=== PATIENT | female | born 1965 ===

== ENCOUNTER 2020-01-25 10:38 | Outpatient (REF) | payer OTHER, SELFPAY ==
--- NOTE | 2020-01-25 10:44 | XR_ITS ---
EXAMINATION: BILATERAL KNEE X-RAY CLINICAL INFORMATION: Arthritis COMPARISON: Previous x-ray June 2017 TECHNIQUE: 3 views of each knee FINDINGS: Right: Bone alignment is normal. No fracture or dislocation is seen. There are small osteophytes at the patellofemoral joint. Joint spaces are otherwise normal. There is no joint effusion. Left: Bone alignment is normal. No fracture or dislocation is seen. There are small osteophytes at the patellofemoral joint. Joint spaces are otherwise normal. There is no joint effusion. XR/XR knee standing BI IMPRESSION: Small osteophytes at the patellofemoral joint otherwise unremarkable exam.
--- NOTE | 2020-01-25 10:44 | XR_ITS ---
EXAMINATION: BILATERAL KNEE X-RAY CLINICAL INFORMATION: Arthritis COMPARISON: Previous x-ray June 2017 TECHNIQUE: 3 views of each knee FINDINGS: Right: Bone alignment is normal. No fracture or dislocation is seen. There are small osteophytes at the patellofemoral joint. Joint spaces are otherwise normal. There is no joint effusion. Left: Bone alignment is normal. No fracture or dislocation is seen. There are small osteophytes at the patellofemoral joint. Joint spaces are otherwise normal. There is no joint effusion. XR/XR knee LT 2V IMPRESSION: Small osteophytes at the patellofemoral joint otherwise unremarkable exam.
--- NOTE | 2020-01-25 10:44 | XR_ITS ---
EXAMINATION: BILATERAL KNEE X-RAY CLINICAL INFORMATION: Arthritis COMPARISON: Previous x-ray June 2017 TECHNIQUE: 3 views of each knee FINDINGS: Right: Bone alignment is normal. No fracture or dislocation is seen. There are small osteophytes at the patellofemoral joint. Joint spaces are otherwise normal. There is no joint effusion. Left: Bone alignment is normal. No fracture or dislocation is seen. There are small osteophytes at the patellofemoral joint. Joint spaces are otherwise normal. There is no joint effusion. XR/XR knee RT 2V IMPRESSION: Small osteophytes at the patellofemoral joint otherwise unremarkable exam.
== END 2020-01-25 10:39 | disposition home or self-care (01) ==
LOC: HO.HOSX 10:38
PROVIDERS: PCP Internal Medicine; Referring Provider Internal Medicine; Visit Provider Orthopaedic Surgery
DX: M17.0 Bilateral primary osteoarthritis of knee (principal); Z79.899 Other long term (current) drug therapy
CPT/HCPCS: 20610; 73560; 73565; 99212; J1100

== ENCOUNTER 2020-02-10 07:58 | Outpatient (RCR) | payer OTHER, SELFPAY ==
--- NOTE | 2020-02-10 09:20 | MHC.PT.EP ---
[facility] [place] Office [place] Office [place] Office [address] Ivelisse Armijo [address] [phone] F: [phone] F: [phone] F: [phone] F: [phone] Physical Therapy Plan of Care Date of Evaluation: 02/10/20 Date of Surgery: NA Diagnosis: Unilateral primary OA, unspecified knee unilateral primary OA, unspecified knee Assessment: 54 year old female referred for Unilateral primary OA, unspecified knee unilateral primary OA, unspecified knee . Pt reports of having h/o chronic knee pain which has gotten worse recently. She has had PT in the past but had no relief in pain. Examination reveals 0/10 pain at rest and 5/10 pain with prolonged sitting, standing, walking more than 25 minutes, and stair negotiation, decreased muscle strength, and altered posture. She is independent with all ADLS but has pain with them and modifies them as needed. 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 She is a good candidate for PT based on age, goals, physical impairments and functional limitations. She would benefit from PT to decrease pain, improve ROM, increase muscle strength, postural correction and functional training. Frequency and Duration: The patient will be seen 2/week for 5 weeks. Short Term Goals: 1. Pt will have 50% decrease in pain in 2 weeks. 2. Pt will be able to walk for 30 minutes and negotiate stairs with a pain no more than 2/10 in 3 weeks. Clinical Education Consultant Goals: 1. Pt will be able to perform all ADLS without pain in 4 weeks. 2. Pt will be able to perform work activities- driving without pain in 5 weeks. Treatment Plan: Modalities to reduce pain, spasms and effusion. Manual therapy to restore motion and function. Therapeutic exercise to improve strength and flexibility. Neuromuscular re-education for posture and balance. Therapeutic activities to return to functional activities of daily living. Please sign and return to therapist. Thank you for your referral.
--- NOTE | 2020-03-07 08:53 | MHC.PT.DC ---
[facility] [place] Office [place] Office [place] Office [address] [phone] F: [phone] F: [phone] F: [phone] F: [phone] Physical Therapy Discharge Report Diagnosis: Unilateral primary OA, unspecified knee unilateral primary OA, unspecified knee Date of Surgery: NA Date of Evaluation: 02/10/20 Date of Discharge: 03/07/20 Treatments to Date: 1 Cancellations to Date: 0 No Shows to Date: 0 Discharge Status: Patient Elected to Stop Discharge Summary: Pt did not come to therapy since her evaluation due to co-pay. Pt was called and recommended coming in for one more visit for HEPs however pt no showed for that appointment. Pt therefore d/c from therapy. Electronically signed by: Jovana Ayala DPT Please sign and return to therapist. Thank you for your referral.
== END 2020-03-07 08:53 | disposition other institution (70) ==
LOC: HO.PT 07:58
PROVIDERS: PCP Internal Medicine; Visit Provider Orthopaedic Surgery
DX: M17.10 Unilateral primary osteoarthritis, unspecified knee (principal)
CPT/HCPCS: 97110; 97161

== ENCOUNTER 2020-08-22 07:44 | Outpatient (REF) | payer OTHER, SELFPAY ==
[2020-08-22 08:43] LABS: MANUAL DIFF FLAG NO
[2020-08-22 08:49] LABS: Basophils Percent Auto 0.4 % (0-2); Eosinophils Absolute Auto 0.2 X10*3/uL (0.0-0.4); Eosinophils Percent Auto 2.3 % (0-4); Hematocrit 43.1 % (37-47); Hemoglobin 13.7 g/dl (12.0-16.0); Imm Gran Abs Auto 0.02 X10*3/uL (0.00-0.03); Imm Gran Pct Auto 0.3 % (0.0-0.4); Lymphocytes Absolute Auto 2.6 X10*3/uL (1.2-4.9); Lymphocytes Percent Auto 36.5 % (20-40); Mean Corpuscular HGB Conc 31.8 g/dl (31.0-35.0); Mean Corpuscular Hemoglobin 28.3 pg (27.0-33.0); Mean Platelet Volume 11.8 fL (9.4-12.3); Monocytes Absolute Auto 0.4 X10*3/uL (0.1-1.2); Neutrophils Absolute Auto 3.9 X10*3/uL (2.0-8.3); Neutrophils Percent Auto 54.5 % (45-73); Platelet Count 324 X10*3/uL (160-400); Red Blood Count 4.84 X10*6/uL (4.20-5.50); Red Cell Distribution Width 14.7 % (11.0-16.0); White Blood Count 7.1 X10*3/uL (4.8-10.8)
[2020-08-22 09:23] LABS: Alanine Aminotransferase 30 U/L (0-31); Albumin Level 4.1 g/dL (3.5-5.0); Alkaline Phosphatase 121 U/L (39-117); Anion Gap 15 (12-20); Aspartate Amino Transferase 20 U/L (5-31); Bilirubin Total 0.6 mg/dL (0.0-1.0); Blood Urea Nitrogen 10 mg/dL (9-16); Calcium 9.5 mg/dL (8.4-10.2); Carbon Dioxide 25 mmol/L (22-29); Chloride 107 mmol/L (96-108); Cholesterol 197 mg/dL; Estimated Glomerular Filt Rate > 60; Glucose Random 127 mg/dL (60-115); HDL Cholesterol 35 mg/dL; LDL Cholesterol Calculated 112 mg/dl; Potassium 4.7 mmol/L (3.3-5.1); Sodium 142 mmol/L (135-145); Total Protein 7.1 g/dL (6.5-8.0); Triglycerides 250 mg/dL
== END 2020-08-22 07:45 | disposition home or self-care (01) ==
LOC: HO.LAB 07:44
PROVIDERS: PCP Internal Medicine; Visit Provider Internal Medicine
DX: Z00.00 Encounter for general adult medical examination without abnormal findings (principal); R21 Rash and other nonspecific skin eruption; E78.2 Mixed hyperlipidemia; M79.672 Pain in left foot
CPT/HCPCS: 36415; 80053; 80061; 85025

== ENCOUNTER 2020-09-06 12:32 | Outpatient (REF) | payer OTHER, SELFPAY | END 2020-09-06 12:33 | disposition home or self-care (01) | LOC: HO.LAB 12:32 | PROVIDERS: PCP Internal Medicine; Visit Provider Internal Medicine | DX: Z20.822 Contact with and (suspected) exposure to COVID-19 (principal) | CPT/HCPCS: C9803; U0003; U0005 ==

== ENCOUNTER 2020-10-17 10:35 | Emergency (ER) | payer OTHER, SELFPAY ==
--- NOTE | ~2020-10-17 | CT_ITS ---
EXAMINATION: CT ABDOMEN AND PELVIS WITH CONTRAST CLINICAL INFORMATION: Left lower quadrant pain. Rule out diverticulitis. COMPARISON: 06/05/2018 TECHNIQUE: Multidetector volumetric images were obtained from the superior aspect of the liver through the pubic symphysis following administration 85 mL of Omnipaque 350 intravenous contrast. Sagittal and coronal reformatted images were obtained on the technologist's workstation. Oral contrast: No This CT examination was performed using dose optimization techniques as appropriate, variously including the following: *Automated exposure control *Adjustment of mA and/or kV according to patient size (this includes techniques or standardized protocols for targeted exams where dose is matched to indication/reason for exam; i.e. extremities or head) *Use of iterative reconstruction technique DLP: 600 mGy-cm FINDINGS: LUNG BASES: Mild dependent atelectasis. LIVER, GALLBLADDER, AND BILIARY TREE: Relative hypoattenuation of the hepatic parenchyma is consistent with steatosis. There is focal fatty sparing around the gallbladder fossa. Liver is borderline enlarged. Contour is normal. No biliary ductal dilatation or suspicious hepatic lesions. The gallbladder is unremarkable with no evidence of radiopaque gallstones, gallbladder wall thickening, or obvious pericholecystic inflammatory changes. PANCREAS: Unremarkable. SPLEEN: Unremarkable. ADRENAL GLANDS: Unremarkable. KIDNEYS AND URETERS: The kidneys are normal in size, shape, and attenuation. No hydronephrosis, hydroureter, or calculi seen. No perinephric stranding. BLADDER: Unremarkable. GASTROINTESTINAL TRACT: There is moderate diverticulosis in the descending colon with focal peridiverticular fat stranding at the posterior aspect of the distal descending colon. No surrounding fluid collections. No intraperitoneal free air. Chain camelia are present at the region of the rectosigmoid junction, demonstrated free fluid. Numerous surgical clips are present in the anterior aspect of the abdomen. ABDOMINAL WALL: Postsurgical changes are present of the lateral abdominal wall in the lower abdomen. No hernias. LYMPH NODES: Normal. VASCULAR: Atherosclerotic calcifications are present in the abdominal aorta and iliac arteries. No aneurysmal dilatation. PELVIC VISCERA: Uterus is normal in appearance. No adnexal lesions are identified. OSSEOUS STRUCTURES: No acute osseous findings. Mild osteoarthritis in the hips. CT/CT abdomen pelvis w con IMPRESSION: 1. Acute uncomplicated diverticulitis in the sigmoid colon without perforation or abscess. 2. Hepatic steatosis.
[2020-10-17 11:12] VITALS: BP 133/80; PULSE 94; RESP 18; TEMP 36.8; O2SAT 96; BMI 34.0
--- NOTE | 2020-10-17 16:26 | ED_ITS ---
HPI - Abdominal Pain General Chief Complaint: Abdominal Pain Stated Complaint: diverticulites Time Seen by Provider: 10/17/20 16:17 Source: patient Mode of arrival: ambulatory Limitations: no limitations History of Present Illness HPI narrative: 55-year-old female with a past medical history of high cholesterol, diverticulitis status post partial colon resection by Dr. Hunt here with complaints of left-sided abdominal pain for 3-4 days with associated diarrhea and nausea on Saturday had an isolated temp of 101 degrees. No vomiting. No urinary symptoms. History of diverticulitis and feels similar Related Data Home Medications Medication Instructions Recorded Confirmed rosuvastatin 10 mg tablet (Crestor) 10 mg PO DAILY 01/25/20 01/25/20 Previous Rx's Medication Instructions Recorded levofloxacin 750 mg tablet 750 mg PO DAILY 7 Days #7 tab 10/17/20 metronidazole 500 mg tablet 500 mg PO TID #21 tab 10/17/20 (Flagyl) ondansetron 4 mg disintegrating 4 mg PO Q6H PRN #10 tab 10/17/20 tablet tramadol 50 mg tablet 50 mg PO Q6H PRN #12 tab 10/17/20 Allergies Allergy/AdvReac Type Severity Reaction Status Date / Time morphine [Morphine] Allergy Severe ANAPHYLAXIS Verified 10/17/20 11:11 oxycodone [Percocet] Allergy Severe Anaphylaxis Verified 10/17/20 11:11 hydrocodone [From Vicodin] Allergy Intermediate ANAPHYLAXIS Verified 10/17/20 11:11 shrimp [SHRIMP] Allergy Intermediate Swelling Verified 10/17/20 11:11 Review of Systems Review of Systems Yes all other systems are reviewed and are negative Constitutional: Reports no additional constitutional complaints, Denies body ache(s), Denies chills, Reports fever(s), Denies headache(s) and Denies weakness Eyes: Reports no additional eye complaints and Denies change in vision Reports system reviewed and no additional complaints, except as documented, Denies dizziness, Denies headache(s), Denies nasal congestion, Denies nasal discharge and Denies neck pain Cardiovascular: Reports no additional cardiovascular complaints, Denies chest pain, Denies leg edema and Denies dyspnea Respiratory: Reports no additional respiratory complaints, Denies cough and Denies dyspnea Gastrointestinal: Reports no additional gastrointestinal complaints, Reports abdominal pain, Reports diarrhea, Reports nausea and Denies vomiting Genitourinary: Reports no additional female genitourinary complaints and Denies urinary incontinence Musculoskeletal: Reports no additional musculoskeletal complaints, Denies back pain, Denies arthralgias, Denies joint swelling, Denies neck pain, Denies n umbness and Denies tingling Skin/Breast: Reports system reviewed and no additional complaints, except as docu and Denies rash Reports system reviewed and no additional complaints, except as documented, Denies Abnormal speech present, Denies dizziness, Denies headache(s), Denies numbness, Denies tingling and Denies weakness Physical Exam Vital Signs: Vital Signs: Last Vital Signs Temp 97.6 F 10/17/20 17:07 Pulse 80 10/17/20 18:28 Resp 16 10/17/20 18:28 BP 113/71 10/17/20 18:28 Pulse Ox 98 10/17/20 18:28 Body Mass Index 34.0 Const: General: cooperative, healthy appearing, comfortable and no acute distress Orientation/consciousness: patient oriented x3 Limitations: no limitations HENMT: Head: Yes normal to inspection Ears: hearing grossly normal bilaterally General nose exam: Normal external nose present Face and sinus: Yes normal facial exam Mouth: Normal oral and palatal mucosa present Throat: Yes posterior oropharynx normal Eyes: General: appearance normal, both eyes and all related structures Pupils: Equal, round and reactive pupils present Neck: Neck: Yes normal visual inspection Chest: Chest palpation & inspection: normal inspection of the chest Resp: Effort & Inspection: normal respiratory effort Auscultation: clear to auscultation bilaterally Cardio: Rate: regular rate Rhythm: regular rhythm Peripheral pulses: Peripheral pulses 2+ throughout GI: Inspection: Yes normal to inspection Palpation (GI): Soft to palpation and Tenderness to palpation present (GI) (Moderately tender left lower quadrant with guarding) Auscultation: normal bowel sounds : General: Yes no CVA tenderness Back/Spine/Pelvis: Back: no CVA tenderness Thoracic/Lumbar Spine: thoracic and lumbar spine normal to inspection Skin: General skin exam: no rashes or lesions noted Neuro: General: patient oriented x3, no focal motor deficits and normal sensation to monofilament Cranial nerves: Yes Equal, round and reactive pupils present Cognition (Neuro): normal cognition Speech: No Abnormal speech present Gait exam (Neuro): Normal gait present Motor exam (neuro): 5/5 motor strength present throughout Extrem: General: Yes normal to inspection Course Course Course Narrative: 55-year-old female here with complaints of several days of left lower quadrant abdominal pain with associated nausea and diarrhea with an isolated fever of 101. History of diverticulitis and feels similar. On exam a moderate tenderness over the left lower quadrant with some guarding. Hemodynamically stable. Will check labs, UA, CT. Will provide analgesia and antiemetic and reassess. 1940-CT consistent with uncomplicated diverticulitis. No fever or leukocytosis. Patient tolerating p.o.. She does still have some mild discomfort but feels like she can go home and manages at home with pain medicine. Reviewed worrisome signs and symptoms of when to return to the emergency department. Comfortable discharge home. MDM - Abdominal Pain Differential Diagnosis Differential diagnosis: Likely abdominal pain, bowel perforation, diverticulitis and pancreatitis Medical Records Attestation: I reviewed the patient's medical records. Lab Data Attestation: I reviewed the patient's lab results. Result diagrams: 10/17/20 16:50 10/17/20 16:50 Labs: Lab Results 10/17/20 10/17/20 10/17/20 Range/Units 16:50 16:50 16:50 WBC 9.2 (4.8-10.8) X10*3/uL RBC 4.51 (4.20-5.50) X10*6/uL Hgb 12.9 (12.0-16.0) g/dl Hct 39.6 (37-47) % MCV 87.8 (80-98) fL MCH 28.6 (27.0-33.0) pg MCHC 32.6 (31.0-35.0) g/dl RDW 14.6 (11.0-16.0) % Plt Count 326 (160-400) X10*3/uL MPV 11.2 (9.4-12.3) fL Immature Gran % (Auto) 0.4 (0.0-0.4) % Neut % (Auto) 54.8 (45-73) % Lymph % (Auto) 35.8 (20-40) % [place] % (Auto) 6.3 (2-11) % Eos % (Auto) 2.3 (0-4) % Baso % (Auto) 0.4 (0-2) % Lymph # (Auto) 3.3 (1.2-4.9) X10*3/uL [place] # (Auto) 0.6 (0.1-1.2) X10*3/uL Eos # (Auto) 0.2 (0.0-0.4) X10*3/uL Baso # (Auto) 0.0 (0.0-0.2) X10*3/uL Abs Immat Gran (auto) 0.04 H (0.00-0.03) X10*3/uL Absolute Neuts (auto) 5.0 (2.0-8.3) X10*3/uL Absolute Nucleated RBC 0.000 (0.0-0.012) X10*3/uL Nucleated RBC % (auto) 0.0 (0.0-0.2) /100WBC Sodium 139 (135-145) mmol/L Potassium 4.3 (3.3-5.1) mmol/L Chloride 103 (96-108) mmol/L Carbon Dioxide 22 (22-29) mmol/L Anion Gap 18 (12-20) BUN 9 (9-16) mg/dL Creatinine 0.70 (0.5-1.4) mg/dL Estim Creat Clear Calc 87.9 Estimated GFR > 60 Random Glucose 105 (60-115) mg/dL Lactic Acid (0.5-2.0) mmol/L Calcium 9.8 (8.4-10.2) mg/dL Magnesium 2.1 (1.6-2.6) mg/dL Total Bilirubin 0.4 (0.0-1.0) mg/dL Direct Bilirubin 0.2 (0.0-0.5) mg/dL AST 25 (5-31) U/L ALT 38 H (0-31) U/L Alkaline Phosphatase 113 (39-117) U/L Total Protein 7.5 (6.5-8.0) g/dL Albumin 4.2 (3.5-5.0) g/dL Lipase (8-78) U/L Urine Color Urine Appearance Urine pH (5.0-8.0) Ur Specific [place] (1.005-1.025) Urine Protein (NEG-TRACE) MG/DL Urine Glucose (UA) (NEG) MG/DL Urine Ketones (NEG) MG/DL Urine Blood (NEG) Urine Nitrite (NEG) Ur Leukocyte Esterase (NEG) Urine Test (NEGATIVE) Coronavirus (PCR) (Negative) Influenza Type A (PCR) (Negative) Influenza Type B (PCR) (Negative) RSV RNA Qual (PCR) (Negative) 10/17/20 10/17/20 10/17/20 Range/Units 16:50 16:50 16:50 WBC (4.8-10.8) X10*3/uL RBC (4.20-5.50) X10*6/uL Hgb (12.0-16.0) g/dl Hct (37-47) % MCV (80-98) fL MCH (27.0-33.0) pg MCHC (31.0-35.0) g/dl RDW (11.0-16.0) % Plt Count (160-400) X10*3/uL MPV (9.4-12.3) fL Immature Gran % (Auto) (0.0-0.4) % Neut % (Auto) (45-73) % Lymph % (Auto) (20-40) % [place] % (Auto) (2-11) % Eos % (Auto) (0-4) % Baso % (Auto) (0-2) % Lymph # (Auto) (1.2-4.9) X10*3/uL [place] # (Auto) (0.1-1.2) X10*3/uL Eos # (Auto) (0.0-0.4) X10*3/uL Baso # (Auto) (0.0-0.2) X10*3/uL Abs Immat Gran (auto) (0.00-0.03) X10*3/uL Absolute Neuts (auto) (2.0-8.3) X10*3/uL Absolute Nucleated RBC (0.0-0.012) X10*3/uL Nucleated RBC % (auto) (0.0-0.2) /100WBC Sodium (135-145) mmol/L Potassium (3.3-5.1) mmol/L Chloride (96-108) mmol/L Carbon Dioxide (22-29) mmol/L Anion Gap (12-20) BUN (9-16) mg/dL Creatinine (0.5-1.4) mg/dL Estim Creat Clear Calc Estimated GFR Random Glucose (60-115) mg/dL Lactic Acid 1.5 (0.5-2.0) mmol/L Calcium (8.4-10.2) mg/dL Magnesium (1.6-2.6) mg/dL Total Bilirubin (0.0-1.0) mg/dL Direct Bilirubin (0.0-0.5) mg/dL AST (5-31) U/L ALT (0-31) U/L Alkaline Phosphatase (39-117) U/L Total Protein (6.5-8.0) g/dL Albumin (3.5-5.0) g/dL Lipase 13 (8-78) U/L Urine Color Urine Appearance Urine pH (5.0-8.0) Ur Specific [place] (1.005-1.025) Urine Protein (NEG-TRACE) MG/DL Urine Glucose (UA) (NEG) MG/DL Urine Ketones (NEG) MG/DL Urine Blood (NEG) Urine Nitrite (NEG) Ur Leukocyte Esterase (NEG) Urine Test (NEGATIVE) Coronavirus (PCR) NEGATIVE (Negative) Influenza Type A (PCR) NEGATIVE (Negative) Influenza Type B (PCR) NEGATIVE (Negative) RSV RNA Qual (PCR) NEGATIVE (Negative) 10/17/20 10/17/20 Range/Units 18:29 18:29 WBC (4.8-10.8) X10*3/uL RBC (4.20-5.50) X10*6/uL Hgb (12.0-16.0) g/dl Hct (37-47) % MCV (80-98) fL MCH (27.0-33.0) pg MCHC (31.0-35.0) g/dl RDW (11.0-16.0) % Plt Count (160-400) X10*3/uL MPV (9.4-12.3) fL Immature Gran % (Auto) (0.0-0.4) % Neut % (Auto) (45-73) % Lymph % (Auto) (20-40) % [place] % (Auto) (2-11) % Eos % (Auto) (0-4) % Baso % (Auto) (0-2) % Lymph # (Auto) (1.2-4.9) X10*3/uL [place] # (Auto) (0.1-1.2) X10*3/uL Eos # (Auto) (0.0-0.4) X10*3/uL Baso # (Auto) (0.0-0.2) X10*3/uL Abs Immat Gran (auto) (0.00-0.03) X10*3/uL Absolute Neuts (auto) (2.0-8.3) X10*3/uL Absolute Nucleated RBC (0.0-0.012) X10*3/uL Nucleated RBC % (auto) (0.0-0.2) /100WBC Sodium (135-145) mmol/L Potassium (3.3-5.1) mmol/L Chloride (96-108) mmol/L Carbon Dioxide (22-29) mmol/L Anion Gap (12-20) BUN (9-16) mg/dL Creatinine (0.5-1.4) mg/dL Estim Creat Clear Calc Estimated GFR Random Glucose (60-115) mg/dL Lactic Acid (0.5-2.0) mmol/L Calcium (8.4-10.2) mg/dL Magnesium (1.6-2.6) mg/dL Total Bilirubin (0.0-1.0) mg/dL Direct Bilirubin (0.0-0.5) mg/dL AST (5-31) U/L ALT (0-31) U/L Alkaline Phosphatase (39-117) U/L Total Protein (6.5-8.0) g/dL Albumin (3.5-5.0) g/dL Lipase (8-78) U/L Urine Color YELLOW Urine Appearance CLEAR Urine pH 5.5 (5.0-8.0) Ur Specific [place] 1.010 (1.005-1.025) Urine Protein NEG (NEG-TRACE) MG/DL Urine Glucose (UA) NEG (NEG) MG/DL Urine Ketones NEG (NEG) MG/DL Urine Blood NEG (NEG) Urine Nitrite NEG (NEG) Ur Leukocyte Esterase NEG (NEG) Urine Test NEGATIVE (NEGATIVE) Coronavirus (PCR) (Negative) Influenza Type A (PCR) (Negative) Influenza Type B (PCR) (Negative) RSV RNA Qual (PCR) (Negative) Imaging Data CT scan - abdomen: Attestation: I personally reviewed and interpreted this imaging study as follows: Radiologist's impression: FINDINGS: LUNG BASES: Mild dependent atelectasis.? LIVER, GALLBLADDER, AND BILIARY TREE: Relative hypoattenuation of the hepatic parenchyma is consistent with steatosis. There is focal fatty sparing around the gallbladder fossa. Liver is borderline enlarged. Contour is normal. No biliary ductal dilatation or suspicious hepatic lesions. The gallbladder is unremarkable with no evidence of radiopaque gallstones, gallbladder wall thickening, or obvious pericholecystic inflammatory changes.? PANCREAS: Unremarkable.? SPLEEN: Unremarkable.? ADRENAL GLANDS: Unremarkable.? KIDNEYS AND URETERS: The kidneys are normal in size, shape, and attenuation. No hydronephrosis, hydroureter, or calculi seen. No perinephric stranding. ? BLADDER: Unremarkable.? GASTROINTESTINAL TRACT: There is moderate diverticulosis in the descending colon with focal peridiverticular fat stranding at the posterior aspect of the distal descending colon. No surrounding fluid collections. No intraperitoneal free air. Chain camelia are present at the region of the rectosigmoid junction, demonstrated free fluid. Numerous surgical clips are present in the anterior aspect of the abdomen. ABDOMINAL WALL: Postsurgical changes are present of the lateral abdominal wall in the lower abdomen. No hernias.? LYMPH NODES: Normal. VASCULAR: Atherosclerotic calcifications are present in the abdominal aorta and iliac arteries. No aneurysmal dilatation. PELVIC VISCERA: Uterus is normal in appearance. No adnexal lesions are identified.? OSSEOUS STRUCTURES: No acute osseous findings. Mild osteoarthritis in the hips.? CT/CT abdomen pelvis w con IMPRESSION: 1. Acute uncomplicated diverticulitis in the sigmoid colon without perforation or abscess. ? 2. Hepatic steatosis. Discharge Plan Discharge Clinical Impression: Diverticulitis Patient Disposition: Home, Self-Care Instructions: Diverticulitis (ED) Additional Instructions: Increase fluids, rest Follow-up with surgery as needed Return for persistent or worsening pain, fever, inability to tolerate p.o. Prescriptions: New tramadol 50 mg tablet 50 mg PO Q6H PRN (Reason: pain) Qty: 12 RF: 0 ondansetron 4 mg tablet,disintegrating 4 mg PO Q6H PRN (Reason: nausea and vomiting) Qty: 10 RF: 0 metronidazole [Flagyl] 500 mg tablet 500 mg PO TID Qty: 21 RF: 0 levofloxacin 750 mg tablet 750 mg PO DAILY 7 Days Qty: 7 RF: 0 No Action rosuvastatin [Crestor] 10 mg tablet 10 mg PO DAILY RF: 0 Referrals: Teri Hernández MD [Physician] - 2 days Interventions: ED Discharge Assessment Last Done: 10/17/20 20:14 Discharge Date/Time: 10/17/20 20:14 [facility] Past Medical History Attestation statement: The following information was validated with the patient. 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
[2020-10-17] MEDS: 0.9 % Sodium Chloride 1,000 ML 999 ML IV (16:56)
[2020-10-17] MEDS: ondansetron HCL 4 MG/2 ML VIAL IVPUSH ×2 (16:56→19:55)
[2020-10-17] MEDS: HYDROmorphone HCl 0.5 MG/0.5 ML SYRINGE IVPUSH (16:57)
[2020-10-17 17:04] LABS: MANUAL DIFF FLAG NO
[2020-10-17 17:07] VITALS: BP 124/76; PULSE 80; RESP 18; TEMP 36.4; O2SAT 97
[2020-10-17 17:07] LABS: Basophils Percent Auto 0.4 % (0-2); Eosinophils Absolute Auto 0.2 X10*3/uL (0.0-0.4); Eosinophils Percent Auto 2.3 % (0-4); Hematocrit 39.6 % (37-47); Hemoglobin 12.9 g/dl (12.0-16.0); Imm Gran Abs Auto 0.04 X10*3/uL (0.00-0.03); Imm Gran Pct Auto 0.4 % (0.0-0.4); Lymphocytes Absolute Auto 3.3 X10*3/uL (1.2-4.9); Lymphocytes Percent Auto 35.8 % (20-40); Mean Corpuscular HGB Conc 32.6 g/dl (31.0-35.0); Mean Corpuscular Hemoglobin 28.6 pg (27.0-33.0); Mean Corpuscular Volume 87.8 fL (80-98); Mean Platelet Volume 11.2 fL (9.4-12.3); Monocytes Absolute Auto 0.6 X10*3/uL (0.1-1.2); Monocytes Percent Auto 6.3 % (2-11); Neutrophils Percent Auto 54.8 % (45-73); Platelet Count 326 X10*3/uL (160-400); Red Blood Count 4.51 X10*6/uL (4.20-5.50); Red Cell Distribution Width 14.6 % (11.0-16.0); White Blood Count 9.2 X10*3/uL (4.8-10.8)
[2020-10-17 17:41] LABS: Lactic Acid 1.5 mmol/L (0.5-2.0)
[2020-10-17 17:45] LABS: Alanine Aminotransferase 38 U/L (0-31); Albumin Level 4.2 g/dL (3.5-5.0); Alkaline Phosphatase 113 U/L (39-117); Anion Gap 18 (12-20); Aspartate Amino Transferase 25 U/L (5-31); Bilirubin Direct 0.2 mg/dL (0.0-0.5); Bilirubin Total 0.4 mg/dL (0.0-1.0); Blood Urea Nitrogen 9 mg/dL (9-16); Calcium 9.8 mg/dL (8.4-10.2); Carbon Dioxide 22 mmol/L (22-29); Chloride 103 mmol/L (96-108); Creatinine Clr Calc Pharmacy 87.9; Estimated Glomerular Filt Rate > 60; Glucose Random 105 mg/dL (60-115); Magnesium 2.1 mg/dL (1.6-2.6); Potassium 4.3 mmol/L (3.3-5.1); Sodium 139 mmol/L (135-145); Total Protein 7.5 g/dL (6.5-8.0)
[2020-10-17 17:58] LABS: Influenza A PCR NEGATIVE (Negative); Influenza B PCR NEGATIVE (Negative); Resp Syncy Virus RNA Qual PCR NEGATIVE (Negative); SARS COV2 PCR INHOUSE NEGATIVE (Negative)
[2020-10-17] MEDS: iohexoL 350 MG/ML 100 ML INFUS..BTL IV (17:59)
[2020-10-17 18:28] VITALS: BP 113/71; PULSE 80; RESP 16; O2SAT 98
[2020-10-17 18:37] LABS: Glucose Urine UA NEG (NEG); Leukocyte Esterase Urine NEG (NEG); Nitrite Urine NEG (NEG); PH 5.5 (5.0-8.0); Urine Blood NEG (NEG); Urine Ketones NEG (NEG); Urine Protein NEG (NEG-TRACE)
[2020-10-17 18:40] LABS: Appearance Urine CLEAR; Color Urine YELLOW; UPreg QC Valid YES; Urine Pregnancy NEGATIVE (NEGATIVE)
[2020-10-17 18:54] LABS: Lipase 13 U/L (8-78)
== END 2020-10-17 20:14 | disposition home or self-care (01) ==
PROVIDERS: Nurse Practitioner Family; Emergency Provider Emergency Medicine Emergency Medical Services; PCP Internal Medicine
DX: K57.32 Diverticulitis of large intestine without perforation or abscess without bleeding (principal); R10.32 Left lower quadrant pain; Z20.822 Contact with and (suspected) exposure to COVID-19; Z79.899 Other long term (current) drug therapy
CPT/HCPCS: 0241U; 36415; 74177; 80048; 80076; 81003; 81025; 83605; 83690; 83735; 85025; 87040; 96361; 96374; 96375; 96376; 99283; 99284; J1170; J2405; Q9967

== ENCOUNTER 2020-11-25 13:16 | Outpatient (REF) | payer OTHER, SELFPAY ==
[2020-11-25 15:11] LABS: Erythrocyte Sedimentation Rate 19 MM/HR (0-20)
[2020-11-25 15:12] LABS: Vitamin B12 428 pg/mL (200-900)
[2020-11-25 15:28] LABS: Rheumatoid Factor < 15.0 IU/mL (<15.0)
[2020-11-26 08:27] LABS: Lyme Abs Screen <0.90 index
== END 2020-11-25 13:17 | disposition home or self-care (01) ==
LOC: HO.LAB 13:16
PROVIDERS: Physician Assistant Medical; PCP Internal Medicine; Visit Provider Physical Medicine & Rehabilitation
DX: M54.5 Low back pain (principal)
CPT/HCPCS: 36415; 82607; 85652; 86431; 86617; 86618

== ENCOUNTER 2020-11-28 13:32 | Outpatient (REF) | payer OTHER, SELFPAY ==
--- NOTE | ~2020-11-28 | XR_ITS ---
EXAMINATION: XR LUMBAR SPINE XR HIP WITH PELVIS, BILATERAL CLINICAL INFORMATION: Lower back pain. Bilateral leg pain. COMPARISON: Lumbar spine radiographs dated 12/19/2016 TECHNIQUE: AP, lateral, coned-down, and bilateral oblique views of the lumbar spine. AP view of the pelvis with AP and frog-leg lateral views of the right and left hip. FINDINGS: LUMBAR SPINE: Normal vertebral body alignment. The lumbar lordosis is maintained. No acute fracture or subluxation. No loss of vertebral body height. Mild multilevel loss of intervertebral disc height with anterior endplate osteophytes, unchanged. Bilateral facet arthropathy at L5-S1. No lytic or blastic osseous lesion. Surgical sutures and surgical clips within the pelvis. BILATERAL HIP AND PELVIS: No acute fracture or dislocation. Mild right hip joint space narrowing. Small right and left hip marginal osteophytes. No osseous erosion. Phleboliths within the pelvis. Surgical sutures and camelia within the pelvis. XR/XR lumbar spine 4V min IMPRESSION: LUMBAR SPINE: Mild multilevel degenerative disc disease. Bilateral facet arthropathy at L5-S1. BILATERAL HIP AND PELVIS: [id number] right and mild left hip osteoarthritis.
--- NOTE | ~2020-11-28 | XR_ITS ---
EXAMINATION: XR LUMBAR SPINE XR HIP WITH PELVIS, BILATERAL CLINICAL INFORMATION: Lower back pain. Bilateral leg pain. COMPARISON: Lumbar spine radiographs dated 12/19/2016 TECHNIQUE: AP, lateral, coned-down, and bilateral oblique views of the lumbar spine. AP view of the pelvis with AP and frog-leg lateral views of the right and left hip. FINDINGS: LUMBAR SPINE: Normal vertebral body alignment. The lumbar lordosis is maintained. No acute fracture or subluxation. No loss of vertebral body height. Mild multilevel loss of intervertebral disc height with anterior endplate osteophytes, unchanged. Bilateral facet arthropathy at L5-S1. No lytic or blastic osseous lesion. Surgical sutures and surgical clips within the pelvis. BILATERAL HIP AND PELVIS: No acute fracture or dislocation. Mild right hip joint space narrowing. Small right and left hip marginal osteophytes. No osseous erosion. Phleboliths within the pelvis. Surgical sutures and camelia within the pelvis. XR/XR hip BI w PEL1V IMPRESSION: LUMBAR SPINE: Mild multilevel degenerative disc disease. Bilateral facet arthropathy at L5-S1. BILATERAL HIP AND PELVIS: [id number] right and mild left hip osteoarthritis.
== END 2020-11-28 13:33 | disposition home or self-care (01) ==
LOC: HO.XRAY 13:32
PROVIDERS: PCP Internal Medicine; Visit Provider Physician Assistant Medical
DX: M54.5 Low back pain (principal)
CPT/HCPCS: 72110; 73521

== ENCOUNTER 2021-03-01 14:39 | Emergency (ER) | payer OTHER, SELFPAY ==
--- NOTE | ~2021-03-01 | XR_ITS ---
EXAMINATION: XR HAND, LEFT CLINICAL INFORMATION: Thumb laceration COMPARISON: None TECHNIQUE: PA, lateral, and oblique views of the left hand. FINDINGS: The bones and soft tissues are normal. No fracture. Alignment is anatomic. Joint spaces are maintained. No erosions or soft tissue calcifications. XR/XR hand LT 2V IMPRESSION: No fracture or radiopaque foreign body.
[2021-03-01 14:41] VITALS: PULSE 96; RESP 18; TEMP 36.7; O2SAT 96; BMI 32.0
[2021-03-01] MEDS: Acetaminophen 325 MG TABLET 650 MG PO (14:47)
--- NOTE | 2021-03-01 16:06 | ED_ITS ---
HPI - Wound/Laceration General Chief Complaint: Wound/Laceration Stated Complaint: L Thumb Lac Time Seen by Provider: 03/01/21 15:30 Source: patient Mode of arrival: ambulatory Limitations: no limitations History of Present Illness HPI narrative: 55-year-old female previously healthy here with reports of laceration to the left thumb. Patient tells me that she was putting trash in a dumpster when she was pushing down the back into the trash she noticed a cut from a piece of glass to her left thumb. She tells me she went to [facility] [employer] but was concerned because the wound was deep and so she came here instead. Patient tells me she is having difficulty bending the finger. Her last tetanus is greater than 15 years ago Related Data Home Medications Medication Instructions Recorded Confirmed rosuvastatin 10 mg tablet (Crestor) 10 mg PO DAILY 01/25/20 01/25/20 Previous Rx's Medication Instructions Recorded levofloxacin 750 mg tablet 750 mg PO DAILY 7 Days #7 tab 10/17/20 metronidazole 500 mg tablet 500 mg PO TID #21 tab 10/17/20 (Flagyl) ondansetron 4 mg disintegrating 4 mg PO Q6H PRN #10 tab 10/17/20 tablet tramadol 50 mg tablet 50 mg PO Q6H PRN #12 tab 10/17/20 Allergies Allergy/AdvReac Type Severity Reaction Status Date / Time morphine [Morphine] Allergy Severe ANAPHYLAXIS Verified 03/01/21 14:41 oxycodone [Percocet] Allergy Severe Anaphylaxis Verified 03/01/21 14:41 hydrocodone [From Vicodin] Allergy Intermediate ANAPHYLAXIS Verified 03/01/21 14:41 shrimp [SHRIMP] Allergy Intermediate Swelling Verified 03/01/21 14:41 Review of Systems Review of Systems: Yes all other systems are reviewed and are negative Constitutional: Constitutional: Reports no additional constitutional complaints, Denies body ache(s), Denies chills, Denies fever(s), Denies headache(s) and Denies weakness Eyes: Eyes: Reports no additional eye complaints and Denies change in vision ENT: Reports system reviewed and no additional complaints, except as documented, Denies dizziness, Denies headache(s), Denies nasal congestion, Denies nasal discharge and Denies neck pain Cardiovascular: Cardiovascular: Reports no additional cardiovascular complaints, Denies chest pain, Denies leg edema and Denies dyspnea Respiratory: Respiratory: Reports no additional respiratory complaints, Denies cough and Denies dyspnea Gastrointestinal: Gastrointestinal: Reports no additional gastrointestinal co mplaints, Denies abdominal pain, Denies diarrhea, Denies nausea and Denies vomiting Genitourinary: Genitourinary: Reports no additional female genitourinary complaints and Denies urinary incontinence Musculoskeletal: Musculoskeletal: Reports no additional musculoskeletal complaints, Denies back pain, Denies arthralgias, Denies joint swelling, Denies neck pain, Denies numbness and Denies tingling Integumentary/Breasts: Skin/Breast: Reports system reviewed and no additional complaints, except as docu and Denies rash Comments: +laceration Neurologic: Denies Abnormal speech present, Denies dizziness, Denies headache(s), Denies numbness, Denies tingling and Denies weakness PMFSH Past Medical History Attestation statement: The following information was validated with the patient. 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 Physical Exam Vital Signs: Vital Signs: Last Vital Signs Temp 97.8 F 03/01/21 16:28 Pulse 83 03/01/21 16:28 Resp 16 03/01/21 16:28 BP 106/66 03/01/21 16:28 Pulse Ox 99 03/01/21 16:28 BMI result Body Mass Index 32.0 Const: General: cooperative, healthy appearing, comfortable and no acute distress Orientation/consciousness: patient oriented x3 Limitations: no limitations HENMT: Head: Yes normal to inspection Ears: hearing grossly normal bilaterally General nose exam: Normal external nose present Face and sinus: Yes normal facial exam Mouth: Normal oral and palatal mucosa present Throat: Yes posterior oropharynx normal Eyes: General: appearance normal, both eyes and all related structures Pupils: Equal, round and reactive pupils present Neck: Neck: Yes normal visual inspection Chest: Chest palpation & inspection: normal inspection of the chest Resp: Effort & Inspection: normal respiratory effort Auscultation: clear to auscultation bilaterally Cardio: Rate: regular rate Rhythm: regular rhythm Peripheral pulses: Peripheral pulses 2+ throughout GI: Inspection: Yes normal to inspection Palpation (GI): Soft to palpation and nontender Auscultation: normal bowel sounds Back/Spine/Pelvis: Thoracic/Lumbar Spine: thoracic and lumbar spine normal to inspection Skin: General skin exam: no rashes or lesions noted Neuro: General: patient oriented x3, no focal motor deficits and normal sensation to monofilament Cranial nerves: Yes Equal, round and reactive pupils present Cognition (Neuro): normal cognition Speech: No Abnormal speech present Gait exam (Neuro): Normal gait present Motor exam (neuro): 5/5 motor strength present throughout Extrem: General: Yes normal to inspection Hand/finger images: 1. 2cm laceration noted left thumb along medial aspect. Edges are approximated. No active bleeding. Patient tells me she unable to flex the digit. Normal cap refill. Sensation is intact. Course Course Course Narrative: 55-year-old female here with laceration to the left thumb from a piece of glass. On arrival the patient has a laceration along the medial aspect of thumb. There is no active bleeding. The edges are approximated. Neurovascular intact distally so laceration. Patient is telling me she is unabl e to flex the thumb. Consider underlying flexor tendon injury. I spoke to orthopedics CHASE Ledbetter. Plan for thumb spica splint and follow-up in the office. The laceration edges were approximated. Unable to explore the tendon underneath. Irrigated with hydrogen peroxide/NS. Tetanus updated. Thin layer of glue used over laceration. Thumb spica splint placed. Reviewed worrisome signs and symptoms of when to return to the emergency department. Comfortable discharge home. MDM - Wound/Laceration Differential Diagnosis Differential diagnosis: Likely laceration Medical Records Attestation: I reviewed the patient's medical records. Lab Data Attestation: I reviewed the patient's lab results. Imaging Data hand x-ray: Attestation: I personally reviewed and interpreted this imaging study as follows: Radiologist's impression: EXAMINATION: XR HAND, LEFT CLINICAL INFORMATION: Thumb laceration? COMPARISON: None? TECHNIQUE: PA, lateral, and oblique views of the left hand. FINDINGS: The bones and soft tissues are normal. No fracture. Alignment is anatomic. Joint spaces are maintained. No erosions or soft tissue calcifications.? XR/XR hand LT 2V IMPRESSION: No fracture or radiopaque foreign body. Procedures Procedure Narrative Procedure Narrative: thumb spica splint Discharge Plan Discharge Clinical Impression: Laceration Patient Disposition: Home, Self-Care Instructions: Finger Laceration (ED), Tendon Laceration (ED) Additional Instructions: Due to your inability to bend the thumb we are concerned that you may have caused a laceration to the tendon of the thumb This is why your being referred to the hand surgeon Call them tomorrow to make an appointment The splint stays on all times. Do not get it wet Motrin or Tylenol for pain Prescriptions: No Action tramadol 50 mg tablet 50 mg PO Q6H PRN (Reason: pain) Qty: 12 RF: 0 ondansetron 4 mg tablet,disintegrating 4 mg PO Q6H PRN (Reason: nausea and vomiting) Qty: 10 RF: 0 metronidazole [Flagyl] 500 mg tablet 500 mg PO TID Qty: 21 RF: 0 levofloxacin 750 mg tablet 750 mg PO DAILY 7 Days Qty: 7 RF: 0 rosuvastatin [Crestor] 10 mg tablet 10 mg PO DAILY RF: 0 Referrals: John Sparrow MD [Physician] - 2 days Interventions: ED Discharge Assessment Last Done: 03/01/21 16:37 Discharge Date/Time: 03/01/21 16:38
[2021-03-01 16:28] VITALS: BP 106/66; PULSE 83; RESP 16; TEMP 36.6; O2SAT 99
[2021-03-01] MEDS: Diphth,Pertus(ACell),Tet Adult 0.5 ML SYRINGE IM (16:31)
== END 2021-03-01 16:38 | disposition home or self-care (01) ==
PROVIDERS: Emergency Provider Emergency Medicine Emergency Medical Services; PCP Internal Medicine
DX: S61.012A Laceration without foreign body of left thumb without damage to nail, initial encounter (principal); S60.512A Abrasion of left hand, initial encounter; W26.9XXA Contact with unspecified sharp object(s), initial encounter; Y93.9 Activity, unspecified; Y92.009 Unspecified place in unspecified non-institutional (private) residence as the place of occurrence of the external cause; Y99.9 Unspecified external cause status
CPT/HCPCS: 29130; 73120; 90471; 90715; 99284

== ENCOUNTER → 2021-03-02 10:02 | Outpatient (BNVA) | payer OTHER, SELFPAY | PROVIDERS: PCP Internal Medicine; Visit Provider Physician Assistant | DX: S61.012A Laceration without foreign body of left thumb without damage to nail, initial encounter (principal) | CPT/HCPCS: 99202 ==

== ENCOUNTER 2021-08-28 13:55 | Outpatient (REF) | payer OTHER, SELFPAY ==
--- NOTE | ~2021-08-28 | US_ITS ---
EXAMINATION: COLOR-FLOW DUPLEX IMAGING OF THE BILATERAL LOWER EXTREMITY ARTERIAL SYSTEM. VELOCITY MEASUREMENTS THROUGHOUT THE FEMORAL ARTERIES WITH ANKLE-BRACHIAL PERIPHERAL ARTERIAL TESTING. Interventional Radiologist: Jeremiah Pearson M.D., F.S.I.R., F.A.C.R. CLINICAL INFORMATION: This is a 56-year-old female with peripheral vascular disease. RIGHT FEMORAL RUNOFF VELOCITIES: The right common femoral artery measures 128 cm/s and triphasic. The right profunda femoral artery is 72 cm/s and is biphasic. Right proximal superficial femoral artery measures 96 cm/s and triphasic. Mid superficial femoral artery is 93 cm/s and triphasic. Distal right superficial femoral artery measures 86 cm/s and is triphasic. Right popliteal velocity measures 61 cm/s and is triphasic. The posterior tibial artery velocity measures 85 cm/s and was triphasic. The right ankle-brachial next is 1.22. The waveforms appear within normal limits. LEFT FEMORAL RUNOFF VELOCITIES: The left common femoral artery measures 103 cm/s and biphasic. The left profunda femoral artery is 71 cm/s and is biphasic. Left proximal superficial femoral artery measures 79 cm/s and biphasic. Mid superficial femoral artery is 76 cm/s and biphasic. Distal left superficial femoral artery measures 82 cm/s and is biphasic. Left popliteal velocity measures 62 cm/s and is biphasic. The posterior tibial artery velocity measures 29 cm/s and was monophasic. The left ankle-brachial index is 1.20. The waveforms appear within normal limits. US/US BELLA complete IMPRESSION: 1. Normal bilateral resting peripheral arterial testing without evidence of hemodynamically significant stenosis.
--- NOTE | ~2021-08-28 | US_ITS ---
EXAMINATION: COLOR-FLOW DUPLEX IMAGING OF THE BILATERAL LOWER EXTREMITY ARTERIAL SYSTEM. VELOCITY MEASUREMENTS THROUGHOUT THE FEMORAL ARTERIES WITH ANKLE-BRACHIAL PERIPHERAL ARTERIAL TESTING. Interventional Radiologist: Jeremiah Pearson M.D., F.S.I.R., F.A.C.R. CLINICAL INFORMATION: This is a 56-year-old female with peripheral vascular disease. RIGHT FEMORAL RUNOFF VELOCITIES: The right common femoral artery measures 128 cm/s and triphasic. The right profunda femoral artery is 72 cm/s and is biphasic. Right proximal superficial femoral artery measures 96 cm/s and triphasic. Mid superficial femoral artery is 93 cm/s and triphasic. Distal right superficial femoral artery measures 86 cm/s and is triphasic. Right popliteal velocity measures 61 cm/s and is triphasic. The posterior tibial artery velocity measures 85 cm/s and was triphasic. The right ankle-brachial next is 1.22. The waveforms appear within normal limits. LEFT FEMORAL RUNOFF VELOCITIES: The left common femoral artery measures 103 cm/s and biphasic. The left profunda femoral artery is 71 cm/s and is biphasic. Left proximal superficial femoral artery measures 79 cm/s and biphasic. Mid superficial femoral artery is 76 cm/s and biphasic. Distal left superficial femoral artery measures 82 cm/s and is biphasic. Left popliteal velocity measures 62 cm/s and is biphasic. The posterior tibial artery velocity measures 29 cm/s and was monophasic. The left ankle-brachial index is 1.20. The waveforms appear within normal limits. US/US arterial duplex LE BI IMPRESSION: 1. Normal bilateral resting peripheral arterial testing without evidence of hemodynamically significant stenosis.
== END 2021-08-28 13:56 | disposition home or self-care (01) ==
LOC: HO.US 13:55
PROVIDERS: Visit Provider Family Medicine
DX: I73.9 Peripheral vascular disease, unspecified (principal)
CPT/HCPCS: 93923; 93925

== ENCOUNTER 2021-10-29 16:20 | Emergency (ER) | payer OTHER, SELFPAY ==
--- NOTE | ~2021-10-29 | XR_ITS ---
EXAMINATION: XR LUMBOSACRAL SPINE. Left hand and wrist CLINICAL INFORMATION: Low back pain and left hand and wrist pain COMPARISON: None TECHNIQUE: Three views of the lumbosacral spine. FINDINGS: Lumbosacral spine. There is normal lumbar lordosis. The vertebral heights, alignment and disc heights are normal. There is no visible acute fracture, dislocation or subluxation seen. The SI joints are symmetrical. Left hand/wrist: There is no visible acute fracture, dislocation or subluxation seen. There is moderate mild loss of PIP and DIP joints without bony erosive changes. The soft tissues are normal. XR/XR lumbar spine 2-3V IMPRESSION: Unremarkable lumbar spine exam. No visible acute fracture or dislocation left wrist. Mild degenerative osteoarthritic changes PIP and DIP joints.
--- NOTE | ~2021-10-29 | XR_ITS ---
EXAMINATION: XR LUMBOSACRAL SPINE. Left hand and wrist CLINICAL INFORMATION: Low back pain and left hand and wrist pain COMPARISON: None TECHNIQUE: Three views of the lumbosacral spine. FINDINGS: Lumbosacral spine. There is normal lumbar lordosis. The vertebral heights, alignment and disc heights are normal. There is no visible acute fracture, dislocation or subluxation seen. The SI joints are symmetrical. Left hand/wrist: There is no visible acute fracture, dislocation or subluxation seen. There is moderate mild loss of PIP and DIP joints without bony erosive changes. The soft tissues are normal. XR/XR hand wrist LT IMPRESSION: Unremarkable lumbar spine exam. No visible acute fracture or dislocation left wrist. Mild degenerative osteoarthritic changes PIP and DIP joints.
[2021-10-29 18:34] VITALS: BP 128/74; PULSE 84; RESP 16; TEMP 36.5; O2SAT 98; BMI 28.7
--- NOTE | 2021-10-29 19:52 | ED_ITS ---
HPI - Fall General Chief Complaint: Fall Stated Complaint: fall down stairs Time Seen by Provider: 10/29/21 19:50 Source: patient Mode of arrival: ambulatory Limitations: no limitations History of Present Illness HPI Narrative: 56-year-old female came in for evaluation after sustained a fall. Patient had a mechanical fall after her right knee gave out and lost balance, patient fell about 5 steps of stairs landing on her back and left hand and wrist, patient declined any head injury no LOC no headache, no neck pain. Patient is complaining of left wrist pain, left elbow pain, left shoulder pain, lower back pain. Patient is able to ambulate with no obvious deformity. Patient declined chance of pain . Related Data Home Medications Medication Instructions Recorded Confirmed rosuvastatin 10 mg tablet (Crestor) 10 mg PO DAILY 01/25/20 01/25/20 Previous Rx's Medication Instructions Recorded levofloxacin 750 mg tablet 750 mg PO DAILY 7 days #7 tabs 10/17/20 metronidazole 500 mg tablet 500 mg PO TID #21 tabs 10/17/20 (Flagyl) ondansetron 4 mg disintegrating 4 mg PO Q6H PRN nausea and 10/17/20 tablet vomiting #10 tabs tramadol 50 mg tablet 50 mg PO Q6H PRN pain #12 tabs 10/17/20 cephalexin 500 mg capsule 500 mg PO TID 7 days #21 caps 03/02/21 Allergies Allergy/AdvReac Type Severity Reaction Status Date / Time morphine [Morphine] Allergy Severe ANAPHYLAXIS Verified 03/02/21 10:22 oxycodone [Percocet] Allergy Severe Anaphylaxis Verified 03/02/21 10:22 hydrocodone [From Vicodin] Allergy Intermediate ANAPHYLAXIS Verified 03/02/21 10:22 shrimp [SHRIMP] Allergy Intermediate Swelling Verified 03/02/21 10:22 Review of Systems Review of Systems: All other systems are reviewed and are negative Constitutional: Reports as per HPI and Reports no additional constitutional complaints Eyes: Reports as per HPI and Reports no additional eye complaints Reports system reviewed and no additional complaints, except as documented Cardiovascular: Reports as per HPI and Reports no additional cardiovascular complaints Respiratory: Reports as per HPI and Reports no additional respiratory complaints Gastrointestinal: Reports as per HPI and Reports no additional gastrointestinal complaints Genitourinary: Reports no additional female genitourinary complaints Musculoskeletal: Reports no additional musculoskeletal complaints Skin/Breast: Reports system reviewed and no additional complaints, except as docu Psychiatric: Reports no additional psychiatric complaints Endocrine: Reports no additional endocrine complaints Hematologic/Lymphatic: Reports no additional hematologic/lymphatic complaints Allergic/Immunologic: Reports no additional allergic/immunologic complaints Reports system reviewed and no additional complaints, except as documented and Reports Abnormal speech present REPLACED BY [facility] Past Medical History Medical History Diverticulitis High cholesterol Patellofemoral arthritis Surgical History History of 3 sections Hx of appendectomy Social History Social History Alcohol intake: never Advance Directives: No Advance Directives Information Provided: No Current occupational status: employed 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 Blood pressure normal. Heart rate normal. Respiration rate normal. Temperature normal. Oxygen saturation normal. Appearance: Alert. Oriented X3. No acute distress. Head: Normal external exam. Normocephalic. Atraumatic. No Guzman signs noted. No raccoon eyes noted Eyes: PERRLA. EOMI. Conjunctiva and sclera normal. Eyelids normal. ENT: TM's Normal. Pharynx normal. Uvula midline. Moist mucous membranes. No trismus noted. No drooling noted. No muffled voice noted. Neck: Normal inspection. Neck supple. FROM. No adenopathy. Thyroid Normal. No meningeal signs. No neck mass noted. CVS: Normal heart rate and rhythm. Heart sound normal. No murmurs noted. Pulses normal throughout. Respiratory: No respiratory distress. Painless inspiration. Breath sounds normal. No wheezes/rales/rhonchi noted. Chest nontender. No accessory muscle usage noted or decreased air movement noted. Abdomen: Soft and nontender. Bowel sounds normal in all 4 quadrants. No distention noted. No organomegaly noted. No visible injury noted. Back: No CVA tenderness. Full range of motion noted. Skin: Skin warm and dry. Normal skin color. Normal skin turgor. No rashes/lesions/lacerations noted. Extremities: Left wrist exam with tenderness, no deformity, no laceration, tender for range of motion. Neuro: Oriented X 3. Cranial nerve exam: II-XII are grossly intact No motor deficit. No sensory deficit. Reflexes normal. Course Course Course Narrative: 56-year-old female came in after sustained a mechanical fall complaining of whole left side body ache, lumbar spine x-ray is unremarkable, left hand and wrist x-rays unremarkable, patient feels slightly better after ibuprofen, will discharge the patient, instructed to use ibuprofen 200 mg every 6 hours p.r.n. pain. MDM - Fall Imaging Data Lumbar spine x-ray: Attestation: I personally reviewed and interpreted this imaging study as follows: Radiologist's impression: No acute fracture. Left hand/wrist x-ray: Attestation: I personally reviewed and interpreted this imaging study as follows: Radiologist's impression: Degenerative changes with no fracture. Discharge Plan Discharge Clinical Impression: Fall, Contusion of hand, left, Contusion of back Patient Disposition: Home, Self-Care Instructions: Contusion in Adults (ED) Additional Instructions: Take ibuprofen 200 mg pill every 6 hours if needed for pain. Use ice on areas of pain. Prescriptions: No Action tramadol 50 mg tablet 50 mg PO Q6H PRN (Reason: pain) Qty: 12 0RF ondansetron 4 mg tablet,disintegrating 4 mg PO Q6H PRN (Reason: nausea and vomiting) Qty: 10 0RF metronidazole [Flagyl] 500 mg tablet 500 mg PO TID Qty: 21 0RF levofloxacin 750 mg tablet 750 mg PO DAILY 7 Days Qty: 7 0RF rosuvastatin [Crestor] 10 mg tablet 10 mg PO DAILY cephalexin 500 mg capsule 500 mg PO TID 7 Days Qty: 21 0RF Referrals: Tami Márquez MD [Primary Care Provider] - Stand Alone Forms: Work/School Release
[2021-10-29] MEDS: Ibuprofen 600 MG TABLET PO (20:13)
== END 2021-10-29 21:42 | disposition home or self-care (01) ==
PROVIDERS: Emergency Provider Emergency Medicine; PCP Family Medicine
DX: S60.222A Contusion of left hand, initial encounter (principal); S30.0XXA Contusion of lower back and pelvis, initial encounter; M54.50 Low back pain, unspecified; M79.642 Pain in left hand; W01.0XXA Fall on same level from slipping, tripping and stumbling without subsequent striking against object, initial encounter; Y93.9 Activity, unspecified; Y92.9 Unspecified place or not applicable; Y99.9 Unspecified external cause status; Z79.899 Other long term (current) drug therapy
CPT/HCPCS: 72100; 73110; 73130; 99283

== ENCOUNTER 2021-11-07 12:05 | Emergency (ER) | payer OTHER, SELFPAY ==
--- NOTE | ~2021-11-07 | XR_ITS ---
EXAMINATION: XR CHEST CLINICAL INFORMATION: Shortness of breath COMPARISON: Previous chest x-ray most recent November 2019 TECHNIQUE: Frontal view of the chest was obtained. FINDINGS: The cardiac and mediastinal contours are stable. The lungs are clear. There is no pleural effusion or pneumothorax. Bony structures are unremarkable. XR/XR chest 1V IMPRESSION: Unremarkable examination.
[2021-11-07 12:15] VITALS: BP 104/74; PULSE 122; RESP 18; TEMP 37.5; O2SAT 94; BMI 27.8
[2021-11-07 12:30] LABS: MANUAL DIFF FLAG NO
[2021-11-07 12:32] LABS: Basophils Percent Auto 0.4 % (0-2); Eosinophils Absolute Auto 0.1 X10*3/uL (0.0-0.4); Eosinophils Percent Auto 0.8 % (0-4); Imm Gran Abs Auto 0.02 X10*3/uL (0.00-0.03); Imm Gran Pct Auto 0.3 % (0.0-0.4); Lymphocytes Absolute Auto 0.9 X10*3/uL (1.2-4.9); Lymphocytes Percent Auto 12.6 % (20-40); Mean Corpuscular HGB Conc 32.5 g/dl (31.0-35.0); Mean Corpuscular Hemoglobin 28.1 pg (27.0-33.0); Mean Corpuscular Volume 86.4 fL (80.0-98.0); Mean Platelet Volume 10.6 fL (9.4-12.3); Monocytes Absolute Auto 0.7 X10*3/uL (0.1-1.2); Monocytes Percent Auto 9.2 % (2-11); Neutrophils Absolute Auto 5.5 x10*3/uL (2.0-8.3); Neutrophils Percent Auto 76.7 % (45-73); Platelet Count 270 X10*3/uL (160-400); Red Blood Count 4.63 X10*6/uL (4.20-5.50); Red Cell Distribution Width 14.8 % (11.0-16.0); White Blood Count 7.2 X10*3/uL (4.8-10.8)
[2021-11-07 12:42] LABS: COVID-19 Test Positive (Negative)
[2021-11-07 12:45] LABS: Anion Gap 17 (12-20); Blood Urea Nitrogen 10 mg/dL (9-16); Calcium 8.8 mg/dL (8.4-10.2); Carbon Dioxide 21 mmol/L (22-29); Chloride 106 mmol/L (96-108); Creatinine Clr Calc Pharmacy 80.5; Estimated Glomerular Filt Rate > 60; Glucose Random 178 mg/dL (60-115); Potassium 3.8 mmol/L (3.3-5.1); Sodium 140 mmol/L (135-145)
--- NOTE | 2021-11-07 12:45 | ECG_ITS ---
Test Reason : DYSPNEA Blood Pressure : / mmHG Vent. Rate : 105 BPM Atrial Rate : 105 BPM P-R Int : 144 ms QRS Dur : 084 ms QT Int : 336 ms P-R-T Axes : 028 -12 001 degrees QTc Int : 444 ms Sinus tachycardia Minimal voltage criteria for LVH, may be normal variant ( R in aVL ) Borderline ECG When compared with ECG of 10-NOV-2019 20:06, Heart rate has increased Referred By: Madeline Vargas Electronically Signed By:INDIA LING
--- NOTE | 2021-11-07 12:59 | ED_ITS ---
HPI - SOB/Dyspnea General Chief Complaint: General Medical Stated Complaint: covid positive/diff. breathing/chest tightness Time Seen by Provider: 11/07/21 12:44 Source: patient Mode of arrival: ambulatory Limitations: no limitations History of Present Illness HPI Narrative: 56 yo female with hx of DM, HTN, asthma, HLD received 2 Pfizer shots here wtih c/o headaches, body aches, shortness of breath starting yesterday + COVID test at home. Came in for dyspnea. MD elicited complaint: shortness of breath and cough Pertinent past history: asthma Onset (ago): day(s) (1) Context: recent illness Timing: progressively worsening Severity: moderate Exacerbating factors: exertion and coughing Relieving factors: nothing Known history of: asthma Associated symptoms: fever, cough and other (headaches, nausea/vomitibg, body aches) Treatment prior to arrival: other (advil) Related Data Home Medications Medication Instructions Recorded Confirmed rosuvastatin 10 mg tablet (Crestor) 10 mg PO DAILY 01/25/20 01/25/20 Previous Rx's Medication Instructions Recorded levofloxacin 750 mg tablet 750 mg PO DAILY 7 days #7 tabs 10/17/20 metronidazole 500 mg tablet 500 mg PO TID #21 tabs 10/17/20 (Flagyl) ondansetron 4 mg disintegrating 4 mg PO Q6H PRN nausea and 10/17/20 tablet vomiting #10 tabs tramadol 50 mg tablet 50 mg PO Q6H PRN pain #12 tabs 10/17/20 cephalexin 500 mg capsule 500 mg PO TID 7 days #21 caps 03/02/21 benzonatate 100 mg capsule 100 mg PO TID PRN cough #14 caps 11/07/21 ondansetron 4 mg disintegrating 4 mg PO Q8H PRN nausea and 11/07/21 tablet vomiting #20 tabs prednisone 20 mg tablet 40 mg PO DAILY 4 days #8 tabs 11/07/21 Allergies Allergy/AdvReac Type Severity Reaction Status Date / Time morphine [Morphine] Allergy Severe ANAPHYLAXIS Verified 03/02/21 10:22 oxycodone [Percocet] Allergy Severe Anaphylaxis Verified 03/02/21 10:22 hydrocodone [From Vicodin] Allergy Intermediate ANAPHYLAXIS Verified 03/02/21 10:22 shrimp [SHRIMP] Allergy Intermediate Swelling Verified 03/02/21 10:22 Review of Systems Review of Systems: Constitutional : pos Fever, pos Chills, pos fatigue ENT/Mouth : pos sore throat, No Rhinorrhea, No Swallowing Difficulty Eyes: No Eye Pain, No Swelling, No Redness Cardiovascular : No Chest Pain, positive SOB, No Orthopnea, no edema Respiratory : No Cough, No Sputum, No Wheezing, positive dyspnea Gastrointestinal : pos Nausea, pos Vomiting, No Diarrhea, No abdominal Pain, No Hematochezia, No Melena Genitourinary : No Dysuria, No Urinary Frequency, No Hematuria Musculoskeletal : No joint pain, pos Myalgias Skin : No Skin Lesions, No rash Neuro : pos Weakness, No Numbness, No Dizziness, No Headache Psych : No Anxiety/Panic, No Depression Heme/Lymph: No Bruising, No Lymphadenopathy Endocrine : No Polyuria, No Polydipsia All other systems reviewed and are negative [facility] Past Medical History Attestation statement: The following information was validated with the patient. 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 Oriented X3. No acute distress. Eyes: Pupils equal, round and reactive to light. ENT: Pharynx normal. Neck: Normal inspection. Neck supple. CVS: tachycardic heart rate and rhythm. Pulses normal. Respiratory: No respiratory distress. Breath sounds very slightly diminished Abdomen: Soft and non-tender. Skin: Skin warm and dry. Normal skin color. Normal skin turgor. Extremities: No lower extremity edema. No calf ttp Neuro: Oriented X 3. No motor deficit. No sensory deficit. Course Course Course Narrative: CXR negative ddimer negative 95% on RA, had panic attack, lungs are CTAB - no covid pneumonia, neg CRP, neg ischemic EKG, trop flat, ddimer negative, LDH negative, procalcitonin negative at this time all prognostic tests look good reassured patient she is refusing anxiolytic. 95% on RA, HR down to 100 feels stable at this time refusing paxlovid MDM - SOB/Dyspnea MDM Narrative Medical decision making narrative: 56 yo female with hx of asthma, DM, vaccinated x 2 with Pfizer here with viral symptoms as well as dyspnea - at this time will obtain labs, cultures, EKG, CXR, troponin/ddimer - give neb treatment, treat pain and fevers. + for COVID - dispo per results and findings. She does not want paxlovid at this time after discussed needing to check medication interactions and possible n/v since she is already n/v Lab Data Result diagrams: 11/07/21 12:23 11/07/21 12:23 Labs: Lab Results 11/07/21 11/07/21 11/07/21 Range/Units 12:23 12:23 12:23 WBC 7.2 (4.8-10.8) X10*3/uL RBC 4.63 (4.20-5.50) X10*6/uL Hgb 13.0 (12.0-16.0) g/dl Hct 40.0 (37.0-47.0) % MCV 86.4 (80.0-98.0) fL MCH 28.1 (27.0-33.0) pg MCHC 32.5 (31.0-35.0) g/dl RDW 14.8 (11.0-16.0) % Plt Count 270 (160-400) X10*3/uL MPV 10.6 (9.4-12.3) fL Immature Gran % (Auto) 0.3 (0.0-0.4) % Neut % (Auto) 76.7 H (45-73) % Lymph % (Auto) 12.6 L (20-40) % [place] % (Auto) 9.2 (2-11) % Eos % (Auto) 0.8 (0-4) % Baso % (Auto) 0.4 (0-2) % Lymph # (Auto) 0.9 L (1.2-4.9) X10*3/uL [place] # (Auto) 0.7 (0.1-1.2) X10*3/uL Eos # (Auto) 0.1 (0.0-0.4) X10*3/uL Baso # (Auto) 0.0 (0.0-0.2) X10*3/uL Abs Immat Gran (auto) 0.02 (0.00-0.03) X10*3/uL Absolute Neuts (auto) 5.5 (2.0-8.3) x10*3/uL Absolute Nucleated RBC 0.000 (0.0-0.012) X10*3/uL Nucleated RBC % (auto) 0.0 (0.0-0.2) /100WBC D-Dimer High Sensitivty NG/ML Sodium 140 (135-145) mmol/L Potassium 3.8 (3.3-5.1) mmol/L Chloride 106 (96-108) mmol/L Carbon Dioxide 21 L (22-29) mmol/L Anion Gap 17 (12-20) BUN 10 (9-16) mg/dL Creatinine 0.71 (0.5-1.4) mg/dL Estim Creat Clear Calc 80.5 Estimated GFR > 60 Random Glucose 178 H (60-115) mg/dL Lactic Acid (0.5-2.0) mmol/L Calcium 8.8 D (8.4-10.2) mg/dL Magnesium (1.6-2.6) mg/dL Total Bilirubin (0.0-1.0) mg/dL Direct Bilirubin (0.0-0.5) mg/dL AST (5-31) U/L ALT (0-31) U/L Alkaline Phosphatase (39-117) U/L Lactate Dehydrogenase (122-220) U/L Troponin I High Sens (<3.5-17.0) ng/L C-Reactive Protein (< or = 0.50) mg/dL Total Protein (6.5-8.0) g/dL Albumin (3.5-5.0) g/dL Procalcitonin ng/mL COVID-19 (MARCELO) Positive A (Negative) COVID-19 Clin Com See Note 11/07/21 11/07/21 11/07/21 Range/Units 13:34 13:34 13:34 WBC (4.8-10.8) X10*3/uL RBC (4.20-5.50) X10*6/uL Hgb (12.0-16.0) g/dl Hct (37.0-47.0) % MCV (80.0-98.0) fL MCH (27.0-33.0) pg MCHC (31.0-35.0) g/dl RDW (11.0-16.0) % Plt Count (160-400) X10*3/uL MPV (9.4-12.3) fL Immature Gran % (Auto) (0.0-0.4) % Neut % (Auto) (45-73) % Lymph % (Auto) (20-40) % [place] % (Auto) (2-11) % Eos % (Auto) (0-4) % Baso % (Auto) (0-2) % Lymph # (Auto) (1.2-4.9) X10*3/uL [place] # (Auto) (0.1-1.2) X10*3/uL Eos # (Auto) (0.0-0.4) X10*3/uL Baso # (Auto) (0.0-0.2) X10*3/uL Abs Immat Gran (auto) (0.00-0.03) X10*3/uL Absolute Neuts (auto) (2.0-8.3) x10*3/uL Absolute Nucleated RBC (0.0-0.012) X10*3/uL Nucleated RBC % (auto) (0.0-0.2) /100WBC D-Dimer High Sensitivty 195 NG/ML Sodium (135-145) mmol/L Potassium (3.3-5.1) mmol/L Chloride (96-108) mmol/L Carbon Dioxide (22-29) mmol/L Anion Gap (12-20) BUN (9-16) mg/dL Creatinine (0.5-1.4) mg/dL Estim Creat Clear Calc Estimated GFR Random Glucose (60-115) mg/dL Lactic Acid 1.5 (0.5-2.0) mmol/L Calcium (8.4-10.2) mg/dL Magnesium 1.8 (1.6-2.6) mg/dL Total Bilirubin 0.5 (0.0-1.0) mg/dL Direct Bilirubin 0.2 (0.0-0.5) mg/dL AST 36 H D (5-31) U/L ALT 35 H (0-31) U/L Alkaline Phosphatase 118 H (39-117) U/L Lactate Dehydrogenase 206 (122-220) U/L Troponin I High Sens (<3.5-17.0) ng/L C-Reactive Protein 0.41 (< or = 0.50) mg/dL Total Protein 7.1 (6.5-8.0) g/dL Albumin 4.1 (3.5-5.0) g/dL Procalcitonin ng/mL COVID-19 (MARCELO) (Negative) COVID-19 Clin Com 11/07/21 11/07/21 Range/Units 13:34 13:34 WBC (4.8-10.8) X10*3/uL RBC (4.20-5.50) X10*6/uL Hgb (12.0-16.0) g/dl Hct (37.0-47.0) % MCV (80.0-98.0) fL MCH (27.0-33.0) pg MCHC (31.0-35.0) g/dl RDW (11.0-16.0) % Plt Count (160-400) X10*3/uL MPV (9.4-12.3) fL Immature Gran % (Auto) (0.0-0.4) % Neut % (Auto) (45-73) % Lymph % (Auto) (20-40) % [place] % (Auto) (2-11) % Eos % (Auto) (0-4) % Baso % (Auto) (0-2) % Lymph # (Auto) (1.2-4.9) X10*3/uL [place] # (Auto) (0.1-1.2) X10*3/uL Eos # (Auto) (0.0-0.4) X10*3/uL Baso # (Auto) (0.0-0.2) X10*3/uL Abs Immat Gran (auto) (0.00-0.03) X10*3/uL Absolute Neuts (auto) (2.0-8.3) x10*3/uL Absolute Nucleated RBC (0.0-0.012) X10*3/uL Nucleated RBC % (auto) (0.0-0.2) /100WBC D-Dimer High Sensitivty NG/ML Sodium (135-145) mmol/L Potassium (3.3-5.1) mmol/L Chloride (96-108) mmol/L Carbon Dioxide (22-29) mmol/L Anion Gap (12-20) BUN (9-16) mg/dL Creatinine (0.5-1.4) mg/dL Estim Creat Clear Calc Estimated GFR Random Glucose (60-115) mg/dL Lactic Acid (0.5-2.0) mmol/L Calcium (8.4-10.2) mg/dL Magnesium (1.6-2.6) mg/dL Total Bilirubin (0.0-1.0) mg/dL Direct Bilirubin (0.0-0.5) mg/dL AST (5-31) U/L ALT (0-31) U/L Alkaline Phosphatase (39-117) U/L Lactate Dehydrogenase (122-220) U/L Troponin I High Sens < 3.5 (<3.5-17.0) ng/L C-Reactive Protein (< or = 0.50) mg/dL Total Protein (6.5-8.0) g/dL Albumin (3.5-5.0) g/dL Procalcitonin 0.02 ng/mL COVID-19 (MARCELO) (Negative) COVID-19 Clin Com ECG Data Attestation: I personally reviewed and interpreted this ECG as follows: ECG interpretation date: 11/07/21 ECG interpretation time: 13:20 Interpretation: Rate: 105 Rhythm: sinus tach [place]: left, LVH Normal P waves. Normal DULCE. Normal QRS complex. ST T wave : no VIDA< nonspecific qTC: normal prior studies: no acute ischemia The study has been interpreted contemporaneously by me. . Discharge Plan Discharge Clinical Impression: COVID-19 Patient Disposition: Home, Self-Care Instructions: COVID-19 (Coronavirus Disease 2019) (ED) Additional Instructions: return to ED for any worsening symptoms or concerns use your inhalers at home you did not have COVID pneumonia on CXR, your blood clot test was negative if you become so short of breath you cannot walk to your own bathroom please seek immediate care Prescriptions: New prednisone 20 mg tablet 40 mg PO DAILY 4 Days Qty: 8 0RF benzonatate 100 mg capsule 100 mg PO TID PRN (Reason: cough) Qty: 14 0RF ondansetron 4 mg tablet,disintegrating 4 mg PO Q8H PRN (Reason: nausea and vomiting) Qty: 20 0RF No Action tramadol 50 mg tablet 50 mg PO Q6H PRN (Reason: pain) Qty: 12 0RF ondansetron 4 mg tablet,disintegrating 4 mg PO Q6H PRN (Reason: nausea and vomiting) Qty: 10 0RF metronidazole [Flagyl] 500 mg tablet 500 mg PO TID Qty: 21 0RF levofloxacin 750 mg tablet 750 mg PO DAILY 7 Days Qty: 7 0RF rosuvastatin [Crestor] 10 mg tablet 10 mg PO DAILY cephalexin 500 mg capsule 500 mg PO TID 7 Days Qty: 21 0RF Stand Alone Forms: Work/School Release
[2021-11-07] MEDS: Acetaminophen 325 MG TABLET 975 MG PO (13:39)
[2021-11-07] MEDS: ondansetron HCL 4 MG/2 ML VIAL IVPUSH (13:40)
[2021-11-07] MEDS: Benzonatate 100 MG CAPSULE PO (13:40)
[2021-11-07 13:51] LABS: D Dimer High Sensitivity 195 NG/ML
[2021-11-07 13:54] LABS: Lactic Acid 1.5 mmol/L (0.5-2.0)
[2021-11-07 13:57] LABS: Alanine Aminotransferase 35 U/L (0-31); Albumin Level 4.1 g/dL (3.5-5.0); Alkaline Phosphatase 118 U/L (39-117); Aspartate Amino Transferase 36 U/L (5-31); Bilirubin Direct 0.2 mg/dL (0.0-0.5); Bilirubin Total 0.5 mg/dL (0.0-1.0); C Reactive Protein 0.41 mg/dL (< or = 0.50); Lactate Dehydrogenase 206 U/L (122-220); Magnesium 1.8 mg/dL (1.6-2.6); Total Protein 7.1 g/dL (6.5-8.0)
[2021-11-07 14:01] LABS: Troponin-I High Sensitivity < 3.5 ng/L (<3.5-17.0)
--- NOTE | 2021-11-07 14:09 | PC.NURSE ---
pt a/o9 x 3 no sob/casandra noted skin pink warm dry. pt resp rate 50 and appears very anxious with increase work of breathing. With coaching and hand-holding rr is now 16. md at bedside lungs - cta in all berry. pt is now resting.
[2021-11-07 14:16] LABS: Procalcitonin 0.02 ng/mL
[2021-11-07 14:27] VITALS: BP 94/58; PULSE 112; RESP 19; TEMP 36.9; O2SAT 95
[2021-11-07] MEDS: 0.9 % Sodium Chloride 500 ML IV (15:53)
[2021-11-07] MEDS: Ibuprofen 200 MG TABLET PO (15:53)
[2021-11-07] MEDS: predniSONE 20 MG TABLET 60 MG PO (15:53)
[2021-11-07 16:08] VITALS: BP 100/67; PULSE 92; RESP 18; O2SAT 97
== END 2021-11-07 17:43 | disposition home or self-care (01) ==
PROVIDERS: Emergency Provider Emergency Medicine; PCP Family Medicine
DX: U07.1 COVID-19 (principal); E11.9 Type 2 diabetes mellitus without complications; I10 Essential (primary) hypertension; E78.5 Hyperlipidemia, unspecified; Z79.02 Long term (current) use of antithrombotics/antiplatelets
CPT/HCPCS: 36415; 71045; 80048; 80076; 83605; 83615; 83735; 84145; 84484; 85025; 85379; 86140; 87040; 87077; 87205; 87635; 93005; 96360; 99284; 99285; J2405

== ENCOUNTER 2021-11-15 09:32 | Emergency (ER) | payer OTHER, SELFPAY ==
--- NOTE | ~2021-11-15 | XR_ITS ---
EXAMINATION: XR CHEST CLINICAL INFORMATION: Covid positive. Positive cultures. Rule out pneumonia. COMPARISON: Chest x-ray 11/07/2021 TECHNIQUE: Frontal view of the chest was obtained. FINDINGS: Cardiac silhouette is stable. The lungs are mildly hypoinflated. There is no lobar consolidation. No pleural effusion or pneumothorax. XR/XR chest 1V IMPRESSION: Stable examination demonstrating no acute pulmonary pathology.
[2021-11-15 10:03] VITALS: BP 107/68; PULSE 80; RESP 16; TEMP 37.3; O2SAT 97; BMI 28.1
--- NOTE | 2021-11-15 17:41 | ED_ITS ---
HPI - Recheck/Abnormal Lab/Rx General Chief Complaint: Recheck/Abnormal Lab/Rx Stated Complaint: Abnormal labs Time Seen by Provider: 11/15/21 16:24 Source: patient Mode of arrival: ambulatory Limitations: no limitations History of Present Illness HPI narrative: 56-year-old female past medical history significant for patellofemoral arthritis, COVID infection about a week ago presenting to the emergency department after receiving a phone call for positive blood cultures. Patient tells me she has been feeling lousy since she tested positive for COVID about a week ago, she reports a diffuse headache without vision changes or dizziness, malaise, fatigue, intermittent fevers and dry cough. She tells me she has been having all these symptoms for about a week. Denies chest pain, shortness of breath, nausea, vomiting, abdominal pain, urinar symptoms, vision changes, dizziness. Denies any recent sick contacts. Related Data Home Medications Medication Instructions Recorded Confirmed rosuvastatin 10 mg tablet (Crestor) 10 mg PO DAILY 01/25/20 01/25/20 Previous Rx's Medication Instructions Recorded levofloxacin 750 mg tablet 750 mg PO DAILY 7 days #7 tabs 10/17/20 metronidazole 500 mg tablet 500 mg PO TID #21 tabs 10/17/20 (Flagyl) ondansetron 4 mg disintegrating 4 mg PO Q6H PRN nausea and 10/17/20 tablet vomiting #10 tabs tramadol 50 mg tablet 50 mg PO Q6H PRN pain #12 tabs 10/17/20 cephalexin 500 mg capsule 500 mg PO TID 7 days #21 caps 03/02/21 benzonatate 100 mg capsule 100 mg PO TID PRN cough #14 caps 11/07/21 ondansetron 4 mg disintegrating 4 mg PO Q8H PRN nausea and 11/07/21 tablet vomiting #20 tabs prednisone 20 mg tablet 40 mg PO DAILY 4 days #8 tabs 11/07/21 Allergies Allergy/AdvReac Type Severity Reaction Status Date / Time morphine [Morphine] Allergy Severe ANAPHYLAXIS Verified 03/02/21 10:22 oxycodone [Percocet] Allergy Severe Anaphylaxis Verified 03/02/21 10:22 hydrocodone [From Vicodin] Allergy Intermediate ANAPHYLAXIS Verified 03/02/21 10:22 shrimp [SHRIMP] Allergy Intermediate Swelling Verified 03/02/21 10:22 Review of Systems Review of Systems: Constitutional : No Weight loss, + Fever, + Chills, + Fatigue, + Malaise ENT/Mouth : No sore throat, No Rhinorrhea Eyes: No Eye Pain, No Swelling, No Redness Cardiovascular : No Chest Pain, No SOB, No Dyspnea on Exertion, No Orthopnea, No Edema, No Palpitations Respiratory : + Cough, No Sputum, No Wheezing Gastrointestinal : No Nausea, No Vomiting, No Diarrhea, No Constipation, No abdominal Pain, No Hematochezia, No Melena Genitourinary : No Dysuria, No Urinary Frequency, No Hematuria, Musculoskeletal : No joint pain, No Myalgias, No Joint Swelling Skin : No Skin Lesions, No rash Neuro : No Weakness, No Numbness, No Dizziness, No Headache Psych : No Anxiety/Panic, No Depression All other systems reviewed and are negative Yes all other systems are reviewed and are negative [facility] Past Medical History Attestation statement: The following information was validated with the patient. 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 Oriented X3.? No acute distress.? Patient appears well. Head: Normocephalic, atraumatic, no step-offs or deformities Eyes: Pupils equal, round and reactive to light.? ENT: Pharynx normal.? Neck: Normal inspection.? Neck supple.? CVS: Normal heart rate and rhythm.? Pulses normal.? Respiratory: No respiratory distress.? Breath sounds normal.? Abdomen: Soft and nontender.? Skin: Skin warm and dry.? Normal skin color.? Normal skin turgor.? Extremities: No lower extremity edema.? No calf ttp. 5/5 strength to bilateral upper and lower extremities Back: No midline tenderness, no C-spine tenderness, full range of motion, no CVA tenderness bilaterally Neuro: Oriented X 3.? No motor deficit.? No sensory deficit. CN 2-12 intact Course Reevaluation(s) Reevaluation #1: CBC within normal limits. Chemistry with no acute electrolyte abnormalities requiring intervention. Lactic negative Chest x-ray with no acute findings. COVID still positive, patient is still symptomatic will advise her to follow CDC guidelines out of window for starting Paxlovid. Discussed with Dr. Vásquez who tells me likely Spingomonas Paucimobilis likely contaminated and commonly found on culture tops, as this is only on 1/2 cultures also. Patient sx likley secondary to covid unlikely bacteremia/sepsis. Per ID patient good to be dc home if labs are normal and w/o leukocytosis. Pending urine to rule out UTI and CXR to rule out pna although both unlikley. Time: 20:57 Reevaluation #2: Urine clean. Chest x-ray with no acute findings this is will be discharged home with CDC COVID precautions. Advised return with new or worsening symptoms. Comfortable discharge home Time: 21:50 MDM - Recheck/Abnormal Lab/Rx MDM Narrative Medical decision making narrative: [id number] 56-year-old female presents after receiving a phone call for positive blood cultures, patient was recently COVID-19 positive about a week ago and is still experiencing remnant symptoms. Physical examination benign. Patient hemodynamically stable. Appears well. Will obtain basic labs, blood culture, lactic acid. Upon chart review it is noted the patient grew Gram-negative rods in 1/2 bottles. I do not suspect infection at this time, bacteremia or sepsis. I suspect likely contaminant however will reach out to ID Medical Records Attestation: I reviewed the patient's medical records. Lab Data Attestation: I reviewed the patient's lab results. Result diagrams: 11/15/21 18:37 11/15/21 18:37 Labs: Lab Results 11/15/21 11/15/21 11/15/21 Range/Units 18:37 18:37 18:37 WBC 8.3 (4.8-10.8) X10*3/uL RBC 5.01 (4.20-5.50) X10*6/uL Hgb 14.1 (12.0-16.0) g/dl Hct 43.6 (37.0-47.0) % MCV 87.0 (80.0-98.0) fL MCH 28.1 (27.0-33.0) pg MCHC 32.3 (31.0-35.0) g/dl RDW 14.6 (11.0-16.0) % Plt Count 298 (160-400) X10*3/uL MPV 11.1 (9.4-12.3) fL Immature Gran % (Auto) 0.2 (0.0-0.4) % Neut % (Auto) 65.5 (45-73) % Lymph % (Auto) 29.0 (20-40) % [place] % (Auto) 4.6 (2-11) % Eos % (Auto) 0.5 (0-4) % Baso % (Auto) 0.2 (0-2) % Lymph # (Auto) 2.4 (1.2-4.9) X10*3/uL [place] # (Auto) 0.4 (0.1-1.2) X10*3/uL Eos # (Auto) 0.0 (0.0-0.4) X10*3/uL Baso # (Auto) 0.0 (0.0-0.2) X10*3/uL Abs Immat Gran (auto) 0.02 (0.00-0.03) X10*3/uL Absolute Neuts (auto) 5.4 (2.0-8.3) x10*3/uL Absolute Nucleated RBC 0.000 (0.0-0.012) X10*3/uL Nucleated RBC % (auto) 0.0 (0.0-0.2) /100WBC Sodium 143 (135-145) mmol/L Potassium 3.9 (3.3-5.1) mmol/L Chloride 103 (96-108) mmol/L Carbon Dioxide 29 (22-29) mmol/L Anion Gap 15 (12-20) BUN 12 (9-16) mg/dL Creatinine 0.69 (0.5-1.4) mg/dL Estim Creat Clear Calc 83.3 Estimated GFR > 60 Random Glucose 157 H (60-115) mg/dL Lactic Acid (0.5-2.0) mmol/L Calcium 9.4 D (8.4-10.2) mg/dL Total Bilirubin 0.8 (0.0-1.0) mg/dL AST 19 D (5-31) U/L ALT 28 (0-31) U/L Alkaline Phosphatase 96 (39-117) U/L Total Protein 7.7 (6.5-8.0) g/dL Albumin 4.4 (3.5-5.0) g/dL Urine Color Urine Appearance Urine pH (5.0-9.0) Ur Specific [place] (1.005-1.025) Urine Protein (Neg-Trace) mg/dL Urine Glucose (UA) (Negative) mg/dL Urine Ketones (Negative) mg/dL Urine Blood (Negative) Urine Nitrite (Negative) Ur Leukocyte Esterase (Negative) COVID-19 (MARCELO) Positive A (Negative) COVID-19 Clin Com See Note 11/15/21 11/15/21 Range/Units 18:37 21:19 WBC (4.8-10.8) X10*3/uL RBC (4.20-5.50) X10*6/uL Hgb (12.0-16.0) g/dl Hct (37.0-47.0) % MCV (80.0-98.0) fL MCH (27.0-33.0) pg MCHC (31.0-35.0) g/dl RDW (11.0-16.0) % Plt Count (160-400) X10*3/uL MPV (9.4-12.3) fL Immature Gran % (Auto) (0.0-0.4) % Neut % (Auto) (45-73) % Lymph % (Auto) (20-40) % [place] % (Auto) (2-11) % Eos % (Auto) (0-4) % Baso % (Auto) (0-2) % Lymph # (Auto) (1.2-4.9) X10*3/uL [place] # (Auto) (0.1-1.2) X10*3/uL Eos # (Auto) (0.0-0.4) X10*3/uL Baso # (Auto) (0.0-0.2) X10*3/uL Abs Immat Gran (auto) (0.00-0.03) X10*3/uL Absolute Neuts (auto) (2.0-8.3) x10*3/uL Absolute Nucleated RBC (0.0-0.012) X10*3/uL Nucleated RBC % (auto) (0.0-0.2) /100WBC Sodium (135-145) mmol/L Potassium (3.3-5.1) mmol/L Chloride (96-108) mmol/L Carbon Dioxide (22-29) mmol/L Anion Gap (12-20) BUN (9-16) mg/dL Creatinine (0.5-1.4) mg/dL Estim Creat Clear Calc Estimated GFR Random Glucose (60-115) mg/dL Lactic Acid 1.0 (0.5-2.0) mmol/L Calcium (8.4-10.2) mg/dL Total Bilirubin (0.0-1.0) mg/dL AST (5-31) U/L ALT (0-31) U/L Alkaline Phosphatase (39-117) U/L Total Protein (6.5-8.0) g/dL Albumin (3.5-5.0) g/dL Urine Color Yellow Urine Appearance Turbid Urine pH 7.5 (5.0-9.0) Ur Specific [place] 1.020 (1.005-1.025) Urine Protein Trace (Neg-Trace) mg/dL Urine Glucose (UA) Negative (Negative) mg/dL Urine Ketones Negative (Negative) mg/dL Urine Blood Negative (Negative) Urine Nitrite Negative (Negative) Ur Leukocyte Esterase Negative (Negative) COVID-19 (MARCELO) (Negative) COVID-19 Clin Com Discharge Plan Discharge Clinical Impression: COVID-19, Cough, Malaise and fatigue Patient Disposition: Home, Self-Care Instructions: Fatigue (ED), Acute Cough (ED), COVID-19 (Coronavirus Disease 2019) (ED) Additional Instructions: Take your medications as prescribed. If you were prescribed antibiotics today, it is important that you take your medication to their entirety, do not skip any doses, do not finish them early. Today you tested positive for COVID-19. Take Ibuprofen or Tylenol as needed for fevers or body aches. Quarantine for 5 days and ensure you wear a mask. After 5 days you should wear a mask for 5 days after that. Practice social distancing and good hand hygiene. Drink plenty of fluids. Follow-up with your primary care provider this week. Return to the emergency department with new or worsening symptoms. In case of emergency call 911 You can purchase a pulse oximeter from your local pharmacy or grocery store, and monitor your oxygen saturation if it goes below 94% you should return to the emergency department for further evaluation. Your laboratory studies were reassuring, urine was clean, chest x-ray within normal limits. Please return if you are experiencing any new or worsening symptoms. Prescriptions: No Action tramadol 50 mg tablet 50 mg PO Q6H PRN (Reason: pain) Qty: 12 0RF ondansetron 4 mg tablet,disintegrating 4 mg PO Q6H PRN (Reason: nausea and vomiting) Qty: 10 0RF metronidazole [Flagyl] 500 mg tablet 500 mg PO TID Qty: 21 0RF levofloxacin 750 mg tablet 750 mg PO DAILY 7 Days Qty: 7 0RF prednisone 20 mg tablet 40 mg PO DAILY 4 Days Qty: 8 0RF benzonatate 100 mg capsule 100 mg PO TID PRN (Reason: cough) Qty: 14 0RF ondansetron 4 mg tablet,disintegrating 4 mg PO Q8H PRN (Reason: nausea and vomiting) Qty: 20 0RF rosuvastatin [Crestor] 10 mg tablet 10 mg PO DAILY cephalexin 500 mg capsule 500 mg PO TID 7 Days Qty: 21 0RF Referrals: Tami Márquez MD [Primary Care Provider] - 2 days Stand Alone Forms: Work/School Release
[2021-11-15 18:47] LABS: MANUAL DIFF FLAG NO
--- NOTE | 2021-11-15 18:47 | PC.NURSE ---
IV established and labs drawn and sent
[2021-11-15 18:52] LABS: Basophils Percent Auto 0.2 % (0-2); Eosinophils Percent Auto 0.5 % (0-4); Hematocrit 43.6 % (37.0-47.0); Hemoglobin 14.1 g/dl (12.0-16.0); Imm Gran Abs Auto 0.02 X10*3/uL (0.00-0.03); Imm Gran Pct Auto 0.2 % (0.0-0.4); Lymphocytes Absolute Auto 2.4 X10*3/uL (1.2-4.9); Mean Corpuscular HGB Conc 32.3 g/dl (31.0-35.0); Mean Corpuscular Hemoglobin 28.1 pg (27.0-33.0); Mean Platelet Volume 11.1 fL (9.4-12.3); Monocytes Absolute Auto 0.4 X10*3/uL (0.1-1.2); Monocytes Percent Auto 4.6 % (2-11); Neutrophils Absolute Auto 5.4 x10*3/uL (2.0-8.3); Neutrophils Percent Auto 65.5 % (45-73); Platelet Count 298 X10*3/uL (160-400); Red Blood Count 5.01 X10*6/uL (4.20-5.50); Red Cell Distribution Width 14.6 % (11.0-16.0); White Blood Count 8.3 X10*3/uL (4.8-10.8)
[2021-11-15 18:59] LABS: COVID-19 Test Positive (Negative)
[2021-11-15 19:01] VITALS: BP 96/58; PULSE 76; RESP 16; TEMP 36.6; O2SAT 96
[2021-11-15 19:05] LABS: Alanine Aminotransferase 28 U/L (0-31); Albumin Level 4.4 g/dL (3.5-5.0); Alkaline Phosphatase 96 U/L (39-117); Anion Gap 15 (12-20); Aspartate Amino Transferase 19 U/L (5-31); Bilirubin Total 0.8 mg/dL (0.0-1.0); Blood Urea Nitrogen 12 mg/dL (9-16); Calcium 9.4 mg/dL (8.4-10.2); Carbon Dioxide 29 mmol/L (22-29); Chloride 103 mmol/L (96-108); Creatinine Clr Calc Pharmacy 83.3; Estimated Glomerular Filt Rate > 60; Glucose Random 157 mg/dL (60-115); Potassium 3.9 mmol/L (3.3-5.1); Sodium 143 mmol/L (135-145); Total Protein 7.7 g/dL (6.5-8.0)
[2021-11-15 21:16] VITALS: BP 113/67; PULSE 85; RESP 16; TEMP 36.7; O2SAT 98
[2021-11-15] MEDS: 0.9 % Sodium Chloride 1,000 ML 999 ML IV (21:22)
[2021-11-15 21:34] LABS: Appearance Urine Turbid; Color Urine Yellow; Glucose Urine UA Negative (Negative); Leukocyte Esterase Urine Negative (Negative); Nitrite Urine Negative (Negative); PH 7.5 (5.0-9.0); Urine Blood Negative (Negative); Urine Ketones Negative (Negative); Urine Protein Trace mg/dL (Neg-Trace)
--- NOTE | 2021-11-15 21:37 | PC.NURSE ---
jean pierre kingston okayed pt to take her home medications rosuvastating calcium 40 mg, and metformin hcl 500mg. meds from home. pt soon to be discharged per provider waiting on urine.
== END 2021-11-15 22:18 | disposition home or self-care (01) ==
PROVIDERS: Physician Assistant; Emergency Provider Emergency Medicine; PCP Family Medicine
DX: U07.1 COVID-19 (principal); R51.9 Headache, unspecified; E78.5 Hyperlipidemia, unspecified; Z79.02 Long term (current) use of antithrombotics/antiplatelets
CPT/HCPCS: 71045; 80053; 81003; 83605; 85025; 87040; 87635; 99283; 99284

== ENCOUNTER 2021-11-29 10:16 | Outpatient (REF) | payer OTHER, SELFPAY ==
--- NOTE | ~2021-11-29 | US_ITS ---
EXAMINATION: US THYROID CLINICAL INFORMATION: Nontoxic multinodular goiter. COMPARISON: Ultrasound soft tissue head/neck thyroid dated 11/06/2016 and 12/15/2015. CT soft tissue neck 11/20/2015. TECHNIQUE: Linear transducer grayscale and color Doppler examination with attention to the region of the thyroid. FINDINGS: SIZE: Measurements of the thyroid lobes and nodules are given in sagittal, anteroposterior and transverse dimensions respectively. Right Thyroid Lobe: 4.8 x 1.1 x 2.1 cm, volume 5.8 mL. Previously 4.5 x 0.9 x 1.6 cm, volume 3.4 mL. Parenchyma: The gland echotexture is homogeneous. Thyroid vascularity is mildly increased. Left Thyroid Lobe: 4.1 x 0.9 x 1.5 cm, volume 2.9 mL. Previously 4.0 x 1.0 x 1.5 cm, volume 2.8 mL. Parenchyma: The gland echotexture is homogeneous. Thyroid vascularity is mildly increased. Isthmus: 0.2 cm in maximum AP dimension. Previously 0.2 cm. Estimated total number of nodules greater than or equal to 1 cm: 0. [employer] nodules are described as follows: 1. Location: Right superior. Size: 0.6 x 0.4 x 0.5 cm, volume 0.07 mL. Previously: 0.8 x 0.5 x 0.7 cm, volume 0.15 mL. Nodule characteristics: Composition: Solid (2). Echogenicity: Isoechoic (1). Shape: Not taller than wide (0). Margins: Ill-defined (0). Echogenic Foci: None (0). ACR TI-RADS total points: 3 ACR TI-RADS category: 3 2. Location: Left inferior. Size: 0.4 x 0.2 x 0.4 cm, volume 0.02 mL. Previously: 0.4 x 0.2 x 0.3 cm, volume 0.01 mL. Nodule characteristics: Composition: Spongiform (0). Echogenicity: Anechoic (0). Shape: Not taller than wide (0). Margins: Smooth (0). Echogenic Foci: None (0). ACR TI-RADS total points: 0 ACR TI-RADS category: 1 3. Location: Left mid. Size: 0.3 x 0.2 x 0.2 cm, volume 0.01 mL. Previously: 0.2 x 0.1 x 0.2 cm, volume 0.002 mL. Nodule characteristics: Composition: Cystic(0). ACR TI-RADS total points: 0 ACR TI-RADS category: 1 NODES: No lymphadenopathy is seen in the tissue surrounding the thyroid gland. US/US thyroid IMPRESSION: Slightly hypervascular thyroid gland. Stable small thyroid nodules. ACR TI-RADS RECOMMENDATION REFERENCE: Ultrasound-guided fine-needle aspiration, followup ultrasound, no further follow up. * TR1 (0 point) and TR 2 (2 points): No FNA or follow up * TR3 (3 points): FNA if more than or equal to 2.5 cm in maximum dimension, followup ultrasound in 1, 3 and 5 years if 1.5 to 2.4 cm in maximum dimension. * TR4 (4-6 points): FNA if more than or equal to 1.5 cm in maximum dimension, followup ultrasound in 1, 2, 3 and 5 years if 1 to 1.4 cm in maximum dimension. * TR5 (more than or equal to 7 points): FNA if more than or equal to 1 cm in maximum dimension, followup ultrasound every year for 5 years if 0.5 to 0.9 cm in maximum dimension. * TR3, TR4 or TR5 nodules that are below the size threshold for follow up receive no follow up.
== END 2021-11-29 10:17 | disposition home or self-care (01) ==
LOC: HO.HMGCX 10:16
PROVIDERS: Visit Provider Family Medicine
DX: E04.2 Nontoxic multinodular goiter (principal)
CPT/HCPCS: 76536

== ENCOUNTER 2022-06-07 15:08 | Outpatient (REF) | payer OTHER, SELFPAY ==
--- NOTE | ~2022-06-07 | CT_ITS ---
EXAMINATION: CT ABDOMEN WITH CONTRAST CLINICAL INFORMATION: Abdominal pain COMPARISON: CT abdomen 10/17/2020 TECHNIQUE: Contiguous axial thin section helical images of the abdomen were performed following the administration of oral contrast and 85 mL of Omnipaque 350 intravenous contrast. The data set was reformatted in the coronal and sagittal planes and reviewed on an independent workstation. This CT examination was performed using dose optimization techniques as appropriate, variously including the following: *Automated exposure control *Adjustment of mA and/or kV according to patient size (this includes techniques or standardized protocols for targeted exams where dose is matched to indication/reason for exam; i.e. extremities or head) *Use of iterative reconstruction technique DLP: 244 mGy-cm FINDINGS: LUNG BASES: Mild left greater than right bibasilar atelectasis. LIVER, GALLBLADDER, AND BILIARY TREE: Relative low attenuation of the liver as compared to the spleen, suggestive of hepatic steatosis. No focal lesions. No intrahepatic biliary duct dilatation. No evidence of gallstones. No obvious wall thickening or pericholecystic inflammatory changes. CBD is of normal caliber. PANCREAS: Unremarkable. No acute inflammatory changes seen. No ductal dilatation. SPLEEN: Unremarkable ADRENAL GLANDS AND KIDNEYS: Adrenal glands appear unremarkable. Normal enhancement bilateral kidneys. No suspicious lesions. No renal calculi. No ureteral calculi or hydronephrosis. BOWEL LOOPS: Visualized bowel loops are normal distended. Colonic diverticulosis. No findings to suggest diverticulitis. The cecum and appendix are not included in the field of view, and are not evaluated. No free fluid. No free air. LYMPH NODES: No adenopathy seen. VASCULAR: Normal caliber aorta. BONES: No acute or suspicious osseous abnormality.. CT/CT abdomen w IV con IMPRESSION: 1. No gallstones evident by CT. No obvious pericholecystic inflammatory changes. If there are symptoms attributable to the right upper quadrant, further evaluation with ultrasound can be considered. 2. Hepatic steatosis. 3. Colonic diverticulosis without diverticulitis. 4. No acute findings otherwise identified in the visualized structures of the abdomen. Of note, the pelvis is not imaged, and the cecum and appendix is not included in the [id number]. Fleischner guidelines were followed.
[2022-06-07] MEDS: Barium Sulfate Oral (Mocha) 450 ML ORAL.SUSP PO (17:09)
[2022-06-07] MEDS: iohexoL 350 MG/ML 100 ML INFUS..BTL 85 ML IV (17:16)
== END 2022-06-07 15:09 | disposition home or self-care (01) ==
LOC: HO.CT 15:08
PROVIDERS: Visit Provider Registered Nurse
DX: R10.13 Epigastric pain (principal)
CPT/HCPCS: 74160; Q9967

== ENCOUNTER 2023-01-30 00:23 | Emergency (ER) | payer OTHER, SELFPAY ==
--- NOTE | ~2023-01-30 | CT_ITS ---
EXAMINATION: CT HEAD WITHOUT CONTRAST CLINICAL INFORMATION: Right-sided headache COMPARISON: 03/10/2012 TECHNIQUE: Contiguous axial imaging was performed from the skull base to vertex without intravenous administration of contrast. This CT examination was performed using dose optimization techniques as appropriate, variously including the following: *Automated exposure control *Adjustment of mA and/or kV according to patient size (this includes techniques or standardized protocols for targeted exams where dose is matched to indication/reason for exam; i.e. extremities or head) *Use of iterative reconstruction technique DLP: 705 mGy-cm FINDINGS: There is no evidence of acute intracranial hemorrhage or territorial infarction. No abnormal mass-effect or midline shift is seen. Saez to white matter differentiation is well preserved. No extra-axial fluid collections are identified. The ventricles are normal in size. There is no abnormal attenuation within the brain parenchyma. The osseous structures and soft tissues are normal. The mastoid air cells are well-aerated. Partially visualized right maxillary sinus appears mostly opacified, with suspected mucous retention cyst. CT/CT head/brain wo IV con IMPRESSION: No acute intracranial pathology.
--- NOTE | 2023-01-30 00:29 | ECG_ITS ---
Test Reason : CHEST PAIN Blood Pressure : / mmHG Vent. Rate : 087 BPM Atrial Rate : 087 BPM P-R Int : 146 ms QRS Dur : 086 ms QT Int : 376 ms P-R-T Axes : 027 000 006 degrees QTc Int : 452 ms Normal sinus rhythm Minimal voltage criteria for LVH, may be normal variant ( R in aVL ) Borderline ECG When compared with ECG of 07-NOV-2021 13:05, No significant change was found Referred By: Generic ED Physician Electronically Signed By:IVETH OH MD
--- NOTE | 2023-01-30 00:37 | ED.CHESTPAIN ---
HPI - Chest Pain General Chief Complaint: Chest Pain Stated Complaint: Chest pain Time Seen by Provider: 01/30/23 00:37 Source: patient Mode of arrival: ambulatory Limitations: no limitations History of Present Illness HPI narrative: Patient history of migraine headache complaining of headache on the right side with nausea also has diffuse upper chest pain had some tingling sensation of the right side of the face pain is slightly different than before feel like poking to the right head of the head no fever no chills no upper respiratory symptoms no focal deficit Related Data Home Medications Medication Instructions Recorded Confirmed rosuvastatin 10 mg tablet (Crestor) 10 mg PO DAILY 01/25/20 01/25/20 Previous Rx's Medication Instructions Recorded levofloxacin 750 mg tablet 750 mg PO DAILY 7 days #7 tabs 10/17/20 metronidazole 500 mg tablet 500 mg PO TID #21 tabs 10/17/20 (Flagyl) ondansetron 4 mg disintegrating 4 mg PO Q6H PRN nausea and 10/17/20 tablet vomiting #10 tabs tramadol 50 mg tablet 50 mg PO Q6H PRN pain #12 tabs 10/17/20 cephalexin 500 mg capsule 500 mg PO TID 7 days #21 caps 03/02/21 benzonatate 100 mg capsule 100 mg PO TID PRN cough #14 caps 11/07/21 ondansetron 4 mg disintegrating 4 mg PO Q8H PRN nausea and 11/07/21 tablet vomiting #20 tabs prednisone 20 mg tablet 40 mg (2 x 20 mg) PO DAILY 4 days 11/07/21 #8 tabs qgarswmwzb-bijjspfterysy-sdbmyqyg 1 tab PO Q6H PRN haeadace #20 tabs 01/30/23 50 mg-325 mg-40 mg tablet sumatriptan succinate 50 mg tablet 50 mg PO Q2H PRN migraine headache 01/30/23 (Imitrex) #10 tabs Allergies Allergy/AdvReac Type Severity Reaction Status Date / Time morphine [Morphine] Allergy Severe ANAPHYLAXIS Verified 03/02/21 10:22 oxycodone [Percocet] Allergy Severe Anaphylaxis Verified 03/02/21 10:22 hydrocodone [From Vicodin] Allergy Intermediate ANAPHYLAXIS Verified 03/02/21 10:22 shrimp [SHRIMP] Allergy Intermediate Swelling Verified 03/02/21 10:22 Review of Systems Review of Systems: Yes all other systems are reviewed and are negative [facility] Past Medical History Medical History Diverticulitis High cholesterol Patellofemoral arthritis Surgical History Hx of appendectomy History of 3 sections Social History Alcohol intake: never Patient Tobacco Use Status: Never used Tobacco Advance Directives: No Advance Directives Information Provided: No Current occupational status: employed 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 Oriented X3. No acute distress. Light sensitive Eyes: PERRLA, No Nystagmus ENT: Pharynx normal. Oral Mucosa moist no temporal artery tenderness Neck: Normal inspection. Neck supple. CVS: Normal heart rate and rhythm. Pulses normal. Respiratory: No respiratory distress. Equal air entry bilateral, no wheezing/rales/rhonchi Abdomen: Soft and nontender. Bowel sounds are present, no mass palpable, no CVA tenderness Skin: Skin warm and dry. Normal skin color. Normal skin turgor. Extremities: No lower extremity edema. No calf tenderness Neuro: Oriented X 3. No motor deficit. No sensory deficit.No cerebellar signs , cranial nerves II-XII intact Medications Administered Discontinued Medications Generic Name Dose Route Start Last Admin Trade Name Freq PRN Reason Stop Dose Admin Sodium Chloride 1,000 mls @ 999 mls/hr 01/30/23 00:50 01/30/23 01:00 Ns IV 01/30/23 01:50 999 mls/hr .Q1H1M ONE Administration Ondansetron HCl 4 mg 01/30/23 00:51 01/30/23 01:45 Ondansetron Hcl 4 Mg/2 Ml Vial IVPUSH 01/30/23 00:52 4 mg ONCE ONE Administration Sumatriptan Succinate 6 mg 01/30/23 00:50 01/30/23 01:45 Sumatriptan Succinate 6 Mg/0.5 Ml Vial SUBCUT 01/30/23 00:51 6 mg ONCE ONE Administration Medical Decision Making Medical Decision Making [facility] Narrative: Patient's complex migraine headache improved after Imitrex CT scan head is negative discharge patient home on Imitrex and Fioricet Differential Diagnosis Differential Diagnoses: The differential diagnosis associated with the presentation includes Complex migraine headache/SAH/tension headache Admission/Observation Consideration of admission/observation: Escalation of care including admission/observation considered Lab Data [facility] Lab Attestation statement: I reviewed the patient's lab results. 01/30/23 00:58 01/30/23 00:58 Labs: Lab Results 01/30/23 Range/Units 00:58 WBC 8.6 (4.8-10.8) X10*3/uL RBC 4.57 (4.20-5.50) X10*6/uL Hgb 13.2 (12.0-16.0) g/dl Hct 39.3 (37.0-47.0) % MCV 86.0 (80.0-98.0) fL MCH 28.9 (27.0-33.0) pg MCHC 33.6 (31.0-35.0) g/dl RDW 15.1 (11.0-16.0) % Plt Count 287 (160-400) X10*3/uL MPV 10.8 (9.4-12.3) fL Immature Gran % (Auto) 0.3 (0.0-0.4) % Neut % (Auto) 61.2 (45-73) % Lymph % (Auto) 30.4 (20-40) % [place] % (Auto) 5.6 (2-11) % Eos % (Auto) 2.2 (0-4) % Baso % (Auto) 0.3 (0-2) % Lymph # (Auto) 2.6 (1.2-4.9) X10*3/uL [place] # (Auto) 0.5 (0.1-1.2) X10*3/uL Eos # (Auto) 0.2 (0.0-0.4) X10*3/uL Baso # (Auto) 0.0 (0.0-0.2) X10*3/uL Abs Immat Gran (auto) 0.03 (0.00-0.03) X10*3/uL Absolute Neuts (auto) 5.3 (2.0-8.3) x10*3/uL Absolute Nucleated RBC 0.000 (0.0-0.012) X10*3/uL Nucleated RBC % (auto) 0.0 (0.0-0.2) /100WBC ESR 18 (0-20) MM/HR Sodium 142 (135-145) mmol/L Potassium 3.7 (3.3-5.1) mmol/L Chloride 107 (96-108) mmol/L Carbon Dioxide 27 (22-29) mmol/L Anion Gap 12 (12-20) BUN 14 (9-16) mg/dL Creatinine 0.70 (0.5-1.4) mg/dL Estim Creat Clear Calc 83.3 Estimated GFR > 60 Random Glucose 159 H (60-115) mg/dL Calcium 9.3 (8.4-10.2) mg/dL Troponin I High Sens < 2.7 (<3.5-17.0) ng/L Independent Interpretation I performed an independent interpretation of an: CT Scan Radiology Impression Discussion of test interpretation with radiology: I have reviewed the radiologist's reading. Discharge Plan Discharge Clinical Impression: Headache, migraine Patient Disposition: Home, Self-Care Instructions: Migraine Headache (ED) Additional Instructions: Rest at home Take medication as prescribed Imitrex 1 tablet at onset of headache may repeat in 2 hours maximum 2 tablets in 24 hours If headache persist take Fioricet 1 tablet every 6 hours as needed Follow with PCP Prescriptions: New sumatriptan succinate [Imitrex] 50 mg tablet 50 mg PO Q2H PRN (Reason: migraine headache) Qty: 10 0RF Rx Instructions: do not exceed 2 doses per 24 hrs aoickcffbr-hmbhlohztmqjw-pyod 50-325-40 mg tablet 1 tab PO Q6H PRN (Reason: haeadace) Qty: 20 0RF No Action tramadol 50 mg tablet 50 mg PO Q6H PRN (Reason: pain) Qty: 12 0RF ondansetron 4 mg tablet,disintegrating 4 mg PO Q6H PRN (Reason: nausea and vomiting) Qty: 10 0RF metronidazole [Flagyl] 500 mg tablet 500 mg PO TID Qty: 21 0RF levofloxacin 750 mg tablet 750 mg PO DAILY 7 Days Qty: 7 0RF prednisone 20 mg tablet 40 mg PO DAILY 4 Days Qty: 8 0RF benzonatate 100 mg capsule 100 mg PO TID PRN (Reason: cough) Qty: 14 0RF ondansetron 4 mg tablet,disintegrating 4 mg PO Q8H PRN (Reason: nausea and vomiting) Qty: 20 0RF rosuvastatin [Crestor] 10 mg tablet 10 mg PO DAILY cephalexin 500 mg capsule 500 mg PO TID 7 Days Qty: 21 0RF
[2023-01-30 00:38] VITALS: BP 114/76; BP 127/80; PULSE 78; PULSE 85; RESP 18; TEMP 36.5; O2SAT 92; O2SAT 97; BMI 32.2
--- NOTE | 2023-01-30 00:48 | PC.NURSE ---
pt appeared to be able to fully open R. eye; felt heaviness. slight droop of R. side. Dr. Wilson made aware at bedside at this time.
[2023-01-30] MEDS: 0.9 % Sodium Chloride 1,000 ML 999 ML IV (01:00)
[2023-01-30 01:04] LABS: Basophils Percent Auto 0.3 % (0-2); Eosinophils Absolute Auto 0.2 X10*3/uL (0.0-0.4); Eosinophils Percent Auto 2.2 % (0-4); Hematocrit 39.3 % (37.0-47.0); Hemoglobin 13.2 g/dl (12.0-16.0); Imm Gran Abs Auto 0.03 X10*3/uL (0.00-0.03); Imm Gran Pct Auto 0.3 % (0.0-0.4); Lymphocytes Absolute Auto 2.6 X10*3/uL (1.2-4.9); Lymphocytes Percent Auto 30.4 % (20-40); MANUAL DIFF FLAG NO; Mean Corpuscular HGB Conc 33.6 g/dl (31.0-35.0); Mean Corpuscular Hemoglobin 28.9 pg (27.0-33.0); Mean Platelet Volume 10.8 fL (9.4-12.3); Monocytes Absolute Auto 0.5 X10*3/uL (0.1-1.2); Monocytes Percent Auto 5.6 % (2-11); Neutrophils Absolute Auto 5.3 x10*3/uL (2.0-8.3); Neutrophils Percent Auto 61.2 % (45-73); Platelet Count 287 X10*3/uL (160-400); Red Blood Count 4.57 X10*6/uL (4.20-5.50); Red Cell Distribution Width 15.1 % (11.0-16.0); White Blood Count 8.6 X10*3/uL (4.8-10.8)
[2023-01-30 01:08] VITALS: BP 112/69; PULSE 85; RESP 16; TEMP 36.6; O2SAT 92
[2023-01-30 01:16] LABS: Anion Gap 12 (12-20); Blood Urea Nitrogen 14 mg/dL (9-16); Calcium 9.3 mg/dL (8.4-10.2); Carbon Dioxide 27 mmol/L (22-29); Chloride 107 mmol/L (96-108); Creatinine Clr Calc Pharmacy 83.3; Estimated Glomerular Filt Rate > 60; Glucose Random 159 mg/dL (60-115); Potassium 3.7 mmol/L (3.3-5.1); Sodium 142 mmol/L (135-145)
[2023-01-30 01:29] LABS: Troponin-I High Sensitivity < 2.7 ng/L (<3.5-17.0)
[2023-01-30 01:37] LABS: Erythrocyte Sedimentation Rate 18 MM/HR (0-20)
[2023-01-30] MEDS: ondansetron HCL 4 MG/2 ML VIAL IVPUSH (01:45)
[2023-01-30] MEDS: SUMAtriptan succinate 6 MG/0.5 ML VIAL SUBCUT (01:45)
--- OUTSIDE RECORDS SUMMARY | 2023-01-30 01:45 | XMS_ITS | Continuity of Care Document ---
Author Name Unknown Organization [facility] ter Address [address] [place] [id number] Care Team Providers Care Epic Application Coordinator Name Role Phone Sangeetha Horner MD Primary Care Physician Encounter [facility] [place] Date(s): 10/19/20 - 10/19/[address] [id number]- Discharge Disposition: A-D/C Walkout Attending Physician: Not on Staff, Attending MD Admitting Physician: Not on Staff, Admitting MD Referring Physician: Not on Staff, Referring MD Allergies, Adverse Reactions, Alerts Substance Reaction Severity Status morphine Active Vicodin Active Shrimp Persistent Moderate Active Immunizations Given and Recorded Vaccine Date Status Refusal Reason SARS-CoV-2 (COVID-19) mRNA BNT-162b2 vac 06/23/20 Given SARS-CoV-2 (COVID-19) mRNA BNT-162b2 vac 06/02/20 Given Medications ProAir HFA 90 mcg/inh inhalation aerosol with adapter 1, puffs, Inhalation, Every 4 hours, PRN, # 8.5 Gm, Refills 0, Maintenance, 07/12/15 16:48:14, Aerosol Start Date: 07/12/15 Status: Ordered Qvar 80 mcg/inh inhalation aerosol 1 puffs, Inhalation, 2 times a day, 0 Refills, Maintenance, 07/12/15 16:48:01 Start Date: 07/12/15 Status: Ordered Problem List Condition Effective Dates Status Health Status Inform ant Mammographic Microcalcification(Confirmed) 08/21/12 Active Varicose vein(Confirmed) Active Vital Signs Most recent to oldest [Reference Range]: 1 Oxygen Saturation [94-100 %] 98 % (10/19/20 1:41 AM) Pulse Rate [55-90 bpm] 85 bpm (10/19/20 1:41 AM) Blood Pressure [90-138/55-84 mm Hg] 124/ 91mm Hg (8/11/21 1:41 AM) Respiratory Rate [16-30 br/min] 16 br/mi n (10/19/20 1:41 AM) Temperature [96.8-100.4 DegF] 97.7 DegF (10/19/20 1:41 AM) Mode of Delivery (Oxygen) Room air (10/19/20 1:41 AM) Blood pressure sites Arm, right (10/19/20 1:41 AM) Temperature Route Oral (10/19/20 1:41 AM) Social History Social History Type Response Smoking Status Former smoker; Type: Cigarettes entered on: 07/12/15 Sex
--- NOTE | 2023-01-30 01:48 | PC.NURSE ---
pt medicated per mar
[2023-01-30] MEDS: Butalb/Acetamin/Caff 50/325/40 TABLET 1 TAB PO (02:23)
[2023-01-30 03:53] VITALS: BP 112/69; PULSE 103; RESP 16; O2SAT 98
--- NOTE | 2023-01-30 03:53 | PC.NURSE ---
pt reports sx have resolved FLOYD remains 05/18 upon d/c. pt able to tolerate po intake. axox4 neuros intact. ambulatory with steady gait. vss. Dr. Harris in agreement with d/c as well. d/c education to pt and daughter in law.
== END 2023-01-30 03:55 | disposition home or self-care (01) ==
PROVIDERS: Emergency Provider Internal Medicine; PCP Family Medicine
DX: G43.909 Migraine, unspecified, not intractable, without status migrainosus (principal); R07.9 Chest pain, unspecified; R11.0 Nausea; Z79.899 Other long term (current) drug therapy
CPT/HCPCS: 36415; 70450; 80048; 84484; 85025; 85652; 93005; 96361; 96372; 96374; 99284; J2405; J3030

== ENCOUNTER 2023-02-23 07:41 | Outpatient (REF) | payer OTHER, SELFPAY ==
--- NOTE | ~2023-02-23 | XR_ITS ---
EXAMINATION: XR LUMBOSACRAL SPINE CLINICAL INFORMATION: Back pain, lumbosacral COMPARISON: Lumbar spine 10/29/2021 TECHNIQUE: Three views of the lumbosacral spine. FINDINGS: There are 5 nonrib-bearing lumbar-type vertebral bodies. The height of vertebral bodies is well-maintained. There is no disc space narrowing. There is no spondylolisthesis. There is preservation of the normal lumbar lordosis. There is mild degenerative facet joint disease at L5-S1. Anastomotic sutures and multiple surgical clips are seen in the pelvis. XR/XR lumbar spine 2-3V IMPRESSION: 1. No acute bony abnormality. 2. Mild degenerative facet joint disease at L5-S1.
--- NOTE | ~2023-02-23 | XR_ITS ---
EXAMINATION: XR CERVICAL SPINE CLINICAL INFORMATION: Chronic upper back pain COMPARISON: Cervical spine 02/05/2018 TECHNIQUE: 3 views of the cervical spine were obtained. FINDINGS: The prevertebral soft tissues are well maintained. No fracture.. Alignment is maintained at the atlanto-axial articulation. The vertebral bodies maintain normal height and alignment. There is mild reversal of the usual cervical lordosis. There is disc space narrowing at C5-C6. Anterior marginal osteophytes are seen from C2 through C6. The upper lungs are clear. XR/XR cervical spine 4V IMPRESSION: No cervical spine fracture or malalignment. Degenerative disc disease at C5-C6. Slight reversal of the usual cervical lordosis.
[2023-02-23 08:31] LABS: MANUAL DIFF FLAG NO
[2023-02-23 08:55] LABS: Basophils Absolute Auto 0.1 X10*3/uL (0.0-0.2); Basophils Percent Auto 0.7 % (0-2); Eosinophils Absolute Auto 0.1 X10*3/uL (0.0-0.4); Eosinophils Percent Auto 1.9 % (0-4); Hematocrit 42.3 % (37.0-47.0); Hemoglobin 13.8 g/dl (12.0-16.0); Imm Gran Abs Auto 0.02 X10*3/uL (0.00-0.03); Imm Gran Pct Auto 0.3 % (0.0-0.4); Lymphocytes Absolute Auto 2.5 X10*3/uL (1.2-4.9); Lymphocytes Percent Auto 37.1 % (20-40); Mean Corpuscular HGB Conc 32.6 g/dl (31.0-35.0); Mean Corpuscular Hemoglobin 29.2 pg (27.0-33.0); Mean Corpuscular Volume 89.6 fL (80.0-98.0); Mean Platelet Volume 11.8 fL (9.4-12.3); Monocytes Absolute Auto 0.4 X10*3/uL (0.1-1.2); Monocytes Percent Auto 5.8 % (2-11); Neutrophils Absolute Auto 3.7 x10*3/uL (2.0-8.3); Neutrophils Percent Auto 54.2 % (45-73); Platelet Count 312 X10*3/uL (160-400); Red Blood Count 4.72 X10*6/uL (4.20-5.50); Red Cell Distribution Width 15.2 % (11.0-16.0); White Blood Count 6.8 X10*3/uL (4.8-10.8)
[2023-02-23 09:20] LABS: Creatinine Urine 215.68 mg/dL; Microalbum/Creatinine Ratio Ur 6.4 ug/mg cr (<30)
[2023-02-23 09:31] LABS: Alanine Aminotransferase 22 U/L (0-31); Albumin Level 4.2 g/dL (3.5-5.0); Alkaline Phosphatase 107 U/L (39-117); Anion Gap 14 (12-20); Aspartate Amino Transferase 19 U/L (5-31); Bilirubin Total 0.5 mg/dL (0.0-1.0); Blood Urea Nitrogen 12 mg/dL (9-16); Calcium 9.8 mg/dL (8.4-10.2); Carbon Dioxide 27 mmol/L (22-29); Chloride 108 mmol/L (96-108); Cholesterol 226 mg/dL (<200); Estimated Glomerular Filt Rate > 60; Glucose Random 122 mg/dL (60-115); HDL Cholesterol 36 mg/dL (>40); LDL Cholesterol Calculated 137 mg/dL (<100); Potassium 4.4 mmol/L (3.3-5.1); Sodium 145 mmol/L (135-145); Total Protein 7.8 g/dL (6.5-8.0); Triglycerides 265 mg/dL (<150)
[2023-02-23 09:48] LABS: TSH reflex Free T4 1.57 uIU/mL (0.32-4.0)
== END 2023-02-23 07:42 | disposition home or self-care (01) ==
LOC: HO.XRAY 07:41
PROVIDERS: PCP Family Medicine; Visit Provider Family Medicine
DX: M54.2 Cervicalgia (principal); M54.50 Low back pain, unspecified; E11.65 Type 2 diabetes mellitus with hyperglycemia
CPT/HCPCS: 36415; 72050; 72100; 80053; 80061; 82043; 82570; 84443; 85025

== ENCOUNTER 2023-04-03 10:24 | Outpatient (REF) | payer OTHER, SELFPAY ==
[2023-04-05 22:53] LABS: TS Negative Control Passed; TS Panel A 0; TS Panel B 0; TS Positive Control Passed; TSpotTB Negative (Negative)
== END 2023-04-03 10:25 | disposition home or self-care (01) ==
LOC: HO.CHCLDS 10:24
PROVIDERS: Visit Provider Family Medicine
DX: Z11.1 Encounter for screening for respiratory tuberculosis (principal)
CPT/HCPCS: 36415; 86481

== ENCOUNTER 2023-04-09 10:54 | Outpatient (REF) | payer OTHER, SELFPAY ==
--- NOTE | ~2023-04-09 | MM_ITS ---
EXAMINATION: MM SCREENING DIGITAL BREAST TOMOSYNTHESIS, BILATERAL CLINICAL INFORMATION: Screening. Asymptomatic. The patient is status post breast reduction. COMPARISON: Mammography: This study is compared with prior exams dating back to 2018. TECHNIQUE: Digital breast tomosynthesis is performed in both the craniocaudal and mediolateral oblique views along with computer-aided detection (CAD). Synthesized 2D images are generated from the tomosynthesis. FINDINGS: The breasts are almost entirely fatty (ACR BI-RADS breast composition Category a). There are no significant masses, abnormal calcifications, or other abnormalities. MM/MM tomosynthesis screening BI IMPRESSION: No mammographic evidence of malignancy. ASSESSMENT: BI-RADS BI-RADS 1 - Negative RECOMMENDATION: Routine annual mammography screening. 1 year F/U This examination should not preclude the clinical evaluation of a suspicious palpable abnormality. This patient's information was entered into a reminder system with a target due date for their next mammogram.
== END 2023-04-09 10:55 | disposition home or self-care (01) ==
LOC: HO.MAMMO 10:54
PROVIDERS: PCP Family Medicine; Visit Provider Family Medicine
DX: Z12.31 Encounter for screening mammogram for malignant neoplasm of breast (principal)
CPT/HCPCS: 77063; 77067

== ENCOUNTER → 2023-04-09 11:15 | Outpatient (BNV) | payer OTHER, SELFPAY | PROVIDERS: PCP Family Medicine; Visit Provider Radiology Diagnostic Radiology | DX: Z12.31 Encounter for screening mammogram for malignant neoplasm of breast (principal) | CPT/HCPCS: 77063; 77067 ==

== ENCOUNTER 2023-04-19 20:06 | Outpatient (REF) | payer OTHER, SELFPAY ==
--- NOTE | ~2023-04-19 | MR_ITS ---
MR CERVICAL SPINE WITHOUT CONTRAST CLINICAL INFORMATION: Myelopathy COMPARISON: Cervical spine radiographs 02/23/2023. TECHNIQUE: MRI of the cervical spine was obtained using routine sequences without contrast. FINDINGS: Straightening of the cervical lordosis. Vertebral body heights are maintained. Mild disc volume loss at C5-C6. There is no bone marrow edema. There are no acute fractures. The craniocervical junction is unremarkable. The partially imaged intracranial compartment is unremarkable. Cervical arterial flow voids are preserved. There are no significant extraspinal soft tissue findings. 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 There are no cord signal changes. C2-C3: Disc contour is normal. No central canal stenosis and no foraminal stenosis. C3-C4: Slight annular disc bulge. No central canal stenosis and no foraminal stenosis. C4-C5: Slight annular disc bulge mildly narrows the central canal. No foraminal stenosis. C5-C6: A shallow disc protrusion flattens the ventral cord and along with ligamentum flavum thickening results in moderate to severe central canal stenosis. Uncovertebral joint spurring and facet arthropathy result in moderate to severe bilateral foraminal stenosis. C6-C7: Shallow disc protrusion mildly narrows the central canal and uncovertebral joint spurring and facet arthropathy result in mild to moderate right-sided foraminal stenosis. C7-T1: Disc contour is normal. No central canal stenosis and no foraminal stenosis. MR/MR cervical spine wo con IMPRESSION: - Multilevel cervical spondylosis, greatest at C5-C6 where multifactorial degenerative changes result in moderate to severe central canal stenosis, flattening of the cervical cord, and moderate to severe bilateral foraminal stenosis. Additional spondylitic changes as discussed above. 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
== END 2023-04-19 20:07 | disposition home or self-care (01) ==
LOC: HO.MRI 20:06
PROVIDERS: PCP Family Medicine; Visit Provider Psychiatry & Neurology Neurology
DX: G96.9 Disorder of central nervous system, unspecified (principal)
CPT/HCPCS: 72141

== ENCOUNTER 2023-05-03 13:30 | Outpatient (AMB) | payer OTHER, SELFPAY ==
--- NOTE | 2023-05-03 14:18 | A.SPINEOV_ITS ---
Intake Intake Visit Reasons: neck pain Intake Note: Ms. Mays is here today c/o Neck pain. Contact Lens Molder Required: No Allergies morphine [Morphine] Allergy (Severe, Verified 03/02/21 10:22) ANAPHYLAXIS oxycodone [Percocet] Allergy (Severe, Verified 03/02/21 10:22) Anaphylaxis hydrocodone [From Vicodin] Allergy (Intermediate, Verified 03/02/21 10:22) ANAPHYLAXIS shrimp [SHRIMP] Allergy (Intermediate, Verified 03/02/21 10:22) Swelling Assessment & Plan Assessment & Plan (1) Cervical disc disorder: Code(s): M50.90 - Cervical disc disorder, unspecified, unspecified cervical region (2) Carpal tunnel syndrome: Code(s): G56.00 - Carpal tunnel syndrome, unspecified upper limb Plan Dear Dr Márquez Thank you for referring Mrs Zachary Mays to our office today. 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 She also reports numbness of her hands as well with feelings of weakness at times. She has generally been just trying to deal with the symptoms. She takes ibuprofen and naproxen on an alternating schedule. To this point she has not done any dedicated conservative treatment in form of physical therapy or cortisone injections. More than anything out she is just tried to wait it out. She comes to us today with an MRI showing moderate to severe stenosis at C5-6 with foraminal narrowing amongst other degenerative changes. She does have some slight gait imbalance. Also reports headaches and dizziness at times. PMH: She is a diabetic but her A1c is generally well controlled in the 6 range, history of high cholesterol, asthma, , ovarian cyst laparoscopy, appendectomy, breast reduction, tummy tuck, carpal tunnel of the right hand, partial colectomy for diverticulitis, cataract surgery Social hx: She does not smoke, she does not drink or use any recreational drugs Medications: Metformin, rosuvastatin, vitamin-D, ibuprofen and Naprosyn Allergies: Morphine, Percocet Vicodin all give her feelings of anxiety, shortness of breath as well as feelings of dizziness Physical exam: She is awake alert oriented no acute distress, she has mild hand weakness, positive Tinel sign in the right hand with a scar from previous carpal tunnel syndrome. Rest of the strength in her upper and lower extremities is normal, no hyperreflexia to report, if anything absent reflexes. Gait is slightly unsteady. Imaging review: Cervical MRI done at [facility] shows multilevel degenerative disc disease. There is a small central protrusion at C4-5 causing mild to moderate central stenosis, at C5-6 however there is a large central disc bulge/herniation causing moderate to severe central canal stenosis and bilateral neural foraminal stenosis. Impression: 50-year-old female presents with neck pain and bilateral arm pain left greater than right going down into her hands, getting worse over the last 2 years. She is treated this with tincture of time and medication trials. She h as having a lot of difficulty moving her head and getting comfortable just doing daily activities. Sleeping at night can be horrible unless she puts a pillow behind her head and rolls up a towel and hyperextends her neck slightly. She has been doing Motrin and Tylenol and Aleve without much effect. She does have moderate to severe central canal stenosis and bilateral neuroforaminal stenosis. Typically this is something Dr. Murillo would treat with an anterior cervical diskectomy and fusion at C5-6. I do not think there is much of a role for physical therapy. Often times insurance companies will require this before surgery so we can coordinate this if needed but I do not think it will be of any benefit at all. If anything I think it will just make her situation worse. I will speak with Dr. Murillo and review the imaging and get back the patient with a final plan. She may have an overlapping diagnosis of carpal tunnel as well given her hand numbness in positive Tinel sign but we can deal with this at a later date as it has not that big of an issue currently. We did review the risks benefits etc. of anterior cervical diskectomy and fusion during our office visit. Thank you for allowing us to care for your patient. The total time spent with this visit with this patient was 45 minutes reviewing history, physical exam, cervical spine imaging review, and implementation of treatment plan or further diagnostic testing Jeremiah Mruillo MD,PhD [facility] Coding Level of Care Code New Pt Level 4 (51413) Diagnoses Cervical disc disorder M50.90 Carpal tunnel syndrome G56.00
== END 2023-05-03 14:44 | disposition home or self-care (01) ==
PROVIDERS: PCP Family Medicine; Referring Provider Family Medicine; Visit Provider Physician Assistant
DX: M50.90 Cervical disc disorder, unspecified, unspecified cervical region (principal); G56.00 Carpal tunnel syndrome, unspecified upper limb
CPT/HCPCS: 99204

== ENCOUNTER → 2023-05-03 13:30 | Outpatient (BNVA) | payer OTHER, SELFPAY | PROVIDERS: PCP Family Medicine; Visit Provider Physician Assistant ==

== ENCOUNTER 2023-06-25 10:23 | Outpatient (AMB) | payer OTHER, SELFPAY ==
[2023-06-25 10:33] VITALS: BMI 32.1
--- NOTE | 2023-06-25 10:33 | MHC.OFFVIS ---
Intake Vital Signs 06/25/23 10:33 Height 5 ft 1 in Weight 170 lb BMI 32.1 Intake Visit Reasons: GRADUATE ADVISOR/[facility]HC faxed referral for VV w/ Pain Intake Note: GRADUATE ADVISOR/ PCP referral for bilateral LE VV for as long as she can remember. Pt states she has Hx of bilateral LE ablations and sclero injections and possibly other procedures by Dr. Mejia over 5 years ago. Pt states she still has large VV, Left LE is worse than the Right LE. Pt states that she still has itching, burning, swelling. Pt states she has tried compression stockings, but they are very old. Pt states any tight pants, pantyhose, leggings are very bothersome. Swelling is worse by the end of the day. [employer] Agent Required: No Accompanied by: Self / Same As Patient Allergies morphine [Morphine] Allergy (Severe, Verified 06/25/23 10:41) ANAPHYLAXIS oxycodone [Percocet] Allergy (Severe, Verified 06/25/23 10:41) Anaphylaxis hydrocodone [From Vicodin] Allergy (Intermediate, Verified 06/25/23 10:41) ANAPHYLAXIS shrimp [SHRIMP] Allergy (Intermediate, Verified 06/25/23 10:41) Swelling HPI GRADUATE ADVISOR/[facility]HC faxed referral for VV w/ Pain HPI Details Very pleasant 58-year-old female patient presents for painful varicose veins. Complaints include pain over varicosities, swelling of lower extremities, cramping, fatigue, and heaviness of the lower extremities. 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 It is noted more so in left leg. Patient she reports nearly 6 venous interventions in the past by Dr. Mejia Patient denies any history of DVT/ PE. Patient denies any history of phlebitis. Trial of compression includes - [id number] They now present for vascular evaluation regarding their varicose veins. 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 Review of Systems Const Reports as per HPI ENT Reports no additional complaints Card Denies chest pain, Denies chest pain at rest and Denies chest pain with activity Resp Denies chest congestion and Denies cough GI Reports no additional complaints Musc Details: pain over varicosities, aching of lower extremities, swelling, cramping, heaviness and tiredness, itching Denies abnormal gait Skin/Breast Reports pruritus and Denies wounds Neuro Reports no additional complaints and Denies abnormal gait Psych Denies no additional complaints Physical Exam Vital Signs: BMI result Body Mass Index 32.1 Const General: cooperative, healthy appearing and comfortable Orientation/consciousness: oriented to person, oriented to place and oriented to time Neck Carotids: no bruits Chest Chest palpation & inspection: normal inspection of the chest and normal palpation of entire chest wall Resp Effort & Inspection: normal respiratory effort and able to speak in complete sentences Cardio Rate: regular rate Heart sounds: S1 normal heart sound present and S2 normal heart sound present Peripheral pulses: Peripheral pulses 2+ throughout GI Inspection: Yes normal to inspection Skin Other: +2 edema, large rope-like varicosities greater than 4 mm CEAP Classification C4 - skin color changes Ep - Etiology Primary As - superficial veins P - reflux General skin exam: dry skin Neuro General: oriented to person, oriented to place and oriented to time Extrem Right lower extremity: full ROM, normal capillary refill and edema Left lower extremity: full ROM, normal capillary refill and edema Psych Mental Status: mental status grossly normal Assessment & Plan Assessment & Plan (1) Varicose veins of left lower extremity with inflammation: Code(s): I83.12 - Varicose veins of left lower extremity with inflammation Plan: In short, the patient has evidence of venous insufficiency. I have discussed the pathophysiology with the patient. In addition I have provided informational material regarding venous disease to the patient. We have discussed conservative measures including compression, elevation, and exercise. I have also provided a handout regarding appropriate use of compression stockings and where to purchase good compression stockings as well. I have taken the liberty of ordering venous insufficiency testing with the patient. This will also provide information regarding prior to us procedure They will follow up with me after testing. The patient had an opportunity to ask questions regarding the treatment plan. All questions were answered. Imaging studies, laboratory studies and physical exam results were discussed and reviewed in detail. No major barriers to understanding were identified. The patient expressed understanding and agreement with the above treatment plan. The patient is aware they should contact our office by phone for worsening of the current condition or the appearance of new symptoms. Thank you for allowing me to participate in the vascular care of this patient. If you have any questions or concerns regarding the treatment for the above condition please do not hesitate to contact me. The office telephone contact is [phone]. This note is constructed using voice recognition software. While every effort has been made to ensure accuracy, accounts payable accountant errors may have been included. Thank you for allowing me to participate in the care of your patient. Yours sincerely, Jason Turner MD, FACS, R.P.V.I. Orders: Orders US venous duplex LE BI 1 Week I83.12 - Varicose veins of left lower extremity with inflammation Coding Level of Care Code New Pt Level 4 (17040) Diagnoses Varicose veins of left lower extremity with inflammation I83.12
== END 2023-06-25 10:59 | disposition home or self-care (01) ==
PROVIDERS: PCP Family Medicine; Visit Provider Surgery Vascular Surgery
DX: I83.12 Varicose veins of left lower extremity with inflammation (principal)
CPT/HCPCS: 99203

== ENCOUNTER → 2023-06-25 10:23 | Outpatient (BNVA) | payer OTHER, SELFPAY | PROVIDERS: PCP Family Medicine; Visit Provider Surgery Vascular Surgery ==

== ENCOUNTER 2023-07-04 08:19 | Outpatient (REF) | payer OTHER, SELFPAY ==
--- NOTE | ~2023-07-04 | US_ITS ---
EXAMINATION: US LOWER EXTREMITY VENOUS (REFLUX EXAM), BILATERAL CLINICAL INDICATION: Chronic venous insufficiency with lower extremity varicose veins with pain and inflammation. History of prior bilateral great saphenous vein ablations COMPARISON: None. TECHNIQUE: Color flow triplex imaging and compression Doppler was performed to evaluate both the deep and the superficial systems bilaterally. To evaluate the superficial system, the examination was performed in the upright position. Color-flow Doppler ultrasound and compression ultrasound were utilized. In addition, maneuvers were utilized to demonstrate reflux. FINDINGS: 1. DEEP VENOUS ULTRASOUND OF THE RIGHT LOWER EXTREMITY: Common Femoral Vein: Compressible, normal respiratory variation and augmented flow. Femoral Vein: Compressible, normal color flow and augmentation. Popliteal Vein: Compressible, normal augmentation. Deep Reflux: There is no evidence of reflux in the deep system in either the common femoral vein, superficial femoral or the popliteal vein. There is no evidence of a Vazquez's cyst. 2. SUPERFICIAL ULTRASOUND WITH DOPPLER OF RIGHT LOWER EXTREMITY: GREAT SAPHENOUS VEIN: Saphenofemoral Junction: 0.8 cm; Reflux: 0 ms Proximal Thigh: Occluded Mid Thigh: Occluded Above Knee: Occluded At Knee: 0.2 cm; Reflux: 2812 ms Below Knee: 0.2 cm; Reflux: 2986 ms Mid Calf: 0.2 cm; Reflux: 2780 ms Ankle: 0.1 cm; Reflux: 972 ms DUPLICATED MEDIAL GREAT SAPHENOUS VEIN: Diameter: None imaged Reflux: NA DUPLICATED LATERAL GREAT SAPHENOUS VEIN: Diameter: 0.4 cm Reflux: None SMALL SAPHENOUS VEIN: Saphenopopliteal Junction: 0.5 cm; Reflux: 0 ms Proximal: 0.3 cm; Reflux: 0 ms Distal: 0.2 cm; Reflux: 1740 ms VEIN OF GIACOMINI: Size: NA Reflux: NA PERFORATORS: Location: None imaged Size: NA Reflux: NA VARICOSITIES: Location: Medial knee off the great saphenous vein, mid thigh off the lateral duplicated great saphenous Size: 0.3 cm Reflux: None 3. DEEP VENOUS ULTRASOUND OF THE LEFT LOWER EXTREMITY: Common Femoral Vein: Compressible, normal respiratory variation and augmented flow. Femoral Vein: Compressible, normal color flow and augmentation. Popliteal Vein: Compressible, normal augmentation. Deep Reflux: There is no evidence of reflux in the deep system in either the common femoral vein, superficial femoral or the popliteal vein. There is no evidence of a Vazquez's cyst. 4. SUPERFICIAL ULTRASOUND WITH DOPPLER OF LEFT LOWER EXTREMITY: GREAT SAPHENOUS VEIN: Saphenofemoral Junction: 0.8 cm; Reflux: 0 ms Proximal Thigh: 0.3 cm; Reflux: 0 ms Mid Thigh: Occluded Above Knee: Occluded At Knee: Occluded Below Knee: 0.1 cm; Reflux: 0 ms Mid Calf: 0.1 cm; Reflux: 0 ms Ankle: 0.3 cm; Reflux: 0 ms DUPLICATED MEDIAL GREAT SAPHENOUS VEIN: Diameter: 0.4 cm Reflux: None DUPLICATED LATERAL GREAT SAPHENOUS VEIN: Diameter: None imaged Reflux: NA SMALL SAPHENOUS VEIN: Saphenopopliteal Junction: 0.4 cm; Reflux: 0 ms Proximal: 0.2 cm; Reflux: 0 ms Distal: 0.2 cm; Reflux: 0 ms VEIN OF GIACOMINI: Size: NA Reflux: NA PERFORATORS: Location: None significant Size: NA Reflux: NA VARICOSITIES: Location: None significant Size: NA Reflux: NA US/US venous duplex LE BI IMPRESSION: Right: Closure of the great saphenous vein through the thigh consistent with prior ablation. Residual great saphenous vein in the calf demonstrates severe reflux. Varicose veins in the thigh and at the knee without significant reflux as described above Left: Closure of the great saphenous vein through the thigh consistent with prior ablation. No significant reflux or varicose veins as described above
== END 2023-07-04 08:20 | disposition home or self-care (01) ==
LOC: HO.US 08:19
PROVIDERS: PCP Family Medicine; Visit Provider Surgery Vascular Surgery
DX: I83.12 Varicose veins of left lower extremity with inflammation (principal)
CPT/HCPCS: 93970

== ENCOUNTER 2023-07-11 05:43 | Day surgery (SDC) | payer OTHER, SELFPAY ==
[2023-06-27 13:43] VITALS: BP 131/77; PULSE 76; RESP 16; O2SAT 96; BMI 32.0
--- NOTE | 2023-06-27 14:12 | P.CONAN_ITS ---
HPI - Anesthesia Eval Consult details Narrative: 58 yo female patient for ACDF C5-6 PMFSH Active Problems Active Problems: All Active Problems Varicose veins of left lower extremity with inflammation (Acute) Carpal tunnel syndrome (Acute) Cervical disc disorder (Acute) COVID-19 (Acute) Laceration of thumb (Acute) Patellofemoral arthritis (Acute) DM. Had been on trulicity but stopped months ago secondary to non-coverage by insurance as was also on metformin and could only be on 1 or the other. Now only on metformin. Has not seen PCP since trulicity was stopped Asthma Heart murmur Past Medical History Medical History GERD (gastroesophageal reflux disease) Hx of lipoma Varicose vein of leg Cervical spinal stenosis Difficulty swallowing Diabetes Murmur Bronchitis Hernia Asthma Diverticulitis High cholesterol Patellofemoral arthritis Family History Family history of problems with anesthesia: No Surgical History Surgical History Hx of cataract extraction Hx of bladder repair surgery History of tonsillectomy Hx of carpal tunnel repair History of removal of ovarian cyst Hx of breast reduction, elective Hx of tubal ligation History of colon resection H/O colonoscopy Hx of appendectomy History of 3 sections History of Problems with Anesthesia: Yes (Patient thinks there may have been a problem when she had lipoma excision. Unsure of problem. 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 Meds Allergies Allergy/AdvReac Type Severity Reaction Status Date / Time morphine [Morphine] Allergy Severe ANAPHYLAXIS Verified 06/25/23 10:41 oxycodone [Percocet] Allergy Severe Anaphylaxis Verified 06/25/23 10:41 hydrocodone [From Vicodin] Allergy Intermediate ANAPHYLAXIS Verified 06/25/23 10:41 shrimp [SHRIMP] Allergy Intermediate Swelling Verified 06/25/23 10:41 Home Medications ?Medication ?Instructions ?Recorded ?Confirmed ?Last Taken ?Type rosuvastatin 10 mg tablet (Crestor) 40 mg PO BEDTIME 01/25/20 06/27/23 Unknown History metformin 500 mg tablet 500 mg PO BID 06/25/23 06/27/23 Unknown History calcium carbonate 500 mg calcium 500 mg PO DAILY PRN Acid Reflux 06/27/23 06/27/23 Unknown History (1,250 mg) chewable tablet Exam Height,Weight and Vital Signs: Height 5 ft 1.5 in Weight 78.018 kg Last Vital Signs Pulse 76 06/27/23 13:43 Resp 16 06/27/23 13:43 BP 131/77 06/27/23 13:43 Pulse Ox 96 06/27/23 13:43 O2 Del Method Room Air 06/27/23 13:43 Airway Mallampati Class: II TM Dist: >3cm Neck ROM: Limited (Limited extension) Heart: RRR Lungs: CTAB Assessment and Plan Assessment Anesthesia Assessment: Anesthesia Plan Discussed and Chart Reviewed Final Anesthetic Review Family History of Problems with Anesthesia: No History of Problems with Anesthesia: Yes (Patient thinks there may have been a problem when she had lipoma excision. Unsure of problem. No records available to review.) NPO: Yes ASA Class: II Final Preanesthetic Review: No Changes in Pt Med Stat, Meds/Allgs Chart Reviewed, Consent Obtained/Reviewed and Anes Risks/Benef Reviewed Patient Risk: Intermediate Procedure Risk: Intermediate Assessment/Block/Sedation in SS: Assess/Block/Sedation-SS Anesthetic Plan Anesthetic Plan: GA Disposition: Standard PACU
[2023-07-11] VITALS (21 sets, daily range): BP systolic 104–131; BP diastolic 52–80; PULSE 67–87; RESP 12–16; TEMP 36.3–36.4; O2SAT 88–99; BMI 31.7
--- NOTE | ~2023-07-11 | FL_ITS ---
EXAMINATION: XR FLUOROSCOPY WITH IMAGES CLINICAL INFORMATION: Anterior cervical disc fusion right side approach, anterior cervical disc fusion at C5-C6 COMPARISON: None available. TECHNIQUE: Fluoroscopy Supervised By: Dr. Dio Murillo. Fluoroscopy Time: 6.7. Cumulative Dose: 1.7305 mGy. DAP: 0.3041 Gycm2. Images: 2. FINDINGS: Fluoroscopic guidance provided for procedure performed by Dr. Dio Murillo. 2 images demonstrate cervical disc fusion hardware likely at C5-C6 level. Please refer to operative report for more detailed evaluation. FL/FL guidance in OR IMPRESSION: Fluoroscopic guidance provided for procedure performed by Dr. Dio Murillo. Please refer to operative report for more detailed evaluation.
[2023-07-11] MEDS: methocarbamoL 750 MG TABLET PO (06:14)
[2023-07-11] MEDS: Gabapentin 300 MG CAPSULE PO (06:14)
[2023-07-11 06:22] LABS: Glucose, Whole Blood 152 mg/dL (60-115)
--- NOTE | 2023-07-11 06:56 | MHC.SHP ---
Pre-Procedural Eval Section A - 24 Hr Update-Section A only Date of Service: 07/11/23 The patient is an INPATIENT: No Changes since office visit: No Cold of Flu in the past 2 weeks, No New Medical Problems, No Changes in Medication and No Patient answered all questions The patient has been examined within 24 hours of the surgical procedure. The History & Physical has been completed within 30 days and I have reviewed it.: No Section B - Complete if H&P > 30 days Chief Complaint: Cervical disc disorder, unspecified, Allergies: Allergies Allergy/AdvReac Type Severity Reaction Status Date / Time morphine [Morphine] Allergy Severe ANAPHYLAXIS Verified 07/11/23 05:58 oxycodone [Percocet] Allergy Severe Anaphylaxis Verified 07/11/23 05:58 hydrocodone [From Vicodin] Allergy Intermediate ANAPHYLAXIS Verified 07/11/23 05:58 shrimp [SHRIMP] Allergy Intermediate Swelling Verified 07/11/23 05:58 Review of Systems Sugical H&P ROS: Negative: Constitution, Cardiovascular, Respiratory, Neurological, Psychiatric, Hem-Onc, Allergic/Immunologic, Gastrointestinal, Genitourinary, Musculoskeletal, Integumentary, Endocrine and Eyes/Ears/Nose/Throat Exam Surgical H&P Exam: Not Evaluated: HEENT, Not Evaluated: Heart, Not Evaluated: Lungs, Not Evaluated: Extremities, Not Evaluated: Abdomen, Not Evaluated: Skin and Not Evaluated: Neurological Plan Diagnosis/Plan: Unchanged C5-6 ACDF Time Spent With Patient Time: Total time managing care of this patient today _5___ minutes.
[2023-07-11] MEDS: Lactated Ringers 1,000 ML 50 ML IVCONT (07:08)
--- NOTE | 2023-07-11 07:19 | HO.ANESPROP2 ---
[facility] Active Problems Active Problems: All Active Problems Varicose veins of left lower extremity with inflammation (Acute) Carpal tunnel syndrome (Acute) Cervical disc disorder (Acute) COVID-19 (Acute) Laceration of thumb (Acute) Patellofemoral arthritis (Acute) Past Medical History Medical History GERD (gastroesophageal reflux disease) Hx of lipoma Varicose vein of leg Cervical spinal stenosis Difficulty swallowing Diabetes Murmur Bronchitis Hernia Asthma Diverticulitis High cholesterol Patellofemoral arthritis Family History Family history of problems with anesthesia: No Surgical History Surgical History Hx of cataract extraction Hx of bladder repair surgery History of tonsillectomy Hx of carpal tunnel repair History of removal of ovarian cyst Hx of breast reduction, elective Hx of tubal ligation History of colon resection H/O colonoscopy Hx of appendectomy History of 3 sections History of Problems with Anesthesia: No (Patient thinks there may have been a problem when she had lipoma excision. Unsure of problem. No records available to review.) Social History Social History Are you a primary director long term care to a significant other at home: No Do you presently have visiting nurse or other home services: No Alcohol intake: never Patient Tobacco Use Status: Never used Tobacco Use of substances other than those prescribed or required for medical reasons: No Have you been hit, kicked, punched, or otherwise hurt by someone within the past year? 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 Meds Allergies Allergy/AdvReac Type Severity Reaction Status Date / Time morphine [Morphine] Allergy Severe ANAPHYLAXIS Verified 07/11/23 05:58 oxycodone [Percocet] Allergy Severe Anaphylaxis Verified 07/11/23 05:58 hydrocodone [From Vicodin] Allergy Intermediate ANAPHYLAXIS Verified 07/11/23 05:58 shrimp [SHRIMP] Allergy Intermediate Swelling Verified 07/11/23 05:58 Active Medications: Current Medications Lactated Ringer's (Lr) 1,000 mls @ 50 mls/hr IVCONT .Q20H FRANSISCA Last Admin: 07/11/23 07:08 Dose: 50 mls/hr Home Medications ?Medication ?Instructions ?Recorded ?Confirmed ?Last Taken ?Type rosuvastatin 10 mg tablet (Crestor) 40 mg PO BEDTIME 01/25/20 06/27/23 Unknown History metformin 500 mg tablet 500 mg PO BID 06/25/23 06/27/23 Unknown History calcium carbonate 500 mg PO DAILY PRN Acid Reflux 06/27/23 06/27/23 Unknown History albuterol sulfate 90 mcg/actuation 2 puff inhalation Q4-6H PRN 07/11/23 07/11/23 Unknown History aerosol inhaler Shortness Of Breath Or Wheezing Exam Height,Weight and Vital Signs: Height 5 ft 1.5 in Weight 77.292 kg Last Vital Signs Temp 97.4 F 07/11/23 06:07 Pulse 73 07/11/23 06:07 Resp 15 07/11/23 06:07 BP 124/71 07/11/23 06:07 Pulse Ox 95 07/11/23 06:07 O2 Del Method Room Air 07/11/23 06:07 Pertinent Lab Results Pertinent Lab Results: Laboratory Tests 07/11/23 06:19 POC Glucose 152 H Airway Mallampati Class: II TM Dist: >3cm Neck ROM: Full Assessment and Plan Assessment Anesthesia Assessment: Anesthesia Plan Discussed and Chart Reviewed Final Anesthetic Review Family History of Problems with Anesthesia: No History of Problems with Anesthesia: No (Patient thinks there may have been a problem when she had lipoma excision. Unsure of problem. No records available to review.) NPO: Yes Final Preanesthetic Review: No Changes in Pt Med Stat, Meds/Allgs Chart Reviewed, Consent Obtained/Reviewed and Anes Risks/Benef Reviewed Patient Risk: Intermediate Procedure Risk: Intermediate Anesthetic Plan Anesthetic Plan: GA Disposition: Standard PACU
--- NOTE | 2023-07-11 08:47 | W.PM.OPN ---
Operative Note Operative Note Date of Service: 07/11/23 Narrative: Preoperative Diagnosis: Bilateral cervical radiculopathy due to C5-6 degenerative disc disease Procedure: C5-C6 Anterior discectomy, arthrodesis and implantation cage ; C5-C6 anterior instrumentation ; local autograft; microscope Informed Consent was obtained for this operation. I have explained the nature, purpose and benefits of the operation. I have discussed the risks and benefit of the operation including possible complications or adverse events with patient/family. Alternative(s) were discussed with the patient with their relative benefits and risks as well as the consequences of not accepting the operation were included in obtaining consent. Surgeon: ANASTASIA MO MD, PHD Procedure Assisted By: aster Cochran Description of Procedure: Patient is suffering from bilateral arm pain. MRI shows severe degenerative disc disease C5-6 with bilateral foraminal stenosis. She was offered a anterior diskectomy and fusion C5-C6. The procedure complications were explained. The patient was consented. The patient was brought to the operating room and endotracheally intubated. The patient was put in supine position with slight extension of the neck. Prep and drape was done followed by timeout. A mid cervical incision was made followed by opening of the platysma. The prevertebral fascia was reached following the natural planes while the physician clinical services assistant provided manual retraction. The prevertebral fascia was opened to expose the disc space. A spinal needle was placed in the disk space to confirm the correct level with xray. The longus colli muscles were released bilaterally and a self retaining retractor was inserted. Two [place] pins were placed in the C5 and C6 vertebral bodies and distraction was give over the interspace. The discectomy was completed toward the posterior annulus of the disc. The microscope was brought in. The remainder of the discectomy was completed. The posterior ligament was opened and resected to expose the underlying dura. Osteophytes were resected from the body of C5-C6 and saved for autograft. Bilateral foraminotomies were done. The endplates were prepared after which a 6 mm cage filled with autograft was inserted into the disc space. A separate attached plate was locked down with 2 x 14 mm screws as anterior instrumentation. Final x-rays in AP and lateral projection showed a satisfactory position of the implant. The physician clinical services assistant took over. The [place] pin was removed. Hemostasis was done. He closed the incision in 2 layers with a 3-0 Vicryl. Steri-Strips used to approximate incision. An OpSite with Tegaderm was used to cover the incision. All sponge and needle counts were correct. Patient was extubated and transported in stable is to recovery room. Anesthesia: General Estimated Blood Loss (ml): 25 Duration of Surgery: 45 minutes Postoperative Plan: Discharge home Complications: None
--- NOTE | 2023-07-11 08:53 | PM.DS ---
DS: Providers Provider Date of Service: 07/11/23 Date of discharge: 07/11/23 Primary care physician: Tami Márquez MD Admitting clinician: Bruce Murillo DS: Diagnosis Discharge Diagnosis (1) Cervical disc disorder: Status: Acute DS: Summary Time Attestation Discharge Coordination Time (in mins): 4 Quality: Safe Use of Opioids Does Pt have an Active Cancer Diagnosis on the Problem List?: No Quality: Stroke Does the patient have a stroke diagnosis?: No Physical Exam Vital Signs: Vital Signs: Last Vital Signs Temp 97.4 F 07/11/23 06:07 Pulse 73 07/11/23 06:07 Resp 15 07/11/23 06:07 BP 124/71 07/11/23 06:07 Pulse Ox 95 07/11/23 06:07 O2 Del Method Room Air 07/11/23 06:07 BMI result Body Mass Index 31.7 DS: Data Data Completed and Pending Labs on day of discharge: Laboratory Results - last 24 hr 07/11/23 06:19 POC Glucose 152 H Discharge Plan Discharge Patient Disposition: Home, Self-Care Referrals: Tami Márquez MD [Primary Care Provider] - 1 Week Discharge Medications: New tramadol 50 mg tablet 50 mg PO Q6H PRN (Reason: pain) Qty: 30 0RF Continued calcium carbonate 500 mg calcium (1,250 mg) Tablet,Chewable 500 mg PO DAILY PRN (Reason: Acid Reflux) albuterol sulfate 90 mcg/actuation Hfa Aerosol Inhaler 2 puff INHALATION Q4-6H PRN (Reason: Shortness Of Breath Or Wheezing) rosuvastatin [Crestor] 10 mg tablet 40 mg PO BEDTIME metformin 500 mg tablet 500 mg PO BID Discharge Orders: Discharge Order (Routine); Ordered 07/11/23 Ordered By: Jeremiah Plasencia Diet: Advance to usual diet Activity on Discharge: As tolerated Activity Restrictions/Additional Instructions: After your spinal surgery we ask you to observe the following restrictions/guidelines: Activity: It is normal to feel some discomfort as you increase your activity, but that will improve with time. We ask you avoid heavy lifting or acitivities that cause pain. As a general rule, 8lbs is a safe limit for lifting right after surgery. Walk as much as you feel comfortable but not to exhaustion. You will feel extra tired the first few days after surgery. Stay well hydrated. It is OK to walk up and down stairs You may return to driving when you are off narcotics (such as vicodin, oxycodone, dilaudid, etc), and you are back to normal functional capacity. If you have any concerns please check with office before driving. Return to work is specific to each patient and each surgery, so please speak with your doctor/PA at first follow up. Please bring paperwork such as FMLA at that time if you need it filled out. Medications: For optimum pain control, it is best to start with a combination of 500 mg of Tylenol every 4 hours with 600 mg of Motrin every 8 hours, and use narcotics as needed in between for breakthrough pain. We will give you a short supply of narcotics after surgery (usually one weeks worth). If you need more please call the office but do not use more than prescribed. You will need to give our office 48 hours notice if you need narcotics refilled and we do not fill narcotics on weekends or evenings. If you are on a narcotic, it is a good idea to take a stool softener such as colace or senna to avoid constipation If you take blood thinner such as aspirin, Plavix, Coumadin, Effient, Eliquis etc for conditions such as Afib, DVT, Pulmonary embolus, coronary disease, stents etc please speak with your surgeon about specific details as to when you can resume these medications. You can resume NSAIDs on post op day 1 (eg: Motrin, Naproxen, etc). Follow up: Please call the office, , after surgery to arrange a 3 week follow up for wound check. Wound Care: You may remove your dressing on the first day after surgery. ?You may ?leave open to air. Please do not remove the steri strips underneath. they will fall off on their own in one week. IT IS NORMAL FOR THE WOUND TO OOZE OR BE BLOODY FOR A FEW DAYS AFTER SURGERY. ?IF THIS HAPPENS JUST PLACE NEW DRESSING OVER IT TO AVOID STAINING CLOTHES. You may shower on post op day # 1 We ask that you do not let the water soak the wound. If it does get wet, just towel dry lightly. Please do not scrub your incision or place any type of chemical/ointment on the wound. No tub baths, pools or jacuzzis for one month. If you have any leaking or redness from your wound, or fevers, please call office Print Language: East Timorese
[2023-07-11] MEDS: traMADoL HCL 50 MG TABLET 100 MG PO (10:09)
[2023-07-11 14:06] LABS: Glucose, Whole Blood 260 mg/dL (60-115)
== END 2023-07-11 16:35 | disposition home or self-care (01) ==
PROVIDERS: PCP Family Medicine; Visit Provider Neurological Surgery
PROC: (CPT 22551; principal; 2023-07-11 07:30)
DX: M50.122 Cervical disc disorder at C5-C6 level with radiculopathy (principal); G56.00 Carpal tunnel syndrome, unspecified upper limb; E11.9 Type 2 diabetes mellitus without complications; J45.909 Unspecified asthma, uncomplicated; E78.00 Pure hypercholesterolemia, unspecified; Z79.84 Long term (current) use of oral hypoglycemic drugs; Z79.899 Other long term (current) drug therapy; Z79.1 Long term (current) use of non-steroidal anti-inflammatories (NSAID); Z88.2 Allergy status to sulfonamides
CPT/HCPCS: 22551; 22853; 20936; 22845; 82947; C1713; C1889; J0131; J0690; J1100; J1170; J1885; J2250; J2405; J2704; J3010

== ENCOUNTER → 2023-07-11 05:43 | Outpatient (BNV) | payer OTHER, SELFPAY | PROVIDERS: PCP Family Medicine; Visit Provider Neurological Surgery | DX: M50.90 Cervical disc disorder, unspecified, unspecified cervical region (principal) | CPT/HCPCS: 20930; 20936; 22551; 22845; 22853; 99499 ==

== ENCOUNTER 2023-07-30 14:00 | Outpatient (AMB) | payer OTHER, SELFPAY ==
--- NOTE | 2023-07-30 14:25 | HO.SPINEOV ---
Intake Visit Reasons: 1st post op Intake Note: Ms. Mays is here today for her 1st post-op appointment. 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 She reports that her right arm feels better than before surgery in her left arm feels worse. She states she still has shooting pains down her right arm, terminating near her pinky, and also still feels like she has weakness on the left. The patient reports she is up walking around and completing the majority of her ADLs. She reports that she no longer suffers from her left-sided shooting radiculopathy. We discussed what her possibilities for pain control could be, as she states she does not like utilizing narcotic medication. She is currently only taking ibuprofen. I recommended we trial nighttime dose of gabapentin, which she sounds agreeable to. No new neurological deficits. Patient is able to ambulate well, rises from a seated position without difficulty. Incision sites are closed, well healing, with no signs of drainage. I will send in a prescription for gabapentin 300 mg capsule q.h.s. for the patient. I also printed her out a letter for work to keep her out until we see her again. We will follow-up with the patient in 6 weeks for their 2nd postoperative visit. At that time we will get x-rays to review with the patient. Medications: New gabapentin 300 mg PO BEDTIME 20 caps 0RF Coding Level of Care Code Global (71237) Diagnoses S/P cervical spinal fusion Z98.1
== END 2023-07-30 14:52 | disposition home or self-care (01) ==
PROVIDERS: PCP Family Medicine; Visit Provider Physician Assistant
DX: Z98.1 Arthrodesis status (principal)
CPT/HCPCS: 99024

== ENCOUNTER → 2023-07-30 14:00 | Outpatient (BNVA) | payer OTHER, SELFPAY | PROVIDERS: PCP Family Medicine; Visit Provider Physician Assistant ==

== ENCOUNTER 2023-08-06 10:53 | Outpatient (AMB) | payer OTHER, SELFPAY ==
--- NOTE | 2023-08-06 10:54 | A.OFFVIS_ITS ---
Intake Visit Reasons: f/u s/p US 07/04/23 Intake Note: follow up 07/04/23, pt states Left LE worse than Right LE, has hx of bilateral venous procedures by over 5 years ago, still has large VV that burn, itch and cause swelling, states that any tight fitting pants/ nylons/socks, cause pain. Also states anything that touches or hits VV on legs cause pain. Accompanied by: Self / Same As Patient Allergies morphine [Morphine] Allergy (Severe, Verified 08/06/23 11:00) ANAPHYLAXIS oxycodone [Percocet] Allergy (Severe, Verified 08/06/23 11:00) Anaphylaxis hydrocodone [From Vicodin] Allergy (Intermediate, Verified 08/06/23 11:00) ANAPHYLAXIS shrimp [SHRIMP] Allergy (Intermediate, Verified 08/06/23 11:00) Swelling narcotics Allergy (Uncoded 08/06/23 11:00) Anaphylaxis HPI HPI f/u s/p 07/04/23: Details: Very pleasant 58-year-old female presents for follow-up regarding venous insufficiency testing. She had had prior lower extremity venous ablation is. This was at a outpatient venous center nearly 5 years ago. She does have some pain on the lateral aspects. She reports that they have been a source of irritation for her. She now presents for follow-up with venous insufficiency testing [facility] Medical History GERD (gastroesophageal reflux disease) Hx of lipoma Varicose vein of leg Cervical spinal stenosis Difficulty swallowing Diabetes Murmur Bronchitis Hernia Asthma Diverticulitis High cholesterol Patellofemoral arthritis Surgical History Hx of cataract extraction Hx of bladder repair surgery History of tonsillectomy Hx of carpal tunnel repair History of removal of ovarian cyst Hx of breast reduction, elective Hx of tubal ligation History of colon resection H/O colonoscopy Hx of appendectomy History of 3 sections Social History Are you a primary care management specialist to a significant other at home: No Do you presently have visiting nurse or other home services: No Alcohol intake: never Patient Tobacco Use Status: Never used Tobacco Current occupational status: employed 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 Review of Systems Const Reports as per HPI ENT Reports no additional complaints Card Denies chest pain, Denies chest pain at rest and Denies chest pain with activity Resp Denies chest congestion and Denies cough GI Reports no additional complaints Musc Details: pain over varicosities, aching of lower extremities, swelling, cramping, heaviness and tiredness, itching Denies abnormal gait Skin/Breast Reports pruritus and Denies wounds Neuro Reports no additional complaints and Denies abnormal gait Psych Denies no additional complaints Physical Exam Const General: cooperative, healthy appearing and comfortable Orientation/consciousness: oriented to person, oriented to place and oriented to time Neck Carotids: no bruits Chest Chest palpation & inspection: normal inspection of the chest and normal palpation of entire chest wall Resp Effort & Inspection: normal respiratory effort and able to speak in complete sentences Cardio Rate: regular rate Heart sounds: S1 normal heart sound present and S2 normal heart sound present Peripheral pulses: Peripheral pulses 2+ throughout GI Inspection: Yes normal to inspection Skin Other: +1 edema, multiple spider telangiectasias General skin exam: dry skin Neuro General: oriented to person, oriented to place and oriented to time Extrem Right lower extremity: full ROM, normal capillary refill and edema Left lower extremity: full ROM, normal capillary refill and edema Psych Mental Status: mental status grossly normal Results Reviewed Results Reviewed: Brief summary of venous insufficiency testing is as follows: right great saphenous vein: Only focally positive at right calf right small saphenous vein: negative right accessory vein: none present left great saphenous vein: negative left small saphenous vein: negative left accessory vein: none present Please note there is no evidence of any venous aneurysms or significant tortuosity Assessment & Plan Assessment & Plan (1) Varicose veins of left lower extremity with inflammation: Code(s): I83.12 - Varicose veins of left lower extremity with inflammation Category: Medical Plan: In short patient is essentially negative for any significant venous insufficiency. Her discomfort is left more so than right. The right side is only focally positive at the calf and would not intervene on that. She does have multiple spider telangiectasias which are more cosmetic in nature. At the current time no intervention is required. We did discuss routine conservative measures including compression, elevation, exercise. She will follow up with us on an as-needed basis. Thank you for allowing us to assist in her care. If there are any questions or concerns please do not hesitate to contact us. Coding Level of Care Code Est Pt Level 4 (14102) Diagnoses Varicose veins of left lower extremity with inflammation I83.12
== END 2023-08-06 11:24 | disposition home or self-care (01) ==
PROVIDERS: PCP Family Medicine; Visit Provider Surgery Vascular Surgery
DX: I83.12 Varicose veins of left lower extremity with inflammation (principal)
CPT/HCPCS: 99213

== ENCOUNTER → 2023-08-06 10:53 | Outpatient (BNVA) | payer OTHER, SELFPAY | PROVIDERS: PCP Family Medicine; Visit Provider Surgery Vascular Surgery ==

== ENCOUNTER 2023-09-10 14:15 | Outpatient (REF) | payer OTHER, SELFPAY ==
--- NOTE | ~2023-09-10 | XR_ITS ---
EXAMINATION: XR CERVICAL SPINE CLINICAL INFORMATION: Cervical disc disorder. COMPARISON: Fluoroscopy 07/11/2023, MR cervical spine of 04/19/2023, x-ray cervical spine of 02/23/2023. TECHNIQUE: 4 views of the cervical spine. FINDINGS: Interdisc hardware at C5-C6. Spondylosis in the remainder of the cervical spine. Remainder of cervical vertebral body heights are maintained. Alignment maintained on flexion and extension views. XR/XR cervical spine 4V IMPRESSION: Interdisc hardware at C5-C6.
== END 2023-09-10 14:16 | disposition home or self-care (01) ==
LOC: HO.HOSX 14:15
PROVIDERS: PCP Family Medicine; Visit Provider Physician Assistant
DX: M50.90 Cervical disc disorder, unspecified, unspecified cervical region (principal); Z98.1 Arthrodesis status
CPT/HCPCS: 72050

== ENCOUNTER 2023-09-10 14:15 | Outpatient (AMB) | payer OTHER, SELFPAY ==
--- NOTE | 2023-09-10 14:32 | HO.SPINEOV ---
Intake Visit Reasons: 2nd post op with xrays Intake Note: Ms. Davon Sharma is here for 2nd post op visit Compliance Administrator Required: No Allergies morphine [Morphine] Allergy (Severe, Verified 08/06/23 11:00) ANAPHYLAXIS oxycodone [Percocet] Allergy (Severe, Verified 08/06/23 11:00) Anaphylaxis hydrocodone [From Vicodin] Allergy (Intermediate, Verified 08/06/23 11:00) ANAPHYLAXIS shrimp [SHRIMP] Allergy (Intermediate, Verified 08/06/23 11:00) Swelling narcotics Allergy (Uncoded 08/06/23 11:00) Anaphylaxis Assessment & Plan Assessment & Plan (1) S/P cervical spinal fusion: Code(s): Z98.1 - Arthrodesis status Category: Medical Plan Erin comes in today for a subsequent follow-up visit after having a C5-6 ACDF completed on 07/11/2023. She reports her symptoms have largely resolved; she does get occasional twinges of pain but is able to complete full 90 degrees with cervical rotation to the right into the left without issue. She denies any concerns, complaints, or questions at this time. We did obtain a set of cervical spine x-rays and reviewed them in office together today. These x-rays show stable placement of surgical construct with no changes from fluoroscopy. The patient was encouraged to continue light stretching/exercise. 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 This was provided to her during this visit. Luis Daniel Murillo MD,PhD [facility] Orders: Orders XR cervical spine 4V Today M50.90 - Cervical disc disorder, unspecified, unspecified cervical region Coding Level of Care Code Global (05733) Diagnoses S/P cervical spinal fusion Z98.1
== END 2023-09-10 15:14 | disposition home or self-care (01) ==
PROVIDERS: PCP Family Medicine; Visit Provider Physician Assistant
DX: Z98.1 Arthrodesis status (principal)
CPT/HCPCS: 99024

== ENCOUNTER 2023-11-05 14:49 | Outpatient (REF) | payer OTHER, SELFPAY ==
[2023-11-07 12:58] LABS: HPV mRNA E6/E7 Not Detected (Not Detected)
== END 2023-11-05 14:50 | disposition home or self-care (01) ==
LOC: HO.CHCLNP 14:49
PROVIDERS: Visit Provider Family Medicine
DX: Z12.4 Encounter for screening for malignant neoplasm of cervix (principal)
CPT/HCPCS: 36415; 87624; 88175

== ENCOUNTER 2023-11-22 12:59 | Outpatient (REF) | payer OTHER, SELFPAY ==
--- NOTE | ~2023-11-22 | US_ITS ---
EXAMINATION: US PELVIS CLINICAL INFORMATION: Pelvic pain. COMPARISON: CT abdomen and pelvis 06/07/2022, pelvic ultrasound 05/21/2019. TECHNIQUE: Ultrasound of the pelvis is performed using both transabdominal and transvaginal transducers along with Doppler. Transvaginal imaging is performed due to inadequate visualization transabdominally. FINDINGS: UTERUS: The uterus is anteverted and retroflexed measuring 7.8 x 3.3 x 3.6 cm. The double wall endometrial thickness is 6 mm. The uterus is smooth in contour and has normal myometrial echogenicity. No visible fibroid. Trace fluid is seen in the endocervical canal. ADNEXA: Both ovaries are visualized. There is normal color flow to the adnexa. There is no ovarian torsion. There is no pelvic ascites or fluid collection. Right ovary measures 2.0 x 1.6 x 1.6 cm for a volume of 2.8 mL. Left ovary measures 1.1 x 1.0 x 1.0 cm for a volume of 0.6 mL. US/US pelvic and transvaginal IMPRESSION: No significant abnormality is seen. Electronically signed by: Guillermo Bassett MD 11/27/2023 03:50 PM EDT
== END 2023-11-22 13:00 | disposition home or self-care (01) ==
LOC: HO.US 12:59
PROVIDERS: PCP Family Medicine; Visit Provider Family Medicine
DX: R10.2 Pelvic and perineal pain (principal)
CPT/HCPCS: 76830; 76856

== ENCOUNTER 2024-02-22 08:16 | Outpatient (REF) | payer OTHER, SELFPAY ==
[2024-02-22 08:30] LABS: MANUAL DIFF FLAG NO
[2024-02-22 08:49] LABS: Basophils Percent Auto 0.5 % (0-2); Eosinophils Absolute Auto 0.1 X10*3/uL (0.0-0.4); Eosinophils Percent Auto 2.1 % (0-4); Hematocrit 42.6 % (37.0-47.0); Hemoglobin 13.8 g/dl (12.0-16.0); Imm Gran Abs Auto 0.02 X10*3/uL (0.00-0.03); Imm Gran Pct Auto 0.3 % (0.0-0.4); Lymphocytes Absolute Auto 2.1 X10*3/uL (1.2-4.9); Lymphocytes Percent Auto 33.5 % (20-40); Mean Corpuscular HGB Conc 32.4 g/dl (31.0-35.0); Mean Corpuscular Hemoglobin 28.6 pg (27.0-33.0); Mean Corpuscular Volume 88.2 fL (80.0-98.0); Monocytes Absolute Auto 0.4 X10*3/uL (0.1-1.2); Neutrophils Absolute Auto 3.7 x10*3/uL (2.0-8.3); Neutrophils Percent Auto 57.6 % (45-73); Platelet Count 315 X10*3/uL (160-400); Red Blood Count 4.83 X10*6/uL (4.20-5.50); Red Cell Distribution Width 15.8 % (11.0-16.0); White Blood Count 6.3 X10*3/uL (4.8-10.8)
[2024-02-22 09:00] LABS: Estimated Average Glucose 148 mg/dL; Hemoglobin A1C 180.9615 umol/L; Hemoglobin A1c % 6.8 % (<6.0); Total Hemoglobin (HGBA1C) 3528.4509 umol/L
[2024-02-22 09:17] LABS: Creatinine Urine 172.24 mg/dL; Microalbum/Creatinine Ratio Ur 8.7 ug/mg cr (<30)
[2024-02-22 09:28] LABS: Alanine Aminotransferase 41 U/L (0-31); Albumin Level 4.2 g/dL (3.5-5.0); Alkaline Phosphatase 120 U/L (39-117); Anion Gap 11 (12-20); Aspartate Amino Transferase 24 U/L (5-31); Bilirubin Total 0.6 mg/dL (0.0-1.0); Blood Urea Nitrogen 12 mg/dL (9-16); Calcium 9.4 mg/dL (8.4-10.2); Carbon Dioxide 28 mmol/L (22-29); Chloride 106 mmol/L (96-108); Cholesterol 246 mg/dL (<200); Estimated Glomerular Filt Rate > 60; Glucose Random 133 mg/dL (60-115); HDL Cholesterol 39 mg/dL (>40); LDL Cholesterol Calculated 155 mg/dL (<100); Potassium 4.4 mmol/L (3.3-5.1); Sodium 141 mmol/L (135-145); Total Protein 7.7 g/dL (6.5-8.0); Triglycerides 264 mg/dL (<150)
[2024-02-22 09:47] LABS: TSH reflex Free T4 1.54 uIU/mL (0.32-4.0)
[2024-02-22 09:55] LABS: Folate 10.5 ng/mL (> or = 4.0); Vitamin B12 399 pg/mL (200-900)
== END 2024-02-22 08:17 | disposition home or self-care (01) ==
LOC: HO.LAB 08:16
PROVIDERS: PCP Family Medicine; Referring Provider Internal Medicine; Visit Provider Family Medicine
DX: E11.65 Type 2 diabetes mellitus with hyperglycemia (principal)
CPT/HCPCS: 36415; 80053; 80061; 82043; 82570; 82607; 82746; 83036; 84443; 85025

== ENCOUNTER 2024-04-10 08:54 | Outpatient (AMB) | payer OTHER, SELFPAY ==
--- NOTE | 2024-04-10 09:01 | A.OFFVIS_ITS ---
Vital Signs 04/10/24 09:10 Height 5 ft 1.5 in Weight 173 lb 4.533 oz BMI 32.2 BP 102/70 Blood Pressure Location Rt brachial Position Sitting Pulse 77 Pulse Source Pulse Oximeter Intake Visit Reasons: Type 2 DM Intake Note: New patient present today for Diabetes Management. Patient states she stopped taking Metformin due to adverse reactions of diarrhea and hair loss. Patient also states she is not currently taking ezetimibe-rosuvastatin due to reading that it interferes with Glipizide, she states she would like confirmation if she is able to take both medications. Last Diabetic Eye exam: approx 2-3 months ago Last Podiatry Visit: Does not see a Learning And Development Consultant Random Glucose: 99 mg/dl HgA1C: 6.8% 02/22/2024 Wind Turbine Blade Repair Technician Required: No Accompanied by: Self / Same As Patient Allergies morphine [Morphine] Allergy (Severe, Verified 04/10/24 09:26) ANAPHYLAXIS oxycodone [Percocet] Allergy (Severe, Verified 04/10/24 09:26) Anaphylaxis hydrocodone [From Vicodin] Allergy (Intermediate, Verified 04/10/24 09:26) ANAPHYLAXIS shrimp [SHRIMP] Allergy (Intermediate, Verified 04/10/24 09:26) Swelling metformin Adverse Reaction (Unknown, Verified 04/10/24:26) diarrhea, hair loss narcotics Allergy (Uncoded 04/10/24:) Anaphylaxis HPI Comments Details: This is a 58-year-old female with a past medical history of type 2 diabetes, osteoarthritis and hepatic steatosis presenting for diabetic management. She was diagnosed with diabetes in 2021. She is frustrated by her weight gain. Recent TSH normal. Reviewed Suresh 2 download: She has postprandial hyperglycemia. Very high 1% High 16% Target range 83% 0% hypoglycemia Average glucose 146 GMI 6.8% Hemoglobin a1c 6.8% 02/22/2024. Current medication regimen: Glipizide 5 mg in the afternoon with lunch (does not take twice daily as prescribed) and Trulicity 0.75 mg weekly Metformin discontinued due to intolerable side effects. Hypoglycemia symptoms: Rarely Hyperglycemia symptoms: None She had a CT in 2022 which was consistent with hepatic steatosis, and her alkaline phosphatase and ALT were mildly elevated on her recent lab tests. She drinks alcohol rarely. She is very frustrated by her weight. Eye exam: Up-to-date Microvascular complications: None Macrovascular complications: None Hyperlipidemia is treated with fenofibrate and rosuvastatin ezetimibe. She had not been taking the fenofibrate because she read that could be a potential drug interaction with glipizide. We reviewed that fenofibrate can enhance the effects of glipizide so it is important to monitor for hypoglycemia with this combination, but it can be taken together. ROS: Constitutional: No unexplained weight loss, fever, chills, fatigue or night sweats. Eyes: No vision changes, blurry vision, double vision Respiratory: No shortness of breath Cardiovascular: No chest pain, chest pressure or chest discomfort. No palpitations or pedal edema. Gastrointestinal: No anorexia, nausea, vomiting or diarrhea. No abdominal pain Neurologic: No numbness or tingling in the extremities Skin: No rash or open wounds Endocrine: No cold or heat intolerance. No polyuria or polydipsia. Physical exam: Constitutional: Alert, in no distress. Eyes: Pupils are equal, round and reactive to light. Extraocular muscles intact. Neck: Supple, Full range of motion. No lymphadenopathy. No palpable thyroid masses. Respiratory: Clear to auscultation. Cardiovascular: S1 S2 regular. II/ systolic murmur (pt reports this is not new and was evaluated by pcp with echo) Right foot: Warm and well perfused. No clubbing, cyanosis or edema. DP pulse 3+. Decreased vibratory sensation. Intact sensation to monofilament. Left foot: Warm and well perfused. No clubbing, cyanosis or edema. DP pulse 3+. Decreased vibratory sensation. Intact sensation to monofilament. [facility] Medical History (Updated 04/10/24 @ 14:05 by CHASE Gabriel) Type II diabetes mellitus, well controlled Hepatic steatosis Elevated LFTs GERD (gastroesophageal reflux disease) Hx of lipoma Varicose vein of leg Cervical spinal stenosis Difficulty swallowing Diabetes Murmur Bronchitis Hernia Asthma Diverticulitis High cholesterol Patellofemoral arthritis Surgical History Hx of cataract extraction Hx of bladder repair surgery History of tonsillectomy Hx of carpal tunnel repair History of removal of ovarian cyst Hx of breast reduction, elective Hx of tubal ligation History of colon resection H/O colonoscopy Hx of appendectomy History of 3 sections Family History Mother High cholesterol Cardiac arrest Rheumatoid arthritis Alzheimer's dementia Father No known health problems Social History Are you a primary healthcare science specialist to a significant other at home: No Do you presently have visiting nurse or other home services: No Alcohol intake: never Patient Tobacco Use Status: Never used Tobacco Current occupational status: employed 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 Physical Exam Vital Signs: Last Vital Signs Pulse 77 04/10/24 09:10 BP 102/70 04/10/24 09:10 BMI result Body Mass Index 32.2 Results Reviewed Results Reviewed: Laboratory Last Values Glucose (Clinic) 99 mg/dL (60-115) 04/10/24 09:30 Laboratory Tests 02/22/24 02/22/24 08:25 08:29 Creatinine 0.66 Estimated GFR > 60 Hemoglobin A1c % 6.8 H AST 24 ALT 41 H Alkaline Phosphatase 120 H Triglycerides 264 H Cholesterol 246 H LDL Cholesterol, Calc 155 H HDL Cholesterol 39 L Vitamin B12 399 TSH 1.54 Urine Creatinine 172.24 Urine Microalbumin 15.0 Microalb/Creat Ratio 8.7 Assessment & Plan Assessment & Plan (1) Type II diabetes mellitus, well controlled: Code(s): E11.9 - Type 2 diabetes mellitus without complications Category: Medical (2) Hepatic steatosis: Code(s): K76.0 - Fatty (change of) liver, not elsewhere classified Category: Medical (3) Elevated LFTs: Code(s): R79.89 - Other specified abnormal findings of blood chemistry Category: Medical Plan In summary this is a 58-year-old female with controlled type 2 diabetes. Discussed pathophysiology of Type II Diabetes Mellitus with the patient in detail.? I explained the mcfp risks and complications associated with uncontrolled diabetes including nephropathy, neuropathy, peripheral vascular disease, retinopathy, increased risk of heart disease and stroke.? Discussed lifestyle modification with the patient. Recommended 30 minutes of moderately vigorous exercise 5 days per week to promote weight loss. Patient instructed to bring glucometer to all appointments. Refer to dietitian. Diabetes is well-controlled but she has not been able to lose weight on Trulicity so we will switch her to Mounjaro 2.5 mg weekly. She can start this 1 week after her last dose of Trulicity. Continue Glipizide 5 mg with meal for now, but if your fasting blood sugar is under 90 3 consecutive days after starting Mounjaro OR if you develop any low blood sugars after starting Mounjaro please stop Glipizide. If you experience low blood sugar, treat this by eating a chewable fruit candy like skittles or jelly beans (about 8 pieces), 4 ounces (1/2 cup) of fruit juice (not diet), 1 tablespoon of honey or 4 glucose tablets. If your blood sugar is under 55, take double the amount of one of the above. Recheck your blood sugar in 15 minutes. Repeat hepatic function tests and check hepatitis a, B and C profile. Ordered ultrasound of the abdomen with elastography. Follow up in 4 weeks for type 2 diabetes. Orders: Orders Hepatitis A,B,C Profile Today K76.0 - Fatty (change of) liver, not elsewhere classified, R79.89 - Other specified abnormal findings of blood chemistry Hepatitis A IgM Today K76.0 - Fatty (change of) liver, not elsewhere classified, R79.89 - Other specified abnormal findings of blood chemistry US abdomen lyn w elastography Today K76.0 - Fatty (change of) liver, not elsewhere classified, R79.89 - Other specified abnormal findings of blood chemistry B Type Natriuretic Peptide Today E11.9 - Type 2 diabetes mellitus without complications Liver Panel Today K76.0 - Fatty (change of) liver, not elsewhere classified, R79.89 - Other specified abnormal findings of blood chemistry Referrals Bus Analyst Nutrition Referral E11.65 - Type 2 diabetes mellitus with hyperglycemia Medications: New glucose (Dex4 Glucose Quick Dissolve) until symptoms of low blood sugar are controlled 16 grams (4 x 4 gram) PO Q15M PRN 10 tabs 3RF hypoglycemia tirzepatide (Mounjaro) for 4 weeks 2.5 mg (0.5 mL) subcut QWEEK 2 mL 1RF Patient Instructions: If you experience low blood sugar, treat this by eating a chewable fruit candy like skittles or jelly beans (about 8 pieces), 4 ounces (1/2 cup) of fruit juice (not diet), 1 tablespoon of honey or 4 glucose tablets. If your blood sugar is under 55, take double the amount of one of the above. Recheck your blood sugar in 15 minutes. Start Mounjaro 2.5 mg 1 week after your last dose Trulicity. Continue Glipizide 5 mg with meal for now, but if your fasting blood sugar is under 90 3 consecutive days after starting Mounjaro OR if you develop any low blood sugars after starting Mounjaro please stop Glipizide. Coding Level of Care Code New Pt Level 4 (23127) Complex EM visit Add On G2211 Diagnoses Type II diabetes mellitus, well controlled E11.9 Hepatic steatosis K76.0 Elevated LFTs R79.89
[2024-04-10 09:10] VITALS: BP 102/70; PULSE 77; BMI 32.2
--- OUTSIDE RECORDS SUMMARY | 2024-04-10 09:11 | XMS_ITS | Encounter Summary ---
Author Organization [employer] Address [address] [facility] [address] [place] [address] Care Team Providers Care Scrap Preparer Name Role Phone Tami Márquez MD Primary Care Provider [phone] Encounter Details Date Type Department Care Team (Latest Contact Info) Description 03/16/2024 Travel Social History Tobacco Use Types Packs/Day Years Used Date Smoking Tobacco: Never Passive Smoke Exposure: Never Smokeless Tobacco: Never Alcohol Use Standard Drinks/Week Comments Never 0 (1 standard drink = 0.6 oz pur e alcohol) Depression Answer Date Recorded Patient Health Questionnaire-9 Score 3 02/20/2024 Patient Health Questionnaire-9 Score 3 02/20/2024 Last PHQ-9: Questionnaire Data Not on file 1 04/22/2023 Housing Stability Answer Date Recorded What is your housing situation today? I have elyse patel 08/01/[address] you li ve. Do you have problems with any of the following? None of the above 08/01/2023 Food Insecurity Answer Date Recorded Within the past 12 months, y ou worried that your food would run out before you got money to buy more: Never True 08/01/2023 Within the past 12 months,th e food you bought just didn't last and you didn't have enough money to get more: Never True Transportation Answer Date Recorded In the past 12 months, has l ack of transportation kept you from medical appts, meetings, work or from getting things needed for daily living? No 08/01/2023 Utilities Answer Date Recorded In the past 12 months, has t he electric, gas, oil or water company threatened to shut off services in your home? No 08/01/2023 Depression Answer Date Recorded Patient Health Questionnaire-2 Score 2 02/20/2024 Comments Unknown Sex and Gender Information Value Date Recorded Sex Assigned at Female 01/08/2022 10:24 AM EDT Legal Sex Female 10:24 AM EDT Gender Identity Female 01/08/2022 10:24 AM EDT Sexual Orientation Straight 01/08/2022 10 :24 AM EDT documented as of this encounter Plan of Treatment Not on file documented as of this encounter Visit Diagnoses Not on filedocumented in this encounter Additional Health Concerns Assessment Noted Time PHQ-9 Depression Total Score: 3 02/20/20 24 10:21 AM EST documented as of this encounter Care Teams Scrap Preparer Relationship Specialty Start Date End Date Tami Márquez MD [address] [place] [id number] PCP - General Family Medicine 04/28/21 documented as of this encounter
--- OUTSIDE RECORDS SUMMARY | 2024-04-10 09:11 | XMS_ITS | Encounter Summary ---
Author Organization [employer] Address [address] [facility] [address] [place] [address] Care Team Providers Care Site Reliability Engineer Name Role Phone Tami Márquez MD Primary Care Provider [phone] Encounter Details Date Type Department Care Team ([facility] st Contact Info) Description 03/18/2024 Telephone [facility] [address] [place], [place] [phone] Tami Márquez MD [address] [place], [place] [phone] Social History Tobacco Use Types Packs/Day Years [...] AM EDT documented as of this encounter Miscellaneous Notes * Telephone Encounter - Jeancarlos Middleton RN - 03/18/2024 3:35 PM EST Pt requested tb lab test for work via [place]. Ordered placed and pt informed via [place]. documented in this encounter Plan of Treatment Not on file documented as of this encounter Procedures Procedure Name Priority Date/Time Associated Diagnosis Comments T-SPOT(R).TB Routine 03/27/2024 11:30 AM EST Encounter for screening for respiratory tuberculosis documented in this encounter Results * T-SPOT??.TB (03/27/2024 11:30 AM EST) [facility] T Spot TB Negative Negative [facility] Comment:A negative test resu lt does not exclude the possibilityof exposure to or infection with Mycobacteriumtuberculosis (M. tuberculosis). Patients with recentexposure to TB infected individuals exhibiting anegative T-SPOT.TB result should be considered forretesting within 6 weeks or if other relevant clinicalsymptoms indicate. Results from T-SPOT.TB testing mustbe used in conjunction with each individual'sepidemiological history, current medical status,and results of other diagnostic evaluations.The T-SPOT.TB test is qualitative and results arereported as positive, borderline, or negative, giventhat the test controls perform as expected. In linewith the Centers for Disease Control and Prevention's2010 recommendation to report quantitative measurementsalongside the qualitative result, the laboratoryprovides spot counts for informational purposes only.The T-SPOT.TB test should not be interpreted as aquantitative test. TS PANEL A 1 [facility] TS PANEL B 2 [facility] Negative Control Passed [facility] Positive Control Passed [facility] Comment:For additional infor myeshaleandro, please refer tohttp://education.[employer] Prive/faq/CEO010(This link is being provided for informational/educational purposes only.)THIS TEST WAS PERFORMED AT:[facility] [id number] [place] [address]NWMEGALLINDSAY VANESSA MD,PHD 03/27/2024 11:3 0 AM EST 03/27/2024 2:12 PM EST us Tami Márquez MD LAB BLOOD ORDERABLES Final Re sult [facility] [address] [place] [phone] documented in this encounter Visit Diagnoses Diagnosis Encounter for screening for respiratory tuberculosis documented in this encounter Additional Health Concerns Assessment Noted Time PHQ-9 Depression Total Score: 3 02/20/20 24 10:21 AM EST documented as of this encounter Care Teams Site Reliability Engineer Relationship Specialty Start Date End Date Tami Márquez MD [address] [place] [id number] PCP - General Family Medicine 04/28/21 documented as of this encounter
--- OUTSIDE RECORDS SUMMARY | 2024-04-10 09:12 | XMS_ITS | Encounter Summary ---
Author Organization [employer] Address [address] [facility] [address] [place] [address] Care Team Providers Care Mat Making Machine Tender Name Role Phone Tami Márquez MD Primary Care Provider [phone] Reason for Visit * Reason Onset Date Comments Nurse Triage 07/19/2023 Encounter Details Date Type Department Care Team ([facility] Contact Info) Description 07/19/2023 Telephone [facility] [address] [place] [address] Tami Márquez MD [address] [place], [place] [phone] Nurse Triage Social History Tobacco Use Types Packs/Day Years Used Date Smoking Tobacco: Never Passive Smoke Exposure: Never Smokeless Tobacco: Never Alcohol Use Standard Drinks/Week Comments Never 0 (1 standard drink = 0.6 oz pur e alcohol) Depression Answer Date Recorded Patient Health Questionnaire-9 Score 16 02/15/2023 Patient Health Questionnaire-9 Score 16 02/15/2023 Last PHQ-9: Questionnaire Data Not on file 1 04/18/2022 Housing Stability Answer Date Recorded What is your housing situation today? I have elyse patel 01/14/[address] you li ve. Do you have problems with any of the following? None of the above 01/14/2023 Food Insecurity Answer Date Recorded Within the past 12 months, y ou worried that your food would run out before you got money to buy more: Never True 01/14/2023 Within the past 12 months,th e food you bought just didn't last and you didn't have enough money to get more: Never True 08/2022 Transportation Answer Date Recorded In the past 12 months, has l ack of transportation kept you from medical appts, meetings, work or from getting things needed for daily living? No 01/14/2023 Utilities Answer Date Recorded In the past 12 months, has t he electric, gas, oil or water company threatened to shut off services in your home? No 01/14/2023 Depression Answer Date Recorded Patient Health Questionnaire-2 Score 6 02/15/2023 Comments Unknown Sex and Gender Information Value Date Recorded Sex Assigned at Female 01/08/2022 10:24 AM EDT Legal Sex Female 10:24 AM EDT Gender Identity Female 01/08/2022 10:24 AM EDT Sexual Orientation Straight 01/08/2022 10 :24 AM EDT documented as of this encounter Miscellaneous Notes * Telephone Encounter - Diana Bourne RN - 07/19/2023 9:29 AM EDT Called pt. She states that she has an appt. Scheduled for August but she wants sooner appt. Pt was denied Trulicity because there was no record in [place] that pt. Has been trying Metformin x 2 years. Pt Blood sugars have been high and she has not gotten the Trulicity approved from pharmacy. Pt. Had cervical surgery last week and her blood sugars were above 300. Pt is taking Metformin 500mg in am and 500mg in evening. Pt. Is not on insulin. Pt states that when she was on Trulicity before, her blood sugars were under control. Pt has been very vigilant this week with eating but blood sugars are high and pt. Has headache. Pt states I need the Trulicity as soon as possible because it worked great for me before. Pt. Does not understand why Pharmacy has not approved refill of Trulicity when she statesshe was taking Trulicity since 2021 and she has been without her Trulicity x 3-4 months. This am blood sugar is 230. Pt. Has appt. This am at 1120 due to blood sugar 230 and having a headache. Will send this note to PCP and also [place] Nurse as SHIRIN. Will also send this note to [facility] provider that is seeing pt. Today at 1120 due to blood sugar 230 this am and headache. Protocol Used: Diabetes - High Blood Sugar (Adult) Protocol-Based Disposition: Discuss with PCP and Callback by Nurse within 1 Hour Video visit offer not recorded Positive Triage Questions: * Blood glucose > 300 mg/dL (16.7 mmol/L) AND two or more times in a row * Patient wants to be seen * Blood glucose 240 - 300 mg/dL (13.3 - 16.7 mmol/L) * All higher-acuity triage questions were negative Care Advice Discussed: * High Blood Sugar (Hyperglycemia) * Treatment - Liquids * Diabetes Pills * Measure and Record Your Blood Glucose * Telephone Encounter - Aubrye Avalos - 07/19/2023 9:27 AM EDT Symptom: High Blood Sugar - Caller Reports Outcome: Talk to a nurse or provider within 15 minutes Reason: Known blood sugar above 300 The caller accepted this outcome documented in this encounter Plan of Treatment Not on file documented as of this encounter Visit Diagnoses Diagnosis Type 2 diabetes mellitus with hyperglycemia, without long-term current use of insulin ([facility]) documented in this encounter Additional Health Concerns Assessment Noted Time PHQ-9 Depression Total Score: 16 023 3:41 PM EST documented as of this encounter Care Teams Mat Making Machine Tender Relationship Specialty Start Date End Date Tami Márquez MD [address] [place] [address] PCP - General Family Medicine 04/28/21 documented as of this encounter
--- OUTSIDE RECORDS SUMMARY | 2024-04-10 09:12 | XMS_ITS | Clinical Summary ---
Author Organization [facility] Address [address] [place] [address] Care Team Providers Care Instructional Technology Facilitator Name Role Phone Sangeetha Horner MD Primary Care Provider [phone] Surgical History Surgery Date Site/Laterality Comments OVARIAN CYST REMOVAL 1982 N/A PROCEDURE: [place] OVARIAN CYSTECTOMY UNI/BI TUBAL LIGATION 1999 PROCEDURE: HISTORICAL TUBAL LIGATION APPENDECTOMY PROCEDURE: HISTORICAL APPENDECTOMY OTHER SURGICAL HISTORY PROCEDURE: PELVIC CONTROL PELVIC SLING OTHER SURGICAL HISTORY 2006 PROCEDURE: [place] COLECTOMY PARTIAL W/ANASTOMOSIS Medical History Medical History Date Comments Asthma DX:Asthma Sliding hiatal hernia DX:Sliding hiatal hernia Hyperlipidemia DX:Hyperlipidemi a History of PCOS DX:History of PC OS Diverticulitis 2006 DX:Diverticuliti s Social History Tobacco Use Types Packs/Day Years Used Date Smoking Tobacco: Former Smokeless Tobacco: Never Sex and Gender Information Value Date Recorded Sex Assigned at Not on file Gender Identity Not on file Sexual Orientation Not on file Obstetrics History Plan of Treatment Health Maintenance Due Date Last Done Comments Breast Cancer Screening 1965 Pneumococcal Vaccine: Pediat rics (0 to 5 Years) and At-Risk Patients (6 to 64 Years) (1 of 2 - PCV) 1971 DTaP,Tdap,and Td Vaccines (1 - Tdap) 1984 Hepatitis B Vaccines (1 of 3 - 19+ 3-dose series) 1984 Cervical Cancer Screening: P ap Smear 1986 Zoster Vaccines (1 of 2) 2015 Cholesterol Screening (Lipid Panel) 02/07/2022 Colorectal Cancer Screening: Colonoscopy 02/07/2022 Depression Screening 02/07/2022 HIV Screening 02/07/2022 Hepatitis C Screening 02/07/2022 Social Influencers of Health Screening 02/07/2022 COVID-19 Vaccine (1 - 2023-2 5 season) 2023 Influenza Vaccine (#1) 2023 HIB Vaccines Aged Out No longer eligi ble based on patient's age to complete this topic HPV Vaccines Aged Out No longer eligi ble based on patient's age to complete this topic Hepatitis A Vaccines Aged Out No long er eligible based on patient's age to complete this topic IPV Vaccines Aged Out No longer eligi ble based on patient's age to complete this topic MMR Vaccines Aged Out No longer eligi ble based on patient's age to complete this topic Meningococcal ACWY Vaccine Aged Out N o longer eligible based on patient's age to complete this topic RSV Immunization Patients Un maddi 20 months Aged Out No longer eligible b ased on patient's age to complete this topic Varicella Vaccines Aged Out No longer eligible based on patient's age to complete this topic Care Teams Instructional Technology Facilitator Relationship Specialty Start Date End Date Sangeetha Horner MD [address] [facility] [address] [place], [place] PCP - General Internal Medicine 05/30/18
--- OUTSIDE RECORDS SUMMARY | 2024-04-10 09:12 | XMS_ITS | Clinical Summary ---
Author Organization [facility] [employer] Address [address] [place] [address] [address] [place] [address] Care Team Providers Care Ref[employer] Name Role Phone Tami Márquez MD Primary Care Provider [phone] Allergies Active Allergy Reactions Criticality Noted Date Comments Glipizide 03/06/2024 Hypoglycemic episode Hydrocodone Anaphylaxis High 07/30/2023 Morphine 04/28/2021 Other reaction(s): Chest pain Other Anaphylaxis High 07/11/2023 chest pains, rash Oxycodone Anaphylaxis High 07/30/2023 Shrimp Extract Swelling High 07/30/2023 Medications * This document contains information received from the source organization and may not represent a complete record from that organization. fluticasone (Flovent HFA) 220 MCG/ACT inhaler Inhale 1 puff every 12 (twelve) hours. 2 Active Magnesium Citrate 100 MG tablet Take 1 tablet once a day PO 2 Active TRUEplus Lancets 33G misc 1 Units by Other route 2 times daily. 200 each 11 3 Active SUMAtriptan (Imitrex) 50 MG tablet TAKE 1 TAB BY MOUTH EVERY 2 HOURS NEEDED FOR MIGRAINE HEADACHE *MAX 2 DOSES PER 24 HRS 3 Active diclofenac (Cataflam) 50 MG tablet Take 1 tablet (50 mg) by mouth 3 times daily. 90 tablet 3 Active melatonin 5 MG tabletIndications: Primary insomnia TAKE ONE TABLET BY MOUTH BEDTIME 90 tablet 1 3 Active cholecalciferol (Vitamin D-3) 50 MCG (2000 UT) tablet TAKE ONE TABLET EVERY DAY 90 tablet 1 4 Active cyclobenzaprine (Flexeril) 5 MG tabletIndications: Neck pain, chronic Take 1 tablet (5 mg) by mouth 3 times daily. 90 tablet 4 Active triamcinolone (Kenalog) 0.5 % ointmentIndication s:Dermatitis Apply topically 2 times daily. 90 g 4 Active fluocinonide (Lidex) 0.05 % external solutionIndication s:Dermatitis Apply topically 2 times daily. 60 mL 1 4 11/01/19 25 Active albuterol (Proventil HFA) 108 (90 Base) MCG/ACT inhaler Inhale 2 puffs every 4 (four) hours if needed for wheezing. 18 g 2 4 Active EPINEPHrine (Epipen) 0.3 MG/0.3ML injection syringe Inject 0.3 mL (0.3 mg) as directed 1 (one) time for 1 dose. use as directed for allergic reaction and then call 911 1 each 4 Active metFORMIN (Glucophage) 500 MG tablet Take 1 tablet (500 mg) by mouth with breakfast and with evening meal. 180 tablet 1 4 Active FREESTYLE LITE test strip 1 each by Other route 2 times daily. 100 each 11 4 Active dulaglutide (Trulicity) 0.75 MG/0.5ML solution pen-injectorIndica tions:Type 2 diabetes mellitus with hyperglycemia, without long-term current use of insulin ([facility]) Inject 0.75 mg under the skin 1 (one) time per week. 2 mL 5 4 Active hydrOXYzine HCl (Atarax) 25 MG tablet Take 1 tablet (25 mg) by mouth if needed in the morning, at noon, and at bedtime for anxiety. 90 tablet 3 4 05/23/19 25 Active Ezetimibe-Rosuvast atin 10-40 MG tabletIndications: Hyperlipidemia, unspecified hyperlipidemia type Take 1 tablet by mouth Once per day. 90 tablet 1 4 Active Continuous Glucose Geospatial Applications Developer (FreeStyle Suresh 2 [place]) deviceIndications: Type 2 diabetes mellitus with hyperglycemia, without long-term current use of insulin ([facility]) Scan sensor every 8 hours. Patient aware insurance will not cover, will want to pay out of pocket. 1 each 4 Active Continuous Glucose Sensor (FreeStyle Suresh 2 Sensor) miscIndications:Ty pe 2 diabetes mellitus with hyperglycemia, without long-term current use of insulin ([facility]) Apply 1 sensor every 14 days. Patient aware insurance will not cover, will want to pay out of pocket. 2 each 11 4 Active fenofibrate micronized (Antara) 130 MG capsule Take 1 capsule (130 mg) by mouth with breakfast. 90 capsule 1 4 Active sertraline (Zoloft) 25 MG tablet Take 1 tablet (25 mg) by mouth Once per day. 90 tablet 4 Active Active Problems Problem Noted Date Diagnosed Date Type II diabetes mellitus 03/06/2024 Assessment & Plan (03/06/2024 10:14 AM EST): Discussed DC Glipizide and continue on Trulicity. Continue to monitor BS at home. Follow up in 4 months. Current moderate episode of major depressive disorder without prior episode 01/23/2024 Assessment & Plan (01/23/2024 1:04 PM EST): Phq 19 points, denied suicidal/homicidal ideas, will start on lexapro discussed side effects, will also provide hydroxyzine as needed, will refer to N, follow up in 1 month Pelvic pain 11/05/2023 Assessment & Plan (11/05/2023 9:43 AM EDT): LLQ pain, and hx of various pelvic surgeries with hx of adhesions, send for pelvic US and CT Cervical cancer screening 11/05/2023 Assessment & Plan (11/05/2023 10:25 AM EDT): 58 y.o. here for cervical cancer screening. Will continue monitoring following ASCCP guidelines. Advised to complete US of pelvic ordered on 11/01/2023. Anaphylactic reaction 11/01/2023 Assessment & Plan (11/01/2023 10:01 AM EDT): Relevant orders: -Epinephrine (Epipen) 0.3 MG/0.3ML injection syringe Varicose veins of both lower extremities with pa in 05/13/2023 Assessment & Plan (05/13/2023 10:51 PM EST): Referred to vascular surgery due to bilateral leg tenderness due to varicose veins. She has been using compression socks without relief. Neck pain, chronic 05/13/2023 Assessment & Plan (05/13/2023 10:56 PM EST): Patient given Tramadol but advised to stop if she feels chest tightness. She also was given Flexeril 5 mg for pain. Counseled patient on benefits but side effects of both these medications. Vasovagal episode 03/01/2023 Assessment & Plan (03/01/2023 2:19 PM EST): Patient had a vasovagal episode and went to ED, however, patient states doing better. Will not make any changes at this moment. Advised to notify office if symptoms reoccur. Stress at work 02/15/2023 Assessment & Plan (02/15/2023 4:53 PM EST): During IBH Consult Erin presenting with difficulty concentrating, fatigue, feelings of losing control, insomnia, irritable, palpitations, racing thoughts, shortness of breath; for a period of 0-6 mo, for all symptoms in the context of family issues employment concern stress. PLAN: (check all that apply) New/Additional Services needed On-site non-integrated services Off-site services for , Behavioral Health Integration Plan External OP therapy referral , Patient Self Plan Patient to utilize skills provided in intervention , Patient to reach out to [facility] team as needed, Patient to engage in OP therapy , and Patient to reach out to [facility] as needed Assessment & Plan (02/15/2023 9:59 AM EST): Patient that presented visit with concerns of stress due to work will benefit from talking with therapist. Therefore, patient will be redirected to behavioral health. (Patient left office visit before talking to therapist). Chronic upper back pain 02/15/2023 Assessment & Plan (02/15/2023 10:01 AM EST): Patient that presented visit with concerns of lumbar pain will be prescribed Diclofenac and Flexeril. In addition, patient will be sent for imaging for further evaluation: X-Rays. Intractable episodic headache 02/15/2023 Assessment & Plan (02/15/2023 9:59 AM EST): Patient that presented visit with concerns of episodic headache will be referred to Neurology. Anxiety 02/15/2023 Assessment & Plan (03/06/2024 10:16 AM EST): Advised to cut current dose of Sertraline in half to take only 25 mg. Follow up in 4 months. Relevant Medications Sertraline (Zoloft) 25 mg Tablet Assessment & Plan (02/15/2023 4:52 PM EST): During IBH Consult Erin presenting with difficulty concentrating, fatigue, feelings of losing control, insomnia, irritable, palpitations, racing thoughts, shortness of breath; for a period of 0-6 mo, for all symptoms in the context of family issues employment concern stress. PLAN: (check all that apply) New/Additional Services needed On-site non-integrated services Off-site services for , Behavioral Health Integration Plan External OP BH therapy referral , Patient Self Plan Patient to utilize skills provided in intervention , Patient to reach out to [facility] team as needed, Patient to engage in OP BH therapy , and Patient to reach out to [facility] as needed Family problems 02/15/2023 Assessment & Plan (02/15/2023 4:52 PM EST): During IBH Consult Erin presenting with difficulty concentrating, fatigue, feelings of losing control, insomnia, irritable, palpitations, racing thoughts, shortness of breath; for a period of 0-6 mo, for all symptoms in the context of family issues employment concern stress. PLAN: (check all that apply) New/Additional Services needed On-site non-integrated services Off-site services for , Behavioral Health Integration Plan External OP BH therapy referral , Patient Self Plan Patient to utilize skills provided in intervention , Patient to reach out to [facility] team as needed, Patient to engage in OP therapy , and Patient to reach out to [facility] as needed Class 1 obesity due to exces s calories without serious comorbidity with body mass index (BMI) of 30.0 to 30.9 in adult 05/17/2022 Resolved Problems Problem Noted Date Diagnosed Date Resolved Date Severe episode of recurrent major depressive disorder, without psychotic features 01/23/2024 Assessment & Plan (01/23/2024 12:43 PM EST): PROGRESS NOTE: ID: Erin is a 58 y.o. straight-identified cis-female with work who presents for Anxiety and Depression During IBH Consult Erin presenting with depressed mood, Tearful, hopelessness, irritable mood, loss of interests/pleasure , change in appetite or weight reduce appetite, changes in sleep difficulty falling asleep and difficulty staying asleep , psychomotor agitation, fatigue/loss of energy, worthlessness, difficulty concentrating, indecisiveness and excessive worry/anxiety, difficulty controlling worry, anxiety/worry associated to restlessness and/or feeling keyed-up/On edge , easily fatigued , difficulty concentrating and/or mind going blank , irritability, muscle tension , and sleep disturbance difficulty falling asleep and difficulty staying asleep , and sense of dread ; for a period of 18+ mo, for most or all symptoms in the context of stress relationship at work, lack of work support, illness comorbidity. PLAN: (check all that apply) New/Additional Services needed PCP management Off-site services for Behavioral Health Integration Plan Internal Follow up with [facility] External OP therapy referral Patient Self Plan Patient to utilize skills provided in intervention , Patient to reach out to [facility] team as needed, Comply with medication , and Patient to engage in OP therapy Acute conjunctivitis of left eye 05/17/2022 05/13/2023 Assessment & Plan (05/17/2022 9:44 AM EST): Infectious conjunctivitis, rx'ed ciprofloxacin and need letter to work, if no improvement RTC Upper respiratory tract infection 05/17/2022 05/13/2023 Type 2 diabetes mellitus wit h hyperglycemia, without long-term current use of insulin 05/17/2022 02/20/2024 Assessment & Plan (08/12/2023 12:04 PM EDT): DM is improved but still needs to be controlled. Called pharmacy to get PA for Trulicity. Discussed medications and refills as needed. Relevant Medications Glipizide (Glucotrol) 5 MG Tablet Assessment & Plan (05/13/2023 10:48 PM EST): Uncontrolled. A1C level is 7.2 and glucose was 239 mg/dL . Patient will continue with Trulicity to control exacerbations. Advised to keep monitoring glucose levels at home, and bring reading upon next office visit. Assessment & Plan (03/01/2023 2:14 PM EST): Controlled: A1C levels are within normal limits. However, patient will be provided with Trulicity to control exacerbations. Advised to keep monitoring glucose levels at home, and bring readings upon next office visit. Assessment & Plan (02/15/2023 10:04 AM EST): Uncontrolled: A1C levels are 6.3%. Will keep treating with medications. -Labs: CBC, Albumin, Comp. Met. Panel, Lipid Panel, TSH/FT4 Assessment & Plan (05/17/2022 9:47 AM EST): Controlled. Lab Results Component Value Date HGBA1C 6.7 (A) 05/17/2022 She has gained 11 lbs since October 2022 and actually had better control then she has now, she has been under a lot of stress and not following a healthy lifestyle. Poor diet, lack of exercise and poor sleep. Discussed sleep hygiene and will start melatonin. RTC in 3 months. Encounters * This document contains information received from the source organization and may not represent a complete record from that organization. 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 (CMS/HCC) 03/06/2024 Travel 02/28/2024 11:15 AM EST Clinical Support [facility] [address] [place] [address] Xiao Cortez RN Type 2 diabetes mellitus with hyperglycemia, without long-term current use of insulin ([facility]) 02/28/2024 Telephone [facility] [address] [place] [address] Tami Márquez MD Results 02/28/2024 Travel 02/22/2024 Orders Only [facility] [address] [place] [address] Tami Márquez MD 02/21/2024 Telephone [facility] [address] [place] [address] Tami Márquez MD telephone call 02/20/2024 10:30 AM EST Telemedicine [facility] [address] [place] [address] Tami Márquez MD Type 2 diabetes mellitus with hyperglycemia, without long-term current use of insulin ([facility]) (Primary Dx); Hyperlipidemia, unspecified hyperlipidemia type; Depression, unspecified depression type 02/20/2024 Telephone [facility] [address] [place] [address] Tami Márquez MD 02/20/2024 Travel 02/19/2024 Telephone [facility] [address] [place] [address] Tami Márquez MD CHART PREP 02/19/2024 Travel 02/10/2024 Refill [facility] [address] [place] [address] Tami Márquez MD 01/24/2024 Travel 01/23/2024 11:15 AM EST Office Visit [facility] [address] [place] [address] Montez Gill MD Current moderate episode of major depressive disorder without prior episode (CMS/HCC) (Primary Dx); Type 2 diabetes mellitus with hyperglycemia, without long-term current use of insulin (CMS/HCC); Dietary counseling; Exercise counseling 01/23/2024 Travel 01/21/2024 Telephone [facility] [address] [place] [address] Tami Márquez MD Nurse Triage 01/17/2024 Refill [facility] [address] [place] [address] Tami Márquez MD Mixed hyperlipidemia from Last 3 Months Immunizations Name Administration Dates Next Due Tdap 03/01/2021 Family History Medical History Relation Name Comments Stroke Father Rheum arthritis Mother Relation Name Status Comments Father Mother Social History Tobacco Use Types Packs/Day Years Used Date Smoking Tobacco: Never Passive Smoke Exposure: Never Smokeless Tobacco: Never Tobacco Cessation:Counseling Given: Not Answered Alcohol Use Standard Drinks/Week Comments Never 0 (1 standard drink = 0.6 oz pur e alcohol) Depression Answer Date Recorded Patient Health Questionnaire-9 Score 3 02/20/2024 Patient Health Questionnaire-9 Score 3 02/20/2024 Last PHQ-9: Questionnaire Data Not on file 1 04/22/2023 Housing Stability Answer Date Recorded What is your housing situation today? I have elysedago patel 08/01/[address] you [...] Orientation Straight 01/08/2022 10 :24 AM EDT Last Filed Vital Signs Vital Sign Reading Time Taken Comments Blood Pressure 102/86 03/06/2024 9:49 AM EST Pulse 81 01/23/2024 11:04 AM EST Temperature 36.2 ??C (97.2 ??F) 01/23/2024 11:[address] Respiratory Rate 12 01/23/2024 11:04 AM EST Oxygen Saturation 98% 01/23/2024 11:04 AM EST Inhaled Oxygen Concentration - - Weight 76.7 kg (169 lb) 01/23/2024 11:04 AM EST Height 155 cm (5' 1.02 ) 01/23/2024 11:04 AM EST Body Mass Index 31.91 01/23/2024 11:04 AM EST Plan of Treatment Health Maintenance Due Date Last Done Comments CT Colonography 1965 Colonoscopy 1965 Colorectal Cancer Screening 1965 FIT DNA/Cologuard 1965 FIT 1965 FOBT 1965 HIV Screening 1965 Sigmoidoscopy 1965 Pneumococcal Vaccine: Pediatrics (0 to 5 Years) and At-Risk Patients (6 to 49) Years) (1 of 2 - PCV) 1971 Eye Exam 1975 Hepatitis C Screening 1983 Hepatitis B Vaccines (1 of 3 - 19+ 3-dose series) 1984 Pneumococcal Vaccine: 50+ Years (1 of 2 - PCV) 1984 Zoster Vaccines (1 of 2) 2015 COVID-19 Vaccine (2 - 2023- season) 2023 06/02/2020 Influenza Vaccine (#1) 2023 Diabetes: Foot Exam 03/01/2024 03/01/2023, 03/01/2023, 03/01/2023, Additional history exists SDOH Screening 07/31/2024 08/01/2023 Diabetes: Hemoglobin A1C 08/22/2024 024, 01/23/2024, 08/12/2023, Additional history exists Alcohol/Substance Use Screening 02/19/2025 02/20/2024 Depression Screening 02/19/2025 02/20/2024, 02/20/20 24 Diabetes: Urine Protein Screening 02/21/2025 02/22/2024, 02/23/2023, 04/28/2021 Lipid Panel 02/21/2025 02/22/2024, 02/08, 06/06/2022, Additional history exists Tobacco Screening 03/06/2025 03/06/2024 Mammogram 04/09/2025 04/09/2023 Cervical Cancer Screening 11/04/2028 HPV/Cotest 11/04/2028 11/05/2023 Pap Smear 11/04/2028 11/05/2023 DTaP/Tdap/Td Vaccines (2 - Td or Tdap) 03/01/2031 03/01/2021 RSV Patients and Patients Aged 60 years or older (1 - 1-dose 75+ series) 2040 HIB Vaccines Aged Out No longer eligi [...] patient's age to complete this topic Meningococcal Vaccine Aged Out No simona roya eligible based on patient's age to complete this topic RSV under 20 months Aged Out No longe r eligible based on patient's age to complete this topic Rotavirus Vaccines Aged Out No longer eligible based on patient's age to complete this topic Procedures Procedure Name Priority Date/Time Associated Diagnosis Comments T-SPOT(R).TB Routine 03/27/2024 11:30 AM EST Encounter for screening for respiratory tuberculosis HEMOGLOBIN A1C Routine 02/22/2024 8:29 AM EST Type 2 diabetes mellitus with hyperglycemia, without long-term current use of insulin ([facility]) LIPID PANEL, STANDARD Routine 02/22/2024 8:29 AM EST Type 2 diabetes mellitus with hyperglycemia, without long-term current use of insulin (CMS/HCC) COMPREHENSIVE METABOLIC PANEL Routine 02/22/2024 8:29 AM EST Type 2 diabetes mellitus with hyperglycemia, without long-term current use of insulin (CMS/HCC) CBC WITH AUTO DIFFERENTIAL Routine 02/22/2024 8:29 AM EST Type 2 diabetes mellitus with hyperglycemia, without long-term current use of insulin (CMS/HCC) VITAMIN B12/FOLATE, SERUM PANEL Routine 02/22/2024 8:29 AM EST Type 2 diabetes mellitus with hyperglycemia, without long-term current use of insulin (CMS/HCC) TSH W/REFLEX TO FT4 Routine 02/22/2024 8 :29 AM EST Type 2 diabetes mellitus with hyperglycemia, without long-term current use of insulin (CMS/HCC) ALBUMIN, RANDOM URINE W/CREATININE Routine 02/22/2024 8:25 AM EST POCT GLYCATED HEMOGLOBIN, TOTAL Routine 01/23/2024 11:06 AM EST Type 2 diabetes mellitus with hyperglycemia, without long-term current use of insulin (CMS/HCC) POCT GLUCOSE Routine 01/23/2024 11:06 AM EST Type 2 diabetes mellitus with hyperglycemia, without long-term current use of insulin (CMS/HCC) THINPREP IMAGING PAP AND HPV MRNA E6/E7 Routine 11/05/2023 10:30 AM EDT BI MAMMOGRAM SCREENING TOMOSYNTHESIS BILATERAL Routine 04/09/2023 11:15 AM EST Breast cancer screening by mammogram from Last 3 Months or Most Recently Relevant to Health Maintenance Results * T-SPOT??.TB (03/27/2024 11:30 AM EST) [facility] T Spot TB Negative Negative [facility] Comment:A negative test resu lt does [...] as aquantitative test. TS PANEL A 1 [facility] TS PANEL B 2 [facility] Negative Control Passed [facility] Positive Control Passed [facility] Comment:For additional infor scotty, please refer [email or web address]/faq/GRI557(This link is being provided for informational/educational purposes only.)THIS TEST WAS PERFORMED AT:[id number] [place] [id number] VANESSA MD,PHD 03/27/2024 11:3 0 AM EST 03/27/2024 2:12 PM EST us Tami Márquez MD LAB BLOOD ORDERABLES Final Re sult [facility] [address] [place] [address] [phone] * Vitamin B12 (Cobalamin) and Folate Panel, Serum (02/22/2024 8:29 AM EST) Vitamin B12 399 200 - 900 pg/mL [facility] Comment:NORMAL 200-900 PG/ML INDETERMINATE 160-199 PG/ML DEFICIENT < 160 PG/ML Folate 10.5 > or = 4.0 ng/mL [facility] Comment:Reference Values:> o r = 4.0 ng/mL< 4.0 ng/mL suggests folate deficiency Methotrexate, aminopterin and folinic acid(leucovorin) are chemotherapeutic agents whose molecularstructures are similar to folate; therefore, the Architectfolate assay cannot be used for patients using these drugs. Blood Venous blood specimen / Unknown 02/22/2024 8:29 AM EST 02/22/2024 8:29 AM EST Montez Eckert MD LAB BLOOD ORDERABL ES Final Result Performing Organization Address [facility]/ZIP Co de Phone Number [facility] [address] [place] [phone] * TSH W/Reflex to FT4 (02/22/2024 8:29 AM EST) TSH reflex Free T4 1.54 0.32 - 4.0 uIU/mL [facility] Blood Venous blood specimen / Unknown 02/22/2024 8:29 AM EST 02/22/2024 8:29 AM EST Montez Eckert MD LAB BLOOD ORDERABL ES Final Result Performing Organization Address [facility] Co de Phone Number [facility] [address] [place] [phone] * CBC auto differential (02/22/2024 8:29 AM EST) White Blood Count 6.3 4.8 - 10.8 X10*3/uL [facility] Red Blood Count 4.83 4.20 - 5.50 X10*6/uL [facility] Hemoglobin 13.8 12.0 - 16.0 g/dl [facility] Hematocrit 42.6 37.0 - 47.0 % [facility] Mean Corpuscular Volume 88.2 80.0 - 98.0 fL [facility] Mean Corpuscular Hemoglobin 28.6 27.0 - 33.0 pg [facility] Mean Corpuscular HGB Conc 32.4 31.0 - 35.0 g/dl [facility] Red Cell Distribution Width 15.8 11.0 - 16.0 % [facility] Platelet Count 315 160 - 400 X10*3/uL [facility] Mean Platelet Volume 11.0 9.4 - 12.3 fL [facility] Neutrophils Percent Auto 57.6 45 - 73 % [facility] Imm Gran Pct Auto 0.3 0.0 - 0.4 % [facility] Lymphocytes Percent Auto 33.5 20 - 40 % [facility] Monocytes Percent Auto 6.0 2 - 11 % [facility] Eosinophils Percent Auto 2.1 0 - 4 % [facility] Basophils Percent Auto 0.5 0 - 2 % [facility] NRBC Pct Auto 0.0 0.0 - 0.2 /100WBC [facility] Neutrophils Absolute Auto 3.7 2.0 - 8.3 x10*3/uL [facility] Imm Gran Abs Auto 0.02 0.00 - 0.03 X10*3/uL [facility] Lymphocytes Absolute Auto 2.1 1.2 - 4.9 X10*3/uL [facility] Monocytes Absolute Auto 0.4 0.1 - 1.2 X10*3/uL [facility] Eosinophils Absolute Auto 0.1 0.0 - 0.4 X10*3/uL [facility] Basophils Absolute Auto 0.0 0.0 - 0.2 X10*3/uL [facility] NRBC Abs Auto 0.000 0.0 - 0.012 X10*3/uL [facility] Blood Venous blood specimen / Unknown 02/22/2024 8:29 AM EST 02/22/2024 8:29 AM EST us Tami Márquez MD LAB BLOOD ORDERABLES Final Re sult [facility] [address] [place] [address] [phone] * (ABNORMAL) Hemoglobin A1c (02/22/2024 8:29 AM EST) Hemoglobin A1c 6.8(H) <6.0 % [facility] Comment:Hemoglobin A1C Refer ence Range Adults: 4.8 - 6.0 % Non diabetic: < 6.0 % Goal: < 7.0 %Additional Action Suggested: > 8.0 %Note: Hemoglobin A1c results are invalid for patients with abnormal amounts of HbF. Blood transfusions may impact the HbA1c concentration in the patient sample. Estimated Average Glucose 148 mg/dL [facility] Comment:eAG = Estimated ave rage glucose which is %A1C expressed asaverage glucose, using the formula of the T7P-PbxfvsdNaxcexq Glucose study (ADAG), Diabetes Care, Vol.31,#8,Oct. 2007 Blood Venous blood specimen / Unknown 02/22/2024 8:29 AM EST 02/22/2024 8:29 AM EST us Tami Márquez MD LAB BLOOD ORDERABLES Final Re sult [facility] [address] [place] [phone] * (ABNORMAL) Lipid Panel, Standard (02/22/2024 8:29 AM EST) Triglycerides 264(H) <150 mg/dL [facility] Comment:Desirable Triglyceri de: less than 150 mg/dLBorderline High Triglyceride 150-199 mg/dLHigh Triglyceride: 200-499 mg/dLVery High Triglyceride: greater than or equal to 5OO mg/dL Cholesterol 246(H) <200 mg/dL [facility] Comment:Desirable Cholestero l: less than 200 mg/dLBorderline High Cholesterol: 200-239 mg/dLHigh Cholesterol: greater than 239 mg/dL LDL Cholesterol Calculated 155(H) <100 mg/dL [facility] Comment:Desirable LDL: less than 100 mg/dLNear Optimal/Above Optimal LDL: 110- 129 mg/dLBorderline High LDL: 130-159 mg/dLHigh LDL: 160-189 mg/dLVery High LDL: greater than or equal to 190 mg/dL HDL Cholesterol 39(L) >40 mg/dL [facility] Comment:Desirable HDL: great er than 40 mg/dL Note: This HDL assay may give artificially low results in patients with liver disease. Blood Venous blood specimen / Unknown 02/22/2024 8:29 AM EST 02/22/2024 8:29 AM EST us Tami Márquez MD LAB BLOOD ORDERABLES Final Re sult [facility] [address] [place] [address] [phone] * (ABNORMAL) Comprehensive Metabolic Panel (02/22/2024 8:29 AM EST) Sodium 141 135 - 145 mmol/L [facility] Potassium 4.4 3.3 - 5.1 mmol/L [facility] Chloride 106 96 - 108 mmol/L [facility] Carbon Dioxide 28 22 - 29 mmol/L [facility] Anion Gap 11(L) 12 - 20 [facility] Urea Nitrogen (BUN) 12 9 - 16 mg/dL [facility] Creatinine, Serum 0.66 0.5 - 1.4 mg/dL [facility] Estimated Glomerular Filt Rate >60 [facility] Comment:Chronic Kidney Disea se: Estimated GFR < 60 mL/min/1.05f3Zcmgar Kidney Disease: Estimated GFR < 15 mL/min/1.73m2 Glucose 133(H) 60 - 115 mg/dL [facility] Calcium 9.4 8.4 - 10.2 mg/dL [facility] Bilirubin, Total 0.6 0.0 - 1.0 mg/dL [facility] Aspartate Amino Transferase 24 5 - 31 U/L [facility] Alanine Aminotransferase 41(H) 0 - 31 U/L [facility] Total Protein 7.7 6.5 - 8.0 g/dL [facility] Albumin Level 4.2 3.5 - 5.0 g/dL [facility] Alkaline Phosphatase 120(H) 39 - 117 U/L [facility] Blood Venous blood specimen / Unknown 02/22/2024 8:29 AM EST 02/22/2024 8:29 AM EST us Tami Márquez MD LAB BLOOD ORDERABLES Final Re sult Performing Organization Address [facility]/ZIP Co de Phone Number [facility] [address] [place] [phone] * Albumin, Random Urine W/Creatinine (02/22/2024 8:25 AM EST) Creatinine, Urine 172.24 mg/dL [facility] Microalbumin Urine 15.0 mg/L [facility] Microalbum Creatinine Ratio Ur 8.7 <30 ug/mg cr [facility] Comment:Albumin/Creatinine R atio Reference Ranges: Normal: < 30 ug/mg creatinine Microalbuminuria: 30 - 300 ug/mg creatinineClinical Albuminuria: > 300 ug/mg creatinine 02/22/2024 8:25 AM EST 02/22/2024 8:46 AM EST Tami Márquez MD LAB URINE ORDERABLES Final Re sult Performing Organization Address City/[facility]/ZIP Co de Phone Number [facility] [address] [place] [phone] * (ABNORMAL) POCT A1C (01/23/2024 11:06 AM EST) Hemoglobin A1C 6.7(A) 4.0 - 6.0 % QC Media Lot # Comment:[id number] Lot# Expiration Date Comment:10/09/2025 Blood 01/23/2024 11:0 6 AM EST Montez Eckert MD POINT OF CARE TEST ENTER/EDIT ORDERABLES Final Result * POCT glucose manually resulted (01/23/2024 11:06 AM EST) Glucose Blood, POC 126 60 - 200 mg/dL QC Media Lot # Comment:[id number] Lot# Expiration Date Comment:06/16/2024 Blood Capillary blood specimen / Unknown 01/23/2024 11:06 AM EST Montez Eckert MD POINT OF CARE TEST ENTER/EDIT ORDERABLES Final Result * [facility] Pap and HPV mRNA E6/E7 (11/05/2023 10:30 AM EDT) Pathologist [facility] HPV nRNA E6/E7 Not Detected Not Detected [facility] Comment:Methodology: Transcr iption-Mediated AmplificationThis assay detects E6/E7 viral messenger RNA (mRNA) from 14high-risk HPV types (16,18,31,33,35,39,45,51,52,56,58,59,66,68).Cervical sources are required for HPV testing.If a vaginal source from a patient who has had atotal hysterectomy with removal of cervix wassubmitted, please contact the testing laboratoryfor alternative testing options.For additional information, please refer [email or web address]/QOI805a5(This link if provided for information/educational purposes only.)THIS TEST WAS PERFORMED AT:[employer] [place] [phone] CAVANAUGH MD SOURCE: SEE NOTE [facility] Comment:None given Report Status: [facility] Clinical Information: SEE NOTE [facility] Comment:None given LMP: SEE NOTE [facility] Comment:NONE GIVEN Prev. PAP: SEE NOTE [facility] Comment:NONE GIVEN Prev. BX: SEE NOTE [facility] Comment:NONE GIVEN Statement Of Adequacy: SEE NOTE [facility] Comment:Satisfactory for ting luation.Endocervical/transformation zone component absent. General Categorization: [facility] Interpretation/Result: SEE NOTE [facility] Comment:Cytology Results: Ne gative for intraepitheliallesion or malignancy. Cytology Comment SEE NOTE [facility] Comment:This Pap test has be en evaluated with computerassisted technology. Receiving Associate Store: SEE NOTE [facility] Comment:EXJ, CT(ASCP)CT Scre ening Location: [address] [address] Review Receiving Associate Store: TXP [facility] Pathologist [facility] PAP Infection [facility] See Note SEE NOTE [facility] Comment:EXPLANATORY NOTE:The Pap is a screening test for cervical cancer. It isnot a diagnostic test and is subject to false negativeand false positive results. It is most reliable when asatisfactory sample, regularly obtained, is submittedwith relevant clinical findings and history, and whenthe Pap result is evaluated along with historic andcurrent clinical information. 11/05/2023 10:3 0 AM EDT 11/05/2023 2:50 PM EDT Narrative [facility] - 11/08/2023 1:09 PM EDT SEE SCANNED RESULTS IN EMR us Tami Márquez MD LAB PATHOLOGY ORDERABLES Sushila bill Result [facility] [address] [place] [phone] [phone] * BI Mammogram Screening Tomosynthesis Bilateral (04/09/2023 11:15 AM EST) Anatomical Region Laterality Modality Breast Bilateral Mammography 04/09/2023 11:1 5 AM EST Narrative 05/02/2023 5:35 AM EST ? [facility] [place] ? [address] ?[place] [address] ? Mammography Report ? Signed ? Patient: Colon Sharma,Erin ?MR#: [id number] ?? [id number] ? : 1965 ?Acct:[id number] ? Age/Sex: 57 / F ?ADM Date: 01/30/24 ? Loc: HO.MAMMO ? Attending Dr: Tami Márquez MD ? Ordering Physician: Tami Márquez MD ?Results: 1Nega ?? tive ? Date of Service: 04/09/23 ?Follow Up: 1 Year From Orig ?? inal Mammogram ? Procedure(s): MM tomosynthesis screening BI ?? Accession Number(s): [id number] ? cc: Tami Márquez MD ? EXAMINATION: ?? MM SCREENING DIGITAL BREAST TOMOSYNTHESIS, BILATERAL ? CLINICAL INFORMATION: ? Screening. Asymptomatic. ? The patient is status post breast reduction. ? COMPARISON: ?? Mammography: This study is compared with prior exams dating back to ?? 2018. ? TECHNIQUE: ?? Digital breast tomosynthesis is performed in both the craniocaudal and ?? mediolateral oblique views along with computer-aided detection (CAD). ?? Synthesized 2D images are generated from the tomosynthesis. ? FINDINGS: ?? The breasts are almost entirely fatty (ACR BI-RADS breast composition ?? Category a). ? There are no significant masses, abnormal calcifications, or other ?? abnormalities. ? MM/MM tomosynthesis screening BI ?? IMPRESSION: ?? No mammographic evidence of malignancy. ? ASSESSMENT: ? BI-RADS BI-RADS 1 - Negative ? RECOMMENDATION: ?? Routine annual mammography screening. ? 1 year F/U ? This examination should not preclude the clinical evaluation of a ?? suspicious palpable abnormality. ? This patient's information was entered into a reminder system with a ?? target due date for their next mammogram. ? Dictated By: ?Candy Medley MD ? Signed By: ?<Electronically signed by Candy Medley MD in OV> ? 05/02/23 0531 ? DD/ 1115 ? TD/TT: ? Conservation Of Resources Commissioner: ? Procedure Note Donotuseinterpreter, Image - [facility] [address] [place] [address] [address] Mammography Report Signed Patient: Jeimy KrausenaMR#: [id number] : 1965Acct:[id number] Age/Sex: 57 / FADM Date: 04/09/23 Loc: HO.MAMMO Attending Dr: Tami Márquez MD Ordering Physician: Tami Márquezesults: 1Nega tive Date of Service: 04/09/23Follow Up: 1 Year From Orig inal Mammogram Procedure(s): MM tomosynthesis screening BI Accession Number(s): [id number] cc: Tami Márquez MD EXAMINATION: MM SCREENING DIGITAL BREAST TOMOSYNTHESIS, BILATERAL CLINICAL INFORMATION: Screening. Asymptomatic. The patient is status post breast reduction. COMPARISON: Mammography: This study is compared with prior exams dating back to 2018. TECHNIQUE: Digital breast tomosynthesis is performed in both the craniocaudal and mediolateral oblique views along with computer-aided detection (CAD). Synthesized 2D images are generated from the tomosynthesis. FINDINGS: The breasts are almost entirely fatty (ACR BI-RADS breast composition Category a). There are no significant masses, abnormal calcifications, or other abnormalities. MM/MM tomosynthesis screening BI IMPRESSION: No mammographic evidence of malignancy. ASSESSMENT: BI-RADS BI-RADS 1 - Negative RECOMMENDATION: Routine annual mammography screening. 1 year F/U This examination should not preclude the clinical evaluation of a suspicious palpable abnormality. This patient's information was entered into a reminder system with a target due date for their next mammogram. Dictated By: Candy Medley MD Signed By: <Electronically signed by Candy Medley MD in OV> 05/02/23 0531 DD/ 1115 TD/TT: Conservation Of Resources Commissioner: Tami Márquez MD IMG BI PROCEDURES Final Resul t from Last 3 Months or Most Recently Relevant to Health Maintenance Insurance , [address] [place] [address] * Guarantor: Erin Krause Account Type Relation to Patient Date of Phone Billing Address Personal/Family Self 40 [id number] Care Teams Refinery Operator [employer] Relationship Specialty Start Date End Date Tami Márquez MD [address] [place] [phone] PCP - General Family Medicine 04/28/21
--- OUTSIDE RECORDS SUMMARY | 2024-04-10 09:12 | XMS_ITS | Encounter Summary ---
Author Organization [employer] Address [address] [place] [address] 7 [place] [address] Care Team Providers Care Paper Cup Machine Operator Name Role Phone Tami Márquez MD Primary Care Provider [phone] Reason for Visit * Reason Onset Date Comments Med Refill 10/21/2023 Encounter Details Date Type Department Care Team ([facility] st Contact Info) Description 10/21/2023 Refill [facility] MED & PEDS [address] [place], [place] [phone] Tami Márquez MD [address] [place] [address] Neck pain, chronic Social History Tobacco Use Types Packs/Day Years [...] is your housing situation today? I have elysedgao patel 08/01/[address] you [...] as of this encounter Visit Diagnoses Diagnosis Neck pain, chronic documented in this encounter Additional Health Concerns Assessment Noted Time PHQ-9 Depression Total Score: 16 023 3:41 PM EST documented as of this encounter Care Teams Paper Cup Machine Operator Relationship Specialty Start Date End Date Tami Márquez MD [address] [place] [address] PCP - General Family Medicine 04/28/21 documented as of this encounter
--- OUTSIDE RECORDS SUMMARY | 2024-04-10 09:12 | XMS_ITS | Encounter Summary ---
Author Organization [employer] Address [address] [facility] 7t [place] [address] Care Team Providers Care Dental Professional Name Role Phone Tami Márquez MD Primary Care Provider Encounter Details Date Type Department Care Team (Late st Contact Info) Description 02/04/2023 Abstract [facility] MED[facility]INE [address] [place], [place] [phone] [place] Social History Tobacco Use Types Packs/Day Years Used Date Smoking Tobacco: Never Passive Smoke Exposure: Never Smokeless Tobacco: Never Alcohol Use Standard Drinks/Week Comments Never 0 (1 standard drink = 0.6 oz pur e alcohol) Depression Answer Date Recorded Patient Health Questionnaire-9 Score 6 05/17/2022 Housing Stability Answer Date Recorded What is [...] Answer Date Recorded Patient Health Questionnaire-2 Score 1 05/17/2022 Comments Unknown Sex and Gender Information Value [...] Assessment Noted Time PHQ-9 Depression Total Score: 6 05/18/19 23 9:22 AM EST documented as of this encounter Care Teams Dental Professional Relationship Specialty Start Date End Date Tami Márquez MD [address] [place] [phone] PCP - General Family Medicine 04/28/21 documented as of this encounter
--- OUTSIDE RECORDS SUMMARY | 2024-04-10 09:12 | XMS_ITS | Encounter Summary ---
Author Organization [employer] Address [address] [facility] 7t [place] [address] Care Team Providers Care Extrusion Press Adjuster Name Role Phone Tami Márquez MD Primary Care Provider Reason for Visit * Reason Comments Med Refill Encounter Details Date Type Department Care Team ([facility] Contact Info) Description 01/17/2024 Refill [facility] CHC MED & PEDS [address] [place] [address] Tami Márquez MD [address] [place] [address] Mixed hyperlipidemia Social History Tobacco Use Types Packs/Day Years [...] as of this encounter Visit Diagnoses Diagnosis Mixed hyperlipidemia documented in this encounter Additional Health Concerns Assessment Noted Time PHQ-9 Depression Total Score: 16 023 3:41 PM EST documented as of this encounter Care Teams Extrusion Press Adjuster Relationship Specialty Start Date End Date Tami Márquez MD [address] [place] [address] PCP - General Family Medicine 04/28/21 documented as of this encounter
--- OUTSIDE RECORDS SUMMARY | 2024-04-10 09:12 | XMS_ITS | Encounter Summary ---
Author Organization [employer] Address [address] [place] [address] 7 [place] [address] Care Team Providers Care Hoisting Engineer Name Role Phone Tami Márquez MD Primary Care Provider [phone] Reason for Visit * Reason Onset Date Comments Call Back Request 05/06/2023 Encounter Details Date Type Department Care Team ([facility] Contact Info) Description 05/06/2023 Telephone [facility] CHC MED & PEDS [address] [place] [address] Tami Márquez MD [address] [place] [address] Call Back Request Social History Tobacco Use Types Packs/Day Years [...] housing situation today? I have elysedago patel 01/14/[address] you [...] encounter Miscellaneous Notes * Telephone Encounter - Wing Nneka RN - 05/06/2023 2:10 PM EST Tc to pt regarding need to speak to provider regarding coding compliance specialist consult 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 Scheduled pt for 05/12 at 9:30 am with PCP. Pt verbalizes understanding and agreement of plan. * Telephone Encounter - Martha Hoang - 05/06/2023 10:09 AM EST Tc from pt requesting to speak with a nurse in regards to a possible surgery. Please contact pt at [phone] documented in this encounter Plan of Treatment Not on file documented as of this encounter Visit Diagnoses Not on filedocumented in this encounter Additional Health Concerns Assessment Noted Time PHQ-9 Depression Total Score: 16 023 3:41 PM EST documented as of this encounter Care Teams Hoisting Engineer Relationship Specialty Start Date End Date Tami Márquez MD [address] [place] [address] PCP - General Family Medicine 04/28/21 documented as of this encounter
--- OUTSIDE RECORDS SUMMARY | 2024-04-10 09:12 | XMS_ITS | Encounter Summary ---
Author Organization [employer] Address [address] [facility] 7t [place] [address] Care Team Providers Care Chair Car Driver Name Role Phone Tami Márquez MD Primary Care Provider [phone] Encounter Details Date Type Department Care Team ([facility] st Contact Info) Description 03/16/2024 Telephone [facility] CHC MED & PEDS [address] [place], [place] [phone] Tami Márquez MD [address] [place], [place] [phone] Social History Tobacco Use Types Packs/Day Years [...] Telephone Encounter - Jeancarlos Middleton RN - 03/16/2024 4:35 PM EST Patient was scheduled today for table cover folder management visit post CGM placement. Pt didn't bring her meter and was under the impression that the visit today was only to switch her sensor. RN removed old sensor and assisted in placing new sensor. Offered to schedule an RN visit for DM management. Ptdeclined and will just f/u with PCP. Nurse visit today was canceled. documented in this encounter Plan of Treatment Not on file documented as of this encounter Visit Diagnoses Not on filedocumented in this encounter Additional Health Concerns Assessment Noted Time PHQ-9 Depression Total Score: 3 02/20/20 24 10:21 AM EST documented as of this encounter Care Teams Chair Car Driver Relationship Specialty Start Date End Date Tami Márquez MD [address] [place] [address] PCP - General Family Medicine 04/28/21 documented as of this encounter
--- OUTSIDE RECORDS SUMMARY | 2024-04-10 09:12 | XMS_ITS | Encounter Summary ---
Author Organization [employer] Address [address] [place] [address] 7t [place] [address] Care Team Providers Care Breakfast Manager Name Role Phone Tami Márquez MD Primary Care Provider [phone] Encounter Details Date Type Department Care Team (Late st Contact Info) Description 03/29/2022 Orders Only [facility] MEDICINE [address] [place], [place] [phone] Mari Turner LPN Social History Tobacco Use Types Packs/Day Years Used Date Smoking Tobacco: Never Assessed Comments Unknown Sex and Gender Information Value Date Recorded Sex Assigned at Female 01/08/2022 10:24 AM EDT Legal Sex Female 10:24 AM EDT Gender Identity Female 01/08/2022 10:24 AM EDT Sexual Orientation Straight 01/08/2022 10 :24 AM EDT documented as of this encounter Plan of Treatment Not on file documented as of this encounter Visit Diagnoses Not on filedocumented in this encounter Care Teams Breakfast Manager Relationship Specialty Start Date End Date Tami Márquez MD [address] [place] [address] PCP - General Family Medicine 04/28/21 documented as of this encounter
[2024-04-10 09:34] LABS: Glucose, Whole Blood 99 mg/dL (60-115)
== END 2024-04-10 10:16 | disposition home or self-care (01) ==
PROVIDERS: PCP Family Medicine; Visit Provider Physician Assistant Medical
DX: E11.9 Type 2 diabetes mellitus without complications (principal); K76.0 Fatty (change of) liver, not elsewhere classified; R79.89 Other specified abnormal findings of blood chemistry

== ENCOUNTER → 2024-04-10 08:54 | Outpatient (BNVA) | payer OTHER, SELFPAY | PROVIDERS: PCP Family Medicine; Visit Provider Physician Assistant Medical | DX: E11.9 Type 2 diabetes mellitus without complications (principal); K76.0 Fatty (change of) liver, not elsewhere classified; R79.89 Other specified abnormal findings of blood chemistry | CPT/HCPCS: 82947 ==

== ENCOUNTER → 2024-04-23 15:36 | Outpatient (BNVA) | payer SELFPAY | PROVIDERS: PCP Family Medicine; Visit Provider Physician Assistant | DX: Z02.79 Encounter for issue of other medical certificate (principal) ==

== ENCOUNTER 2024-04-29 11:00 | Outpatient (AMB) | payer OTHER, SELFPAY ==
--- NOTE | 2024-04-29 11:15 | A.OFFVIS_ITS ---
VS Expanded 04/29/24 11:16 04/29/24 11:23 Height 5 ft 1.5 in 5 ft 1.5 in Weight 172 lb 2.896 oz 172 lb BMI 32.0 32.0 Intake Visit Reasons: Type 2 diabetes mellitus with hyperglycemia Allergies morphine [Morphine] Allergy (Severe, Verified 05/08/24 09:58) ANAPHYLAXIS oxycodone [Percocet] Allergy (Severe, Verified 05/08/24 09:58) Anaphylaxis hydrocodone [From Vicodin] Allergy (Intermediate, Verified 05/08/24 09:58) ANAPHYLAXIS shrimp [SHRIMP] Allergy (Intermediate, Verified 05/08/24 09:58) Swelling metformin Adverse Reaction (Unknown, Verified 05/08/24 09:58) diarrhea, hair loss narcotics Allergy (Uncoded 05/08/24 09:52) Anaphylaxis Nutrition Presentation Details: Pt presents for MNT for T2DM food frequency fish: 2-3 x/wk fruits: not including vegetables: 3 x/wk dairy: 2x/days starches> 20 + physical activity: sedentary etoh/smoking----: BS Monitoring Most Recent Diabetes Results: Microalb/Creat Ratio 8.7 ug/mg cr (<30) 02/22/24 Cholesterol 246 mg/dL (<200) H 02/22/24 HDL Cholesterol 39 mg/dL (>40) L 02/22/24 Triglycerides 264 mg/dL (<150) H 02/22/24 Creatinine 0.66 mg/dL (0.5-1.4) 02/22/24 Blood Urea Nitrogen 12 mg/dL (9-16) 02/22/24 Sodium 141 mmol/L (135-145) 02/22/24 Potassium 4.4 mmol/L (3.3-5.1) 02/22/24 Chloride 106 mmol/L (96-108) 02/22/24 Carbon Dioxide 28 mmol/L (22-29) 02/22/24 Calcium 9.4 mg/dL (8.4-10.2) 02/22/24 AST 24 U/L (5-31) 02/22/24 ALT 41 U/L (0-31) H 02/22/24 Total Protein 7.7 g/dL (6.5-8.0) 02/22/24 Albumin 4.2 g/dL (3.5-5.0) 02/22/24 FLC-Efyyjmf-Vd.Jeor Equation Height: 5 ft 1.5 in Weight: 172 lb Resting Metabolic Rate: 1304.43 Calculated Activity Level: Sedentary Calories Needed to Maintain Weight: 1565.32 Diagnosis Nutrition problem #1: food nutri know defi As related to (etiology) #1: diagnosis As evidenced by (sign/symptom) #1: knowledge deficit of diet PFSH Medical History Type II diabetes mellitus, well controlled Hepatic steatosis Elevated LFTs GERD (gastroesophageal reflux disease) Hx of lipoma Varicose vein of leg Cervical spinal stenosis Difficulty swallowing Diabetes Murmur Bronchitis Hernia Asthma Diverticulitis High cholesterol Patellofemoral arthritis Surgical History Hx of cataract extraction Hx of bladder repair surgery History of tonsillectomy Hx of carpal tunnel repair History of removal of ovarian cyst Hx of breast reduction, elective Hx of tubal ligation History of colon resection H/O colonoscopy Hx of appendectomy History of 3 sections Family History Mother High cholesterol Cardiac arrest Rheumatoid arthritis Alzheimer's dementia Father No known health problems Social History Are you a primary daycare assistant to a significant other at home: No Do you presently have visiting nurse or other home services: No Alcohol intake: never Patient Tobacco Use Status: Never used Tobacco Current occupational status: employed 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 Assessment & Plan Assessment & Plan (1) Type 2 diabetes mellitus with hyperglycemia: Code(s): E11.65 - Type 2 diabetes mellitus with hyperglycemia Category: Medical Plan: Wt: 78 Kg (05/05 ) Est kcal needs as per MSJ: 1600 (40% carb, 30% protein/fat) Est fluid needs as per 25-30 ml/d: 2300 Est prot per day as per 1 g/kg bw: 78 Recommend fiber intake : 8-10 g per day and gradually increase to 25-28 g per day for women and 35-38 g for men or as tolerated Recommend sodium intake per day : less than 1500 mg Educated patient on: ( R = reviewed V = verbalizes understanding N/R = needs review N/A = not applicable * Food sources of carbohydrate, adequate serving sizes and its role in various health conditions: R * Differences between complex carbohydrates a simple carbohydrates, role of fiber in diet: R * Lean protein sources of foods: R * Differences between types of fats and role in diet (mono on saturated fat fatty acids, saturated fatty acids, trans fats): R V N/R * Food sources of sodium in salt and healthy modifications for heart health in kidney health: R V R/V * Vitamins and minerals: R V N/R * Healthy plate method concept: R V N/R * Physical activity: Benefits a precaution: R V N/R * Hypoglycemia protocol (rule of 15): R V N/R * Dietary prevention of Hyperglycemia: R Patient Instructions: Work on balancing meals, 45 g carb per meal or less (3 meals/day following healthy plate method) , 0-20 g carb as a snack or less Coding Level of Care Code Nutr Indiv Intake (20422) Diagnoses Type 2 diabetes mellitus with hyperglycemia E11.65 Time Spent (min) 30
[2024-04-29 11:16] VITALS: BMI 32.0
--- OUTSIDE RECORDS SUMMARY | 2024-04-29 11:46 | XMS_ITS | Encounter Summary ---
Author Organization [employer] Address [address] [place] [address] 7 [place] [address] Care Team Providers Care Dock Attendant Name Role Phone Tami Márquez MD Primary Care Provider [phone] Reason for Visit * Reason Onset Date Comments Call Back Request 05/06/2023 Encounter Details Date Type Department Care Team ([facility] Contact Info) Description 05/06/2023 Telephone [facility] [address] [place], [place] [phone] Tami Márquez MD [address] [place] [address] Call Back Request Social History Tobacco Use [...] regarding need to speak to provider regarding energy conservation specialist consult 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 Scheduled pt for 05/12 at 9:30 am with PCP. Pt verbalizes understanding and agreement of plan. * Telephone Encounter - Martha Hoang - 05/06/2023 10:09 AM EST Tc from pt requesting to speak with a nurse in regards to a possible surgery. Please contact pt at [phone] documented in this encounter Plan of Treatment Not on file documented as of this encounter Visit Diagnoses Not on filedocumented in this encounter Additional Health Concerns Assessment Noted Time PHQ-9 Depression Total Score: 16 023 3:41 PM EST documented as of this encounter Care Teams Dock Attendant Relationship Specialty Start Date End Date Tami Márquez MD [address] [place] [address] PCP - General Family Medicine 04/28/21 documented as of this encounter
--- OUTSIDE RECORDS SUMMARY | 2024-04-29 11:46 | XMS_ITS | Encounter Summary ---
Author Organization [email or web address] Address [address] [facility] 7t [place] [address] Care Team Providers Care Diecast Machine Operator Name Role Phone Tami Márquez MD Primary Care Provider [phone] Encounter Details Date Type Department Care Team (Late st Contact Info) Description 02/04/2023 Abstract [facility] [address] [place], [place] [phone] [place] Social History Tobacco Use Types [...] documented as of this encounter Care Teams Diecast Machine Operator Relationship Specialty Start Date End Date Tami Márquez MD [address] [place] [address] PCP - General Family Medicine 04/28/21 documented as of this encounter
--- OUTSIDE RECORDS SUMMARY | 2024-04-29 11:46 | XMS_ITS | Encounter Summary ---
Author Organization [employer] Address [address] [facility] 7t [place] [address] Care Team Providers Care Quantitative Software Engineer Name Role Phone Tami Márquez MD Primary Care Provider [phone] Encounter Details Date Type Department Care Team (Late st Contact Info) Description 04/10/2024 Orders Only GENERIC EXTERNAL DATA DEPARTMENT Provider, Generic External Data Social History Tobacco Use Types Packs/Day Years [...] Procedure Name Priority Date/Time Associated Diagnosis Comments GLUCOSE, WHOLE BLOOD Routine 04/10/2024 9:30 AM EST documented in this encounter Results * Glucose, Whole Blood (04/10/2024 9:30 AM EST) Glucose, Whole Blood 99 60 - 115 mg/dL [facility] Comment:METER #: [id number] Testing performed in the Endocrinology Department [address] , [address], [facility]. 04/10/2024 9:30 AM EST 04/10/2024 9:34 AM EST us Generic External Data Provider LAB BLOOD ORDERAB LES Final Result Performing Organization Address City/State/[facility] Co de Phone Number [facility] [address] [place] [address] [phone] documented in this encounter Visit Diagnoses Not on filedocumented in this encounter Additional Health Concerns Assessment Noted Time PHQ-9 Depression Total Score: 3 02/20/20 24 10:21 AM EST documented as of this encounter Care Teams Quantitative Software Engineer Relationship Specialty Start Date End Date Tami Márquez MD [address] [place] [address] PCP - General Family Medicine 04/28/21 documented as of this encounter
--- OUTSIDE RECORDS SUMMARY | 2024-04-29 11:46 | XMS_ITS | Encounter Summary ---
Author Organization [employer] Address [address] [facility] 7 [place] [address] Care Team Providers Care Topstitcher Zigzag Name Role Phone Tami Márquez MD Primary Care Provider [phone] Reason for Visit * Reason Onset Date Comments Nurse Triage 07/19/2023 Encounter Details Date Type Department Care Team ([facility] Contact Info) Description 07/19/[address] [facility] MED[facility]INE [address] [place] [address] Tami Márquez MD [address] [place], [place] [phone] Nurse Triage Social History Tobacco Use Types [...] SHIRIN. Will also send this note to [facility] provider that is seeing pt. Today at [...] Your Blood Glucose * Telephone Encounter - Aubrey Avalos - 07/19/2023 9:27 AM EDT Symptom: [...] hyperglycemia, without long-term current use of insulin ([facility]) documented in this encounter Additional Health Concerns Assessment Noted Time PHQ-9 Depression Total Score: 16 023 3:41 PM EST documented as of this encounter Care Teams Topstitcher Zigzag Relationship Specialty Start Date End Date Tami Márquez MD [address] [place] [address] PCP - General Family Medicine 04/28/21 documented as of this encounter
--- OUTSIDE RECORDS SUMMARY | 2024-04-29 11:46 | XMS_ITS | Clinical Summary ---
Author Organization [facility] it Address [address] [place] [address] Care Team Providers Care Shadowgraph Operator Name Role Phone Sangeetha Horner MD Primary Care Provider [phone] Surgical History Surgery Date Site/Laterality Comments OVARIAN CYST REMOVAL 1982 N/A PROCEDURE: CA OVARIAN CYSTECTOMY UNI/BI TUBAL LIGATION 1999 PROCEDURE: HISTORICAL TUBAL LIGATION APPENDECTOMY PROCEDURE: HISTORICAL APPENDECTOMY OTHER SURGICAL HISTORY PROCEDURE: PELVIC CONTROL PELVIC SLING OTHER SURGICAL HISTORY 2006 PROCEDURE: CA COLECTOMY PARTIAL W/ANASTOMOSIS Medical History Medical History Date Comments Asthma DX:Asthma Sliding hiatal hernia DX:Sliding hiatal hernia Hyperlipidemia DX:Hyperlipidemi a History of PCOS DX:History of PC OS Diverticulitis 2006 DX:Diverticuliti s Social History Tobacco Use Types Packs/Day Years Used Date Smoking Tobacco: Former Smokeless Tobacco: Never Comments Unknown Sex and Gender Information Value Date Recorded Sex Assigned at Not on file Legal Sex Female 1:54 PM EST Gender Identity Not on file Sexual Orientation Not on file Obstetrics History Plan of Treatment Health Maintenance Due Date Last Done Comments Breast Cancer Screening 1965 DTaP,Tdap,and Td Vaccines (1 - Tdap) 1984 Hepatitis B Vaccines (1 of 3 - 19+ 3-dose series) 1984 Pneumococcal Vaccine: 50+ Ye ars (1 of 2 - PCV) 1984 Pneumococcal Vaccine: Pediat rics (0 to 5 Years) and At-Risk Patients (6 to 64 Years) (1 of 2 - PCV) 1984 Cervical Cancer Screening: P ap Smear 1986 Zoster Vaccines (1 of 2) 2015 Cholesterol Screening (Lipid Panel) 02/07/2022 Colorectal Cancer Screening: Colonoscopy 02/07/2022 Depression Screening 02/07/2022 HIV Screening 02/07/2022 Hepatitis C Screening 02/07/2022 Social Influencers of Health Screening 02/07/2022 COVID-19 Vaccine ( - 2023-2 5 season) 2023 Influenza Vaccine (#1) 2023 RSV Immunization Patients 60 + Years Old (1 - 1-dose 75+ series) 2040 HIB [...] patient's age to complete this topic Meningococcal B Vacine Aged Out No lo nger eligible based on patient's age to complete this topic RSV Immunization Patients Un maddi 20 months Aged Out No longer eligible b ased on patient's age to complete this topic Varicella Vaccines Aged Out No longer eligible based on patient's age to complete this topic Care Teams Shadowgraph Operator Relationship Specialty Start Date End Date Sangeetha Horner MD [address] PCP - General Internal Medicine 05/30/18
--- OUTSIDE RECORDS SUMMARY | 2024-04-29 11:46 | XMS_ITS | Encounter Summary ---
Author Organization [employer] Address [address] [place] [address] 7 [place] [address] Care Team Providers Care Financial Sales Professional Name Role Phone Tami Márquez MD Primary Care Provider [phone] Reason for Visit * Reason Onset Date Comments Med Refill 10/21/2023 Encounter Details Date Type Department Care Team ([facility] st Contact Info) Description 10/21/2023 Refill [facility] [address] [place], [place] [phone] Tami Márquez MD [address] [place] [address] Neck pain, chronic Social History Tobacco Use [...] documented as of this encounter Care Teams Financial Sales Professional Relationship Specialty Start Date End Date Tami Márquez MD [address] [place] [address] PCP - General Family Medicine 04/28/21 documented as of this encounter
--- OUTSIDE RECORDS SUMMARY | 2024-04-29 11:46 | XMS_ITS | Encounter Summary ---
Author Organization [employer] Address [address] [place] [address] [address] [place] [address] Care Team Providers Care Allergist/Immunologist Name Role Phone Tami Márquez MD Primary Care Provider [phone] Encounter Details Date Type Department Care Team (Late st Contact Info) Description 03/29/2022 Orders Only [facility] MEDICINE [address] [place], [place] [phone] Mari Turner LPN Social History Tobacco Use [...] on filedocumented in this encounter Care Teams Allergist/Immunologist Relationship Specialty Start Date End Date Tami Márquez MD [address] [place] [address] PCP - General Family Medicine 04/28/21 documented as of this encounter
--- OUTSIDE RECORDS SUMMARY | 2024-04-29 11:46 | XMS_ITS | Clinical Summary ---
Author Organization [employer] Address [address] [facility] [address] [place] [address] Care Team Providers Care Communications Agent Name Role Phone Tami Márquez MD Primary Care Provider [phone] Allergies Active Allergy Reactions Criticality Noted Date [...] hyperglycemia, without long-term current use of insulin ([facility]) Inject 0.75 mg under the skin 1 [...] 90 tablet 1 4 Active Continuous Glucose Chef Assistant (FreeStyle Suresh 2 [place]) deviceIndications: Type 2 diabetes mellitus with hyperglycemia, without long-term current use of insulin ([facility]) Scan sensor every 8 hours. Patient aware insurance will not cover, will want to pay out of pocket. 1 each 4 Active Continuous Glucose Sensor (FreeStyle Suresh 2 Sensor) miscIndications:Ty pe 2 diabetes mellitus with hyperglycemia, without long-term current use of insulin ([facility]) Apply 1 sensor every 14 days. Patient [...] intervention , Patient to reach out to [facility] team as needed, Patient to engage in OP therapy , and Patient to reach out to [facility] as needed Assessment & Plan (02/15/2023 [...] intervention , Patient to reach out to [facility] team as needed, Patient to engage in OP BH therapy , and Patient to reach out to [facility] as needed Family problems 02/15/2023 Assessment [...] , and Patient to reach out to [facility] as needed Class 1 obesity due [...] Health Integration Plan Internal Follow up with [facility] External OP therapy referral Patient Self Plan Patient to utilize skills provided in intervention , Patient to reach out to [facility] team as needed, Comply with medication , [...] organization. Date Type Department Care Team Description 04/10/2024 Orders Only GENERIC EXTERNAL DATA DEPARTMENT Provider, Generic External Data 03/18/2024 Telephone [facility] [address] [place] [address] Tami Márquez MD 03/16/2024 Telephone [facility] [address] [place] [address] Tami Márquez MD 03/16/2024 Travel 03/06/2024 10:30 AM EST Telemedicine [facility] [address] [place] [address] Tami Márquez MD Anxiety (Primary Dx); Type 2 diabetes mellitus with hyperglycemia, unspecified whether prison insulin use (CMS/HCC) 03/06/2024 Travel 02/28/2024 11:15 AM EST Clinical Support [facility] [address] [place] [address] Xiao Cortez, YOSEPH Type 2 diabetes mellitus with hyperglycemia, without long-term current use of insulin ([facility]) 02/28/2024 Telephone [facility] [address] [place] [address] Tami Márquez MD Results 02/28/2024 Travel 02/22/2024 Orders Only [facility] [address] [place] [address] Tami Márquez MD 02/21/2024 Telephone [facility] [address] [place] [address] Tami Márquez MD telephone call 02/20/2024 10:30 AM EST Telemedicine [facility] [address] [place] [address] Tami Márquez MD Type 2 diabetes mellitus with hyperglycemia, without long-term current use of insulin ([facility]) (Primary Dx); Hyperlipidemia, unspecified hyperlipidemia type; Depression, unspecified depression type 02/20/2024 Telephone [facility] [address] [place] [address] Tami Márquez MD 02/20/2024 Travel 02/19/2024 Telephone [facility] [address] [place] [address] Tami Márquez MD CHART PREP 02/19/2024 Travel 02/10/2024 Refill [facility] [address] [place] [address] Tami Márquez MD from Last 3 Months Immunizations Name Administration [...] FOBT 1965 HIV Screening 1965 Sigmoidoscopy 1965 Eye Exam 1975 Hepatitis C Screening 1983 Hepatitis B Vaccines (1 of 3 - 19+ 3-dose series) 1984 Pneumococcal Vaccine: 50+ Years (1 of 2 - PCV) 1984 Zoster Vaccines (1 of 2) 2015 COVID-19 Vaccine (2 - season) 2023 06/02/2020 Influenza Vaccine (#1) 2023 Diabetes: Foot Exam 03/01/2024 03/01/2023, 03/01/2023, 03/01/2023, Additional history exists SDOH Screening 07/31/2024 08/01/2023 Diabetes: Hemoglobin A1C 08/22/202402/21/ 024, 01/23/2024, 08/12/2023, Additional history exists Alcohol/Substance [...] WHOLE BLOOD Routine 04/10/2024 9:30 AM EST T-SPOT(R).TB Routine 03/27/2024 11:30 AM EST Encounter for screening for respiratory tuberculosis HEMOGLOBIN A1C Routine 02/22/2024 8:29 AM EST Type 2 diabetes mellitus with hyperglycemia, without long-term current use of insulin (CMS/HCC) LIPID PANEL, STANDARD Routine 02/22/2024 8:29 AM [...] hyperglycemia, without long-term current use of insulin ([facility]/HCC) ALBUMIN, RANDOM URINE W/CREATININE Routine 02/22/2024 8:25 AM EST THINPREP IMAGING PAP AND HPV MRNA E6/E7 Routine 11/05/2023 10:30 AM EDT BI MAMMOGRAM SCREENING TOMOSYNTHESIS BILATERAL Routine 04/09/2023 11:15 AM EST Breast cancer screening by mammogram from Last 3 Months or Most Recently Relevant to Health Maintenance Results * Glucose, Whole Blood (04/10/2024 9:30 AM EST) Glucose, Whole Blood 99 60 - 115 mg/dL [facility] Comment:METER #: [id number] Testing performed in the Endocrinology Department [address] , [address], [facility]. 04/10/2024 9:30 AM EST 04/10/2024 9:34 AM EST us Generic External Data Provider LAB BLOOD ORDERAB LES Final Result [facility] [address] [place] [address] [phone] * T-SPOT??.TB (03/27/2024 11:30 AM EST) T Spot TB Negative Negative [facility] Comment:A negative test resu lt [...] as aquantitative test. TS PANEL A 1 [facility] TS PANEL B 2 [facility] Negative Control Passed [facility] Positive Control Passed [facility] Comment:For additional infor matleandro, please refer tohttp://education.Lucky Ant/faq/MSU234(This link is being provided for informational/educational purposes only.)THIS TEST WAS PERFORMED AT:[employer] [id number] [place] [id number] VANESSA MD,PHD 03/27/2024 11:3 0 AM EST 03/27/2024 2:12 PM EST us Tami Márquez MD LAB BLOOD ORDERABLES Final Re sult [facility] [address] [place] [phone] * Vitamin B12 (Cobalamin) and Folate Panel, Serum (02/22/2024 8:29 AM EST) Vitamin B12 399 200 - 900 pg/mL [facility] Comment:NORMAL 200-900 PG/ML INDETERMINATE 160-199 PG/ML DEFICIENT < 160 PG/ML Folate 10.5 > or = 4.0 ng/mL [facility] Comment:Reference Values:> o r = 4.0 ng/mL< 4.0 ng/mL suggests folate deficiency Methotrexate, aminopterin and folinic acid(leucovorin) are chemotherapeutic agents whose molecularstructures are similar to folate; therefore, the Architectfolate assay cannot be used for patients using these drugs. Blood Venous blood specimen / Unknown 02/22/2024 8:29 AM EST 02/22/2024 8:29 AM EST us Montez Eckert MD LAB BLOOD ORDERABL ES Final Result Performing Organization Address [facility]/ZIP Co de Phone Number [facility] [address] [place] [phone] * TSH W/Reflex to FT4 (02/22/2024 8:29 AM EST) TSH reflex Free T4 1.54 0.32 - 4.0 uIU/mL [facility] Blood Venous blood specimen / Unknown 02/22/2024 8:29 AM EST 02/22/2024 8:29 AM EST us Montez Eckert MD LAB BLOOD ORDERABL ES Final Result Performing Organization Address [facility] Co de Phone Number [facility] [address] [place] [phone] * CBC auto differential (02/22/2024 8:29 AM EST) White Blood Count 6.3 4.8 - 10.8 X10*3/uL [facility] Red Blood Count 4.83 4.20 - 5.50 X10*6/uL [facility] Hemoglobin 13.8 12.0 - 16.0 g/dl [facility] Hematocrit 42.6 37.0 - 47.0 % [facility] Mean Corpuscular Volume 88.2 80.0 - 98.0 fL [facility] Mean Corpuscular Hemoglobin 28.6 27.0 - 33.0 pg [facility] Mean Corpuscular HGB Conc 32.4 31.0 - 35.0 g/dl [facility] Red Cell Distribution Width 15.8 11.0 - 16.0 % [facility] Platelet Count 315 160 - 400 X10*3/uL [facility] Mean Platelet Volume 11.0 9.4 - 12.3 fL [facility] Neutrophils Percent Auto 57.6 45 - 73 % [facility] Imm Gran Pct Auto 0.3 0.0 - 0.4 % [facility] Lymphocytes Percent Auto 33.5 20 - 40 % [facility] Monocytes Percent Auto 6.0 2 - 11 % [facility] Eosinophils Percent Auto 2.1 0 - 4 % [facility] Basophils Percent Auto 0.5 0 - 2 % [facility] NRBC Pct Auto 0.0 0.0 - 0.2 /100WBC [facility] Neutrophils Absolute Auto 3.7 2.0 - 8.3 x10*3/uL [facility] Imm Gran Abs Auto 0.02 0.00 - 0.03 X10*3/uL [facility] Lymphocytes Absolute Auto 2.1 1.2 - 4.9 X10*3/uL [facility] Monocytes Absolute Auto 0.4 0.1 - 1.2 X10*3/uL [facility] Eosinophils Absolute Auto 0.1 0.0 - 0.4 X10*3/uL [facility] Basophils Absolute Auto 0.0 0.0 - 0.2 X10*3/uL [facility] NRBC Abs Auto 0.000 0.0 - 0.012 X10*3/uL [facility] Blood Venous blood specimen / Unknown 02/22/2024 8:29 AM EST 02/22/2024 8:29 AM EST us Tami Márquez MD LAB BLOOD ORDERABLES Final Re sult [facility] [address] [place] [phone] [phone] * (ABNORMAL) Hemoglobin A1c (02/22/2024 8:29 AM EST) Hemoglobin A1c 6.8(H) <6.0 % [facility] Comment:Hemoglobin A1C Refer ence Range Adults: 4.8 - 6.0 % Non diabetic: < 6.0 % Goal: < 7.0 %Additional Action Suggested: > 8.0 %Note: Hemoglobin A1c results are invalid for patients with abnormal amounts of HbF. Blood transfusions may impact the HbA1c concentration in the patient sample. Estimated Average Glucose 148 mg/dL [facility] Comment:eAG = Estimated ave rage glucose which is %A1C expressed asaverage glucose, using the formula of the A6S-GvkayviRgaembi Glucose study (ADAG), Diabetes Care, Vol.31,#8,2007 Blood Venous blood specimen / Unknown 02/22/2024 8:29 AM EST 02/22/2024 8:29 AM EST us Tami Márquez MD LAB BLOOD ORDERABLES Final Re sult [facility] [address] [place] [phone] * (ABNORMAL) Lipid Panel, Standard (02/22/2024 8:29 AM EST) Triglycerides 264(H) <150 mg/dL [facility] Comment:Desirable Triglyceri de: less than 150 mg/dLBorderline High Triglyceride 150-199 mg/dLHigh Triglyceride: 200-499 mg/dLVery High Triglyceride: greater than or equal to 5OO mg/dL Cholesterol 246(H) <200 mg/dL [facility] Comment:Desirable Cholestero l: less than 200 mg/dLBorderline High Cholesterol: 200-239 mg/dLHigh Cholesterol: greater than 239 mg/dL LDL Cholesterol Calculated 155(H) <100 mg/dL [facility] Comment:Desirable LDL: less than 100 mg/dLNear Optimal/Above Optimal LDL: 110- 129 mg/dLBorderline High LDL: 130-159 mg/dLHigh LDL: 160-189 mg/dLVery High LDL: greater than or equal to 190 mg/dL HDL Cholesterol 39(L) >40 mg/dL [facility] Comment:Desirable HDL: great er than 40 mg/dL Note: This HDL assay may give artificially low results in patients with liver disease. Blood Venous blood specimen / Unknown 02/22/2024 8:29 AM EST 02/22/2024 8:29 AM EST us Tami Márquez MD LAB BLOOD ORDERABLES Final Re sult Performing Organization Address City/[facility]/ZIP Co de Phone Number [facility] [address] [place] [address] [phone] * (ABNORMAL) Comprehensive Metabolic Panel (02/22/2024 8:29 AM EST) Sodium 141 135 - 145 mmol/L [facility] Potassium 4.4 3.3 - 5.1 mmol/L [facility] Chloride 106 96 - 108 mmol/L [facility] Carbon Dioxide 28 22 - 29 mmol/L [facility] Anion Gap 11(L) 12 - 20 [facility] Urea Nitrogen (BUN) 12 9 - 16 mg/dL [facility] Creatinine, Serum 0.66 0.5 - 1.4 mg/dL [facility] Estimated Glomerular Filt Rate >60 [facility] Comment:Chronic Kidney Disea se: Estimated GFR < 60 mL/min/1.70n4Jwllpn Kidney Disease: Estimated GFR < 15 mL/min/1.73m2 Glucose 133(H) 60 - 115 mg/dL [facility] Calcium 9.4 8.4 - 10.2 mg/dL [facility] Bilirubin, Total 0.6 0.0 - 1.0 mg/dL [facility] Aspartate Amino Transferase 24 5 - 31 U/L [facility] Alanine Aminotransferase 41(H) 0 - 31 U/L [facility] Total Protein 7.7 6.5 - 8.0 g/dL [facility] Albumin Level 4.2 3.5 - 5.0 g/dL [facility] Alkaline Phosphatase 120(H) 39 - 117 U/L [facility] Blood Venous blood specimen / Unknown 02/22/2024 8:29 AM EST 02/22/2024 8:29 AM EST us Tami Márquez MD LAB BLOOD ORDERABLES Final Re sult Performing Organization Address City/[facility]/ZIP Co de Phone Number [facility] [address] [place] [address] [phone] * Albumin, Random Urine W/Creatinine (02/22/2024 8:25 AM EST) Creatinine, Urine 172.24 mg/dL [facility] Microalbumin Urine 15.0 mg/L [facility] Microalbum Creatinine Ratio Ur 8.7 <30 ug/mg cr [facility] Comment:Albumin/Creatinine R atio Reference Ranges: Normal: < 30 ug/mg creatinine Microalbuminuria: 30 - 300 ug/mg creatinineClinical Albuminuria: > 300 ug/mg creatinine 02/22/2024 8:25 AM EST 02/22/2024 8:46 AM EST us Tami Márquez MD LAB URINE ORDERABLES Final Re sult [facility] [address] [place] [phone] [phone] * [employer]in[employer] Imaging Pap and HPV mRNA E6/E7 (11/05/2023 10:30 AM EDT) HPV nRNA E6/E7 Not Detected Not Detected [facility] Comment:Methodology: Transcr iption-Mediated AmplificationThis assay detects E6/E7 viral messenger RNA (mRNA) from 14high-risk HPV types (16,18,31,33,35,39,45,51,52,56,58,59,66,68).Cervical sources are required for HPV testing.If a vaginal source from a patient who has had atotal hysterectomy with removal of cervix wassubmitted, please contact the testing laboratoryfor alternative testing options.For additional information, please refer tohttp://education.Lucky Ant/faq/AVC449h7(This link if provided for information/educational purposes only.)THIS TEST WAS PERFORMED AT:[facility] [place] [id number] CAVANAUGH MD SOURCE: SEE NOTE [facility] Comment:None given Report Status: TNP [facility] Clinical Information: SEE NOTE [facility] Comment:None given LMP: SEE NOTE [facility] Comment:NONE GIVEN Prev. PAP: SEE NOTE [facility] Comment:NONE GIVEN Prev. BX: SEE NOTE [facility] Comment:NONE GIVEN Statement Of Adequacy: SEE NOTE [facility] Comment:Satisfactory for ting luation.Endocervical/transformation zone component absent. General Categorization: [facility] Interpretation/Result: SEE NOTE [facility] Comment:Cytology Results: Ne gative for intraepitheliallesion or malignancy. Cytology Comment SEE NOTE [facility] Comment:This Pap test has be en evaluated with computerassisted technology. Mannequin Wig Maker: SEE NOTE [facility] Comment:EXJ, CT(ASCP)CT Scre ening Location: [place] [address] Review Mannequin Wig Maker: [facility] Pathologist [facility] PAP Infection [facility] See Note SEE NOTE [facility] Comment:EXPLANATORY NOTE:The Pap is a screening test for cervical cancer. It isnot a diagnostic test and is subject to false negativeand false positive results. It is most reliable when asatisfactory sample, regularly obtained, is submittedwith relevant clinical findings and history, and whenthe Pap result is evaluated along with historic andcurrent clinical information. 11/05/2023 10:3 0 AM EDT 11/05/2023 2:50 PM EDT Narrative [facility] - 11/08/2023 1:09 PM EDT SEE SCANNED RESULTS IN EMR us Tami Márquez MD LAB PATHOLOGY ORDERABLES Sushila bill Result [facility] [address] [place] [phone] * BI Mammogram Screening Tomosynthesis Bilateral (04/09/2023 11:15 AM EST) Anatomical Region Laterality Modality Breast Bilateral Mammography 04/09/2023 11:1 5 AM EST Narrative 05/02/2023 5:35 AM EST ? [facility] ? [address] ?[place] [address] ? Mammography Report ? Signed ? Patient: Colon Sharma,Erin ?MR#: [id number] ?? [id number] ? : 1965 ?Acct:[id number] ? Age/Sex: 57 / F ?ADM Date: 04/09/23 ? Loc: HO.MAMMO ? Attending Dr: Tami Márquez MD ? Ordering Physician: Tami Márquez MD ?Results: 1Nega ?? tive ? Date of Service: 04/09/23 ?Follow Up: 1 Year From Orig ?? inal Mammogram ? Procedure(s): MM tomosynthesis screening BI ?? Accession Number(s): [id number] ? cc: Tami Márquez MD ? EXAMINATION: [...] by Candy Medley MD in OV> ? 05/02/23530 ? DD/ 1115 ? TD/TT: ? Fresh Food Manager: ? Procedure Note Donluis mter, Image - 05/02/2023 [facility] [address] [place] [address] Mammography Report Signed Patient: Yamile KrauseR#: [id number] : 1965Acct:[id number] Age/Sex: 57 / FADM Date: 04/09/23 Loc: HO.MAMMO Attending Dr: Tami Márquez MD Ordering Physician: Tami Márquez MDResults: 1Nega tive Date of Service: 04/09/23Follow Up: 1 Year From Orig inal Mammogram Procedure(s): MM tomosynthesis screening BI Accession Number(s): [id number] cc: Tami Márquez MD EXAMINATION: MM SCREENING [...] in OV> 05/02/23 0531 DD/ 1115 TD/TT: Fresh Food Manager: Tami Márquez MD IMG BI PROCEDURES Final Resul t from Last 3 Months or Most Recently Relevant to Health Maintenance Insurance , [address] [place] [address] * Guarantor: Erin Krause Account Type Relation to Patient Date of Phone Billing Address Personal/Family Self [address] Care Teams Communications Agent Relationship Specialty Start Date End Date Tami Márquez MD [address] [place] [address] PCP - General Family Medicine 04/28/21
--- OUTSIDE RECORDS SUMMARY | 2024-04-29 11:46 | XMS_ITS | Encounter Summary ---
Author Organization [employer] Address [address] [facility] [address] [place] [address] Care Team Providers Care Solar Energy Engineer Name Role Phone Tami Márquez MD Primary Care Provider [phone] Reason for Visit * Reason Comments Med Refill Encounter Details Date Type Department Care Team ([facility] Contact Info) Description 01/17/2024 Refill [facility] [address] [place] [address] Tami Márquez MD [address] [place] [address] Mixed hyperlipidemia Social History Tobacco Use Types [...] documented as of this encounter Care Teams Solar Energy Engineer Relationship Specialty Start Date End Date Tami Márquez MD [address] [place] [address] PCP - General Family Medicine 04/28/21 documented as of this encounter
[2024-05-11 12:47] VITALS: BMI 32.0
== END 2024-04-29 11:53 | disposition home or self-care (01) ==
PROVIDERS: PCP Family Medicine; Visit Provider Dietitian, Registered
DX: E11.65 Type 2 diabetes mellitus with hyperglycemia (principal)

== ENCOUNTER → 2024-04-29 11:00 | Outpatient (BNVA) | payer OTHER, SELFPAY | PROVIDERS: PCP Family Medicine; Visit Provider Dietitian, Registered | DX: E11.65 Type 2 diabetes mellitus with hyperglycemia (principal); Z71.3 Dietary counseling and surveillance | CPT/HCPCS: 97802 ==

== ENCOUNTER 2024-05-08 09:37 | Outpatient (AMB) | payer OTHER, SELFPAY ==
--- NOTE | 2024-05-08 09:48 | A.OFFVIS_ITS ---
Vital Signs 05/08/24 09:53 Height 5 ft 1.5 in Weight 171 lb 15.369 oz BMI 32.0 BP 100/68 Blood Pressure Location Rt brachial Position Sitting Pulse 89 Pulse Source Pulse Oximeter Pulse Oximetry (%) 96 Oxygen Delivery Method Room Air Intake Visit Reasons: T2DM Intake Note: Patient presents today for a follow-up on Type 2 Diabetes Mellitus: Last Diabetic eye exam was on: Last 2023, patient stated having an appt on 05/08/2024 Last Podiatry exam was on: Patient does not see a Airport Representative Most recent HbA1c: 6.8%, 02/22/2024 Random Glucose- 155 mg/dL, Today Ink Printer Required: No Accompanied by: Self / Same As Patient Allergies morphine [Morphine] Allergy (Severe, Verified 05/08/24 09:58) ANAPHYLAXIS oxycodone [Percocet] Allergy (Severe, Verified 05/08/24 09:58) Anaphylaxis hydrocodone [From Vicodin] Allergy (Intermediate, Verified 05/08/24 09:58) ANAPHYLAXIS shrimp [SHRIMP] Allergy (Intermediate, Verified 05/08/24 09:58) Swelling metformin Adverse Reaction (Unknown, Verified 05/08/24 09:58) diarrhea, hair loss narcotics Allergy (Uncoded 05/08/24 09:52) Anaphylaxis HPI Comments Details: This is a 58-year-old female with a past medical history of type 2 diabetes, osteoarthritis and hepatic steatosis presenting for diabetic management. She is doing okay. She suffered a fall at work a couple of weeks ago, and she injured her right knee. She is seeing Orthopedics, and she has an MRI scheduled. She is using a knee brace. She was diagnosed with diabetes in 2021. She does not have her glucometer with her today. She reports her fasting blood sugars are in the 80s and 90s. Hemoglobin a1c 6.8% 02/22/2024. Current medication regimen: Glipizide 5 mg in the afternoon with lunch and Mounjaro 2.5 mg weekly. Past medication: We discontinue Trulicity to start Mounjaro because she was frustrated by her weight. Metformin discontinued due to intolerable side effects. Hypoglycemia symptoms: None Hyperglycemia symptoms: None She had a CT in 2022 which was consistent with hepatic steatosis, and her alkaline phosphatase and ALT were mildly elevated on her recent lab tests. She drinks alcohol rarely. Her liver ultrasound is scheduled. She is reminded to have lab work completed. Eye exam: Up-to-date Microvascular complications: None Macrovascular complications: None She wants a referral back to vascular surgery. She was seen in the past for varicose veins associated with swelling and inflammation. When she is seated for long periods of time she gets swelling in her feet and ankles which is uncomfortable. ROS: Constitutional: No unexplained weight loss, fever, chills, fatigue or night sweats. Eyes: No vision changes, blurry vision, double vision Respiratory: No shortness of breath Cardiovascular: No chest pain, chest pressure or chest discomfort. No palpitations. Gastrointestinal: No anorexia, nausea, vomiting or diarrhea. No abdominal pain Neurologic: No numbness or tingling in the extremities Skin: No rash or open wounds Endocrine: No cold or heat intolerance. No polyuria or polydipsia. Physical exam: Constitutional: Alert, in no distress. Eyes: Pupils are equal, round and reactive to light. Extraocular muscles intact. Neck: Supple, Full range of motion. No lymphadenopathy. No palpable thyroid masses. Respiratory: Clear to auscultation. Cardiovascular: S1 S2 regular. II/ systolic murmur (pt reports this is not new and was evaluated by pcp with echo) Extremities: Palpable DP pulses. Trace bilateral ankle and foot edema. No erythema, ecchymosis. Mild varicosities on the feet and lower legs. [facility] Medical History Type II diabetes mellitus, well controlled Hepatic steatosis Elevated LFTs GERD (gastroesophageal reflux disease) Hx of lipoma Varicose vein of leg Cervical spinal stenosis Difficulty swallowing Diabetes Murmur Bronchitis Hernia Asthma Diverticulitis High cholesterol Patellofemoral arthritis Surgical History Hx of cataract extraction Hx of bladder repair surgery History of tonsillectomy Hx of carpal tunnel repair History of removal of ovarian cyst Hx of breast reduction, elective Hx of tubal ligation History of colon resection H/O colonoscopy Hx of appendectomy History of 3 sections Family History Mother High cholesterol Cardiac arrest Rheumatoid arthritis Alzheimer's dementia Father No known health problems Social History Are you a primary home day care provider to a significant other at home: No Do you presently have visiting nurse or other home services: No Alcohol intake: never Patient Tobacco Use Status: Never used Tobacco Current occupational status: employed 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 Physical Exam Vital Signs: Last Vital Signs Pulse 89 05/08/24 09:53 BP 100/68 05/08/24 09:53 Pulse Ox 96 05/08/24 09:53 Oxygen Delivery Method Room Air 05/08/24 09:53 BMI result Body Mass Index 32.0 Results Reviewed Results Reviewed: Laboratory Tests 02/22/24 02/22/24 08:25 08:29 Creatinine 0.66 Estimated GFR > 60 Hemoglobin A1c % 6.8 H AST 24 ALT 41 H Alkaline Phosphatase 120 H Triglycerides 264 H Cholesterol 246 H LDL Cholesterol, Calc 155 H HDL Cholesterol 39 L Vitamin B12 399 TSH 1.54 Urine Creatinine 172.24 Urine Microalbumin 15.0 Microalb/Creat Ratio 8.7 Assessment & Plan Assessment & Plan (1) Type II diabetes mellitus, well controlled: Code(s): E11.9 - Type 2 diabetes mellitus without complications Category: Medical (2) Hepatic steatosis: Code(s): K76.0 - Fatty (change of) liver, not elsewhere classified Category: Medical (3) Elevated LFTs: Code(s): R79.89 - Other specified abnormal findings of blood chemistry Category: Medical (4) Varicose veins of left lower extremity with inflammation: Code(s): I83.12 - Varicose veins of left lower extremity with inflammation Category: Medical Plan In summary this is a 59-year-old female with controlled type 2 diabetes. Discussed pathophysiology of Type II Diabetes Mellitus with the patient in detail.? I explained the long-term risks and complications associated with uncontrolled diabetes including nephropathy, neuropathy, peripheral vascular disease, retinopathy, increased risk of heart disease and stroke.? Discussed lifestyle modification with the patient. Recommended 30 minutes of moderately vigorous exercise 5 days per week to promote weight loss. Patient instructed to bring glucometer to all appointments. She saw the dietitian. Increase Mounjaro to 5 mg weekly and stopped glipizide. If you experience low blood sugar, treat this by eating a chewable fruit candy like skittles or jelly beans (about 8 pieces), 4 ounces (1/2 cup) of fruit juice (not diet), 1 tablespoon of honey or 4 glucose tablets. If your blood sugar is under 50, take double the amount of one of the above. Recheck your blood sugar in 15 minutes. Repeat hepatic function tests and check hepatitis a, B and C profile. Ordered ultrasound of the abdomen with elastography. Ultrasound is scheduled. The patient is referred to vascular surgery. Recommended low-sodium diet, elevating her legs and using compression stockings. Follow up in 4 weeks for type 2 diabetes. Orders: Referrals Vascular Surgery Referral I83.12 - Varicose veins of left lower extremity with inflammation Medications: New tirzepatide (Mounjaro) 5 mg (0.5 mL) subcut QWEEK 2 mL 0RF Discontinued tirzepatide (Mounjaro) for 4 weeks Discontinued Reason: Doctor's Order 2.5 mg (0.5 mL) subcut QWEEK 2 mL 1RF Patient Instructions: Stop Glipizide and increase Mounjaro to 5 mg weekly. Coding Level of Care Code Est Pt Level 4 (56743) Complex EM visit Add On G2211 Diagnoses Type II diabetes mellitus, well controlled E11.9 Hepatic steatosis K76.0 Elevated LFTs R79.89 Varicose veins of left lower extremity with inflammation I83.12
[2024-05-08 09:53] VITALS: BP 100/68; PULSE 89; O2SAT 96; BMI 32.0
[2024-05-08 10:02] LABS: Glucose, Whole Blood 155 mg/dL (60-115)
--- OUTSIDE RECORDS SUMMARY | 2024-05-08 10:23 | XMS_ITS | Clinical Summary ---
Author Organization [facility] it Address [address] [place] [address] Care Team Providers Care Medical Research Tech Name Role Phone Sangeetha Horner MD Primary Care Provider [phone] Surgical History Surgery Date Site/Laterality Comments OVARIAN CYST REMOVAL 1982 N/A PROCEDURE: HI OVARIAN CYSTECTOMY UNI/BI TUBAL LIGATION 1999 PROCEDURE: HISTORICAL TUBAL LIGATION APPENDECTOMY PROCEDURE: HISTORICAL APPENDECTOMY OTHER SURGICAL HISTORY PROCEDURE: PELVIC CONTROL PELVIC SLING OTHER SURGICAL HISTORY 2006 PROCEDURE: HI COLECTOMY PARTIAL W/ANASTOMOSIS Medical History Medical History [...] age to complete this topic Care Teams Medical Research Tech Relationship Specialty Start Date End Date Sangeetha Horner MD [address] PCP - General Internal Medicine 05/30/18
--- OUTSIDE RECORDS SUMMARY | 2024-05-08 10:23 | XMS_ITS | Encounter Summary ---
Author Organization [employer] Address [address] [place] [address] [address] [place] [address] Care Team Providers Care Health Systems Analyst Name Role Phone Tami Márquez MD Primary Care Provider [phone] Reason for Visit * Reason Onset Date Comments Med Refill 10/21/2023 Encounter Details Date Type Department Care Team ([facility] st Contact Info) Description 10/21/2023 Refill [facility] [address] [place], [place] [phone] Tami Márquez MD [address] [place] [address] Neck pain, chronic Social History Tobacco Use [...] documented as of this encounter Care Teams Health Systems Analyst Relationship Specialty Start Date End Date Tami Márquez MD [address] [place] [address] PCP - General Family Medicine 04/28/21 documented as of this encounter
--- OUTSIDE RECORDS SUMMARY | 2024-05-08 10:23 | XMS_ITS | Encounter Summary ---
Author Organization [employer] Address [address] [facility] [address]t [place] [address] Care Team Providers Care Executive Team Leader Name Role Phone Tami Márquez MD Primary Care Provider [phone] Encounter Details Date Type Department Care Team (Late st Contact Info) Description 02/04/2023 Abstract [facility] MEDICINE [address] [place], [place] [phone] [place] Social History Tobacco Use Types [...] documented as of this encounter Care Teams Executive Team Leader Relationship Specialty Start Date End Date Tami Márquez MD [address] [place] [phone] PCP - General Family Medicine 04/28/21 documented as of this encounter
--- OUTSIDE RECORDS SUMMARY | 2024-05-08 10:23 | XMS_ITS | Encounter Summary ---
Author Organization [facility] Address [address] [facility] [address] [place] [address] Care Team Providers Care Poultry Scientist Name Role Phone Tami Márquez MD Primary Care Provider [phone] Encounter Details Date Type Department Care Team (Late st Contact Info) Description 05/08/2024 Orders Only GENERIC EXTERNAL DATA DEPARTMENT Provider, [...] Associated Diagnosis Comments GLUCOSE, WHOLE BLOOD Routine 05/08/2024 9:57 AM EST documented in this encounter Results * (ABNORMAL) Glucose, Whole Blood (05/08/2024 9:57 AM EST) Glucose, Whole Blood 155(H) 60 - 115 mg/dL [facility] Comment:METER #: [id number] Testing performed in the Endocrinology Department [address] , [address], [facility]. 05/08/2024 9:57 AM EST 05/08/2024 10:02 AM EST us Generic External Data Provider LAB BLOOD ORDERAB LES Final Result [facility] [address] [place] [phone] documented in this encounter Visit Diagnoses Not on filedocumented in this encounter Additional Health Concerns Assessment Noted Time PHQ-9 Depression Total Score: 3 02/20/20 24 10:21 AM EST documented as of this encounter Care Teams Poultry Scientist Relationship Specialty Start Date End Date Tami Márquez MD [address] [place] [address] PCP - General Family Medicine 04/28/21 documented as of this encounter
--- OUTSIDE RECORDS SUMMARY | 2024-05-08 10:23 | XMS_ITS | Encounter Summary ---
Author Organization [employer] Address [address] [facility] [address] [place] [address] Care Team Providers Care Rafter Cutting Machine Operator Name Role Phone Tami Márquez MD Primary Care Provider [phone] Encounter Details Date Type Department Care Team [...] Whole Blood 99 60 - 115 mg/dL [facility] Comment:METER #: [id number] Testing performed in the Endocrinology Department [address] , [address], [facility]. 04/10/2024 9:30 AM EST 04/10/2024 9:34 AM EST us Generic External Data Provider LAB BLOOD ORDERAB LES Final Result Performing Organization Address City/State/RUST Co de Phone Number [facility] [address] [place] [address] [phone] documented in this encounter Visit Diagnoses Not on filedocumented in this encounter Additional Health Concerns Assessment Noted Time PHQ-9 Depression Total Score: 3 02/20/20 24 10:21 AM EST documented as of this encounter Care Teams Rafter Cutting Machine Operator Relationship Specialty Start Date End Date Tami Márquez MD [address] [place] [address] PCP - General Family Medicine 04/28/21 documented as of this encounter
--- OUTSIDE RECORDS SUMMARY | 2024-05-08 10:23 | XMS_ITS | Clinical Summary ---
Author Organization [employer] Address [address] [place] [address] 7t [place] [address] Care Team Providers Care Logistics Intern Name Role Phone Tami Márquez MD Primary Care Provider [phone] Allergies Active Allergy Reactions Criticality Noted Date [...] hyperglycemia, without long-term current use of insulin ([facility]) Inject 0.75 mg under [...] 90 tablet 1 4 Active Continuous Glucose Restaurant Worker (FreeStyle Suresh 2 [place]) deviceIndications: Type 2 diabetes mellitus with hyperglycemia, without long-term current use of insulin ([facility]) Scan sensor every 8 hours. Patient aware insurance will not cover, will want to pay out of pocket. 1 each 4 Active Continuous Glucose Sensor (FreeStyle Suresh 2 Sensor) miscIndications:Ty pe 2 diabetes mellitus with hyperglycemia, without long-term current use of insulin ([facility]) Apply 1 sensor every [...] intervention , Patient to reach out to [facility] team as needed, Patient to engage in OP therapy , and Patient to reach out to [facility] as needed Assessment & Plan (02/15/2023 9:59 [...] intervention , Patient to reach out to [facility] team as needed, Patient to engage in OP BH therapy , and Patient to reach out to [facility] as needed Family problems 02/15/2023 Assessment & [...] , and Patient to reach out to [facility] as needed Class 1 obesity due to [...] Health Integration Plan Internal Follow up with [facility] External OP therapy referral Patient Self Plan Patient to utilize skills provided in intervention , Patient to reach out to [facility] team as needed, Comply with medication , [...] start melatonin. RTC in 3 months. Encounters Date Type Department Care Team Description 05/08/2024 Orders Only GENERIC EXTERNAL DATA DEPARTMENT Provider, Generic External Data 04/10/2024 Orders Only GENERIC EXTERNAL DATA DEPARTMENT Provider, Generic External Data 03/18/2024 Telephone [facility] [address] [place] [address] Tami Márquez MD 03/16/2024 Telephone [facility] [address] [place] [address] Tami Márquez MD 03/16/2024 Travel 03/06/2024 10:30 AM EST Telemedicine [facility] [address] [place] [address] Tami Márquez MD Anxiety (Primary Dx); Type 2 diabetes mellitus with hyperglycemia, unspecified whether prison insulin use ([facility]) 03/06/2024 Travel 02/28/2024 11:15 AM EST Clinical Support [facility] [address] [place] [address] Xiao Cortez RN Type 2 diabetes mellitus with hyperglycemia, without long-term current use of insulin ([facility]) 02/28/2024 Telephone [facility] [address] [place] [address] Tami Márquez MD Results 02/28/2024 Travel 02/22/2024 Orders Only [facility] [address] [place] [address] Tami Márquez MD 02/21/2024 Telephone [facility] [address] [place] [address] Tami Márquez MD telephone call 02/20/2024 10:30 AM EST Telemedicine [facility] [address] [place] [address] Tami Márquez MD Type 2 diabetes mellitus with hyperglycemia, without long-term current use of insulin ([facility]) (Primary Dx); Hyperlipidemia, unspecified hyperlipidemia type; Depression, unspecified depression type 02/20/2024 Telephone [facility] [address] [place] [address] Tami Márquez MD 02/20/2024 Travel 02/19/2024 Telephone [facility] [address] [place] [address] Tami Márquez MD CHART PREP 02/19/2024 Travel 02/10/2024 Refill [facility] [address] [place] [address] Tami Márquez MD from Last 3 Months [...] WHOLE BLOOD Routine 05/08/2024 9:57 AM EST GLUCOSE, WHOLE BLOOD Routine 04/10/2024 9:30 AM [...] Recently Relevant to Health Maintenance Results * (ABNORMAL) Glucose, Whole Blood (05/08/2024 9:57 AM EST) Only the most recent of2 resultswithin the time period is included. Glucose, Whole Blood 155(H) 60 - 115 mg/dL [facility] Comment:METER #: [id number] Testing performed in the Endocrinology Department [address] , [address], [facility]. 05/08/2024 9:57 AM EST 05/08/2024 10:02 AM EST us Generic External Data Provider LAB BLOOD ORDERAB LES Final Result [facility] [address] [place] [phone] * T-SPOT??.TB (03/27/2024 11:30 AM EST) Pathologist [facility] T Spot TB Negative Negative [facility] Comment:A negative test resu lt [...] as aquantitative test. TS PANEL A 1 [facility] TS PANEL B 2 [facility] Negative Control Passed [facility] Positive Control Passed [facility] Comment:For additional infor scotty, please refer tohttp://education.Instacoach/faq/EMR539(This link is being provided for informational/educational purposes only.)THIS TEST WAS PERFORMED AT:[employer] [id number] [place] [address]ECRWEVXLINDSAY VANESSA MD,PHD 03/27/2024 11:3 0 AM EST 03/27/2024 2:12 PM EST us Tami Márquez MD LAB BLOOD ORDERABLES Final Re sult [facility] [address] [place] [phone] * Vitamin B12 (Cobalamin) and Folate Panel, Serum (02/22/2024 8:29 AM EST) Vitamin B12 399 200 - 900 pg/mL [facility] Comment:NORMAL 200-900 PG/ML INDETERMINATE 160-199 PG/ML DEFICIENT < 160 PG/ML Folate 10.5 > or = 4.0 ng/mL [facility] Comment:Reference Values:> o r = [...] ORDERABL ES Final Result Performing Organization Address [facility] Co de Phone Number [facility] [address] [place] [phone] * TSH W/Reflex to FT4 (02/22/2024 8:29 AM EST) TSH reflex Free T4 1.54 0.32 - 4.0 uIU/mL [facility] Blood Venous blood specimen / Unknown 02/22/2024 8:29 AM EST 02/22/2024 8:29 AM EST Montez Eckert MD LAB BLOOD ORDERABL ES Final Result Performing Organization Address [facility] de Phone Number [facility] [address] [place] [phone] * CBC auto differential (02/22/2024 8:29 AM EST) White Blood Count 6.3 4.8 - 10.8 X10*3/uL [facility] Red Blood Count 4.83 4.20 - 5.50 X10*6/uL [facility] Hemoglobin 13.8 12.0 - 16.0 g/dl [facility] Hematocrit 42.6 37.0 - 47.0 % [facility] Mean Corpuscular Volume 88.2 80.0 - 98.0 fL [facility] Mean Corpuscular Hemoglobin 28.6 27.0 - 33.0 pg [facility] Mean Corpuscular HGB Conc 32.4 31.0 - 35.0 g/dl [facility] Red Cell Distribution Width 15.8 11.0 - 16.0 % [facility] Platelet Count 315 160 - 400 X10*3/uL [facility] Mean Platelet Volume 11.0 9.4 - 12.3 fL [facility] Neutrophils Percent Auto 57.6 45 - 73 % [facility] Imm Gran Pct Auto 0.3 0.0 - 0.4 % [facility] Lymphocytes Percent Auto 33.5 20 - 40 % [facility] Monocytes Percent Auto 6.0 2 - 11 % [facility] Eosinophils Percent Auto 2.1 0 - 4 % [facility] Basophils Percent Auto 0.5 0 - 2 % [facility] NRBC Pct Auto 0.0 0.0 - 0.2 /100WBC [facility] Neutrophils Absolute Auto 3.7 2.0 - 8.3 x10*3/uL [facility] Imm Gran Abs Auto 0.02 0.00 - 0.03 X10*3/uL [facility] Lymphocytes Absolute Auto 2.1 1.2 - 4.9 X10*3/uL [facility] Monocytes Absolute Auto 0.4 0.1 - 1.2 X10*3/uL [facility] Eosinophils Absolute Auto 0.1 0.0 - 0.4 X10*3/uL [facility] Basophils Absolute Auto 0.0 0.0 - 0.2 X10*3/uL [facility] NRBC Abs Auto 0.000 0.0 - 0.012 X10*3/uL [facility] Blood Venous blood specimen / Unknown 02/22/2024 8:29 AM EST 02/22/2024 8:29 AM EST us Tami Márquez MD LAB BLOOD ORDERABLES Final Re sult [facility] [address] [place] [phone] * (ABNORMAL) Hemoglobin A1c (02/22/2024 8:29 AM EST) Hemoglobin A1c 6.8(H) <6.0 % [facility] Comment:Hemoglobin A1C Refer ence Range Adults: 4.8 - 6.0 % Non diabetic: < 6.0 % Goal: < 7.0 %Additional Action Suggested: > 8.0 %Note: Hemoglobin A1c results are invalid for patients with abnormal amounts of HbF. Blood transfusions may impact the HbA1c concentration in the patient sample. Estimated Average Glucose 148 mg/dL [facility] Comment:eAG = Estimated ave rage glucose which is %A1C expressed asaverage glucose, using the formula of the D3O-ZczojckFgrmslu Glucose study (ADAG), Diabetes Care, Vol.31,#8,Oct. 2007 Blood Venous blood specimen / Unknown 02/22/2024 8:29 AM EST 02/22/2024 8:29 AM EST us Tami Márquez MD LAB BLOOD ORDERABLES Final Re sult [facility] [address] [place] [phone] [phone] * (ABNORMAL) Lipid Panel, Standard (02/22/2024 8:29 AM EST) Triglycerides 264(H) <150 mg/dL [facility] Comment:Desirable Triglyceri de: less than 150 mg/dLBorderline High Triglyceride 150-199 mg/dLHigh Triglyceride: 200-499 mg/dLVery High Triglyceride: greater than or equal to 5OO mg/dL Cholesterol 246(H) <200 mg/dL [facility] Comment:Desirable Cholestero l: less than 200 mg/dLBorderline High Cholesterol: 200-239 mg/dLHigh Cholesterol: greater than 239 mg/dL LDL Cholesterol Calculated 155(H) <100 mg/dL [facility] Comment:Desirable LDL: less than 100 mg/dLNear Optimal/Above Optimal LDL: 110- 129 mg/dLBorderline High LDL: 130-159 mg/dLHigh LDL: 160-189 mg/dLVery High LDL: greater than or equal to 190 mg/dL HDL Cholesterol 39(L) >40 mg/dL [facility] Comment:Desirable HDL: great er than 40 mg/dL Note: This HDL assay may give artificially low results in patients with liver disease. Blood Venous blood specimen / Unknown 02/22/2024 8:29 AM EST 02/22/2024 8:29 AM EST us Tami Márquez MD LAB BLOOD ORDERABLES Final Re sult [facility] [address] [place] [phone] * (ABNORMAL) Comprehensive Metabolic Panel (02/22/2024 8:29 AM EST) Sodium 141 135 - 145 mmol/L [facility] Potassium 4.4 3.3 - 5.1 mmol/L [facility] Chloride 106 96 - 108 mmol/L [facility] Carbon Dioxide 28 22 - 29 mmol/L [facility] Anion Gap 11(L) 12 - 20 [facility] Urea Nitrogen (BUN) 12 9 - 16 mg/dL [facility] Creatinine, Serum 0.66 0.5 - 1.4 mg/dL [facility] Estimated Glomerular Filt Rate >60 [facility] Comment:Chronic Kidney Disea se: Estimated GFR < 60 mL/min/1.77i6Aiqqwf Kidney Disease: Estimated GFR < 15 mL/min/1.73m2 Glucose 133(H) 60 - 115 mg/dL [facility] Calcium 9.4 8.4 - 10.2 mg/dL [facility] Bilirubin, Total 0.6 0.0 - 1.0 mg/dL [facility] Aspartate Amino Transferase 24 5 - 31 U/L [facility] Alanine Aminotransferase 41(H) 0 - 31 U/L [facility] Total Protein 7.7 6.5 - 8.0 g/dL [facility] Albumin Level 4.2 3.5 - 5.0 g/dL [facility] Alkaline Phosphatase 120(H) 39 - 117 U/L [facility] Blood Venous blood specimen / Unknown 02/22/2024 8:29 AM EST 02/22/2024 8:29 AM EST aTmi Márquez MD LAB BLOOD ORDERABLES Final Re sult Performing Organization Address [facility] Co de Phone Number [facility] [address] [place] [phone] * Albumin, Random Urine W/Creatinine (02/22/2024 8:25 AM EST) Creatinine, Urine 172.24 mg/dL [facility] Microalbumin Urine 15.0 mg/L [facility] Microalbum Creatinine Ratio Ur 8.7 <30 ug/mg cr [facility] Comment:Albumin/Creatinine R atio Reference Ranges: Normal: < 30 ug/mg creatinine Microalbuminuria: 30 - 300 ug/mg creatinineClinical Albuminuria: > 300 ug/mg creatinine 02/22/2024 8:25 AM EST 02/22/2024 8:46 AM EST Tami Márquez MD LAB URINE ORDERABLES Final Re sult Performing Organization Address [facility] de Phone Number [facility] [address] [place] [phone] * ThinPrep Imaging Pap and HPV mRNA E6/E7 (11/05/2023 10:30 AM EDT) HPV nRNA E6/E7 Not Detected Not Detected [facility] Comment:Methodology: Transcr iption-Mediated AmplificationThis assay detects E6/E7 viral messenger RNA (mRNA) from 14high-risk HPV types (16,18,31,33,35,39,45,51,52,56,58,59,66,68).Cervical sources are required for HPV testing.If a vaginal source from a patient who has had atotal hysterectomy with removal of cervix wassubmitted, please contact the testing laboratoryfor alternative testing options.For additional information, please refer tohttp://education.Instacoach/faq/EDC619a2(This link if provided for information/educational purposes only.)THIS TEST WAS PERFORMED AT:[facility] [address] [id number] CAVANAUGH MD SOURCE: SEE NOTE [facility] Comment:None given Report Status: [facility] Clinical Information: SEE NOTE [facility] Comment:None given LMP: SEE NOTE [facility] Comment:NONE GIVEN Prev. PAP: SEE NOTE [facility] Comment:NONE GIVEN Prev. BX: SEE NOTE [facility] Comment:NONE GIVEN Statement Of Adequacy: SEE NOTE [facility] Comment:Satisfactory for ting luation.Endocervical/transformation zone component absent. General Categorization: [facility] Interpretation/Result: SEE NOTE [facility] Comment:Cytology Results: Ne gative for intraepitheliallesion or malignancy. Cytology Comment SEE NOTE [facility] Comment:This Pap test has be en evaluated with computerassisted technology. Pearl Technician: SEE NOTE [facility] Comment:EXJ, CT(ASCP)CT Scre ening Location: [address] [address] Review Pearl Technician: [facility] Pathologist [facility] PAP Infection [facility] See Note SEE NOTE [facility] Comment:EXPLANATORY NOTE:The Pap is a [...] AM EDT 11/05/2023 2:50 PM EDT Narrative [facility] - 11/08/2023 1:09 PM EDT SEE SCANNED RESULTS IN EMR us Tami Márquez MD LAB PATHOLOGY ORDERABLES Sushila bill Result [facility] [address] [place] [phone] [phone] * BI Mammogram Screening Tomosynthesis Bilateral (04/09/2023 11:15 AM EST) Anatomical Region Laterality Modality Breast Bilateral Mammography 04/09/2023 11:1 5 AM EST Narrative 05/02/2023 5:35 AM EST ? [facility] ? [address] [facility] ?[place], [place] [address] ? Mammography Report ? Signed ? Patient: Colon Sharma,Erin ?MR#: [id number] ?? [id number] ? : 1965 ?Acct:[id number] ? Age/Sex: 57 / F ?ADM Date: 04/09/ ? Loc: HO.MAMMO ? Attending Dr: Tami Márquez MD ? Ordering Physician: Tami Márquez MD ?Results: 1Nega ?? tive ? Date of Service: 04/09/ ?Follow Up: 1 Year From Orig ?? inal Mammogram ? Procedure(s): MM tomosynthesis screening BI ?? Accession Number(s): [id number] ? cc: Tami Márquez MD ? EXAMINATION: [...] 0531 ? DD/ 1115 ? TD/TT: ? Knuckle Strap Sewer: ? Procedure Note Donluis mter, Image - 05/02/2023 [facility] [address] [place] [place] [address] Mammography Report Signed Patient: Martha Krause#: [id number] : 1965Acct:[id number] Age/Sex: 57 / FADM Date: 04/09/23 Loc: [facility] Attending Dr: Tami Márquez MD Ordering Physician: Tami Márquez MDResults: 1Nega tive Date of Service: 04/09/23Follow Up: 1 Year From Orig inal Mammogram Procedure(s): MM tomosynthesis screening BI Accession Number(s): [id number] cc: Tami Márquez MD EXAMINATION: MM SCREENING [...] in OV> 05/02/23 0531 DD/ 1115 TD/TT: Knuckle Strap Sewer: us Tami Márquez MD IMG BI PROCEDURES Final Resul t from Last 3 Months or Most Recently Relevant to Health Maintenance Insurance , [address] [place] [address] Care Teams Logistics Intern Relationship Specialty Start Date End Date Tami Márquez MD [address] [place] [address] PCP - General Family Medicine 04/28/21
--- OUTSIDE RECORDS SUMMARY | 2024-05-08 10:23 | XMS_ITS | Encounter Summary ---
Author Organization [employer] Address [address] [place] [address] 7 [place] [address] Care Team Providers Care Environmental Advisor Name Role Phone Tami Márquez MD Primary Care Provider [phone] Reason for Visit * Reason Onset Date Comments Call Back Request 05/06/2023 Encounter Details Date Type Department Care Team ([facility] Contact Info) Description 05/06/2023 Telephone [facility] [address] [place], [place] [phone] Tami Márquez MD [address] [place] [address] Call Back Request Social History Tobacco Use [...] regarding need to speak to provider regarding student specialist consult 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 Scheduled pt for 05/12 at 9:30 am with PCP. Pt verbalizes understanding and agreement of plan. * Telephone Encounter - Martha Hoang - 05/06/2023 10:09 AM EST Tc from pt requesting to speak with a nurse in regards to a possible surgery. Please contact pt at [phone] documented in this encounter Plan of Treatment Not on file documented as of this encounter Visit Diagnoses Not on filedocumented in this encounter Additional Health Concerns Assessment Noted Time PHQ-9 Depression Total Score: 16 023 3:41 PM EST documented as of this encounter Care Teams Environmental Advisor Relationship Specialty Start Date End Date Tami Márquez MD [address] [place] [address] PCP - General Family Medicine 04/28/21 documented as of this encounter
--- OUTSIDE RECORDS SUMMARY | 2024-05-08 10:23 | XMS_ITS | Encounter Summary ---
Author Organization [employer] Address [address] [facility] 7 [place] [address] Care Team Providers Care Boring Machine Operator Double End Name Role Phone Tami Márquez MD Primary Care Provider [phone] Reason for Visit * Reason Onset Date Comments Nurse Triage 07/19/2023 Encounter Details Date Type Department Care Team ([facility] Contact Info) Description 07/19/2023 Telephone [facility] [address] [place] [address] Tami Márquez MD [address] [place], [place] [phone] Nurse Triage Social History Tobacco Use Types [...] SHIRIN. Will also send this note to [facility] provider that is seeing pt. Today at [...] long-term current use of insulin ([facility]) documented in this encounter Additional Health Concerns Assessment Noted Time PHQ-9 Depression Total Score: 16 023 3:41 PM EST documented as of this encounter Care Teams Boring Machine Operator Double End Relationship Specialty Start Date End Date Tami Márquez MD [address] [place] [address] PCP - General Family Medicine 04/28/21 documented as of this encounter
--- OUTSIDE RECORDS SUMMARY | 2024-05-08 10:23 | XMS_ITS | Encounter Summary ---
Author Organization [employer] Address [address] [facility] 7t [place] [address] Care Team Providers Care Director Of Infection Prevention Name Role Phone Tami Márquez MD Primary Care Provider [phone] Reason for Visit * Reason Comments Med Refill Encounter Details Date Type Department Care Team ([facility] Contact Info) Description 01/17/2024 Refill [facility] [address] [place] [address] Tami Márquez MD [address] [place] [address] Mixed hyperlipidemia Social History Tobacco Use Types [...] documented as of this encounter Care Teams Director Of Infection Prevention Relationship Specialty Start Date End Date Tami Márquez MD [address] [place] [address] PCP - General Family Medicine 04/28/21 documented as of this encounter
--- OUTSIDE RECORDS SUMMARY | 2024-05-08 10:23 | XMS_ITS | Encounter Summary ---
Author Organization [employer] Address [address] [place] [address] 7t [place] [address] Care Team Providers Care Oral Surgery Physician Name Role Phone Tami Márquez MD Primary Care Provider [phone] Encounter Details Date Type Department Care Team (Late st Contact Info) Description 03/29/2022 Orders Only [facility] [address] [place], [place] [phone] Mari Turner LPN Social History Tobacco Use [...] on filedocumented in this encounter Care Teams Oral Surgery Physician Relationship Specialty Start Date End Date Tami Márquez MD [address] [place] [address] PCP - General Family Medicine 04/28/21 documented as of this encounter
== END 2024-05-08 10:23 | disposition home or self-care (01) ==
PROVIDERS: PCP Family Medicine; Visit Provider Physician Assistant Medical
DX: E11.9 Type 2 diabetes mellitus without complications (principal); K76.0 Fatty (change of) liver, not elsewhere classified; R79.89 Other specified abnormal findings of blood chemistry; I83.12 Varicose veins of left lower extremity with inflammation

== ENCOUNTER → 2024-05-08 09:37 | Outpatient (BNVA) | payer OTHER, SELFPAY | PROVIDERS: PCP Family Medicine; Visit Provider Physician Assistant Medical | DX: E11.9 Type 2 diabetes mellitus without complications (principal); K76.0 Fatty (change of) liver, not elsewhere classified; R79.89 Other specified abnormal findings of blood chemistry; I83.12 Varicose veins of left lower extremity with inflammation | CPT/HCPCS: 82947 ==

== ENCOUNTER 2024-05-22 09:22 | Outpatient (REF) | payer OTHER, SELFPAY ==
--- NOTE | ~2024-05-22 | US_ITS ---
EXAMINATION: US ABDOMEN LIMITED WITH LIVER ELASTOGRAPHY HISTORY: R79.89 - Other specified abnormal findings of blood chemistry TECHNIQUE: Real-time grayscale ultrasound imaging of the right upper quadrant was performed and images were reviewed. COMPARISON: Correlation is made with a CT of the abdomen with contrast dated 06/07/2022. FINDINGS: Liver: The right lobe of the liver measures 17.1 cm in size. The left lobe of the liver measures 12.3 cm in size. The liver demonstrates increased echotexture, consistent with steatosis. No focal mass or intrahepatic biliary ductal dilatation is identified. There is normal hepatopedal flow in the portal vein. Ultrasound elastography of the liver was performed with 10 separate measurements of the liver parenchyma with the patient in the supine position. Measurements were obtained approximately 2 cm below Sadiq's capsule and perpendicular to the capsule. Images are of satisfactory quality. The median shear wave velocity is 1.52 m/s. The interquartile range/median (IQR/median) is 0.12. Gallbladder and biliary tree: The gallbladder is unremarkable, without evidence of calculi, wall thickening, or pericholecystic fluid. There is no sonographic Givens sign. The common bile duct is normal in caliber measuring 4 mm. Right Kidney: The right kidney measures 10.5 cm in length. The right kidney is unremarkable, without evidence of masses, hydronephrosis, or calculi. Pancreas: The pancreatic head, neck, and body are unremarkable. The pancreatic tail is obscured by bowel gas. Abdominal aorta and inferior vena cava: The visualized portions of the abdominal aorta and inferior vena cava are normal in caliber. There is no free fluid in the right upper quadrant. US/US abdomen lyn w elastography IMPRESSION: Hepatomegaly and hepatic steatosis. The median shear wave velocity in the liver is 1.52 m/s, corresponding to a median liver stiffness of 7.09 kPa. The IQR/median value is 0.12. This is indicative of a quality data set. Findings are indicative of a low elastography value which rules out advanced chronic liver disease in asymptomatic patients. REFERENCE: Society of Radiologists in Ultrasound Liver Stiffness Thresholds (2020): LIVER STIFFNESS THRESHOLDS: *Shear wave velocity less than 1.3 m/s (Liver Stiffness equal or less than 5 kPa): High probability of being normal. *Shear wave velocity less than 1.7 m/s (Liver Stiffness less than 9 kPa): In the absence of other known clinical signs, rules out compensated advanced chronic liver disease. *Shear wave velocity between 1.7-2.1 m/s (Liver Stiffness 9-13 kPa): Suggestive of compensated advanced chronic liver disease but need further test for confirmation. *Shear wave velocity between 2.1-2.4 m/s (Liver Stiffness 13-17 kPa): Rules in compensated advanced chronic liver disease. *Shear wave velocity greater than 2.4 m/s (Liver Stiffness over 17 kPa): Suggestive of clinically significant portal hypertension. QUALITY OF DATA SET: *IQR/Median value equal or less than 0.15 implies a quality data set. *IQR/Median value over 0.15 implies a poor quality data set. SIGNIFICANT CHANGE FROM PRIOR EXAM: Significant change if liver stiffness measurement is 10% or greater from prior exam. OTHER CONSIDERATIONS: The stage of liver fibrosis may be overestimated in the setting of acute hepatitis, liver inflammation, elevated liver function tests, hepatic vascular congestion, obstructive cholestasis, non-fasting state, and infiltrative diseases such as amyloidosis and lymphoma. In some patients with NAFLD, the liver stiffness thresholds for compensated advanced chronic liver disease may be lower. In causes other than viral hepatitis and NAFLD, liver stiffness thresholds are not well established. Electronically signed by: John Damon MD 05/22/2024 10:30 AM EDT
--- OUTSIDE RECORDS SUMMARY | 2024-05-22 10:15 | XMS_ITS | Clinical Summary ---
Author Organization [facility] Address [address] [place] [address] Care Team Providers Care Magento Web Developer Name Role Phone Sangeetha Horner MD Primary Care Provider Surgical History Surgery Date Site/Laterality Comments OVARIAN CYST REMOVAL 1982 N/A PROCEDURE: UT OVARIAN CYSTECTOMY UNI/BI TUBAL LIGATION 1999 PROCEDURE: HISTORICAL TUBAL LIGATION APPENDECTOMY PROCEDURE: HISTORICAL APPENDECTOMY OTHER SURGICAL HISTORY PROCEDURE: PELVIC CONTROL PELVIC SLING OTHER SURGICAL HISTORY 2006 PROCEDURE: UT COLECTOMY PARTIAL W/ANASTOMOSIS Medical History Medical History [...] age to complete this topic Care Teams Magento Web Developer Relationship Specialty Start Date End Date Sangeetha Horner MD [address] PCP - General Internal Medicine 05/30/18
--- OUTSIDE RECORDS SUMMARY | 2024-05-22 10:15 | XMS_ITS | Encounter Summary ---
Author Organization [employer] Address [address] [facility] 7t [place] [address] Care Team Providers Care Skiving Machine Operator Name Role Phone Tami Márquez MD Primary Care Provider [phone] Encounter Details Date Type Department Care Team [...] Whole Blood 155(H) 60 - 115 mg/dL [facility] Comment:METER #: [id number] Testing performed in the Endocrinology Department [address] , [address], [facility]. 05/08/2024 9:57 AM EST 05/08/2024 10:02 AM EST us Generic External Data Provider LAB BLOOD ORDERAB LES Final Result [facility] [address] [place] [phone] documented in this encounter Visit Diagnoses Not on filedocumented in this encounter Additional Health Concerns Assessment Noted Time PHQ-9 Depression Total Score: 3 02/20/20 24 10:21 AM EST documented as of this encounter Care Teams Skiving Machine Operator Relationship Specialty Start Date End Date Tami Márquez MD [address] [place] [address] PCP - General Family Medicine 04/28/21 documented as of this encounter
--- OUTSIDE RECORDS SUMMARY | 2024-05-22 10:15 | XMS_ITS | Encounter Summary ---
Author Organization [employer] Address [address] [place] [address] 7 [place] [address] Care Team Providers Care Materials Mgmt Tech Name Role Phone Tami Márquez MD Primary Care Provider [phone] Reason for Visit * Reason Onset Date Comments Call Back Request 05/06/2023 Encounter Details Date Type Department Care Team ([facility] Contact Info) Description 05/06/2023 Telephone [facility] MED & PEDS [address] [place], [place] [phone] Tami Márquez MD [address] [place] [address] Call Back Request Social History Tobacco Use [...] regarding need to speak to provider 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 Scheduled pt for 05/12 at 9:30 am with PCP. Pt verbalizes understanding and agreement of plan. * Telephone Encounter - Martha Hoang - 05/06/2023 10:09 AM EST Tc from pt requesting to speak with a nurse in regards to a possible surgery. Please contact pt at [phone] documented in this encounter Plan of Treatment Not on file documented as of this encounter Visit Diagnoses Not on filedocumented in this encounter Additional Health Concerns Assessment Noted Time PHQ-9 Depression Total Score: 16 023 3:41 PM EST documented as of this encounter Care Teams Materials Mgmt Tech Relationship Specialty Start Date End Date Tami Márquez MD [address] [place] [address] PCP - General Family Medicine 04/28/21 documented as of this encounter
--- OUTSIDE RECORDS SUMMARY | 2024-05-22 10:15 | XMS_ITS | Encounter Summary ---
Author Organization [employer] Address [address] [place] [address] 7 [place] [address] Care Team Providers Care Copyman Name Role Phone Tami Márquez MD Primary Care Provider Reason for Visit * Reason Onset Date Comments Med Refill 10/21/2023 Encounter Details Date Type Department Care Team ([facility] st Contact Info) Description 10/21/2023 Refill [facility] CHC MED & PEDS [address] [place], [place] [phone] Tami Márquez MD [address] [place], [place] [phone] Neck pain, chronic Social History Tobacco Use [...] documented as of this encounter Care Teams Copyman Relationship Specialty Start Date End Date Tami Márquez MD [address] [place] [address] PCP - General Family Medicine 04/28/21 documented as of this encounter
--- OUTSIDE RECORDS SUMMARY | 2024-05-22 10:15 | XMS_ITS | Clinical Summary ---
Author Organization [employer] Address [address] [place] [address] 7t [place] [address] Care Team Providers Care Delivery Crew Member Name Role Phone Tami Márquez MD Primary Care Provider [phone] Allergies Active Allergy Reactions Criticality Noted Date [...] hyperglycemia, without long-term current use of insulin ([facility]) Inject 0.75 mg under the skin 1 (one) time per week. 2 mL 5 4 Active hydrOXYzine HCl (Atarax) 25 MG tablet Take 1 tablet (25 mg) by mouth if needed in the morning, at noon, and at bedtime for anxiety. 90 tablet 3 4 Active Ezetimibe-Rosuvast atin 10-40 MG tabletIndications: Hyperlipidemia, unspecified hyperlipidemia type Take 1 tablet by mouth Once per day. 90 tablet 1 4 Active Continuous Glucose Crab Steamer (FreeStyle Suresh 2 Hamlet) deviceIndications: Type 2 diabetes mellitus with hyperglycemia, without long-term current use of insulin (CMS/HCC) Scan sensor every 8 hours. Patient aware insurance will not cover, will want to pay out of pocket. 1 each 4 Active Continuous Glucose Sensor (FreeStyle Suresh 2 Sensor) miscIndications:Ty pe 2 diabetes mellitus with hyperglycemia, without long-term current use of insulin ([facility]) Apply 1 sensor every 14 days. [...] Patient to reach out to [facility] team as needed, Patient to engage in OP therapy , and Patient to reach out to [facility] as needed Assessment & Plan (02/15/2023 [...] intervention , [facility], Patient to engage in OP BH therapy , and Patient to reach out to [facility] as needed Family problems 02/15/2023 Assessment [...] intervention , [facility], Patient to engage in OP BH therapy , and Patient to reach out to [facility] as needed Class 1 obesity due [...] Health Integration Plan Internal Follow up with [facility] External OP therapy referral Patient Self Plan Patient to utilize skills provided in intervention , Patient to reach out to [facility] team as needed, Comply with medication , [...] DEPARTMENT Provider, Generic External Data 03/18/[address] [facility] MED & PEDS [address] [place] [address] Tami Márquez MD 03/16/[address] [facility] [address] [place] [address] Tami Márquez MD 03/16/2024 Travel 03/06/2024 10:30 AM EST Telemedicine [facility] [address] [place] [address] Tami Márquez MD Anxiety (Primary Dx); Type 2 diabetes mellitus with hyperglycemia, unspecified whether intermediate frame tender insulin use ([facility]) 03/06/2024 Travel 02/28/2024 11:15 AM EST Clinical Support [facility] [address] [place] [address] Xiao Cortez, YOSEPH Type 2 diabetes mellitus with hyperglycemia, without long-term current use of insulin ([facility]) 02/28/[address] [facility] MED [facility] PEDS [address] [place] [address] Tami Márquez MD Results 02/28/2024 Travel 02/22/2024 Orders [address] [facility]ED[facility] [address] [place] [address] Tami Márquez MD from Last 3 Months [...] Whole Blood 155(H) 60 - 115 mg/dL [facility] Comment:METER #: [id number] Testing performed in the Endocrinology Department [address], [address], [facility]. 05/08/2024 9:57 AM EST 05/08/2024 10:02 AM EST us Generic External Data Provider LAB BLOOD ORDERAB LES Final Result [facility] [address] [place] [address] [phone] * T-SPOT??.TB (03/27/2024 11:30 AM EST) Pathologist [facility] T Spot TB Negative Negative [facility] Comment:A negative test resu [...] as aquantitative test. TS PANEL A 1 [facility] TS PANEL B 2 [facility] Negative Control Passed [facility] Positive Control Passed [facility] Comment:For additional infor scotty, please refer tohttp://education.Nuggeta/faq/SCO122(This link is being provided for informational/educational purposes only.)THIS TEST WAS PERFORMED AT:[facility] [employer] [facility]/[employer] [id number] [place] [address]NFOMHMCLINDSAY VANESSA MD,PHD 03/27/2024 11:3 0 AM EST 03/27/2024 2:12 PM EST us Tami Mráquez MD LAB BLOOD ORDERABLES Final Re sult Performing Organization Address City/[facility] Co de Phone Number [facility] [address] [place] [phone] * Vitamin B12 (Cobalamin) and Folate Panel, Serum (02/22/2024 8:29 AM EST) Vitamin B12 399 200 - 900 pg/mL [facility] Comment:NORMAL 200-900 PG/ML INDETERMINATE 160-199 PG/ML DEFICIENT < 160 PG/ML Folate 10.5 > or = 4.0 ng/mL [facility] Comment:Reference Values:> o r [...] ORDERABL ES Final Result Performing Organization Address [facility] Co de Phone Number [facility] [address] [place] [phone] * TSH W/Reflex to FT4 (02/22/2024 8:29 AM EST) TSH reflex Free T4 1.54 0.32 - 4.0 uIU/mL [facility] Blood Venous blood specimen / Unknown 02/22/2024 8:29 AM EST 02/22/2024 8:29 AM EST Montez Eckert MD LAB BLOOD ORDERABL ES Final Result [facility] [address] [place], [place] [phone] * CBC auto differential (02/22/2024 8:29 AM EST) White Blood Count 6.3 4.8 - 10.8 X10*3/uL [facility] Red Blood Count 4.83 4.20 - 5.50 X10*6/uL [facility] Hemoglobin 13.8 12.0 - 16.0 g/dl [facility] Hematocrit 42.6 37.0 - 47.0 % [facility] Mean Corpuscular Volume 88.2 80.0 - 98.0 fL [facility] Mean Corpuscular Hemoglobin 28.6 27.0 - 33.0 pg [facility] Mean Corpuscular HGB Conc 32.4 31.0 - 35.0 g/dl [facility] Red Cell Distribution Width 15.8 11.0 - 16.0 % [facility] Platelet Count 315 160 - 400 X10*3/uL [facility] Mean Platelet Volume 11.0 9.4 - 12.3 fL [facility] Neutrophils Percent Auto 57.6 45 - 73 % [facility] Imm Gran Pct Auto 0.3 0.0 - 0.4 % [facility] Lymphocytes Percent Auto 33.5 20 - 40 % [facility] Monocytes Percent Auto 6.0 2 - 11 % [facility] Eosinophils Percent Auto 2.1 0 - 4 % [facility] Basophils Percent Auto 0.5 0 - 2 % [facility] NRBC Pct Auto 0.0 0.0 - 0.2 /100WBC [facility] Neutrophils Absolute Auto 3.7 2.0 - 8.3 x10*3/uL [facility] Imm Gran Abs Auto 0.02 0.00 - 0.03 X10*3/uL [facility] Lymphocytes Absolute Auto 2.1 1.2 - 4.9 X10*3/uL [facility] Monocytes Absolute Auto 0.4 0.1 - 1.2 X10*3/uL [facility] Eosinophils Absolute Auto 0.1 0.0 - 0.4 X10*3/uL [facility] Basophils Absolute Auto 0.0 0.0 - 0.2 X10*3/uL [facility] NRBC Abs Auto 0.000 0.0 - 0.012 X10*3/uL [facility] Blood Venous blood specimen / Unknown 02/22/2024 8:29 AM EST 02/22/2024 8:29 AM EST us Tami Márquez MD LAB BLOOD ORDERABLES Final Re sult Performing Organization Address City/[facility]/ZIP Co de Phone Number [facility] [address] [place] [phone] * (ABNORMAL) Hemoglobin A1c (02/22/2024 8:29 AM EST) Hemoglobin A1c 6.8(H) <6.0 % [facility] Comment:Hemoglobin A1C Refer ence Range Adults: 4.8 - 6.0 % Non diabetic: < 6.0 % Goal: < 7.0 %Additional Action Suggested: > 8.0 %Note: Hemoglobin A1c results are invalid for patients with abnormal amounts of HbF. Blood transfusions may impact the HbA1c concentration in the patient sample. Estimated Average Glucose 148 mg/dL [facility] Comment:eAG = Estimated ave rage glucose which is %A1C expressed asaverage glucose, using the formula of the T6H-TtlxqjtNeilmeq Glucose study (ADAG), Diabetes Care, Vol.31,#8,Oct. 2007 Blood Venous blood specimen / Unknown 02/22/2024 8:29 AM EST 02/22/2024 8:29 AM EST us Tami Márquez MD LAB BLOOD ORDERABLES Final Re sult Performing Organization Address [facility]/ZIP Co de Phone Number [facility] [address] [place] [phone] * (ABNORMAL) Lipid Panel, Standard (02/22/2024 8:29 AM EST) Triglycerides 264(H) <150 mg/dL [facility] Comment:Desirable Triglyceri de: less than 150 mg/dLBorderline High Triglyceride 150-199 mg/dLHigh Triglyceride: 200-499 mg/dLVery High Triglyceride: greater than or equal to 5OO mg/dL Cholesterol 246(H) <200 mg/dL [facility] Comment:Desirable Cholestero l: less than 200 mg/dLBorderline High Cholesterol: 200-239 mg/dLHigh Cholesterol: greater than 239 mg/dL LDL Cholesterol Calculated 155(H) <100 mg/dL [facility] Comment:Desirable LDL: less than 100 mg/dLNear Optimal/Above Optimal LDL: 110- 129 mg/dLBorderline High LDL: 130-159 mg/dLHigh LDL: 160-189 mg/dLVery High LDL: greater than or equal to 190 mg/dL HDL Cholesterol 39(L) >40 mg/dL [facility] Comment:Desirable HDL: great er than 40 mg/dL Note: This HDL assay may give artificially low results in patients with liver disease. Blood Venous blood specimen / Unknown 02/22/2024 8:29 AM EST 02/22/2024 8:29 AM EST us Tami Márquez MD LAB BLOOD ORDERABLES Final Re sult [facility] [address] [place] [address] [phone] * (ABNORMAL) Comprehensive Metabolic Panel (02/22/2024 8:29 AM EST) Sodium 141 135 - 145 mmol/L [facility] Potassium 4.4 3.3 - 5.1 mmol/L [facility] Chloride 106 96 - 108 mmol/L [facility] Carbon Dioxide 28 22 - 29 mmol/L [facility] Anion Gap 11(L) 12 - 20 [facility] Urea Nitrogen (BUN) 12 9 - 16 mg/dL [facility] Creatinine, Serum 0.66 0.5 - 1.4 mg/dL [facility] Estimated Glomerular Filt Rate >60 [facility] Comment:Chronic Kidney Disea se: Estimated GFR < 60 mL/min/1.96x5Wmwzkj Kidney Disease: Estimated GFR < 15 mL/min/1.73m2 Glucose 133(H) 60 - 115 mg/dL [facility] Calcium 9.4 8.4 - 10.2 mg/dL [facility] Bilirubin, Total 0.6 0.0 - 1.0 mg/dL [facility] Aspartate Amino Transferase 24 5 - 31 U/L [facility] Alanine Aminotransferase 41(H) 0 - 31 U/L [facility] Total Protein 7.7 6.5 - 8.0 g/dL [facility] Albumin Level 4.2 3.5 - 5.0 g/dL [facility] Alkaline Phosphatase 120(H) 39 - 117 U/L [facility] Blood Venous blood specimen / Unknown 02/22/2024 8:29 AM EST 02/22/2024 8:29 AM EST us Tami Márquez MD LAB BLOOD ORDERABLES Final Re sult Performing Organization Address City/[facility] Co de Phone Number [facility] [address] [place] [phone] * Albumin, Random Urine W/Creatinine (02/22/2024 8:25 AM EST) Creatinine, Urine 172.24 mg/dL [facility] Microalbumin Urine 15.0 mg/L [facility] Microalbum Creatinine Ratio Ur 8.7 <30 ug/mg cr [facility] Comment:Albumin/Creatinine R atio Reference Ranges: Normal: < 30 ug/mg creatinine Microalbuminuria: 30 - 300 ug/mg creatinineClinical Albuminuria: > 300 ug/mg creatinine 02/22/2024 8:25 AM EST 02/22/2024 8:46 AM EST us Tami Márquez MD LAB URINE ORDERABLES Final Re sult [facility] [address] [place] [phone] * ThinPrep Imaging Pap and HPV mRNA E6/E7 (11/05/2023 10:30 AM EDT) HPV nRNA E6/E7 Not Detected Not Detected [facility] Comment:Methodology: Transcr iption-Mediated AmplificationThis assay detects E6/E7 viral messenger RNA (mRNA) from 14high-risk HPV types (16,18,31,33,35,39,45,51,52,56,58,59,66,68).Cervical sources are required for HPV testing.If a vaginal source from a patient who has had atotal hysterectomy with removal of cervix wassubmitted, please contact the testing laboratoryfor alternative testing options.For additional information, please refer tohttp://education.Nuggeta/faq/HAW289b3(This link if provided for information/educational purposes only.)THIS TEST WAS PERFORMED AT:[employer] [facility] [address] [id number] CAVANAUGH MD SOURCE: SEE NOTE [facility] Comment:None given Report Status: [facility] Clinical Information: SEE NOTE [facility] Comment:None given LMP: SEE NOTE [facility] Comment:NONE GIVEN Prev. PAP: SEE NOTE [facility] Comment:NONE GIVEN Prev. BX: SEE NOTE [facility] Comment:NONE GIVEN Statement Of Adequacy: SEE NOTE [facility] Comment:Satisfactory for ting luation.Endocervical/transformation zone component absent. General Categorization: [facility] Interpretation/Result: SEE NOTE [facility] Comment:Cytology Results: Ne gative for intraepitheliallesion or malignancy. Cytology Comment SEE NOTE [facility] Comment:This Pap test has be en evaluated with computerassisted technology. Plant Sprayer: SEE NOTE [facility] Comment:EXJ, CT(ASCP)CT Scre ening Location: [place] [address] Review Plant Sprayer: TNP [facility] Pathologist TNP [facility]AP [facility] See Note SEE NOTE [facility] Comment:EXPLANATORY NOTE:The Pap is [...] AM EDT 11/05/2023 2:50 PM EDT Narrative [facility] - 11/08/2023 1:09 PM EDT SEE SCANNED RESULTS IN EMR us Tami Márquez MD LAB PATHOLOGY ORDERABLES Sushila bill Result [facility] [address] [place] [phone] * BI Mammogram Screening Tomosynthesis Bilateral (04/09/2023 11:15 AM EST) Anatomical Region Laterality Modality Breast Bilateral Mammography 04/09/2023 11:1 5 AM EST Narrative 05/02/2023 5:35 AM EST ? [facility] ? [address] ?[place] [address] ? Mammography Report ? Signed ? Patient: Colon Sharma,Erin ?MR#: [id number] ?? [id number] ? : 1965 ?Acct:[id number] ? Age/Sex: 57 / F ?ADM Date: 01/30/24 ? Loc: HO.MAMMO ? Attending Dr: Tami Márquez MD ? Ordering Physician: Tami Márquez MD ?Results: 1Nega ?? tive ? Date of Service: 04/09/23 ?Follow Up: 1 Year From Orig ?? inal Mammogram ? Procedure(s): MM tomosynthesis screening BI ?? Accession Number(s): [id number] ? cc: Tami Márquez MD ? EXAMINATION: [...] by Candy Medley MD in OV> ? 05/02/ 0531 ? DD/ 1115 ? TD/TT: ? Twine Winder: ? Procedure Note Donotuseinterpreter, Image - 05/02/2023 [facility] [address] [place] [address] Mammography Report Signed Patient: Yamile KrauseR#: [id number] : 1965Acct:[id number] Age/Sex: 57 / FADM Date: 04/09/23 Loc: HO.MAMMO Attending Dr: Tami Márquez MD Ordering Physician: Tami Márquez MDResults: 1Nega tive Date of Service: 04/09/23Follow Up: 1 Year From Orig inal Mammogram Procedure(s): MM tomosynthesis screening BI Accession Number(s): [id number] cc: Tami Márquez MD EXAMINATION: MM SCREENING [...] in OV> 05/02/23 0531 DD/ 1115 TD/TT: Twine Winder: us Tami Márquez MD IMG BI PROCEDURES Final Resul t from Last 3 Months or Most Recently Relevant to Health Maintenance Insurance Care Teams Delivery Crew Member Relationship Specialty Start Date End Date Tami Márquez MD [address] [place] [phone] PCP - General Family Medicine 04/28/21
--- OUTSIDE RECORDS SUMMARY | 2024-05-22 10:15 | XMS_ITS | Encounter Summary ---
Author Organization [employer] Address [address] [facility] 7t [place] [address] Care Team Providers Care Topper Packer Name Role Phone Tami Márquez MD Primary Care Provider [phone] Encounter Details Date Type Department Care Team (Late st Contact Info) Description 02/04/2023 Abstract [facility] [address] [place], [place] [phone] [place] Social History Tobacco Use Types [...] documented as of this encounter Care Teams Topper Packer Relationship Specialty Start Date End Date Tami Márquez MD [address] [place] [phone] PCP - General Family Medicine 04/28/21 documented as of this encounter
--- OUTSIDE RECORDS SUMMARY | 2024-05-22 10:15 | XMS_ITS | Encounter Summary ---
Author Organization [employer] Address [address] [facility] 7 [place] [address] Care Team Providers Care Club Waiter/Waitress Name Role Phone Tami Márquez MD Primary Care Provider [phone] Reason for Visit * Reason Onset Date Comments Nurse Triage 07/19/2023 Encounter Details Date Type Department Care Team ([facility] Contact Info) Description 07/19/2023 Telephone [facility] [address] [place] [address] Tami Márquez MD [address] [place], [place] [phone] Nurse Triage Social History Tobacco Use Types [...] SHIRIN. Will also send this note to [facility] provider that is seeing pt. Today at [...] hyperglycemia, without long-term current use of insulin ([facility]) documented in this encounter Additional Health Concerns Assessment Noted Time PHQ-9 Depression Total Score: 16 023 3:41 PM EST documented as of this encounter Care Teams Club Waiter/Waitress Relationship Specialty Start Date End Date Tami Márquez MD [address] [place] [address] PCP - General Family Medicine 04/28/21 documented as of this encounter
--- OUTSIDE RECORDS SUMMARY | 2024-05-22 10:15 | XMS_ITS | Encounter Summary ---
Author Organization [employer] Address [address] [facility] [address]t [place] [address] Care Team Providers Care Maintenance Controller Name Role Phone Tami Márquez MD Primary Care Provider [phone] Reason for Visit * Reason Comments Med Refill Encounter Details Date Type Department Care Team ([facility] Contact Info) Description 01/17/2024 Refill [facility] [address] [place] [address] Tami Márquez MD [address] [place] [address] Mixed hyperlipidemia Social History Tobacco Use Types [...] documented as of this encounter Care Teams Maintenance Controller Relationship Specialty Start Date End Date Tami Márquez MD [address] [place] [address] PCP - General Family Medicine 04/28/21 documented as of this encounter
--- OUTSIDE RECORDS SUMMARY | 2024-05-22 10:15 | XMS_ITS | Encounter Summary ---
Author Organization [employer] Address [address] [place] [address] [address]t [place] [address] Care Team Providers Care Broach Trouble Shooter Name Role Phone Tami Márquez MD Primary Care Provider [phone] Encounter Details Date Type Department Care Team (Late st Contact Info) Description 03/29/[address] [facility] [address] [place], [place] [phone] Mari Turner LPN Social History Tobacco Use [...] on filedocumented in this encounter Care Teams Broach Trouble Shooter Relationship Specialty Start Date End Date Tami Márquez MD [address] [place] [address] PCP - General Family Medicine 04/28/21 documented as of this encounter
== END 2024-05-22 09:23 | disposition home or self-care (01) ==
LOC: HO.US 09:22
PROVIDERS: PCP Family Medicine; Visit Provider Physician Assistant Medical
DX: R79.89 Other specified abnormal findings of blood chemistry (principal); K76.0 Fatty (change of) liver, not elsewhere classified
CPT/HCPCS: 76705; 76981

== ENCOUNTER → 2024-05-22 09:24 | Outpatient (BNV) | payer OTHER, SELFPAY | PROVIDERS: PCP Family Medicine; Visit Provider Radiology Diagnostic Radiology | DX: K76.0 Fatty (change of) liver, not elsewhere classified (principal); R16.0 Hepatomegaly, not elsewhere classified | CPT/HCPCS: 76705 ==

== ENCOUNTER 2024-06-10 11:09 | Outpatient (AMB) | payer OTHER, SELFPAY ==
[2024-06-10 11:50] VITALS: BMI 31.8
--- NOTE | 2024-06-10 11:50 | A.OFFVIS_ITS ---
VS Expanded 06/10/24 11:50 Height 5 ft 1.5 in Weight 170 lb 13.732 oz BMI 31.8 Intake Visit Reasons: T2DM Allergies morphine [Morphine] Allergy (Severe, Verified 06/16/24 08:37) ANAPHYLAXIS oxycodone [Percocet] Allergy (Severe, Verified 06/16/24 08:37) Anaphylaxis hydrocodone [From Vicodin] Allergy (Intermediate, Verified 06/16/24 08:37) ANAPHYLAXIS shrimp [SHRIMP] Allergy (Intermediate, Verified 06/16/24 08:37) Swelling metformin Adverse Reaction (Unknown, Verified 06/16/24 08:37) diarrhea, hair loss narcotics Allergy (Uncoded 06/16/24 08:37) Anaphylaxis Nutrition Presentation Details: Pt presents for MNT f/u for T2DM Pt reports working on reducing portions, particularly due to reduced appetite since starting [employer] Reports working on choosing fiber rich foods, ,6-10 g per day food frequency water 16 -32 oz/day fruits: 1/d ve-2/d - working on choosing veg as snack fish: 0-1/wk starches: variety of starchy veg 10-15 serving/d on and off multivitamin and on and off b12 (liquid) physical activity ADL BS Monitoring Most Recent Diabetes Results: No Data to Display [facility] Medical History Type II diabetes mellitus, well controlled Hepatic steatosis Elevated LFTs GERD (gastroesophageal reflux disease) Hx of lipoma Varicose vein of leg Cervical spinal stenosis Difficulty swallowing Diabetes Murmur Bronchitis Hernia Asthma Diverticulitis High cholesterol Patellofemoral arthritis Surgical History Hx of cataract extraction Hx of bladder repair surgery History of tonsillectomy Hx of carpal tunnel repair History of removal of ovarian cyst Hx of breast reduction, elective Hx of tubal ligation History of colon resection H/O colonoscopy Hx of appendectomy History of 3 sections Family History Mother High cholesterol Cardiac arrest Rheumatoid arthritis Alzheimer's dementia Father No known health problems Social History Are you a primary home care companion to a significant other at home: No Do you presently have visiting nurse or other home services: No Alcohol intake: never Patient Tobacco Use Status: Never used Tobacco Current occupational status: employed 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 Assessment & Plan Assessment & Plan (1) Type 2 diabetes mellitus with hyperglycemia: Code(s): E11.65 - Type 2 diabetes mellitus with hyperglycemia Category: Medical Plan: Wt: 78 Kg (05/05 ), 77 kg (07/03) Est kcal needs as per MSJ: 1600 (40% carb, 30% protein/fat) Est fluid needs as per 25-30 ml/d: 2300 Est prot per day as per 1 g/kg bw: 78 Recommend fiber intake : 8-10 g per day and gradually increase to 25-28 g per day for women and 35-38 g for men or as tolerated Recommend sodium intake per day : less than 1500 mg Educated patient on: ( R = reviewed V = verbalizes understanding N/R = needs review N/A = not applicable * Food sources of carbohydrate, adequate serving sizes and its role in various health conditions: R * Differences between complex carbohydrates a simple carbohydrates, role of fiber in diet: R * Lean protein sources of foods: R * Differences between types of fats and role in diet (mono on saturated fat fatty acids, saturated fatty acids, trans fats): R * Food sources of sodium in salt and healthy modifications for heart health in kidney health: R V R/V * Vitamins and minerals: R V N/R * Healthy plate method concept: R V N/R * Physical activity: Benefits a precaution: R V N/R * Hypoglycemia protocol (rule of 15): R V N/R * Dietary prevention of Hyperglycemia: R Patient Instructions: Continue working on watching portion of foods with carbs, reducing on total carb to less 45 g /day , Choose lean protein foods and plant protein foods , aim at 60-70 g per day Keep hydrated by having water with meals and snacks Keep physically active goal 150 min per week Coding Level of Care Code Nutr Indiv Subseq (63226) Diagnoses Type 2 diabetes mellitus with hyperglycemia E11.65 Time Spent (min) 30
--- OUTSIDE RECORDS SUMMARY | 2024-06-10 13:31 | XMS_ITS | Encounter Summary ---
Author Organization [employer] Address [address] [facility] 7 [place] [address] Care Team Providers Care Seniour Insight Manager Name Role Phone Tami Márquez MD Primary Care Provider [phone] Reason for Visit * Reason Onset Date Comments Nurse Triage 07/19/2023 Encounter Details Date Type Department Care Team ([facility] Contact Info) Description 07/19/2023 Telephone [facility] MEDICINE [address] [place] [address] Tami Márquze MD [address] [place], [place] [phone] Nurse Triage Social History Tobacco Use Types [...] SHIRIN. Will also send this note to [facility] provider that is seeing pt. Today at [...] hyperglycemia, without long-term current use of insulin ([facility]) documented in this encounter Additional Health Concerns Assessment Noted Time PHQ-9 Depression Total Score: 16 023 3:41 PM EST documented as of this encounter Care Teams Seniour Insight Manager Relationship Specialty Start Date End Date Tami Márquez MD [address] [place] [address] PCP - General Family Medicine 04/28/21 documented as of this encounter
--- OUTSIDE RECORDS SUMMARY | 2024-06-10 13:31 | XMS_ITS | Encounter Summary ---
Author Organization [employer] Address [address] [place] [address] [address] [place] [address] Care Team Providers Care Checking Department Supervisor Name Role Phone Tami Márquez MD Primary Care Provider [phone] Encounter Details Date Type Department Care Team (Late st Contact Info) Description 03/29/2022 Orders Only [facility] MEDICINE [address] [place], [place] [phone] Mari Turner LPN Social History Tobacco Use [...] on filedocumented in this encounter Care Teams Checking Department Supervisor Relationship Specialty Start Date End Date Tami Márquez MD [address] [place] [address] PCP - General Family Medicine 04/28/21 documented as of this encounter
--- OUTSIDE RECORDS SUMMARY | 2024-06-10 13:31 | XMS_ITS | Clinical Summary ---
Author Organization [facility] it Address [address] [place] [address] Care Team Providers Care Moisture Meter Reader Name Role Phone Sangeetha Horner MD Primary Care Provider [phone] Surgical History Surgery Date Site/Laterality Comments OVARIAN CYST REMOVAL 1982 N/A PROCEDURE: NE OVARIAN CYSTECTOMY UNI/BI TUBAL LIGATION 1999 PROCEDURE: HISTORICAL TUBAL LIGATION APPENDECTOMY PROCEDURE: HISTORICAL APPENDECTOMY OTHER SURGICAL HISTORY PROCEDURE: PELVIC CONTROL PELVIC SLING OTHER SURGICAL HISTORY 2006 PROCEDURE: NE COLECTOMY PARTIAL W/ANASTOMOSIS Medical History Medical History [...] 2023 Influenza Vaccine (#1) 2023 RSV Immunization Adult Patie nts (1 - 1-dose 75+ series) 2040 HIB [...] age to complete this topic Care Teams Moisture Meter Reader Relationship Specialty Start Date End Date Sangeetha Horner MD [address] PCP - General Internal Medicine 05/30/18
--- OUTSIDE RECORDS SUMMARY | 2024-06-10 13:31 | XMS_ITS | Encounter Summary ---
Author Organization [employer] Address [address] [place] [address] [address] [place] [address] Care Team Providers Care Compliance Spec Name Role Phone Tami Márquez MD Primary Care Provider [phone] Reason for Visit * Reason Onset Date Comments Med Refill 10/21/2023 Encounter Details Date Type Department Care Team ([facility] st Contact Info) Description 10/21/2023 Refill [facility] [address] [place], [place] [phone] Tami Márquez MD [address] [place] [address] Neck pain, chronic Social History Tobacco Use [...] documented as of this encounter Care Teams Compliance Spec Relationship Specialty Start Date End Date aTmi Márquez MD [address] [place] [address] PCP - General Family Medicine 04/28/21 documented as of this encounter
--- OUTSIDE RECORDS SUMMARY | 2024-06-10 13:31 | XMS_ITS | Clinical Summary ---
Author Organization [employer] Address [address] [place] [address] 7[address] [place] [address] Care Team Providers Care Freelance Digital Project Manager Name Role Phone Tami Márquez MD Primary Care Provider [phone] Allergies Active Allergy Reactions Criticality Noted Date [...] hyperglycemia, without long-term current use of insulin ([facility]) Inject 0.75 mg under the skin 1 [...] 90 tablet 1 4 Active Continuous Glucose Home Economics Expert (FreeStyle Suresh 2 [place]) deviceIndications: Type 2 diabetes mellitus with hyperglycemia, without long-term current use of insulin (CMS/HCC) Scan sensor every 8 hours. Patient aware insurance will not cover, will want to pay out of pocket. 1 each 4 Active Continuous Glucose Sensor (FreeStyle Suresh 2 Sensor) miscIndications:Ty pe 2 diabetes mellitus with hyperglycemia, without long-term current use of insulin ([facility]) Apply 1 sensor every 14 days. Patient [...] Patient to reach out to [facility] team as needed, Patient to engage in OP therapy , and Patient to reach out to [facility] as needed Assessment & Plan [...] intervention , [facility], Patient to engage in OP BH therapy , and Patient to reach out to [facility] as needed Family problems 02/15/2023 [...] intervention , [facility], Patient to engage in OP BH therapy , and Patient to reach out to [facility] as needed Class 1 obesity [...] Health Integration Plan Internal Follow up with [facility] External OP therapy referral Patient Self Plan Patient to utilize skills provided in intervention , Patient to reach out to [facility] team as needed, Comply with medication , [...] DEPARTMENT Provider, Generic External Data 03/18/2024 Telephone [facility] [address] [place] [address] Tami Márquez MD 03/16/2024 Telephone [facility] [address] [place] [address] Tami Márquez MD 03/16/2024 Travel from Last 3 Months Immunizations Name Administration [...] Vaccines (1 of 2) 2015 COVID-19 Vaccine (3 - season) 2023 06/23/2020, 06/02/2020 Influenza Vaccine (#1) 2023 Diabetes: Foot [...] Procedure Name Priority Date/Time Associated Diagnosis Comments US ABDOMEN WILD W ELASTOGRAPHY Routine 05/22/2024 9:41 AM EDT GLUCOSE, WHOLE BLOOD Routine 05/08/2024 9:57 AM [...] Recently Relevant to Health Maintenance Results * US ABDOMEN WILD W ELASTOGRAPHY (05/22/2024 9:41 AM EDT) Anatomical Region Laterality Modality Abdomen Ultrasound 05/22/2024 9:41 AM EDT Narrative 05/22/2024 10:33 AM EDT ? [facility] ?[address] ?[place] [address] ? Ultrasound Report ? Signed ? Patient: Colon Sharma,Erin ?MR#: [id number] ?? [id number] ? : 1965 ?Acct:[id number] ? Age/Sex: 59 / F ?ADM Date: 05/22/24 ? Loc: HO.US ? Attending Dr: Marisabel STONE ? Ordering Physician: Marisabel Ortiz ?? Date of Service: 05/22/24 ?? Procedure(s): US abdomen wild w elastography ?? Accession Number(s): [id number] ? cc: Marisabel Ortiz; Tami Márquez MD ? EXAMINATION: ??US ABDOMEN LIMITED WITH LIVER ELASTOGRAPHY ? HISTORY: R79.89 - Other specified abnormal findings of blood chemistry ? TECHNIQUE: Real-time grayscale ultrasound imaging of the right upper ?? quadrant was performed and images were reviewed. ? COMPARISON: Correlation is made with a CT of the abdomen with contrast ?? dated 06/07/2022. ? FINDINGS: ?? Liver: ?? The right lobe of the liver measures 17.1 cm in size. The left ?? lobe of the liver measures 12.3 cm in size. The liver demonstrates ?? increased echotexture, consistent with steatosis. ??No focal mass or ?? intrahepatic biliary ductal dilatation is identified. ??There is normal ?? hepatopedal flow in the portal vein. ? Ultrasound elastography of the liver was performed with 10 separate ?? measurements of the liver parenchyma with the patient in the supine ?? position. ??Measurements were obtained approximately 2 cm below ?? Sadiq's capsule and perpendicular to the capsule. ??Images are of ?? satisfactory quality. ? The median shear wave velocity is 1.52 m/s. ?? The interquartile range/median (IQR/median) is 0.12. ? Gallbladder and biliary tree: The gallbladder is unremarkable, without ?? evidence of calculi, wall thickening, or pericholecystic fluid. ??There ?? is no sonographic Givens sign. ??The common bile duct is normal in ?? caliber measuring 4 mm. ? Right Kidney: ??The right kidney measures 10.5 cm in length. ??The right ?? kidney is unremarkable, without evidence of masses, hydronephrosis, or ?? calculi. ? Pancreas: The pancreatic head, neck, and body are unremarkable. The ?? pancreatic tail is obscured by bowel gas. ? Abdominal aorta and inferior vena cava: The visualized portions of the ?? abdominal aorta and inferior vena cava are normal in caliber. ? There is no free fluid in the right upper quadrant. ? US/US abdomen wild w elastography ?? IMPRESSION: ? Hepatomegaly and hepatic steatosis. ? The median shear wave velocity in the liver is 1.52 m/s, corresponding ?? to a median liver stiffness of 7.09 kPa. ??The IQR/median value is 0.12. ?? This is indicative of a quality data set. ?? Findings are indicative of a low elastography value which rules out ?? advanced chronic liver disease in asymptomatic patients. ? REFERENCE: ?? Society of Radiologists in Ultrasound Liver Stiffness Thresholds (2019): ? LIVER STIFFNESS THRESHOLDS: ?? *Shear wave velocity less than 1.3 m/s (Liver Stiffness equal or less ?? than 5 kPa): ??High probability of being normal. ?? *Shear wave velocity less than 1.7 m/s (Liver Stiffness less than 9 ?? kPa): ??In the absence of other known clinical signs, rules out ?? compensated advanced chronic liver disease. ?? *Shear wave velocity between 1.7-2.1 m/s (Liver Stiffness 9-13 kPa): ? Suggestive of compensated advanced chronic liver disease but need ?? further test for confirmation. ?? *Shear wave velocity between 2.1-2.4 m/s (Liver Stiffness 13-17 kPa): ? Rules in compensated advanced chronic liver disease. ?? *Shear wave velocity ??greater than 2.4 m/s (Liver Stiffness over 17 ?? kPa): ??Suggestive of clinically significant portal hypertension. ? QUALITY OF DATA SET: ?? *IQR/Median value equal or less than 0.15 implies a quality data set. ?? *IQR/Median value over 0.15 implies a poor quality data set. ? SIGNIFICANT CHANGE FROM PRIOR EXAM: ?? Significant change if liver stiffness measurement is 10% or greater ?? from prior exam. ? OTHER CONSIDERATIONS: ?? The stage of liver fibrosis may be overestimated in the setting of ?? acute hepatitis, liver inflammation, elevated liver function tests, ?? hepatic vascular congestion, obstructive cholestasis, non-fasting ?? state, and infiltrative diseases such as amyloidosis and lymphoma. ??In ?? some patients with NAFLD, the liver stiffness thresholds for ?? compensated advanced chronic liver disease may be lower. ??In causes ?? other than viral hepatitis and NAFLD, liver stiffness thresholds are ?? not well established. ? Electronically signed by: ??John Damon MD ??05/22/2024 10:30 AM EDT ? Dictated By: ?John Damon MD ? Signed By: ?<Electronically signed by John Damon MD in OV> ?05/22/24 1030 ? DD/ 0941 ? TD/TT: 05/22/24 0958 ? Extrusion Supervisor: ? Procedure Note Esau Jose - 05/22/[address] [address] Ultrasound Report Signed Patient: Martha Krause#: [id number] : 1965Acct:[id number] Age/Sex: 59 / FADM Date: 05/22/24 Loc: HO.US Attending Dr: Marisabel STONE Ordering Physician: Marisabel Ortiz Date of Service: 05/22/24 Procedure(s): US abdomen wild w elastography Accession Number(s): [id number] cc: Marisabel Ortiz; Tami Márquez MD EXAMINATION: US ABDOMEN LIMITED WITH LIVER ELASTOGRAPHY HISTORY: R79.89 - Other specified abnormal findings of blood chemistry TECHNIQUE: Real-time grayscale ultrasound imaging of the right upper quadrant was performed and images were reviewed. COMPARISON: Correlation is made with a CT of the abdomen with contrast dated 06/07/2022. FINDINGS: Liver: The right lobe of the liver measures 17.1 cm in size. The left lobe of the liver measures 12.3 cm in size. The liver demonstrates increased echotexture, consistent with steatosis. No focal mass or intrahepatic biliary ductal dilatation is identified. There is normal hepatopedal flow in the portal vein. Ultrasound elastography of the liver was performed with 10 separate measurements of the liver parenchyma with the patient in the supine position. Measurements were obtained approximately 2 cm below Sadiq's capsule and perpendicular to the capsule. Images are of satisfactory quality. The median shear wave velocity is 1.52 m/s. The interquartile range/median (IQR/median) is 0.12. Gallbladder and biliary tree: The gallbladder is unremarkable, without evidence of calculi, wall thickening, or pericholecystic fluid. There is no sonographic Givens sign. The common bile duct is normal in caliber measuring 4 mm. Right Kidney: The right kidney measures 10.5 cm in length. The right kidney is unremarkable, without evidence of masses, hydronephrosis, or calculi. Pancreas: The pancreatic head, neck, and body are unremarkable. The pancreatic tail is obscured by bowel gas. Abdominal aorta and inferior vena cava: The visualized portions of the abdominal aorta and inferior vena cava are normal in caliber. There is no free fluid in the right upper quadrant. US/US abdomen wild w elastography IMPRESSION: Hepatomegaly and hepatic steatosis. The median shear wave velocity in the liver is 1.52 m/s, corresponding to a median liver stiffness of 7.09 kPa. The IQR/median value is 0.12. This is indicative of a quality data set. Findings are indicative of a low elastography value which rules out advanced chronic liver disease in asymptomatic patients. REFERENCE: Society of Radiologists in Ultrasound Liver Stiffness Thresholds (2020): LIVER STIFFNESS THRESHOLDS: *Shear wave velocity less than 1.3 m/s (Liver Stiffness equal or less than 5 kPa): High probability of being normal. *Shear wave velocity less than 1.7 m/s (Liver Stiffness less than 9 kPa): In the absence of other known clinical signs, rules out compensated advanced chronic liver disease. *Shear wave velocity between 1.7-2.1 m/s (Liver Stiffness 9-13 kPa): Suggestive of compensated advanced chronic liver disease but need further test for confirmation. *Shear wave velocity between 2.1-2.4 m/s (Liver Stiffness 13-17 kPa): Rules in compensated advanced chronic liver disease. *Shear wave velocity greater than 2.4 m/s (Liver Stiffness over 17 kPa): Suggestive of clinically significant portal hypertension. QUALITY OF DATA SET: *IQR/Median value equal or less than 0.15 implies a quality data set. *IQR/Median value over 0.15 implies a poor quality data set. SIGNIFICANT CHANGE FROM PRIOR EXAM: Significant change if liver stiffness measurement is 10% or greater from prior exam. OTHER CONSIDERATIONS: The stage of liver fibrosis may be overestimated in the setting of acute hepatitis, liver inflammation, elevated liver function tests, hepatic vascular congestion, obstructive cholestasis, non-fasting state, and infiltrative diseases such as amyloidosis and lymphoma. In some patients with NAFLD, the liver stiffness thresholds for compensated advanced chronic liver disease may be lower. In causes other than viral hepatitis and NAFLD, liver stiffness thresholds are not well established. Electronically signed by: John Damon MD 05/22/2024 10:30 AM EDT Dictated By: John Damon MD Signed By: <Electronically signed by John Damon MD in OV> 05/22/24 1030 DD/ 0941 TD/TT: 05/22/24 0958 Extrusion Supervisor: us [facility] External Provider IMG US PROCEDURES Final Result * (ABNORMAL) Glucose, Whole Blood (05/08/2024 9:57 AM EST) Only the most recent of2 resultswithin the time period is included. Glucose, Whole Blood 155(H) 60 - 115 mg/dL [facility] Comment:METER #: [id number] Testing performed in the Endocrinology Department [address] , [address], [place]. 05/08/2024 9:57 AM EST 05/08/2024 10:02 AM EST us Generic External Data Provider LAB BLOOD ORDERAB LES Final Result [facility] [address] [place] [address] [phone] * T-SPOT??.TB (03/27/2024 11:30 AM EST) T Spot TB Negative Negative [facility] Comment:A negative test resu lt [...] as aquantitative test. TS PANEL A 1 [facility] TS PANEL B 2 [facility] Negative Control Passed [facility] Positive Control Passed [facility] Comment:For additional infor mation, please refer tohttp://education.IO.com.[employer]faq/SWH069(This link is being provided for informational/educational purposes only.)THIS TEST WAS PERFORMED AT:[facility] [place] [address]XDGDDQCLINDSAY VANESSA MD,PHD 03/27/2024 11:3 0 AM EST 03/27/2024 2:12 PM EST us Tami Márquez MD LAB BLOOD ORDERABLES Final Re sult Performing Organization Address City/[facility]/ZIP Co de Phone Number [facility] [address] [place] [address] [phone] * (ABNORMAL) Hemoglobin A1c (02/22/2024 8:29 AM EST) Hemoglobin A1c 6.8(H) <6.0 % [facility] Comment:Hemoglobin A1C Refer ence Range Adults: 4.8 - 6.0 % Non diabetic: < 6.0 % Goal: < 7.0 %Additional Action Suggested: > 8.0 %Note: Hemoglobin A1c results are invalid for patients with abnormal amounts of HbF. Blood transfusions may impact the HbA1c concentration in the patient sample. Estimated Average Glucose 148 mg/dL [facility] Comment:eAG = Estimated ave rage glucose which is %A1C expressed asaverage glucose, using the formula of the I1P-CmctvutUuxjjth Glucose study (ADAG), Diabetes Care, Vol.31,#8,2007 Blood Venous blood specimen / Unknown 02/22/2024 8:29 AM EST 02/22/2024 8:29 AM EST us Tami Márquez MD LAB BLOOD ORDERABLES Final Re sult Performing Organization Address City/[facility]/ZIP Co de Phone Number [facility] [address] [place] [phone] * (ABNORMAL) Lipid Panel, Standard (02/22/2024 8:29 AM EST) Triglycerides 264(H) <150 mg/dL [facility] Comment:Desirable Triglyceri de: less than 150 mg/dLBorderline High Triglyceride 150-199 mg/dLHigh Triglyceride: 200-499 mg/dLVery High Triglyceride: greater than or equal to 5OO mg/dL Cholesterol 246(H) <200 mg/dL [facility] Comment:Desirable Cholestero l: less than 200 mg/dLBorderline High Cholesterol: 200-239 mg/dLHigh Cholesterol: greater than 239 mg/dL LDL Cholesterol Calculated 155(H) <100 mg/dL [facility] Comment:Desirable LDL: less than 100 mg/dLNear Optimal/Above Optimal LDL: 110- 129 mg/dLBorderline High LDL: 130-159 mg/dLHigh LDL: 160-189 mg/dLVery High LDL: greater than or equal to 190 mg/dL HDL Cholesterol 39(L) >40 mg/dL [facility] Comment:Desirable HDL: great er than 40 mg/dL Note: This HDL assay may give artificially low results in patients with liver disease. Blood Venous blood specimen / Unknown 02/22/2024 8:29 AM EST 02/22/2024 8:29 AM EST Tami Márquez MD LAB BLOOD ORDERABLES Final Re sult Performing Organization Address [facility] Co de Phone Number [facility] [address] [place] [phone] * Albumin, Random Urine W/Creatinine (02/22/2024 8:25 AM EST) Creatinine, Urine 172.24 mg/dL [facility] Microalbumin Urine 15.0 mg/L [facility] Microalbum Creatinine Ratio Ur 8.7 <30 ug/mg cr [facility] Comment:Albumin/Creatinine R atio Reference Ranges: Normal: < 30 ug/mg creatinine Microalbuminuria: 30 - 300 ug/mg creatinineClinical Albuminuria: > 300 ug/mg creatinine 02/22/2024 8:25 AM EST 02/22/2024 8:46 AM EST Tami Márquez MD LAB URINE ORDERABLES Final Re sult Performing Organization Address [facility]/ZIP Co de Phone Number [facility] [address] [place] [phone] * ThinPrep Imaging Pap and HPV mRNA E6/E7 (11/05/2023 10:30 AM EDT) HPV nRNA E6/E7 Not Detected Not Detected [facility] Comment:Methodology: Transcr iption-Mediated AmplificationThis assay detects E6/E7 viral messenger RNA (mRNA) from 14high-risk HPV types (16,18,31,33,35,39,45,51,52,56,58,59,66,68).Cervical sources are required for HPV testing.If a vaginal source from a patient who has had atotal hysterectomy with removal of cervix wassubmitted, please contact the testing laboratoryfor alternative testing options.For additional information, please refer tohttp://education.[employer]/faq/XPD894e8(This link if provided for information/educational purposes only.)THIS TEST WAS PERFORMED AT:[facility] [address] [address]ABQQRDEBO CAVANAUGH MD SOURCE: SEE NOTE [facility] Comment:None given Report Status: [facility] Clinical Information: SEE NOTE [facility] Comment:None given LMP: SEE NOTE [facility] Comment:NONE GIVEN Prev. PAP: SEE NOTE [facility] Comment:NONE GIVEN Prev. BX: SEE NOTE [facility] Comment:NONE GIVEN Statement Of Adequacy: SEE NOTE [facility] Comment:Satisfactory for ting luation.Endocervical/transformation zone component absent. General Categorization: [facility] Interpretation/Result: SEE NOTE [facility] Comment:Cytology Results: Ne gative for intraepitheliallesion or malignancy. Cytology Comment SEE NOTE [facility] Comment:This Pap test has be en evaluated with computerassisted technology. Gl Accountant: SEE NOTE [facility] Comment:EXJ, CT(ASCP)CT Scre ening Location: [address] [address] Review Gl Accountant: [facility] Pathologist [facility] PAP Infection [facility] See Note SEE [facility] Comment:EXPLANATORY NOTE:The Pap is a [...] AM EDT 11/05/2023 2:50 PM EDT Narrative [facility] - 11/08/2023 1:09 PM EDT SEE SCANNED RESULTS IN EMR us Tami Márquez MD LAB PATHOLOGY ORDERABLES Sushila bill Result [facility] [address] [place] [address] [phone] * BI Mammogram Screening Tomosynthesis Bilateral (04/09/2023 11:15 AM EST) Anatomical Region Laterality Modality Breast Bilateral Mammography 04/09/2023 11:1 5 AM EST Narrative 05/02/2023 5:35 AM EST ? [facility] [place] ? [address] ?[place] [address] ? Mammography Report ? Signed ? Patient: Colon Sharma,Erin ?MR#: [id number] ?? [id number] ? : 1965 ?Acct:[id number] ? Age/Sex: 57 / F ?ADM Date: /30/24 ? Loc: HO.MAMMO ? Attending Dr: Tami Márquez MD ? Ordering Physician: Tami Márquez MD ?Results: 1Nega ?? tive ? Date of Service: //24 ?Follow Up: 1 Year From Orig ?? inal Mammogram ? Procedure(s): MM tomosynthesis screening BI ?? Accession Number(s): [id number] ? cc: Tami Márquez MD ? EXAMINATION: ?? MM SCREENING DIGITAL BREAST TOMOSYNTHESIS, BILATERAL ? CLINICAL INFORMATION: ? Screening. Asymptomatic. ? The patient is status post breast reduction. ? COMPARISON: ?? Mammography: This study is compared with prior exams dating back to ?? 2017. ? TECHNIQUE: ?? Digital breast tomosynthesis is [...] 0531 ? DD/ 1115 ? TD/TT: ? Extrusion Supervisor: ? Procedure Note Damon, Esau - 05/02/2023 [facility] [address] [place] [address] Dr. العلي, JOE [address] Mammography Report Signed Patient: Jeimy KrauseRhiannaR#: [id number] : 1965Acct:[id number] Age/Sex: 57 / FADM Date: 04/09/23 Loc: HO.MAMMO Attending Dr: Tami Márquez MD Ordering Physician: Tami Márquez MDResults: 1Nega tive Date of Service: 04/09/23Follow Up: 1 Year From Orig inal Mammogram Procedure(s): MM tomosynthesis screening BI Accession Number(s): [id number] cc: Tami Márquez MD EXAMINATION: MM SCREENING [...] in OV> 05/02/23 0531 DD/ 1115 TD/TT: Extrusion Supervisor: Tami Márquez MD IMG BI PROCEDURES Final Resul t from Last 3 Months or Most Recently Relevant to Health Maintenance Insurance [facility] Care Teams Freelance Digital Project Manager Relationship Specialty Start Date End Date Tami Márquez MD [address] [place] [phone] PCP - General Family Medicine 04/28/21
--- OUTSIDE RECORDS SUMMARY | 2024-06-10 13:31 | XMS_ITS | Encounter Summary ---
Author Organization [employer] Address [address] [facility] [address] [place] [address] Care Team Providers Care Interpreter Name Role Phone Tami Márquez MD Primary Care Provider [phone] Encounter Details Date Type Department Care Team (Late st Contact Info) Description 02/04/2023 Abstract [facility] [address] [place], [place] [phone] [place] Social History Tobacco Use Types [...] documented as of this encounter Care Teams Interpreter Relationship Specialty Start Date End Date Tami Márquez MD [address] [place] [phone] PCP - General Family Medicine 04/28/21 documented as of this encounter
--- OUTSIDE RECORDS SUMMARY | 2024-06-10 13:31 | XMS_ITS | Encounter Summary ---
Author Organization [employer] Address [address] [facility] [address] [place] [address] Care Team Providers Care Atm Mechanic Name Role Phone Tami Márquze MD Primary Care Provider [phone] Reason for Visit * Reason Comments Med Refill Encounter Details Date Type Department Care Team ([facility] Contact Info) Description 01/17/2024 Refill [facility] [address] [place] [address] Tami Márquez MD [address] [place] [address] Mixed hyperlipidemia Social History Tobacco Use Types [...] documented as of this encounter Care Teams Atm Mechanic Relationship Specialty Start Date End Date Tami Márquez MD [address] [place] [address] PCP - General Family Medicine 04/28/21 documented as of this encounter
--- OUTSIDE RECORDS SUMMARY | 2024-06-10 13:32 | XMS_ITS | Encounter Summary ---
Author Organization [employer] Address [address] [place] [address] [address] [place] [address] Care Team Providers Care Re Recording Mixer Name Role Phone Tami Márquez MD Primary Care Provider [phone] Reason for Visit * Reason Onset Date Comments Call Back Request 05/06/2023 Encounter Details Date Type Department Care Team ([facility] Contact Info) Description 05/06/2023 Telephone [facility] [address] [place], [place] [phone] Tami Márquez MD [address] [place] [address] Call Back Request Social History Tobacco Use [...] regarding need to speak to provider regarding network support specialist consult 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 Scheduled pt for 05/12 at 9:30 am with PCP. Pt verbalizes understanding and agreement of plan. * Telephone Encounter - Martha Hoang - 05/06/2023 10:09 AM EST Tc from pt requesting to speak with a nurse in regards to a possible surgery. Please contact pt at [phone] documented in this encounter Plan of Treatment Not on file documented as of this encounter Visit Diagnoses Not on filedocumented in this encounter Additional Health Concerns Assessment Noted Time PHQ-9 Depression Total Score: 16 023 3:41 PM EST documented as of this encounter Care Teams Re Recording Mixer Relationship Specialty Start Date End Date Tami Márquez MD [address] [place] [address] PCP - General Family Medicine 04/28/21 documented as of this encounter
== END 2024-06-11 16:29 | disposition home or self-care (01) ==
LOC: HO.ENCR 11:09
PROVIDERS: PCP Family Medicine; Visit Provider Dietitian, Registered
DX: E11.65 Type 2 diabetes mellitus with hyperglycemia (principal)

== ENCOUNTER → 2024-06-10 11:09 | Outpatient (BNVA) | payer OTHER, SELFPAY | PROVIDERS: PCP Family Medicine; Visit Provider Dietitian, Registered | DX: E11.65 Type 2 diabetes mellitus with hyperglycemia (principal); Z79.899 Other long term (current) drug therapy | CPT/HCPCS: 97803 ==

== ENCOUNTER 2024-06-16 08:31 | Outpatient (AMB) | payer OTHER, SELFPAY ==
[2024-06-16 08:32] VITALS: BP 110/62; PULSE 96; O2SAT 96; BMI 31.7
--- NOTE | 2024-06-16 08:32 | MHC.OFFVIS ---
Vital Signs 06/16/24 08:32 Height 5 ft 1.5 in Weight 170 lb 10.205 oz BMI 31.7 BP 110/62 Blood Pressure Location Rt brachial Position Sitting Pulse 96 Pulse Source Pulse Oximeter Pulse Oximetry (%) 96 Oxygen Delivery Method Room Air Intake Visit Reasons: T2DM Intake Note: Patient present today to follow up on Type 2 Diabetes Mellitus. Last Diabetic Eye exam: 03/2024 [facility]. Last Podiatry Visit: Does not see a Vegetable Canner Random Glucose: 133 mg/dl HgA1C: 6.8% Allergies morphine [Morphine] Allergy (Severe, Verified 06/16/24 08:37) ANAPHYLAXIS oxycodone [Percocet] Allergy (Severe, Verified 06/16/24 08:37) Anaphylaxis hydrocodone [From Vicodin] Allergy (Intermediate, Verified 06/16/24 08:37) ANAPHYLAXIS shrimp [SHRIMP] Allergy (Intermediate, Verified 06/16/24 08:37) Swelling metformin Adverse Reaction (Unknown, Verified 06/16/24 08:37) diarrhea, hair loss narcotics Allergy (Uncoded 06/16/24 08:37) Anaphylaxis HPI Comments Details: This is a 59-year-old female with a past medical history of type 2 diabetes, osteoarthritis and hepatic steatosis presenting for diabetic management. She is doing okay. The right knee is still bothering her. She had a work-related injury. She saw a doctor through [facility] and had an MRI, but she wants to go to [facility], and she is not using [facility] insurance anymore. Knee pain is the same, and she is now having some pain in her left foot because she is compensating. As a courtesy I placed the referral for her today. She was diagnosed with diabetes in 2021. She does not have her glucometer with her today. She reports her fasting blood sugars 100-133. Hemoglobin a1c 6.8%. She met with the dietitian, and she is trying to incorporate sources of fiber into her diet. Current medication regimen: Mounjaro 5 mg weekly. Past medication: We discontinued Trulicity to start Mounjaro because Trulicity not help with weight loss. Metformin discontinued due to intolerable side effects. Glipizide discontinued when we increased Mounjaro. The only side effect on Mounjaro is occasional acid reflux, but she has no vomiting, nausea or constipation or abdominal pain. Hypoglycemia symptoms: None Hyperglycemia symptoms: None She has hepatic steatosis on her CAT scan from 2022 and her updated liver ultrasound which was done in May. We reviewed those results in detail today. I recommended she avoid alcohol and continue medications for hyperlipidemia and diabetes and follow the Mediterranean diet. I explained that in some patients hepatic steatosis can progress over time to fibrosis and cirrhosis so this needs to be monitored. A repeat ultrasound should be considered in a year. Eye exam: Up-to-date Microvascular complications: None Macrovascular complications: None ROS: Constitutional: No unexplained weight loss, fever, chills, fatigue or night sweats. Eyes: No vision changes, blurry vision, double vision Respiratory: No cough or shortness of breath. She endorses intermittent wheezing with her history of asthma. This is treated with inhalers. Cardiovascular: No chest pain, chest pressure or chest discomfort. No palpitations. Gastrointestinal: No anorexia, nausea, vomiting or diarrhea. No abdominal pain Neurologic: No numbness or tingling in the extremities Skin: No rash or open wounds Endocrine: No cold or heat intolerance. No polyuria or polydipsia. Physical exam: Constitutional: Alert, in no distress. Eyes: Pupils are equal, round and reactive to light. Extraocular muscles intact. Neck: Supple, Full range of motion. No lymphadenopathy. No palpable thyroid masses. Respiratory: Clear to auscultation. Cardiovascular: S1 S2 regular. II/ systolic murmur (pt reports this is not new and was evaluated by pcp with echo) [facility] Medical History Type II diabetes mellitus, well controlled Hepatic steatosis Elevated LFTs GERD (gastroesophageal reflux disease) Hx of lipoma Varicose vein of leg Cervical spinal stenosis Difficulty swallowing Diabetes Murmur Bronchitis Hernia Asthma Diverticulitis High cholesterol Patellofemoral arthritis Surgical History Hx of cataract extraction Hx of bladder repair surgery History of tonsillectomy Hx of carpal tunnel repair History of removal of ovarian cyst Hx of breast reduction, elective Hx of tubal ligation History of colon resection H/O colonoscopy Hx of appendectomy History of 3 sections Family History Mother High cholesterol Cardiac arrest Rheumatoid arthritis Alzheimer's dementia Father No known health problems Social History Are you a primary clinical care coordinator to a significant other at home: No Do you presently have visiting nurse or other home services: No Alcohol intake: never Patient Tobacco Use Status: Never used Tobacco Current occupational status: employed 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 Physical Exam Vital Signs: Last Vital Signs Pulse 96 06/16/24 08:32 BP 110/62 06/16/24 08:32 Pulse Ox 96 06/16/24 08:32 Oxygen Delivery Method Room Air 06/16/24 08:32 BMI result Body Mass Index 31.7 Results AMB Hemoglobin A1c AMB Hemoglobin A1c 6.8 % Last Edit by Kaylan Arrington CMA on 06/16/24 08:52 Results Reviewed Results Reviewed: Laboratory Last Values Glucose (Clinic) 133 mg/dL (60-115) H 06/16/24 08:47 Hgb A1c (Clinic) 6.8 % (4.0-6.0) H 06/16/24 08:50 Laboratory Tests 02/22/24 02/22/24 08:25 08:29 Creatinine 0.66 Estimated GFR > 60 Hemoglobin A1c % 6.8 H AST 24 ALT 41 H Alkaline Phosphatase 120 H Triglycerides 264 H Cholesterol 246 H LDL Cholesterol, Calc 155 H HDL Cholesterol 39 L Vitamin B12 399 TSH 1.54 Urine Creatinine 172.24 Urine Microalbumin 15.0 Microalb/Creat Ratio 8.7 Assessment & Plan Assessment & Plan (1) Type II diabetes mellitus, well controlled: Code(s): E11.9 - Type 2 diabetes mellitus without complications Category: Medical (2) Hepatic steatosis: Code(s): K76.0 - Fatty (change of) liver, not elsewhere classified Category: Medical Plan In summary this is a 59-year-old female with controlled type 2 diabetes. Discussed pathophysiology of Type II Diabetes Mellitus with the patient in detail.? I explained the fpc risks and complications associated with uncontrolled diabetes including nephropathy, neuropathy, peripheral vascular disease, retinopathy, increased risk of heart disease and stroke.? Discussed lifestyle modification with the patient. Recommended 30 minutes of moderately vigorous exercise 5 days per week to promote weight loss. Patient instructed to bring glucometer to all appointments. She saw the dietitian. Patient would like to stay on 5 mg Mounjaro for now. If she would like to increase to promote weight loss she will message me via the patient portal. If you experience low blood sugar, treat this by eating a chewable fruit candy like skittles or jelly beans (about 8 pieces), 4 ounces (1/2 cup) of fruit juice (not diet), 1 tablespoon of honey or 4 glucose tablets. If your blood sugar is under 50, take double the amount of one of the above. Recheck your blood sugar in 15 minutes. Reviewed hepatic steatosis. See HPI. Follow up in 3 months for type 2 diabetes. Orders: Orders AMB Hemoglobin A1c Today E11.65 - Type 2 diabetes mellitus with hyperglycemia Referrals Orthopedics Referral M25.561 - Pain in right knee Medications: Refilled tirzepatide (Mounjaro) 5 mg (0.5 mL) subcut QWEEK 2 mL 3RF E11.9 - Type 2 diabetes mellitus without complications Coding Level of Care Code Est Pt Level 4 (58737) Complex EM visit Add On G2211 Diagnoses Type II diabetes mellitus, well controlled E11.9 Hepatic steatosis K76.0
--- OUTSIDE RECORDS SUMMARY | 2024-06-16 08:50 | XMS_ITS | Encounter Summary ---
Author Organization [employer] Address [address] [facility] 7t [place] [address] Care Team Providers Care Disability Insurance Claim Examiner Name Role Phone Tami Márquez MD Primary Care Provider [phone] Reason for Visit * Reason Comments Med Refill Encounter Details Date Type Department Care Team ([facility] Contact Info) Description 01/17/2024 Refill [facility] MED & PEDS [address] [place] [address] Tami Márquez MD [address] [place] [address] Mixed hyperlipidemia Social History Tobacco Use Types [...] documented as of this encounter Care Teams Disability Insurance Claim Examiner Relationship Specialty Start Date End Date Tami Márquez MD [address] [place] [address] PCP - General Family Medicine 04/28/21 documented as of this encounter
--- OUTSIDE RECORDS SUMMARY | 2024-06-16 08:50 | XMS_ITS | Encounter Summary ---
Author Organization [employer] Address [address] [facility] 7t [place] [address] Care Team Providers Care Lining Mechanic Name Role Phone Tami Márquez MD Primary Care Provider [phone] Encounter Details Date Type Department Care Team (Late st Contact Info) Description 02/04/2023 Abstract [facility] MEDICINE [address] [place], [place] [phone] [place] Social History Tobacco Use Types [...] documented as of this encounter Care Teams Lining Mechanic Relationship Specialty Start Date End Date Tami Márquez MD [address] [place] [phone] PCP - General Family Medicine 04/28/21 documented as of this encounter
--- OUTSIDE RECORDS SUMMARY | 2024-06-16 08:50 | XMS_ITS | Clinical Summary ---
Author Organization [facility] it Address [address] [place] [address] Care Team Providers Care Clam Shovel Operator Name Role Phone Sangeetha Horner MD Primary Care Provider Surgical History Surgery Date Site/Laterality Comments OVARIAN CYST REMOVAL 1982 N/A PROCEDURE: [place] OVARIAN CYSTECTOMY UNI/BI TUBAL LIGATION 1999 PROCEDURE: HISTORICAL TUBAL LIGATION APPENDECTOMY PROCEDURE: HISTORICAL APPENDECTOMY OTHER SURGICAL HISTORY PROCEDURE: PELVIC CONTROL PELVIC SLING OTHER SURGICAL HISTORY 2006 PROCEDURE: [place] COLECTOMY PARTIAL W/ANASTOMOSIS Medical History Medical History [...] - 2023-2 5 season) 2023 Influenza Vaccine (Season Ended) 2024 RSV Immunization Adult Patie nts (1 - [...] age to complete this topic Meningococcal B Vaccine Aged Out No l onger eligible based on patient's age to complete this topic RSV Immunization Patients Un maddi 20 months Aged Out No longer eligible b ased on patient's age to complete this topic Varicella Vaccines Aged Out No longer eligible based on patient's age to complete this topic Care Teams Clam Shovel Operator Relationship Specialty Start Date End Date Sangeetha Horner MD [address] PCP - General Internal Medicine 05/30/18
--- OUTSIDE RECORDS SUMMARY | 2024-06-16 08:50 | XMS_ITS | Encounter Summary ---
Author Organization [employer] Address [address] [place] [address] 7 [place] [address] Care Team Providers Care Horologist Name Role Phone Tami Márquez MD Primary Care Provider [phone] Reason for Visit * Reason Onset Date Comments Med Refill 10/21/2023 Encounter Details Date Type Department Care Team ([facility] st Contact Info) Description 10/21/2023 Refill [facility] MED & PEDS [address] [place], [place] [phone] Tami Márquez MD [address] [place] [address] Neck pain, chronic Social History Tobacco Use [...] documented as of this encounter Care Teams Horologist Relationship Specialty Start Date End Date Tami Márquez MD [address] [place] [address] PCP - General Family Medicine 04/28/21 documented as of this encounter
--- OUTSIDE RECORDS SUMMARY | 2024-06-16 08:50 | XMS_ITS | Clinical Summary ---
Author Organization [employer] Address [address] [facility] 7t [place] [address] Care Team Providers Care Rehabilitation Team Lead Name Role Phone Tami Márquez MD Primary Care Provider [phone] Allergies Active Allergy Reactions Criticality Noted Date [...] hyperglycemia, without long-term current use of insulin ([facility]) Inject 0.75 mg under the skin [...] 90 tablet 1 4 Active Continuous Glucose Precision Devices Inspector/Tester (FreeStyle Suresh 2 Assaria) deviceIndications: Type 2 diabetes mellitus with hyperglycemia, without long-term current use of insulin (CMS/HCC) Scan sensor every 8 hours. Patient aware insurance will not cover, will want to pay out of pocket. 1 each 4 Active Continuous Glucose Sensor (FreeStyle Suresh 2 Sensor) miscIndications:Ty pe 2 diabetes mellitus with hyperglycemia, without long-term current use of insulin ([facility]) Apply 1 sensor every 14 days. [...] intervention , Patient to reach out to [facility] team as needed, Patient to engage in [...] intervention , Patient to reach out to [facility] team as needed, Patient to engage in [...] intervention , Patient to reach out to [facility] team as needed, Patient to engage in [...] Health Integration Plan Internal Follow up with [facility] External OP therapy referral Patient Self Plan Patient to utilize skills provided in intervention , Patient to reach out to [facility] team as needed, Comply with medication , [...] DEPARTMENT Provider, Generic External Data 03/18/2024 Telephone [facility] & [facility]EDS [address] [place] [address] Tami Márquez MD from Last 3 Months [...] your housing situation today? I have elyse jorge 08/01/[address] you li [...] EDT Narrative 05/22/2024 10:33 AM EDT ? [facility] ?[address] ?[place] [address] ? Ultrasound Report ? Signed ? Patient: Colon Sharma,Erin ?MR#: [id number] ?? [id number] ? : 1965 ?Acct:[id number] ? Age/Sex: 59 / F ?ADM Date: 05/22/24 ? Loc: HO.US ? Attending Dr: Marisabel STONE ? Ordering Physician: Marisabel Ortiz ?? Date of Service: 05/22/24 ?? Procedure(s): US abdomen wild w elastography ?? Accession Number(s): [id number] ? cc: Marisabel Ortiz; Tami Márquez MD [...] DD/ 0941 ? TD/TT: 05/22/24 0958 ? Tour Conductor: ? Procedure Note Damon, Image - 05/22/2024 [place] [address] Ultrasound Report Signed Patient: Martha Krause#: [id number] : 1965Acct:[id number] Age/Sex: 59 / FADM Date: 05/22/24 Loc: HO.US Attending Dr: Marisabel STONE Ordering Physician: Marisabel Ortiz Date of Service: 05/22/24 Procedure(s): US abdomen wild w elastography Accession Number(s): [id number] cc: Marisabel Ortiz; Tami Márquez MD EXAMINATION: [...] 05/22/24 1030 DD/ 0941 TD/TT: 05/22/24 0958 Tour Conductor: us [facility] External Provider IMG US PROCEDURES Final Result * (ABNORMAL) Glucose, Whole Blood (05/08/2024 9:57 AM EST) Only the most recent of2 resultswithin the time period is included. Glucose, Whole Blood 155(H) 60 - 115 mg/dL [facility] Comment:METER #: [id number] Testing performed in the Endocrinology Department [address] , [address], [place]. 05/08/2024 9:57 AM EST 05/08/2024 10:02 AM EST us Generic External Data Provider LAB BLOOD ORDERAB LES Final Result Performing Organization Address [facility]/ZIP Co de Phone Number [facility] [address] [place] [phone] * T-SPOT??.TB (03/27/2024 11:30 AM EST) T Spot TB Negative Negative [facility] Comment:A negative test resu lt [...] as aquantitative test. TS PANEL A 1 [facility] TS PANEL B 2 [facility] Negative Control Passed [facility] Positive Control Passed [facility] Comment:For additional infor scotty, please refer tohttp://education.Paperspine/faq/MTM628(This link is being provided for informational/educational purposes only.)THIS TEST WAS PERFORMED AT:[facility] [id number] [place] [address]INNVMSSLINDSAY VANESSA MD,PHD 03/27/2024 11:3 0 AM EST 03/27/2024 2:12 PM EST us Tami Márquez MD LAB BLOOD ORDERABLES Final Re sult Performing Organization Address [facility]/ZIP Co de Phone Number [facility] [address] [place] [phone] * (ABNORMAL) Hemoglobin A1c (02/22/2024 8:29 AM EST) Hemoglobin A1c 6.8(H) <6.0 % [facility] Comment:Hemoglobin A1C Refer ence Range Adults: 4.8 - 6.0 % Non diabetic: < 6.0 % Goal: < 7.0 %Additional Action Suggested: > 8.0 %Note: Hemoglobin A1c results are invalid for patients with abnormal amounts of HbF. Blood transfusions may impact the HbA1c concentration in the patient sample. Estimated Average Glucose 148 mg/dL [facility] Comment:eAG = Estimated ave rage glucose which is %A1C expressed asaverage glucose, using the formula of the W6L-MgmtfqrNyfklwt Glucose study (ADAG), Diabetes Care, Vol.31,#8,2007 Blood Venous blood specimen / Unknown 02/22/2024 8:29 AM EST 02/22/2024 8:29 AM EST us Tami Márquez MD LAB BLOOD ORDERABLES Final Re sult [facility] [address] [place] [phone] * (ABNORMAL) Lipid Panel, Standard (02/22/2024 8:29 AM EST) Triglycerides 264(H) <150 mg/dL [facility] Comment:Desirable Triglyceri de: less than 150 mg/dLBorderline High Triglyceride 150-199 mg/dLHigh Triglyceride: 200-499 mg/dLVery High Triglyceride: greater than or equal to 5OO mg/dL Cholesterol 246(H) <200 mg/dL [facility] Comment:Desirable Cholestero l: less than 200 mg/dLBorderline High Cholesterol: 200-239 mg/dLHigh Cholesterol: greater than 239 mg/dL LDL Cholesterol Calculated 155(H) <100 mg/dL [facility] Comment:Desirable LDL: less than 100 mg/dLNear Optimal/Above Optimal LDL: 110- 129 mg/dLBorderline High LDL: 130-159 mg/dLHigh LDL: 160-189 mg/dLVery High LDL: greater than or equal to 190 mg/dL HDL Cholesterol 39(L) >40 mg/dL [facility] Comment:Desirable HDL: great er than 40 mg/dL Note: This HDL assay may give artificially low results in patients with liver disease. Blood Venous blood specimen / Unknown 02/22/2024 8:29 AM EST 02/22/2024 8:29 AM EST us Tami Márquez MD LAB BLOOD ORDERABLES Final Re sult Performing Organization Address [facility] de Phone Number [facility] [address] [place] [address] [phone] * Albumin, Random Urine W/Creatinine (02/22/2024 8:25 AM EST) Creatinine, Urine 172.24 mg/dL [facility] Microalbumin Urine 15.0 mg/L [facility] Microalbum Creatinine Ratio Ur 8.7 <30 ug/mg cr [facility] Comment:Albumin/Creatinine R atio Reference Ranges: Normal: < 30 ug/mg creatinine Microalbuminuria: 30 - 300 ug/mg creatinineClinical Albuminuria: > 300 ug/mg creatinine 02/22/2024 8:25 AM EST 02/22/2024 8:46 AM EST us Tami Márquez MD LAB URINE ORDERABLES Final Re sult Performing Organization Address [facility] Co de Phone Number [facility] [address] [place] [phone] * ThinPrep Imaging Pap and HPV mRNA E6/E7 (11/05/2023 10:30 AM EDT) HPV nRNA E6/E7 Not Detected Not Detected [facility] Comment:Methodology: Transcr iption-Mediated AmplificationThis assay detects E6/E7 viral messenger RNA (mRNA) from 14high-risk HPV types (16,18,31,33,35,39,45,51,52,56,58,59,66,68).Cervical sources are required for HPV testing.If a vaginal source from a patient who has had atotal hysterectomy with removal of cervix wassubmitted, please contact the testing laboratoryfor alternative testing options.For additional information, please refer tohttp://education.Paperspine/faq/QRZ983y6(This link if provided for information/educational purposes only.)THIS TEST WAS PERFORMED AT:[facility] [address] [address]KDQJUDEBO CAVANAUGH MD SOURCE: SEE NOTE [facility] Comment:None given Report Status: [facility] Clinical Information: SEE NOTE [facility] Comment:None given LMP: SEE NOTE [facility] Comment:NONE GIVEN Prev. PAP: SEE NOTE [facility] Comment:NONE GIVEN Prev. BX: SEE NOTE [facility] Comment:NONE GIVEN Statement Of Adequacy: SEE NOTE [facility] Comment:Satisfactory for ting luation.Endocervical/transformation zone component absent. General Categorization: [facility] Interpretation/Result: SEE NOTE [facility] Comment:Cytology Results: Ne gative for intraepitheliallesion or malignancy. Cytology Comment SEE NOTE [facility] Comment:This Pap test has be en evaluated with computerassisted technology. Head Insulation Board Saw Operator: SEE NOTE [facility] Comment:EXJ, CT(ASCP)CT Scre ening Location: [address] [address] Review Head Insulation Board Saw Operator: [facility] Pathologist [facility] PAP Infection [facility] See Note SEE [facility] Comment:EXPLANATORY NOTE:The Pap is a [...] AM EDT 11/05/2023 2:50 PM EDT Narrative [facility] - 11/08/2023 1:09 PM EDT SEE SCANNED RESULTS IN EMR us Tami Márquez MD LAB PATHOLOGY ORDERABLES Sushila fly Result [facility] [address] [place] [phone] [phone] * BI Mammogram Screening Tomosynthesis Bilateral (04/09/2023 11:15 AM EST) Anatomical Region Laterality Modality Breast Bilateral Mammography 04/09/2023 11:1 5 AM EST Narrative 05/02/2023 5:35 AM EST ? [facility] ? [address] ?[place] [id number] ? Mammography Report ? Signed ? Patient: Colon Sharma,Erin ?MR#: [id number] ?? [id number] ? : 1965 ?Acct:[id number] ? Age/Sex: 57 / F ?ADM Date: 04/09/23 ? Loc: HO.MAMMO ? Attending Dr: Tami Márquez MD ? Ordering Physician: Tami Márquez MD ?Results: 1Nega ?? tive ? Date of Service: 04/09/23 ?Follow Up: 1 Year From Orig ?? inal Mammogram ? Procedure(s): MM tomosynthesis screening BI ?? Accession Number(s): [id number] ? cc: Tami Márquez MD ? EXAMINATION: [...] 0531 ? DD/ 1115 ? TD/TT: ? Tour Conductor: ? Procedure Note Donsmitakayainterpreter, Image - 05/02/2023 [facility] [address] [place] [address] [place] [address] Mammography Report Signed Patient: Martha Krause#: [id number] : 1965Acct:[id number] Age/Sex: 57 / FADM Date: 04/09/23 Loc: HO.MAMMO Attending Dr: Tami Márquez MD Ordering Physician: Tami Márquezults: 1Nega tive Date of Service: 04/09/23Follow Up: 1 Year From Orig ina Mammogram Procedure(s): MM tomosynthesis screening BI Accession Number(s): [id number] cc: Tami Márquez MD EXAMINATION: MM SCREENING [...] in OV> 05/02/23 0531 DD/ 1115 TD/TT: Tour Conductor: Tami Márquez MD IMG BI PROCEDURES Final Resul t from Last 3 Months or Most Recently Relevant to Health Maintenance Insurance [facility] , [address] [place] [address] Care Teams Rehabilitation Team Lead Relationship Specialty Start Date End Date Tami Márquez MD [address] [place] [phone] PCP - General Family Medicine 04/28/21
--- OUTSIDE RECORDS SUMMARY | 2024-06-16 08:50 | XMS_ITS | Encounter Summary ---
Author Organization [employer] Address [address] [place] [address] 7t [place] [address] Care Team Providers Care Hardware Press Operator Name Role Phone Tami Márquez MD Primary Care Provider [phone] Encounter Details Date Type Department Care Team (Late st Contact Info) Description 03/29/2022 Orders Only [facility] MED[facility]INE [address] [place], [place] [phone] Mari Turner LPN Social History Tobacco Use [...] on filedocumented in this encounter Care Teams Hardware Press Operator Relationship Specialty Start Date End Date Tami Márquez MD [address] [place] [address] PCP - General Family Medicine 04/28/21 documented as of this encounter
--- OUTSIDE RECORDS SUMMARY | 2024-06-16 08:50 | XMS_ITS | Encounter Summary ---
Author Organization [employer] Address [address] [facility] 7t [place] [address] Care Team Providers Care Deckhand Tuna Boat Name Role Phone Tami Márquez MD Primary Care Provider [phone] Reason for Visit * Reason Onset Date Comments Nurse Triage 07/19/2023 Encounter Details Date Type Department Care Team ([facility] Contact Info) Description 07/19/2023 Telephone [facility] MEDICINE [address] [place] [address] Tami Márquez MD [address] [place], [place] [id number] Nurse Triage Social History Tobacco Use Types [...] SHIRIN. Will also send this note [place] [facility] [place] pt. Today at [...] hyperglycemia, without long-term current use of insulin ([facility]) documented in this encounter Additional Health Concerns Assessment Noted Time PHQ-9 Depression Total Score: 16 023 3:41 PM EST documented as of this encounter Care Teams Deckhand Tuna Boat Relationship Specialty Start Date End Date Tami Márquez MD [address] [place] [address] PCP - General Family Medicine 04/28/21 documented as of this encounter
[2024-06-16 08:51] LABS: Glucose, Whole Blood 133 mg/dL (60-115)
--- OUTSIDE RECORDS SUMMARY | 2024-06-16 08:51 | XMS_ITS | Encounter Summary ---
Author Organization [employer] Address [address] [place] [address] 7 [place] [address] Care Team Providers Care Kaiwhakahaere Name Role Phone Tami Márquez MD Primary Care Provider [phone] Reason for Visit * Reason Onset Date Comments Call Back Request 05/06/2023 Encounter Details Date Type Department Care Team ([facility] Contact Info) Description 05/06/2023 Telephone [facility] CHC MED & PEDS [address] [place] [address] Tami Márquez MD [address] [place] [address] Call Back Request Social History Tobacco Use [...] regarding need to speak to provider regarding chemical operations specialist consult 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 Scheduled pt for 05/12 at 9:30 am with PCP. Pt verbalizes understanding and agreement of plan. * Telephone Encounter - Martha Hoang - 05/06/2023 10:09 AM EST Tc from pt requesting to speak with a nurse in regards to a possible surgery. Please contact pt at [phone] documented in this encounter Plan of Treatment Not on file documented as of this encounter Visit Diagnoses Not on filedocumented in this encounter Additional Health Concerns Assessment Noted Time PHQ-9 Depression Total Score: 16 023 3:41 PM EST documented as of this encounter Care Teams Kaiwhakahaere Relationship Specialty Start Date End Date Tami Márquez MD [address] [place] [address] PCP - General Family Medicine 04/28/21 documented as of this encounter
== END 2024-06-16 09:16 | disposition home or self-care (01) ==
LOC: HO.ENCR 08:31
PROVIDERS: PCP Family Medicine; Visit Provider Physician Assistant Medical
DX: E11.9 Type 2 diabetes mellitus without complications (principal); K76.0 Fatty (change of) liver, not elsewhere classified; E11.65 Type 2 diabetes mellitus with hyperglycemia

== ENCOUNTER → 2024-06-16 08:31 | Outpatient (BNVA) | payer OTHER, SELFPAY | PROVIDERS: PCP Family Medicine; Visit Provider Physician Assistant Medical | DX: E11.9 Type 2 diabetes mellitus without complications (principal); K76.0 Fatty (change of) liver, not elsewhere classified; Z79.899 Other long term (current) drug therapy | CPT/HCPCS: 82947; 83036 ==

== ENCOUNTER 2024-07-23 03:53 | Emergency (ER) | payer OTHER, SELFPAY ==
--- NOTE | 2024-07-23 | ECG_ITS ---
Test Reason : CHEST PRESSURE Blood Pressure : */* mmHG Vent. Rate : 80 BPM Atrial Rate : 80 BPM P-R Int : 138 ms QRS Dur : 80 ms QT Int : 358 ms P-R-T Axes : 36 -2 8 degrees QTcB Int : 412 ms Normal sinus rhythm Minimal voltage criteria for LVH, may be normal variant ( R in aVL ) Borderline ECG When compared with ECG of 30-Jan-2023 01:05, No significant change was found Referred By: Generic ED Physician Electronically Signed By: DEMOND RUFFIN MD
--- NOTE | ~2024-07-23 | XR_ITS ---
CLINICAL HISTORY: SOB 2 view chest x-ray Comparison: None Findings: The lungs are clear. Normal size heart. No acute fracture. IMPRESSION: 1. No acute findings. This document has been electronically signed by: Naya Hector MD on 07/23/2024 06:45:34
[2024-07-23 03:56] VITALS: BP 123/86; PULSE 87; RESP 20; TEMP 36.2; O2SAT 98; BMI 31.4
[2024-07-23 04:30] LABS: Basophils Absolute Auto 0.1 X10*3/uL (0.0-0.2); Basophils Percent Auto 0.6 % (0-2); Eosinophils Absolute Auto 0.5 X10*3/uL (0.0-0.4); Hematocrit 37.9 % (37.0-47.0); Hemoglobin 12.9 g/dl (12.0-16.0); Imm Gran Abs Auto 0.03 X10*3/uL (0.00-0.03); Imm Gran Pct Auto 0.4 % (0.0-0.4); Lymphocytes Absolute Auto 2.8 X10*3/uL (1.2-4.9); Lymphocytes Percent Auto 33.3 % (20-40); MANUAL DIFF FLAG NO; Mean Corpuscular Hemoglobin 28.8 pg (27.0-33.0); Mean Corpuscular Volume 84.6 fL (80.0-98.0); Monocytes Absolute Auto 0.6 X10*3/uL (0.1-1.2); Monocytes Percent Auto 7.2 % (2-11); Neutrophils Absolute Auto 4.4 x10*3/uL (2.0-8.3); Neutrophils Percent Auto 52.5 % (45-73); Platelet Count 286 X10*3/uL (160-400); Red Blood Count 4.48 X10*6/uL (4.20-5.50); Red Cell Distribution Width 15.4 % (11.0-16.0); White Blood Count 8.4 X10*3/uL (4.8-10.8)
[2024-07-23] MEDS: Albuterol Sulfate 5 MG, Albuterol Sulfate (0.083%) 2.5 MG 7.5 MG INHALE (04:30)
[2024-07-23 04:32] VITALS: RESP 18; O2SAT 96
[2024-07-23 04:44] LABS: Alanine Aminotransferase 26 U/L (0-31); Albumin Level 3.9 g/dL (3.5-5.0); Alkaline Phosphatase 108 U/L (39-117); Anion Gap 13 (12-20); Aspartate Amino Transferase 19 U/L (5-31); Bilirubin Total 0.5 mg/dL (0.0-1.0); Blood Urea Nitrogen 15 mg/dL (9-16); Calcium 9.8 mg/dL (8.4-10.2); Carbon Dioxide 21 mmol/L (22-29); Chloride 110 mmol/L (96-108); Creatinine Clr Calc Pharmacy 81.4; Estimated Glomerular Filt Rate > 60; Glucose Random 154 mg/dL (60-115); Sodium 140 mmol/L (135-145); Total Protein 6.9 g/dL (6.5-8.0)
[2024-07-23 04:55] LABS: Troponin-I High Sensitivity < 2.7 ng/L (<3.5-17.0)
--- NOTE | 2024-07-23 04:59 | ED_ITS ---
HPI - URI/Sore Throat General Chief Complaint: Upper Respiratory Symptoms Stated Complaint: Asthma Time Seen by Provider: 07/23/24 04:20 Source: patient and family Mode of arrival: ambulatory Limitations: no limitations History of Present Illness ED Provider: DR. Mendoza HPI Narrative: 59-year-old female history of asthma presented with 2 weeks of coughing, shortness of breath, chest tightness. No recent travel, no lower extremity swelling or tenderness. No productive cough, no fever, no chills. Has been using her inhaler with no improvement. Related Data Home Medications ?Medication ?Instructions ?Recorded ?Confirmed calcium carbonate 500 mg PO DAILY PRN Acid Reflux 06/27/23 05/08/24 albuterol sulfate 90 mcg/actuation 2 puff inhalation Q4-6H PRN 07/11/23 05/08/24 aerosol inhaler Shortness Of Breath Or Wheezing blood sugar diagnostic (FreeStyle 04/10/24 05/08/24 Lite Strips) cholecalciferol (vitamin D3) 50 50 mcg PO DAILY 04/10/24 05/08/24 mcg (2,000 unit) tablet cyclobenzaprine 5 mg tablet 5 mg PO TID 04/10/24 05/08/24 diclofenac potassium 50 mg tablet 50 mg PO TID 04/10/24 05/08/24 epinephrine 0.3 mg/0.3 mL 0.3 mg IM Q10M PRN 04/10/24 05/08/24 injection, auto-injector ezetimibe 10 mg-rosuvastatin 40 mg 1 tab PO DAILY 04/10/24 05/08/24 tablet fenofibrate micronized 130 mg 130 mg PO DAILY 04/10/24 05/08/24 capsule hydroxyzine HCl 25 mg tablet 25 mg PO TID PRN 04/10/24 05/08/24 lancets 33 gauge (Easy Touch Twist #100 ea 04/10/24 05/08/24 Lancets) sertraline 25 mg tablet 25 mg PO DAILY 04/10/24 05/08/24 sumatriptan succinate 50 mg tablet 50 mg PO Q2-4H PRN 04/10/24 05/08/24 Previous Rx's ?Medication ?Instructions ?Recorded tramadol 50 mg tablet 50 mg PO Q6H PRN pain #30 tabs 07/11/23 gabapentin 300 mg capsule 300 mg PO BEDTIME #20 caps 07/30/23 glucose 4 gram chewable tablet 16 g (4 x 4 gram) PO Q15M PRN 04/10/24 (Dex4 Glucose Quick Dissolve) hypoglycemia #10 tabs tirzepatide 5 mg/0.5 mL 5 mg (0.5 mL) subcut QWEEK #2 mL 06/16/24 subcutaneous pen injector (Mounjaro) albuterol sulfate 90 mcg/actuation 2 puff inhalation Q6H PRN 07/23/24 aerosol inhaler shortness of breath or wheezing #8.5 grams azithromycin 250 mg tablet See Rx Instructions PO .COMPLEX #6 07/23/24 (Zithromax Z-Isidro) tabs prednisone 20 mg tablet 20 mg PO BID #10 tabs 07/23/24 Allergies Allergy/AdvReac Type Severity Reaction Status Date / Time morphine [Morphine] Allergy Severe ANAPHYLAXIS Verified 07/23/24 03:58 oxycodone [Percocet] Allergy Severe Anaphylaxis Verified 07/23/24 03:58 hydrocodone [From Vicodin] Allergy Intermediate ANAPHYLAXIS Verified 07/23/24 03:58 shrimp [SHRIMP] Allergy Intermediate Swelling Verified 07/23/24 03:58 metformin AdvReac Unknown diarrhea, Verified 07/23/24 03:58 hair loss narcotics Allergy Anaphylaxis Uncoded 06/16/24 08:37 Review of Systems 2 Review of Systems: All other systems are reviewed and are negative Constitutional: Reports as per HPI and Reports no additional constitutional complaints Eyes: Reports as per HPI and Reports no additional eye complaints Reports system reviewed and no additional complaints, except as documented Cardiovascular: Reports as per HPI and Reports no additional cardiovascular complaints Respiratory: Reports as per HPI and Reports no additional respiratory complaints Gastrointestinal: Reports as per HPI and Reports no additional gastrointestinal complaints Genitourinary: Reports no additional female genitourinary complaints Musculoskeletal: Reports no additional musculoskeletal complaints Skin/Breast: Reports system reviewed and no additional complaints, except as docu Psychiatric: Reports no additional psychiatric complaints Endocrine: Reports no additional endocrine complaints Hematologic/Lymphatic: Reports no additional hematologic/lymphatic complaints Allergic/Immunologic: Reports no additional allergic/immunologic complaints Reports system reviewed and no additional complaints, except as documented and Reports Abnormal speech present PMFSH Past Medical History Medical History Type II diabetes mellitus, well controlled Hepatic steatosis Elevated LFTs GERD (gastroesophageal reflux disease) Hx of lipoma Varicose vein of leg Cervical spinal stenosis Difficulty swallowing Diabetes Murmur Bronchitis Hernia Asthma Diverticulitis High cholesterol Patellofemoral arthritis Surgical History Hx of cataract extraction Hx of bladder repair surgery History of tonsillectomy Hx of carpal tunnel repair History of removal of ovarian cyst Hx of breast reduction, elective Hx of tubal ligation History of colon resection H/O colonoscopy Hx of appendectomy History of 3 sections Family History Family History Mother High cholesterol Cardiac arrest Rheumatoid arthritis Alzheimer's dementia Father No known health problems Social History Social History Are you a primary youth career specialist to a significant other at home: No Do you presently have visiting nurse or other home services: No Alcohol intake: never Patient Tobacco Use Status: Never used Tobacco Advance Directives: No Advance Directives Information Provided: No Current occupational status: employed 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 Blood pressure elevated. Heart rate normal. Respiratory rate normal. Temperature normal. Oxygen saturation normal. Appearance: Alert. Oriented X3. No acute distress. Head: Normal external exam. Normocephalic. Atraumatic. No Guzman signs noted. No raccoon eyes noted Eyes: PERRLA. EOMI. Conjunctiva and sclera normal. Eyelids normal. ENT: TM's Normal. Pharynx normal. Uvula midline. Moist mucous membranes. No trismus noted. No drooling noted. No muffled voice noted. Neck: Normal inspection. Neck supple. FROM. No adenopathy. Thyroid Normal. No meningeal signs. No neck mass noted. CVS: Normal heart rate and rhythm. Heart sound normal. No murmurs noted. Pulses normal throughout. Respiratory: No respiratory distress. Painless inspiration. Bilateral expiratory wheezing with prolonged expiration, diminished breathing sounds bilaterally. Chest nontender. No accessory muscle usage noted or decreased air movement noted. Abdomen: Soft and nontender. Bowel sounds normal in all 4 quadrants. No distention noted. No organomegaly noted. No visible injury noted. Back: No CVA tenderness. Full range of motion noted. Skin: Skin warm and dry. Normal skin color. Normal skin turgor. No rashes/lesions/lacerations noted. Extremities: No lower extremity edema. Extremities exhibit normal range of motion. Extremities nontender. Neuro: Oriented X 3. Cranial nerve exam: II-XII are grossly intact No motor deficit. No sensory deficit. Reflexes normal. Course Reevaluation(s) Reevaluation #1: S/p wheezing and cough for 2 weeks. Will start on prednisone/Z-Isidro/albuterol. Time: 05:30 Medications Administered Discontinued Medications Generic Name Dose Route Start Last Admin Trade Name Freq PRN Reason Stop Dose Admin Albuterol Sulfate 5 mg/ 7.5 mg 07/23/24 04:21 07/23/24 04:30 Albuterol Sulfate 2.5 mg INHALE 07/23/24 04:22 7.5 mg ONCE ONE Administration Methylprednisolone Sodium Succinate 125 mg 07/23/24 04:20 07/23/24 04:30 Methylprednisolone Sod Succ 125 Mg Vial IVPUSH 07/23/24 04:21 125 mg ONCE ONE Administration Medical Decision Making Differential Diagnosis Differential Diagnoses: The differential diagnosis associated with the presentation includes (Asthma exacerbation, bronchitis, pneumonia, pneumothorax, pleural effusion, ACS.) Admission/Observation Consideration of admission/observation: Escalation of care including admission/observation considered Lab Data MDM Lab Attestation statement: I reviewed the patient's lab results. 07/23/24 04:25 07/23/24 04:25 Labs: Lab Results 07/23/24 Range/Units 04:25 WBC 8.4 (4.8-10.8) X10*3/uL RBC 4.48 (4.20-5.50) X10*6/uL Hgb 12.9 (12.0-16.0) g/dl Hct 37.9 (37.0-47.0) % MCV 84.6 (80.0-98.0) fL MCH 28.8 (27.0-33.0) pg MCHC 34.0 (31.0-35.0) g/dl RDW 15.4 (11.0-16.0) % Plt Count 286 (160-400) X10*3/uL MPV 11.0 (9.4-12.3) fL Immature Gran % (Auto) 0.4 (0.0-0.4) % Neut % (Auto) 52.5 (45-73) % Lymph % (Auto) 33.3 (20-40) % [place] % (Auto) 7.2 (2-11) % Eos % (Auto) 6.0 H (0-4) % Baso % (Auto) 0.6 (0-2) % Lymph # (Auto) 2.8 (1.2-4.9) X10*3/uL [place] # (Auto) 0.6 (0.1-1.2) X10*3/uL Eos # (Auto) 0.5 H (0.0-0.4) X10*3/uL Baso # (Auto) 0.1 (0.0-0.2) X10*3/uL Abs Immat Gran (auto) 0.03 (0.00-0.03) X10*3/uL Absolute Neuts (auto) 4.4 (2.0-8.3) x10*3/uL Absolute Nucleated RBC 0.000 (0.0-0.012) X10*3/uL Nucleated RBC % (auto) 0.0 (0.0-0.2) /100WBC Sodium 140 (135-145) mmol/L Potassium 4.0 (3.3-5.1) mmol/L Chloride 110 H (96-108) mmol/L Carbon Dioxide 21 L (22-29) mmol/L Anion Gap 13 (12-20) BUN 15 (9-16) mg/dL Creatinine 0.69 (0.5-1.4) mg/dL Estim Creat Clear Calc 81.4 Estimated GFR > 60 Random Glucose 154 H (60-115) mg/dL Calcium 9.8 (8.4-10.2) mg/dL Total Bilirubin 0.5 (0.0-1.0) mg/dL AST 19 (5-31) U/L ALT 26 (0-31) U/L Alkaline Phosphatase 108 (39-117) U/L Troponin I High Sens < 2.7 (<3.5-17.0) ng/L Total Protein 6.9 (6.5-8.0) g/dL Albumin 3.9 (3.5-5.0) g/dL Independent Interpretation I performed an independent interpretation of an: Plain X-Ray (Chest: No acute intrathoracic pathology.) Radiology Impression Discussion of test interpretation with radiology: I have reviewed the radiologist's reading. Discharge Plan Discharge Clinical Impression: Acute asthma exacerbation Patient Disposition: Home, Self-Care Instructions: Asthma (ED) Prescriptions: New prednisone 20 mg tablet 20 mg PO BID Qty: 10 0RF albuterol sulfate 90 mcg/actuation HFA aerosol inhaler 2 puff inhalation Q6H PRN (Reason: shortness of breath or wheezing) Qty: 8.5 0RF azithromycin [Zithromax Z-Isidro] 250 mg tablet See Rx Instructions .ROUTE .COMPLEX Qty: 6 0RF Rx Instructions: For 250 mg dose pack: take 500 mg today (day 1), then 250 mg for 4 days (days 2-5) No Action calcium carbonate 500 mg calcium (1,250 mg) Tablet,Chewable 500 mg PO DAILY PRN (Reason: Acid Reflux) albuterol sulfate 90 mcg/actuation Hfa Aerosol Inhaler 2 puff INHALATION Q4-6H PRN (Reason: Shortness Of Breath Or Wheezing) tramadol 50 mg tablet 50 mg PO Q6H PRN (Reason: pain) Qty: 30 0RF gabapentin 300 mg capsule 300 mg PO BEDTIME Qty: 20 0RF sertraline 25 mg tablet 25 mg PO DAILY fenofibrate micronized 130 mg capsule 130 mg PO DAILY ezetimibe-rosuvastatin 10-40 mg tablet 1 tab PO DAILY hydroxyzine HCl 25 mg tablet 25 mg PO TID PRN (DME) FreeStyle Lite Strips Strip See Rx Instructions .Route Rx Instructions: As directed cholecalciferol (vitamin D3) 50 mcg (2,000 unit) tablet 50 mcg PO DAILY (DME) lancets [Easy Touch Twist Lancets] 33 gauge misc See Rx Instructions .ROUTE BID Qty: 100 Rx Instructions: As directed cyclobenzaprine 5 mg tablet 5 mg PO TID epinephrine 0.3 mg/0.3 mL auto-injector 0.3 mg IM Q10M PRN Rx Instructions: for 2 doses sumatriptan succinate 50 mg tablet 50 mg PO Q2-4H PRN Rx Instructions: do not exceed 4 doses per 24 hrs diclofenac potassium 50 mg tablet 50 mg PO TID glucose [Dex4 Glucose Quick Dissolve] 4 gram tablet,chewable 16 g PO Q15M PRN (Reason: hypoglycemia) Qty: 10 3RF Rx Instructions: until symptoms of low blood sugar are controlled Mounjaro 5 mg/0.5 mL pen injector 5 mg subcut QWEEK Qty: 2 3RF Referrals: Tami Márquez MD [Primary Care Provider] - Print Language: Thai
[2024-07-23 05:08] LABS: Influenza A PCR NEGATIVE (Negative); Influenza B PCR NEGATIVE (Negative); Resp Syncy Virus RNA Qual PCR NEGATIVE (Negative); SARS COV2 PCR INHOUSE NEGATIVE (Negative)
[2024-07-23 06:00] VITALS: BP 110/55; PULSE 105; RESP 18; TEMP 36.5; O2SAT 94
[2024-07-23 06:56] VITALS: BP 110/55; PULSE 105; RESP 18; TEMP 36.5; O2SAT 94
== END 2024-07-23 06:58 | disposition home or self-care (01) ==
PROVIDERS: Emergency Provider Emergency Medicine; PCP Family Medicine
DX: J45.901 Unspecified asthma with (acute) exacerbation (principal); R05.9 Cough, unspecified; R06.02 Shortness of breath; R07.9 Chest pain, unspecified; Z03.818 Encounter for observation for suspected exposure to other biological agents ruled out
CPT/HCPCS: 0241U; 36415; 71046; 80053; 84484; 85025; 93005; 94640; 96374; 99284; 99285; J2919

== ENCOUNTER → 2024-07-23 04:09 | Outpatient (BNV) | payer OTHER, SELFPAY | PROVIDERS: Emergency Provider Emergency Medicine; PCP Family Medicine; Visit Provider Internal Medicine Cardiovascular Disease | DX: R07.89 Other chest pain (principal) | CPT/HCPCS: 93010 ==

== ENCOUNTER → 2024-07-23 05:00 | Outpatient (BNV) | payer OTHER, SELFPAY | PROVIDERS: Emergency Provider Emergency Medicine; PCP Family Medicine; Visit Provider Radiology Diagnostic Radiology | DX: R06.02 Shortness of breath (principal) | CPT/HCPCS: 71046 ==

== ENCOUNTER 2024-07-29 21:24 | Emergency (ER) | payer OTHER, SELFPAY ==
--- NOTE | ~2024-07-29 | XR_ITS ---
CLINICAL HISTORY: sob 1 view chest x-ray Comparison: CR - XR CHEST 2V - 07/23/24 05:04 EDT Findings: No focal consolidation or effusion. No pneumothorax. Cardiomegaly. Pulmonary vasculature is mildly prominent. Interval C5-C6 interbody graft in place. No fractures. IMPRESSION: Cardiomegaly with possible volume overload. This document has been electronically signed by: Mounika Darnell MD on 07/29/2024 22:39:46
--- NOTE | ~2024-07-29 | CT_ITS ---
CLINICAL HISTORY: O2 desaturations CT chest without contrast Comparison: None Findings: The heart size is normal. The visualized thyroid and mediastinum are unremarkable. The lungs are clear. Hypodense liver. The bones are intact. IMPRESSION: 1. Unremarkable heart and lungs. 2. Fatty liver. This document has been electronically signed by: Mounika Darnell MD on 07/30/2024 00:35:52
[2024-07-29 21:29] VITALS: BP 126/68; PULSE 96; RESP 18; TEMP 36.4; O2SAT 95; BMI 30.5
--- OUTSIDE RECORDS SUMMARY | 2024-07-29 21:30 | XMS_ITS | Encounter Summary ---
Author Organization [employer] Address [address] [facility] 7t [place] [address] Care Team Providers Care Toilet And Laundry Soap Supervisor Name Role Phone Tami Márquez MD Primary Care Provider [phone] Reason for Visit * Reason Onset Date Comments Nurse Triage 07/19/2023 Encounter Details Date Type Department Care Team ([facility] Contact Info) Description 07/19/2023 Telephone [facility] MEDICINE [address] [place] [address] Tami Márquez MD [address] [place], [place] [phone] Nurse Triage Social History Tobacco Use Types [...] SHIRIN. Will also send this note to [facility] [place] that is seeing pt. Today at [...] documented in this encounter Plan of Treatment Upcoming Encounters Date Type Department Care Team (Late st Contact Info) Description 07/30/2024 11:15 AM EDT Office Visit [facility] CHC MED & PEDS [address] [place] [address] Tami Márquez MD [address] [place] [address] documented as of this encounter Visit Diagnoses Diagnosis Type 2 diabetes mellitus with hyperglycemia, without long-term current use of insulin ([facility]) documented in this encounter Additional Health Concerns Assessment Noted Time PHQ-9 Depression Total Score: 16 023 3:41 PM EST documented as of this encounter Care Teams Toilet And Laundry Soap Supervisor Relationship Specialty Start Date End Date Tami Márquez MD [address] [place] [address] PCP - General Family Medicine 04/28/21 documented as of this encounter
--- OUTSIDE RECORDS SUMMARY | 2024-07-29 21:30 | XMS_ITS | Encounter Summary ---
Author Organization [employer] Address [address] [facility] 7t [place] [address] Care Team Providers Care Quill Worker Name Role Phone Tami Márquez MD Primary Care Provider [phone] Encounter Details Date Type Department Care Team (Late st Contact Info) Description 02/04/2023 Abstract [facility] MEDICINE [address] [place], [place] [phone] [place] Social History Tobacco Use Types [...] as of this encounter Plan of Treatment Upcoming Encounters Date Type Department Care Team (Late st Contact Info) Description 07/30/2024 11:15 AM EDT Office Visit [facility] MED & PEDS [address] [place] [address] Tami Márquez MD [address] [place] [address] documented as of this encounter Visit Diagnoses Not on filedocumented in this encounter Additional Health Concerns Assessment Noted Time PHQ-9 Depression Total Score: 6 05/18/19 23 9:22 AM EST documented as of this encounter Care Teams Quill Worker Relationship Specialty Start Date End Date Tami Márquez MD [address] [place] [address] PCP - General Family Medicine 04/28/21 documented as of this encounter
--- OUTSIDE RECORDS SUMMARY | 2024-07-29 21:30 | XMS_ITS | Encounter Summary ---
Author Organization [employer] Address [address] [facility] 7t [place] [address] Care Team Providers Care Wastewater Design Engineer Name Role Phone Tami Márquez MD Primary Care Provider [phone] Reason for Visit * Reason Comments Med Refill Encounter Details Date Type Department Care Team ([facility] Contact Info) Description 01/17/2024 Refill [facility] CHC MED & PEDS [address] [place] [address] Tami Márquez MD [address] [place] [address] Mixed hyperlipidemia Social History Tobacco Use Types [...] Upcoming Encounters Date Type Department Care Team ([facility] st Contact Info) Description 07/30/2024 11:15 AM EDT Office Visit [facility] MED & PEDS [address] [place] [address] Tami Márquez MD [address] [place] [address] documented as of this encounter Visit Diagnoses Diagnosis Mixed hyperlipidemia documented in this encounter Additional Health Concerns Assessment Noted Time PHQ-9 Depression Total Score: 16 023 3:41 PM EST documented as of this encounter Care Teams Wastewater Design Engineer Relationship Specialty Start Date End Date Tami Márquez MD [address] [place] [address] PCP - General Family Medicine 04/28/21 documented as of this encounter
--- OUTSIDE RECORDS SUMMARY | 2024-07-29 21:30 | XMS_ITS | Encounter Summary ---
Author Organization [employer] Address [address] [place] [address] 7 [place] [address] Care Team Providers Care Lapping Machine Operator Name Role Phone Tami Márquez MD Primary Care Provider [phone] Reason for Visit * Reason Onset Date Comments Med Refill 10/21/2023 Encounter Details Date Type Department Care Team ([facility] st Contact Info) Description 10/21/2023 Refill [facility] CHC MED & PEDS [address] [place], [place] [phone] Tami Márquez MD [address] [place] [address] Neck pain, chronic Social History Tobacco Use [...] [facility] MED & PEDS [address] [place] [address] Tami Márquez MD [address] [place] [address] documented as of this encounter Visit Diagnoses Diagnosis Neck pain, chronic documented in this encounter Additional Health Concerns Assessment Noted Time PHQ-9 Depression Total Score: 16 023 3:41 PM EST documented as of this encounter Care Teams Lapping Machine Operator Relationship Specialty Start Date End Date Tami Márquez MD [address] [place] [address] PCP - General Family Medicine 04/28/21 documented as of this encounter
--- OUTSIDE RECORDS SUMMARY | 2024-07-29 21:30 | XMS_ITS | Encounter Summary ---
Author Organization [employer] [facility] Address [address] [place] [address] 7 [place] [address] Care Team Providers Care Career Development Specialist Name Role Phone Tami Márquez MD Primary Care Provider [phone] Encounter Details Date Type Department Care Team (Late st Contact Info) Description 03/29/2022 Orders Only [facility] MEDICINE [address] [place] [address] Mari Turner LPN Social History Tobacco Use [...] Description 07/30/2024 11:15 AM EDT Office Visit [facility] CHC MED & PEDS [address] [place] [address] Tami Márquez MD [address] [place] [address] documented as of this encounter Visit Diagnoses Not on filedocumented in this encounter Care Teams Career Development Specialist Relationship Specialty Start Date End Date Tami Márquez MD [address] [place] [address] PCP - General Family Medicine 04/28/21 documented as of this encounter
--- OUTSIDE RECORDS SUMMARY | 2024-07-29 21:30 | XMS_ITS | Encounter Summary ---
Author Organization [employer] Address [address] [facility] [address] [place] [address] Care Team Providers Care Supervisor Pumping Station Name Role Phone Tami Márquez MD Primary Care Provider [phone] Reason for Visit * Reason Onset Date Comments Call Back Request 05/06/2023 Encounter Details Date Type Department Care Team ([facility] Contact Info) Description 05/06/2023 [facility] [address] [place], [place] [phone] Tami Márquez MD [address] [place] [address] Call Back Request Social History Tobacco Use [...] regarding need to speak to provider regarding equipment sales specialist consult 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 Scheduled pt for 05/12 at 9:30 am with PCP. Pt verbalizes understanding and agreement of plan. * Telephone Encounter - Martha Hoang - 05/06/2023 10:09 AM EST Tc from pt requesting to speak with a nurse in regards to a possible surgery. Please contact pt at [phone] documented in this encounter Plan of Treatment Upcoming Encounters Date Type Department Care Team (Late st Contact Info) Description 07/30/2024 11:15 AM EDT Office Visit [facility] MED & PEDS [address] [place] [address] Tami Márquez MD [address] [place] [address] documented as of this encounter Visit Diagnoses Not on filedocumented in this encounter Additional Health Concerns Assessment Noted Time PHQ-9 Depression Total Score: 16 023 3:41 PM EST documented as of this encounter Care Teams Supervisor [place]umping [place] Relationship Specialty Start Date End Date Tami Márquez MD [address] [place] [address] PCP - General Family Medicine 04/28/21 documented as of this encounter
--- OUTSIDE RECORDS SUMMARY | 2024-07-29 21:30 | XMS_ITS | Clinical Summary ---
Author Organization [facility] it Address [address] [place] [address] Care Team Providers Care Sensor Specialist Name Role Phone Sangeetha Horner MD Primary Care Provider [phone] Surgical History Surgery Date Site/Laterality Comments OVARIAN CYST REMOVAL 1982 N/A PROCEDURE: [place] OVARIAN CYSTECTOMY UNI/BI TUBAL LIGATION 1999 PROCEDURE: HISTORICAL TUBAL LIGATION APPENDECTOMY PROCEDURE: HISTORICAL APPENDECTOMY OTHER SURGICAL HISTORY PROCEDURE: PELVIC CONTROL PELVIC SLING OTHER SURGICAL HISTORY 2006 PROCEDURE: [place] COLECTOMY PARTIAL W/ANASTOMOSIS Medical History Medical History [...] age to complete this topic Care Teams Sensor Specialist Relationship Specialty Start Date End Date Sangeetha Horner MD [address] PCP - General Internal Medicine 05/30/18
--- NOTE | 2024-07-29 21:41 | ED.GENADULT ---
HPI - General Adult General Chief complaint: Upper Respiratory Symptoms Stated complaint: asthma Time Seen by Provider: 07/29/24 21:31 Source: patient Mode of arrival: ambulatory Limitations: no limitations History of Present Illness ED Provider: Dr. Lenora Summers HPI narrative: Patient comes to the emergency room complaining of shortness of breath/asthma exacerbation. Patient states that she used her inhaler 1 hour prior to arrival. Patient states that she is taking a Z-Isidro which was prescribed a few days ago. Patient states that she feels chest tightness. No pain. Related Data Home Medications ?Medication ?Instructions ?Recorded ?Confirmed calcium carbonate 500 mg PO DAILY PRN Acid Reflux 06/27/23 05/08/24 albuterol sulfate 90 mcg/actuation 2 puff inhalation Q4-6H PRN 07/11/23 05/08/24 aerosol inhaler Shortness Of Breath Or Wheezing blood sugar diagnostic (FreeStyle 04/10/24 05/08/24 Lite Strips) cholecalciferol (vitamin D3) 50 50 mcg PO DAILY 04/10/24 05/08/24 mcg (2,000 unit) tablet cyclobenzaprine 5 mg tablet 5 mg PO TID 04/10/24 05/08/24 diclofenac potassium 50 mg tablet 50 mg PO TID 04/10/24 05/08/24 epinephrine 0.3 mg/0.3 mL 0.3 mg IM Q10M PRN 04/10/24 05/08/24 injection, auto-injector ezetimibe 10 mg-rosuvastatin 40 mg 1 tab PO DAILY 04/10/24 05/08/24 tablet fenofibrate micronized 130 mg 130 mg PO DAILY 04/10/24 05/08/24 capsule hydroxyzine HCl 25 mg tablet 25 mg PO TID PRN 04/10/24 05/08/24 lancets 33 gauge (Easy Touch Twist #100 ea 04/10/24 05/08/24 Lancets) sertraline 25 mg tablet 25 mg PO DAILY 04/10/24 05/08/24 sumatriptan succinate 50 mg tablet 50 mg PO Q2-4H PRN 04/10/24 05/08/24 Previous Rx's ?Medication ?Instructions ?Recorded tramadol 50 mg tablet 50 mg PO Q6H PRN pain #30 tabs 07/11/23 gabapentin 300 mg capsule 300 mg PO BEDTIME #20 caps 07/30/23 glucose 4 gram chewable tablet 16 g (4 x 4 gram) PO Q15M PRN 04/10/24 (Dex4 Glucose Quick Dissolve) hypoglycemia #10 tabs tirzepatide 5 mg/0.5 mL 5 mg (0.5 mL) subcut QWEEK #2 mL 06/16/24 subcutaneous pen injector (Edgarunanuradharo) albuterol sulfate 90 mcg/actuation 2 puff inhalation Q6H PRN 07/23/24 aerosol inhaler shortness of breath or wheezing #8.5 grams azithromycin 250 mg tablet See Rx Instructions PO .COMPLEX #6 07/23/24 (Zithromax Z-Isidro) tabs prednisone 20 mg tablet 20 mg PO BID #10 tabs 07/23/24 acetaminophen 500 mg tablet 500 mg PO Q6H PRN fever or pain 07/30/24 #30 tabs benzonatate 100 mg capsule 100 mg PO TID PRN cough #15 caps 07/30/24 Allergies Allergy/AdvReac Type Severity Reaction Status Date / Time morphine [Morphine] Allergy Severe ANAPHYLAXIS Verified 07/29/24 21:29 oxycodone [Percocet] Allergy Severe Anaphylaxis Verified 07/29/24 21:29 hydrocodone [From Vicodin] Allergy Intermediate ANAPHYLAXIS Verified 07/29/24 21:29 shrimp [SHRIMP] Allergy Intermediate Swelling Verified 07/29/24 21:29 metformin AdvReac Unknown diarrhea, Verified 07/29/24 21:29 hair loss narcotics Allergy Anaphylaxis Uncoded 06/16/24 08:37 Review of Systems Review of Systems: Constitutional : No Weight loss, No Fever, No Chills, No Night Sweats, No Fatigue, No Malaise ENT/Mouth : No Hearing loss, No Ear Pain, No Nasal Congestion, No Sinus Pain, No Hoarseness, No sore throat, No Rhinorrhea, No Swallowing Difficulty Eyes: No Eye Pain, No Swelling, No Redness, No Foreign Body, No Discharge, No Vision Changes Cardiovascular : No Chest Pain, no orthopnea, no edema no palpitations Respiratory : Complaining of shortness of breath, chest tightness Gastrointestinal : No Nausea, No Vomiting, No Diarrhea, No Constipation, No abdominal Pain, No Hematochezia, No Melena Genitourinary : no irregular bleeding, No Dysuria, No Urinary Frequency, No Hematuria, No Urinary Incontinence, No Urgency, No Flank Pain, No Urinary Flow Changes, No Hesitancy Musculoskeletal : No joint pain, No Myalgias, No Joint Swelling Skin : No Skin Lesions, No rash Neuro : No Weakness, No Numbness, No Paresthesias, No Loss of Consciousness, No Dizziness, No Headache Psych : No Anxiety/Panic, No Depression, No SI/HI/AH/VH, No Social Issues, Heme/Lymph: No Bruising, No Bleeding,No Lymphadenopathy Endocrine : No Polyuria, No Polydipsia, No Temperature Intolerance [facility] Past Medical History Medical History Type II diabetes mellitus, well controlled Hepatic steatosis Elevated LFTs GERD (gastroesophageal reflux disease) Hx of lipoma Varicose vein of leg Cervical spinal stenosis Difficulty swallowing Diabetes Murmur Bronchitis Hernia Asthma Diverticulitis High cholesterol Patellofemoral arthritis Surgical History Hx of cataract extraction Hx of bladder repair surgery History of tonsillectomy Hx of carpal tunnel repair History of removal of ovarian cyst Hx of breast reduction, elective Hx of tubal ligation History of colon resection H/O colonoscopy Hx of appendectomy History of 3 sections Family History Family History Mother High cholesterol Cardiac arrest Rheumatoid arthritis Alzheimer's dementia Father No known health problems Social History Social History Are you a primary career and technology education teacher to a significant other at home: No Do you presently have visiting nurse or other home services: No Alcohol intake: never Patient Tobacco Use Status: Never used Tobacco Advance Directives: No Advance Directives Information Provided: Yes Do you have a plan to hurt others: No Plan Current occupational status: employed 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 Oriented X3. No acute distress. Eyes: Pupils equal, round and reactive to light. ENT: Pharynx normal. Neck: Normal inspection. Neck supple. No lymph nodes noted. No crepitus CVS: Normal heart rate and rhythm. Pulses normal. Normal S1 and S2 Respiratory: No respiratory distress. Breath sounds normal. No Wheezing. No rales Abdomen: Soft and nontender. No rigidity. No distention. Skin: Skin warm and dry. Normal skin color. Normal skin turgor. Extremities: No lower extremity edema. No Lacerations. No Rash Neuro: Oriented X 3. No motor deficit. No sensory deficit. Moving all extremities. No slurred speech. CN 2 through 12 grossly intact Psych: calm, cooperative, normal affect Course Course Course Narrative: Patient is not wheezing at all. Patient has a good air movement Patient reporting chest tightness without pain. EKG was ordered but patient refused. It was explained to the patient that we can not rule out any cardiac etiology of her chest tightness without the EKG. Patient told the waste transportation technician to go away Medications Administered Discontinued Medications Generic Name Dose Route Start Last Admin Trade Name Viridiana PRN Reason Stop Dose Admin Magnesium Sulfate 2 gm in 50 mls @ 150 mls/hr 07/29/24 21:33 07/29/24 22:11 Magnesium Sulfate/H2o IV 07/29/24 21:52 Infused ONCE ONE Infusion Methylprednisolone Sodium Succinate 125 mg 07/29/24 21:33 07/29/24 21:51 Methylprednisolone Sod Succ 125 Mg Vial IVPUSH 07/29/24 21:34 125 mg ONCE ONE Administration Ondansetron HCl 4 mg 07/29/24 21:56 07/29/24 22:00 Ondansetron Hcl 4 Mg/2 Ml Vial IVPUSH 07/29/24 21:57 4 mg ONCE ONE Administration Medical Decision Making Medical Decision Making [facility] Narrative: My interpretation of labs: Patient's white blood cell count 13.7, likely secondary to prednisone. Patient is finish a 5 day course of prednisone. D-dimer negative at 177, no significant abnormality in patient's chemistry or electrolytes, glucose 294, patient known to be diabetic. Patient's troponin negative, BNP negative Chest x-ray shows cardiomegaly, pulmonary vasculature is mildly prominent. We will obtain a BNP Patient was ambulated around the emergency room, oxygen saturation remained at 96% walking. CT scan of the chest did not show any acute abnormality, normal size heart, no vascular congestion, no pneumonia PE is not suspected, patient's D-dimer negative, no contributing past medical history that would indicate a pulmonary embolism, patient is not tachycardic, not hypoxic. Wells criteria score for pulmonary embolism is 0 Patient states that at this time, she has no chest pain or shortness of breath, patient states that she has some achiness from coughing so much. Given the patient's duration of symptoms, history of URI and cough, patient likely has viral bronchitis. I considered sending cough syrup with codeine, however patient is allergic to narcotics. Patient was given a script for [employer]. Patient agrees with plan, patient feels ready for discharge Differential Diagnosis Differential Diagnoses: The differential diagnosis associated with the presentation includes (Influenza, COVID, RSV, viral URI, asthma exacerbation) Lab Data 07/29/24 21:48 07/29/24 21:48 Labs: Lab Results 07/29/24 07/29/24 07/29/24 Range/Units 21:42 21:48 22:17 WBC 13.7 H (4.8-10.8) X10*3/uL RBC 4.72 (4.20-5.50) X10*6/uL Hgb 13.7 (12.0-16.0) g/dl Hct 39.9 (37.0-47.0) % MCV 84.5 (80.0-98.0) fL MCH 29.0 (27.0-33.0) pg MCHC 34.3 (31.0-35.0) g/dl RDW 15.5 (11.0-16.0) % Plt Count 297 (160-400) X10*3/uL MPV 10.8 (9.4-12.3) fL Immature Gran % (Auto) 0.4 (0.0-0.4) % Neut % (Auto) 79.7 H (45-73) % Lymph % (Auto) 14.0 L (20-40) % Rankin % (Auto) 2.6 (2-11) % Eos % (Auto) 2.9 (0-4) % Baso % (Auto) 0.4 (0-2) % Lymph # (Auto) 1.9 (1.2-4.9) X10*3/uL Rankin # (Auto) 0.4 (0.1-1.2) X10*3/uL Eos # (Auto) 0.4 (0.0-0.4) X10*3/uL Baso # (Auto) 0.1 (0.0-0.2) X10*3/uL Abs Immat Gran (auto) 0.05 H (0.00-0.03) X10*3/uL Absolute Neuts (auto) 11.0 H (2.0-8.3) x10*3/uL Absolute Nucleated RBC 0.000 (0.0-0.012) X10*3/uL Nucleated RBC % (auto) 0.0 (0.0-0.2) /100WBC D-Dimer High Sensitivty 177 NG/ML Sodium 138 (135-145) mmol/L Potassium 4.3 (3.3-5.1) mmol/L Chloride 109 H (96-108) mmol/L Carbon Dioxide 22 (22-29) mmol/L Anion Gap 11 L (12-20) BUN 14 (9-16) mg/dL Creatinine 0.61 (0.5-1.4) mg/dL Estim Creat Clear Calc 94.6 Estimated GFR > 60 Random Glucose 294 H (60-115) mg/dL Calcium 9.3 (8.4-10.2) mg/dL Troponin I High Sens < 2.7 (<3.5-17.0) ng/L B-Natriuretic Peptide < 10 (<100) pg/mL Influenza Type A (PCR) NEGATIVE (Negative) Influenza Type B (PCR) NEGATIVE (Negative) RSV RNA Qual (PCR) NEGATIVE (Negative) SARS-CoV-2 RNA (RT-PCR) NEGATIVE (Negative) Discharge Plan Discharge Clinical Impression: Chest pain, musculoskeletal, Acute viral bronchitis Patient Disposition: Home, Self-Care Instructions: Chest Pain (ED), Acute Cough (ED), Chest Wall Pain (ED) Additional Instructions: Please follow-up with your primary care physician tomorrow. If you have any worsening or new symptoms, please return to the emergency room or call 911 Prescriptions: New benzonatate 100 mg capsule 100 mg PO TID PRN (Reason: cough) Qty: 15 0RF acetaminophen 500 mg tablet 500 mg PO Q6H PRN (Reason: fever or pain) Qty: 30 0RF No Action calcium carbonate 500 mg calcium (1,250 mg) Tablet,Chewable 500 mg PO DAILY PRN (Reason: Acid Reflux) albuterol sulfate 90 mcg/actuation Hfa Aerosol Inhaler 2 puff INHALATION Q4-6H PRN (Reason: Shortness Of Breath Or Wheezing) tramadol 50 mg tablet 50 mg PO Q6H PRN (Reason: pain) Qty: 30 0RF prednisone 20 mg tablet 20 mg PO BID Qty: 10 0RF albuterol sulfate 90 mcg/actuation HFA aerosol inhaler 2 puff inhalation Q6H PRN (Reason: shortness of breath or wheezing) Qty: 8.5 0RF azithromycin [Zithromax Z-Isidro] 250 mg tablet See Rx Instructions .ROUTE .COMPLEX Qty: 6 0RF Rx Instructions: For 250 mg dose pack: take 500 mg today (day 1), then 250 mg for 4 days (days 2-5) gabapentin 300 mg capsule 300 mg PO BEDTIME Qty: 20 0RF sertraline 25 mg tablet 25 mg PO DAILY fenofibrate micronized 130 mg capsule 130 mg PO DAILY ezetimibe-rosuvastatin 10-40 mg tablet 1 tab PO DAILY hydroxyzine HCl 25 mg tablet 25 mg PO TID PRN (DME) FreeStyle Lite Strips Strip See Rx Instructions .Route Rx Instructions: As directed cholecalciferol (vitamin D3) 50 mcg (2,000 unit) tablet 50 mcg PO DAILY (DME) lancets [Easy Touch Twist Lancets] 33 gauge misc See Rx Instructions .ROUTE BID Qty: 100 Rx Instructions: As directed cyclobenzaprine 5 mg tablet 5 mg PO TID epinephrine 0.3 mg/0.3 mL auto-injector 0.3 mg IM Q10M PRN Rx Instructions: for 2 doses sumatriptan succinate 50 mg tablet 50 mg PO Q2-4H PRN Rx Instructions: do not exceed 4 doses per 24 hrs diclofenac potassium 50 mg tablet 50 mg PO TID glucose [Dex4 Glucose Quick Dissolve] 4 gram tablet,chewable 16 g PO Q15M PRN (Reason: hypoglycemia) Qty: 10 3RF Rx Instructions: until symptoms of low blood sugar are controlled Mounjaro 5 mg/0.5 mL pen injector 5 mg subcut QWEEK Qty: 2 3RF Print Language: Danish
--- NOTE | 2024-07-29 21:43 | ECG_ITS ---
Test Reason : CHEST PRESSURE Blood Pressure : */* mmHG Vent. Rate : 96 BPM Atrial Rate : 96 BPM P-R Int : 136 ms QRS Dur : 88 ms QT Int : 346 ms P-R-T Axes : 29 -7 1 degrees QTcB Int : 437 ms Normal sinus rhythm Moderate voltage criteria for LVH, may be normal variant ( R in aVL , Pepe product ) Borderline ECG When compared with ECG of 23-Jul-2024 04:09, No significant change was found Referred By: Lenora Summers Electronically Signed By: Marty Davenport
[2024-07-29 21:51] LABS: MANUAL DIFF FLAG NO
[2024-07-29] MEDS: Magnesium Sulfate/H2O 2 GM/50 ML PIGGYBACK IV (21:51)
[2024-07-29 21:54] LABS: Basophils Absolute Auto 0.1 X10*3/uL (0.0-0.2); Basophils Percent Auto 0.4 % (0-2); Eosinophils Absolute Auto 0.4 X10*3/uL (0.0-0.4); Eosinophils Percent Auto 2.9 % (0-4); Hematocrit 39.9 % (37.0-47.0); Hemoglobin 13.7 g/dl (12.0-16.0); Imm Gran Abs Auto 0.05 X10*3/uL (0.00-0.03); Imm Gran Pct Auto 0.4 % (0.0-0.4); Lymphocytes Absolute Auto 1.9 X10*3/uL (1.2-4.9); Mean Corpuscular HGB Conc 34.3 g/dl (31.0-35.0); Mean Corpuscular Volume 84.5 fL (80.0-98.0); Mean Platelet Volume 10.8 fL (9.4-12.3); Monocytes Absolute Auto 0.4 X10*3/uL (0.1-1.2); Monocytes Percent Auto 2.6 % (2-11); Neutrophils Percent Auto 79.7 % (45-73); Platelet Count 297 X10*3/uL (160-400); Red Blood Count 4.72 X10*6/uL (4.20-5.50); Red Cell Distribution Width 15.5 % (11.0-16.0); White Blood Count 13.7 X10*3/uL (4.8-10.8)
[2024-07-29] MEDS: ondansetron HCL 4 MG/2 ML VIAL IVPUSH (22:00)
--- NOTE | 2024-07-29 22:00 | MHC.EDTECH ---
Pt refused to do EKG. Explained how important the test was and she still didnt want to do it. I let the nurse know and also Dr. Summers
[2024-07-29 22:07] LABS: Anion Gap 11 (12-20); Blood Urea Nitrogen 14 mg/dL (9-16); Calcium 9.3 mg/dL (8.4-10.2); Carbon Dioxide 22 mmol/L (22-29); Chloride 109 mmol/L (96-108); Creatinine Clr Calc Pharmacy 94.6; Estimated Glomerular Filt Rate > 60; Glucose Random 294 mg/dL (60-115); Potassium 4.3 mmol/L (3.3-5.1); Sodium 138 mmol/L (135-145)
[2024-07-29 22:16] LABS: Troponin-I High Sensitivity < 2.7 ng/L (<3.5-17.0)
[2024-07-29 22:24] LABS: Influenza A PCR NEGATIVE (Negative); Influenza B PCR NEGATIVE (Negative); Resp Syncy Virus RNA Qual PCR NEGATIVE (Negative); SARS COV2 PCR INHOUSE NEGATIVE (Negative)
[2024-07-29 22:42] LABS: D Dimer High Sensitivity 177 NG/ML
--- NOTE | 2024-07-29 23:00 | PC.NURSE ---
ambulation trial, pt remains at 96% when walking. tolerated well
[2024-07-29 23:36] LABS: B Type Natriuretic Peptide < 10 pg/mL (<100)
[2024-07-29 23:57] VITALS: BP 115/58; PULSE 99; RESP 18; TEMP 36.4; O2SAT 93
[2024-07-30 01:31] VITALS: BP 113/74; PULSE 107; RESP 20; TEMP 36.4; O2SAT 94
[2024-07-30 01:32] VITALS: BP 113/74; PULSE 107; RESP 20; TEMP 36.4; O2SAT 94
== END 2024-07-30 01:32 | disposition home or self-care (01) ==
PROVIDERS: Emergency Provider Emergency Medicine; PCP Family Medicine
DX: J20.8 Acute bronchitis due to other specified organisms (principal); R07.89 Other chest pain; R05.9 Cough, unspecified; R06.02 Shortness of breath; Z03.818 Encounter for observation for suspected exposure to other biological agents ruled out; Z79.899 Other long term (current) drug therapy
CPT/HCPCS: 0241U; 36415; 71045; 71250; 80048; 83880; 84484; 85025; 85379; 93005; 96365; 96375; 99284; J2405; J2919; J3475

== ENCOUNTER → 2024-07-29 21:43 | Outpatient (BNV) | payer OTHER, SELFPAY | PROVIDERS: Emergency Provider Emergency Medicine; PCP Family Medicine; Visit Provider Internal Medicine Cardiovascular Disease | DX: R07.89 Other chest pain (principal) | CPT/HCPCS: 93010 ==

== ENCOUNTER → 2024-07-29 21:43 | Outpatient (BNV) | payer OTHER, SELFPAY | PROVIDERS: Emergency Provider Emergency Medicine; PCP Family Medicine; Visit Provider Radiology Diagnostic Radiology | DX: R06.02 Shortness of breath (principal) | CPT/HCPCS: 71045 ==

== ENCOUNTER 2024-11-10 10:27 | Outpatient (AMB) | payer OTHER, SELFPAY ==
[2024-11-10 10:46] VITALS: BP 100/60; PULSE 81; O2SAT 96; BMI 30.2
--- NOTE | 2024-11-10 10:46 | A.OFFVIS_ITS ---
Vital Signs 11/10/24 10:46 Height 5 ft 2 in Weight 165 lb 5.547 oz BMI 30.2 BP 100/60 Blood Pressure Location Rt brachial Position Sitting Pulse 81 Pulse Source Pulse Oximeter Pulse Oximetry (%) 96 Oxygen Delivery Method Room Air Intake Visit Reasons: T2DM Intake Note: Patient present today to follow up on Type 2 Diabetes Mellitus. Last Diabetic Eye exam: 03/2024 [facility]. Last Podiatry Visit: Does not see a Patient Registration Specialist Random Glucose: 110 mg/dL HgA1C: 6.8%, 11/10/2024 Accompanied by: Self / Same As Patient Allergies morphine (Morphine) Allergy (Severe, Verified 07/29/24 21:29) ANAPHYLAXIS oxycodone (Percocet) Allergy (Severe, Verified 07/29/24 21:29) Anaphylaxis hydrocodone (From Vicodin) Allergy (Intermediate, Verified 07/29/24 21:29) ANAPHYLAXIS shrimp (SHRIMP) Allergy (Intermediate, Verified 07/29/24 21:29) Swelling metformin Adverse Reaction (Unknown, Verified 07/29/24 21:29) diarrhea, hair loss narcotics Allergy (Uncoded 06/16/24 08:37) Anaphylaxis HPI Comments Details: This is a 59-year-old female with a past medical history of type 2 diabetes, osteoarthritis and hepatic steatosis presenting for diabetic management. She was diagnosed with diabetes in 2021. She does not have her glucometer with her today. She reports her fasting blood sugars 100-133. Hemoglobin a1c 6.8% today. She met with the dietitian, and she is trying to incorporate sources of fiber into her diet. Current medication regimen: Mounjaro 5 mg weekly. Past medication: We discontinued Trulicity to start Mounjaro because Trulicity not help with weight loss. Metformin discontinued due to intolerable side effects. Glipizide discontinued when we increased Mounjaro. Hypoglycemia symptoms: None Hyperglycemia symptoms: None Eye exam: Missed appointment last week. She will reschedule this. Microvascular complications: None Macrovascular complications: None ROS: Constitutional: No unexplained weight loss, fever, chills or night sweats. Gastrointestinal: No anorexia, nausea, vomiting or diarrhea. No abdominal pain Neurologic: No numbness or tingling in the extremities Skin: No rash or open wounds Endocrine: No cold or heat intolerance. No polyuria or polydipsia. Physical exam: Constitutional: Alert, in no distress. Eyes: Pupils are equal, round and reactive to light. Extraocular muscles intact. Neck: Supple, Full range of motion. No lymphadenopathy. No palpable thyroid masses. Respiratory: Clear to auscultation. Cardiovascular: S1 S2 regular. II/ systolic murmur (pt reports this is not new and was evaluated by pcp with echo) [facility] Medical History Type II diabetes mellitus, well controlled Hepatic steatosis Elevated LFTs GERD (gastroesophageal reflux disease) Hx of lipoma Varicose vein of leg Cervical spinal stenosis Difficulty swallowing Diabetes Murmur Bronchitis Hernia Asthma Diverticulitis High cholesterol Patellofemoral arthritis Surgical History Hx of cataract extraction Hx of bladder repair surgery History of tonsillectomy Hx of carpal tunnel repair History of removal of ovarian cyst Hx of breast reduction, elective Hx of tubal ligation History of colon resection H/O colonoscopy Hx of appendectomy History of 3 sections Family History Mother High cholesterol Cardiac arrest Rheumatoid arthritis Alzheimer's dementia Father No known health problems Social History Are you a primary personal carer to a significant other at home: No Do you presently have visiting nurse or other home services: No Alcohol intake: never Patient Tobacco Use Status: Never used Tobacco Current occupational status: employed 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 Physical Exam Vital Signs: Last Vital Signs Pulse 81 11/10/24 10:46 BP 100/60 11/10/24 10:46 Pulse Ox 96 11/10/24 10:46 Oxygen Delivery Method Room Air 11/10/24 10:46 BMI result Body Mass Index 30.2 Results AMB Hemoglobin A1c AMB Hemoglobin A1c 6.8 % Last Edit by SHADE Chi on 11/10/24 11:01 Results Reviewed Results Reviewed: Laboratory Last Values Glucose (Clinic) 110 mg/dL (60-115) 11/10/24 10:52 Assessment & Plan Assessment & Plan (1) Type II diabetes mellitus, well controlled: Code(s): E11.9 - Type 2 diabetes mellitus without complications Category: Medical Plan In summary this is a 59-year-old female with controlled type 2 diabetes. Discussed pathophysiology of Type II Diabetes Mellitus with the patient in detail.? I explained the fci risks and complications associated with uncontrolled diabetes including nephropathy, neuropathy, peripheral vascular disease, retinopathy, increased risk of heart disease and stroke.? Discussed lifestyle modification with the patient. Recommended 30 minutes of moderately vigorous exercise 5 days per week to promote weight loss. Patient instructed to bring glucometer to all appointments. She saw the dietitian. Patient would like to stay on 5 mg Mounjaro for now. If she would like to increase to promote weight loss she will message me via the patient portal. If you experience low blood sugar, treat this by eating a chewable fruit candy like skittles or jelly beans (about 8 pieces), 4 ounces (1/2 cup) of fruit juice (not diet), 1 tablespoon of honey or 4 glucose tablets. If your blood sugar is under 50, take double the amount of one of the above. Recheck your blood sugar in 15 minutes. Follow up in 3 months for type 2 diabetes. Orders: Orders AMB Hemoglobin A1c Today E11.65 - Type 2 diabetes mellitus with hyperglycemia Microalbumin, Random (w Creat) Today E11.9 - Type 2 diabetes mellitus without complications Alanine Aminotransferase Today E11.9 - Type 2 diabetes mellitus without complications Aspartate Amino Transferase Today E11.9 - Type 2 diabetes mellitus without complications Creatinine Today E11.9 - Type 2 diabetes mellitus without complications Medications: Refilled tirzepatide (Mounjaro) 5 mg (0.5 mL) subcut QWEEK 6 mL 2RF E11.9 - Type 2 diabetes mellitus without complications Coding Level of Care Code Est Pt Level 4 (42840) Complex EM visit Add On G2211 Diagnoses Type II diabetes mellitus, well controlled E11.9
[2024-11-10 10:56] LABS: Glucose, Whole Blood 110 mg/dL (60-115)
--- OUTSIDE RECORDS SUMMARY | 2024-11-10 11:59 | XMS_ITS | Encounter Summary ---
Author Organization [employer] Address [address] [place] [address] [address] [place] [address] Care Team Providers Care Commercial Fisher Name Role Phone Tami Márquez MD Primary Care Provider [phone] Reason for Visit * Reason Onset Date Comments Med Refill 10/21/2023 Encounter Details Date Type Department Care Team ([facility] st Contact Info) Description 10/21/2023 Refill [facility] [address] [place], [place] [id number] Tami Márquez MD [address] [place] [address] Neck pain, chronic Social History Tobacco Use [...] documented as of this encounter Care Teams Commercial Fisher Relationship Specialty Start Date End Date Tami Márquez MD [address] [place] [address] PCP - General Family Medicine 04/28/21 documented as of this encounter
--- OUTSIDE RECORDS SUMMARY | 2024-11-10 11:59 | XMS_ITS | Encounter Summary ---
Author Organization [employer] Address [address] [place] [address] [address] [place] [address] Care Team Providers Care Loaders Name Role Phone Tami Márquez MD Primary Care Provider [phone] Encounter Details Date Type Department Care Team (Late st Contact Info) Description 03/29/2022 Orders Only [facility] MEDICINE [address] [place], [place] [phone] Mari Turner LPN Social History Tobacco Use [...] on filedocumented in this encounter Care Teams Loaders Relationship Specialty Start Date End Date Tami Márquez MD [address] [place] [address] PCP - General Family Medicine 04/28/21 documented as of this encounter
--- OUTSIDE RECORDS SUMMARY | 2024-11-10 11:59 | XMS_ITS | Clinical Summary ---
Author Organization [employer] Address [address] [facility] 7t [place] [address] Care Team Providers Care Pulverizer Tender Name Role Phone Tami Márquez MD Primary Care Provider Allergies Active Allergy Reactions Criticality Noted Date [...] 2 times daily. 90 g 4 Active EPINEPHrine (Epipen) 0.3 MG/0.3ML injection [...] hyperglycemia, without long-term current use of insulin ([facility]) Inject 0.75 mg under the skin [...] 90 tablet 1 4 Active Continuous Glucose Foreign Language Interpreter (FreeStyle Suresh 2 [place]) deviceIndications: Type 2 diabetes mellitus with hyperglycemia, without long-term current use of insulin ([facility]/HCC) Scan sensor every 8 hours. Patient aware insurance will not cover, will want to pay out of pocket. 1 each 4 Active Continuous Glucose Sensor (FreeStyle Suresh 2 Sensor) miscIndications:Ty pe 2 diabetes mellitus with hyperglycemia, without long-term current use of insulin (CMS/HCC) Apply 1 sensor every 14 days. Patient aware insurance will not cover, will want to pay out of pocket. 2 each 4 Active fenofibrate micronized (Antara) 130 MG capsule Take 1 capsule (130 mg) by mouth with breakfast. 90 capsule 1 4 Active sertraline (Zoloft) 25 MG tablet Take 1 tablet (25 mg) by mouth Once per day. 90 tablet 4 Active albuterol (Proventil HFA) 108 (90 Base) MCG/ACT inhaler Inhale 2 puffs every 4 (four) hours if needed for wheezing. 18 g 2 5 Active fluocinonide (Lidex) 0.05 % external solutionIndication s:Dermatitis Apply topically 2 times daily. 60 mL 1 4 025 Active Problems Problem Noted Date Diagnosed Date [...] intervention , Patient to reach out to [facility] team as needed, Patient to engage in OP therapy , and Patient to reach out to [facility] as needed Assessment & Plan (02/15/2023 [...] intervention , Patient to reach out to [facility] team as needed, Patient to engage in OP BH therapy , and Patient to reach out to [facility] as needed Family problems 02/15/2023 Assessment [...] intervention , Patient to reach out to [facility] team as needed, Patient to engage in OP BH therapy , and Patient to reach out to [facility] as needed Class 1 obesity due [...] Health Integration Plan Internal Follow up with [facility] External OP therapy referral Patient Self Plan Patient to utilize skills provided in intervention , Patient to reach out to [facility] team as needed, Comply with medication , [...] Encounters Date Type Department Care Team Description 11/10/2024 Orders Only GENERIC EXTERNAL DATA DEPARTMENT Provider, Generic External Data from Last 3 Months Immunizations Immunization Administration Dates Next Due Tdap 03/01/2021 Family [...] 81 01/23/2024 11:04 AM EST Temperature 36.2 C (97.2 F) 01/23/2024 11:04 AM EST Respiratory Rate 12 01/23/2024 11:04 AM EST [...] FOBT 1965 HIV Screening 1965 Sigmoidoscopy 1965 Disability Screening 1965 Eye Exam 1975 Hepatitis C Screening 1983 Hepatitis A Vaccines (1 of 2 - Risk 2-dose series) 1984 Hepatitis B Vaccines (1 of 3 - 19+ 3-dose series) 1984 Pneumococcal Vaccine: 50+ Years (1 of 2 - PCV) 1984 Zoster Vaccines (1 of 2) 2015 COVID-19 Vaccine (3 - season) 2023 06/23/2020, 06/02/2020 Diabetes: Foot Exam 03/01/2024 03/01/2023, 03/01/2023, 03/01/2023, Additional history exists SDOH Screening 07/31/2024 08/01/2023 Diabetes: Hemoglobin A1C 08/22/2024 024, 01/23/2024, 08/12/2023, Additional history exists Influenza Vaccine (#1) 2024 Alcohol/Substance Use Screening 02/19/2025 02/20/2024 Depression Screening [...] Associated Diagnosis Comments GLUCOSE, WHOLE BLOOD Routine 11/10/2024 10:52 AM EDT HEMOGLOBIN A1C Routine 02/22/2024 8:29 AM EST Type 2 diabetes mellitus with hyperglycemia, without long-term current use of insulin ([facility]) LIPID PANEL, STANDARD Routine 02/22/2024 8:29 AM EST Type 2 diabetes mellitus with hyperglycemia, without long-term current use of insulin ([facility]) ALBUMIN, RANDOM URINE W/CREATININE Routine 02/22/2024 8:25 AM EST THINPREP IMAGING PAP AND HPV MRNA E6/E7 Routine 11/05/2023 10:30 AM EDT BI MAMMOGRAM SCREENING TOMOSYNTHESIS BILATERAL Routine 04/09/2023 11:15 AM EST Breast cancer screening by mammogram from Last 3 Months or Most Recently Relevant to Health Maintenance Results * Glucose, Whole Blood (11/10/2024 10:52 AM EDT) Glucose, Whole Blood 110 60 - 115 mg/dL [facility] Comment:METER #: [id number] Testing performed in the Endocrinology Department [address] , [address], [facility]. 11/10/2024 10:5 2 AM EDT 11/10/2024 10:55 AM EDT us Generic External Data Provider LAB BLOOD ORDERAB LES Final Result Performing Organization Address [facility]/ZIP Co de Phone Number [facility] [address] [place] [phone] * (ABNORMAL) Hemoglobin A1c (02/22/2024 8:29 AM EST) Hemoglobin A1c 6.8(H) <6.0 % [facility] Comment:Hemoglobin A1C Refer ence Range Adults: 4.8 - 6.0 % Non diabetic: < 6.0 % Goal: < 7.0 %Additional Action Suggested: > 8.0 %Note: Hemoglobin A1c results are invalid for patients with abnormal amounts of HbF. Blood transfusions may impact the HbA1c concentration in the patient sample. Estimated Average Glucose 148 mg/dL [facility] Comment:eAG = Estimated ave rage glucose which is %A1C expressed asaverage glucose, using the formula of the R2N-CcpufusSbxkqcm Glucose study (ADAG), Diabetes Care, Vol.31,#8,Oct. 2007 Blood Venous blood specimen / Unknown 02/22/2024 8:29 AM EST 02/22/2024 8:29 AM EST us Tami Márquez MD LAB BLOOD ORDERABLES Final Re sult Performing Organization Address [facility]/ZIP Co de Phone Number [facility] [address] [place] [phone] * (ABNORMAL) Lipid Panel, Standard (02/22/2024 8:29 AM EST) Triglycerides 264(H) <150 mg/dL [facility] Comment:Desirable Triglyceri de: less than 150 mg/dLBorderline High Triglyceride 150-199 mg/dLHigh Triglyceride: 200-499 mg/dLVery High Triglyceride: greater than or equal to 5OO mg/dL Cholesterol 246(H) <200 mg/dL [facility] Comment:Desirable Cholestero l: less than 200 mg/dLBorderline High Cholesterol: 200-239 mg/dLHigh Cholesterol: greater than 239 mg/dL LDL Cholesterol Calculated 155(H) <100 mg/dL [facility] Comment:Desirable LDL: less than 100 mg/dLNear Optimal/Above Optimal LDL: 110- 129 mg/dLBorderline High LDL: 130-159 mg/dLHigh LDL: 160-189 mg/dLVery High LDL: greater than or equal to 190 mg/dL HDL Cholesterol 39(L) >40 mg/dL [facility] Comment:Desirable HDL: great er than 40 mg/dL Note: This HDL assay may give artificially low results in patients with liver disease. Blood Venous blood specimen / Unknown 02/22/2024 8:29 AM EST 02/22/2024 8:29 AM EST us Tami Márquez MD LAB BLOOD ORDERABLES Final Re sult Performing Organization Address [facility] de Phone Number [facility] [address] [place] [address] [phone] Albumin, Random Urine W/Creatinine (02/22/2024 8:25 AM EST) Creatinine, Urine 172.24 mg/dL [facility] Microalbumin Urine 15.0 mg/L [facility] Microalbum Creatinine Ratio Ur 8.7 <30 ug/mg cr [facility] Comment:Albumin/Creatinine R atio Reference Ranges: Normal: < 30 ug/mg creatinine Microalbuminuria: 30 - 300 ug/mg creatinineClinical Albuminuria: > 300 ug/mg creatinine 02/22/2024 8:25 AM EST 02/22/2024 8:46 AM EST us Tami Márquez MD LAB URINE ORDERABLES Final Re sult Performing Organization Address [facility] Co de Phone Number [facility] [address] [place] [address] [phone] * ThinPrep Imaging Pap and HPV mRNA E6/E7 (11/05/2023 10:30 AM EDT) HPV nRNA E6/E7 Not Detected Not Detected [facility] Comment:Methodology: Transcr iption-Mediated AmplificationThis assay detects E6/E7 viral messenger RNA (mRNA) from 14high-risk HPV types (16,18,31,33,35,39,45,51,52,56,58,59,66,68).Cervical sources are required for HPV testing.If a vaginal source from a patient who has had atotal hysterectomy with removal of cervix wassubmitted, please contact the testing laboratoryfor alternative testing options.For additional information, please refer tohttp://education.Independent IP/faq/TZM523q0(This link if provided for information/educational purposes only.)THIS TEST WAS PERFORMED AT:[employer] [address] [phone] CAVANAUGH MD SOURCE: SEE NOTE [facility] Comment:None given Report Status: [facility] Clinical Information: SEE NOTE [facility] Comment:None given LMP: SEE NOTE [facility] Comment:NONE GIVEN Prev. PAP: SEE NOTE [facility] Comment:NONE GIVEN Prev. BX: SEE NOTE [facility] Comment:NONE GIVEN Statement Of Adequacy: SEE NOTE [facility] Comment:Satisfactory for ting luation.Endocervical/transformation zone component absent. General Categorization: [facility] Interpretation/Result: SEE NOTE [facility] Comment:Cytology Results: Ne gative for intraepitheliallesion or malignancy. Cytology Comment SEE NOTE [facility] Comment:This Pap test has be en evaluated with computerassisted technology. Anode Rebuilder: SEE NOTE [facility] Comment:EXJ, CT(ASCP)CT Scre ening Location: [address] [address] Review Anode Rebuilder: [facility] Pathologist [facility] PAP Infection [facility] See Note SEE NOTE [facility] Comment:EXPLANATORY NOTE:The Pap is a screening test for cervical cancer. It isnot a diagnostic test and is subject to false negativeand false positive results. It is most reliable when asatisfactory sample, regularly obtained, is submittedwith relevant clinical findings and history, and whenthe Pap result is evaluated along with historic andcurrent clinical information. 11/05/2023 10:3 0 AM EDT 11/05/2023 2:50 PM EDT Narrative [facility] - 11/08/2023 1:09 PM EDT SEE SCANNED RESULTS IN EMR us Tami Márquez MD LAB PATHOLOGY ORDERABLES Sushila bill Result [facility] [address] [place] [phone] * BI Mammogram Screening Tomosynthesis Bilateral (04/09/2023 11:15 AM EST) Anatomical Region Laterality Modality Breast Bilateral Mammography 04/09/2023 11:1 5 AM EST Narrative 05/02/2023 5:35 AM EST [facility] [address] [place] [address] Mammography Report Signed Patient: Erin Krause MR#: [id number] : 1965 Acct:[id number] Age/Sex: 57 / F ADM Date: 04/09/23 Loc: HO.MAMMO Attending Dr: Tami Márquez MD Ordering Physician: Tami Márquez MD Results: 1Nega tive Date of Service: 04/09/23 Follow Up: 1 Year From Orig ina Mammogram Procedure(s): MM tomosynthesis screening BI Accession Number(s): [id number] cc: Tami Márquez MD EXAMINATION: MM SCREENING [...] in OV> 05/02/23 0531 DD/ 1115 TD/TT: Fabrication And Layout Craftsman: Procedure Note Donotuseinterpreter, Image - 05/02/2023 [facility] [address] [place] [address] Mammography Report Signed Patient: Davon SharmaDianaMR#: [id number] : 1965Acct:[id number] Age/Sex: 57 / FADM Date: 04/09/23 Loc: [place] Attending Dr: Tami Márquez MD Ordering Physician: Tami Márquez MDResults: 1Nega tive Date of Service: 04/09/23Follow Up: 1 Year From Orig inal Mammogram Procedure(s): MM tomosynthesis screening BI Accession Number(s): [id number] cc: Tami Márquez MD EXAMINATION: MM SCREENING [...] in OV> 05/02/23 0531 DD/ 1115 TD/TT: Fabrication And Layout Craftsman: Tami Márquez MD IMG BI PROCEDURES Final Resul t from Last 3 Months or Most Recently Relevant to Health Maintenance Insurance * Guarantor: Davon Sharma Erin Account Type Relation to Patient Date of Phone Billing Address Personal/Family Self 40 [id number] Care Teams Pulverizer Tender Relationship Specialty Start Date End Date Tami Márquez MD [address] [place] [phone] PCP - General Family Medicine 04/28/21
--- OUTSIDE RECORDS SUMMARY | 2024-11-10 11:59 | XMS_ITS | Clinical Summary ---
Author Organization [facility] ity Address [address] [place] [address] Care Team Providers Care Associate Accountant Name Role Phone Sangeetha Horner MD Primary Care Provider Surgical History Surgery Date Site/Laterality Comments OVARIAN CYST REMOVAL 1982 N/A PROCEDURE: ME OVARIAN CYSTECTOMY UNI/BI TUBAL LIGATION 1999 PROCEDURE: HISTORICAL TUBAL LIGATION APPENDECTOMY PROCEDURE: HISTORICAL APPENDECTOMY OTHER SURGICAL HISTORY PROCEDURE: PELVIC CONTROL PELVIC SLING OTHER SURGICAL HISTORY 2006 PROCEDURE: ME COLECTOMY PARTIAL W/ANASTOMOSIS Medical History Medical History [...] ars (1 of 2 - PCV) 1984 Cervical Cancer Screening: P ap Smear 1986 Zoster Vaccines (1 of 2) 2015 Cholesterol Screening (Lipid Panel) 02/07/2022 Colorectal Cancer Screening: Colonoscopy 02/07/2022 HIV Screening 02/07/2022 Hepatitis C Screening 02/07/2022 Social Influencers of Health Screening 02/07/2022 COVID-19 Vaccine ( - 2023-2 5 season) 2023 Depression Screening 03/11/2024 Influenza Vaccine (#1) 2024 RSV Immunization Adult Patie nts (1 [...] age to complete this topic Care Teams Associate Accountant Relationship Specialty Start Date End Date Sangeetha Horner MD [address] [facility] [address] [place], [place] PCP - General Internal Medicine 05/30/18
--- OUTSIDE RECORDS SUMMARY | 2024-11-10 11:59 | XMS_ITS | Encounter Summary ---
Author Organization [employer] Address [address] [facility] 7t [place] [address] Care Team Providers Care Analysis Or Research Safety Inspector Name Role Phone Tami Márquez MD Primary Care Provider [phone] Encounter Details Date Type Department Care Team (Late st Contact Info) Description 11/10/2024 Orders Only GENERIC EXTERNAL DATA [...] WHOLE BLOOD Routine 11/10/2024 10:52 AM EDT documented in this encounter Results * Glucose, Whole Blood (11/10/2024 10:52 AM EDT) Glucose, Whole Blood 110 60 - 115 mg/dL [facility] Comment:METER #: [id number] Testing performed in the Endocrinology Department [address] , [address], [facility]. 11/10/2024 10:5 2 AM EDT 11/10/2024 10:55 AM EDT us Generic External Data Provider LAB BLOOD ORDERAB LES Final Result Performing Organization Address City/State/[facility] Co de Phone Number [facility] [address] [place] [phone] documented in this encounter Visit Diagnoses Not on filedocumented in this encounter Additional Health Concerns Assessment Noted Time PHQ-9 Depression Total Score: 3 02/20/20 24 10:21 AM EST documented as of this encounter Care Teams Analysis Or Research Safety Inspector Relationship Specialty Start Date End Date Tami Márquez MD [address] [place] [address] PCP - General Family Medicine 04/28/21 documented as of this encounter
--- OUTSIDE RECORDS SUMMARY | 2024-11-10 11:59 | XMS_ITS | Encounter Summary ---
Author Organization [employer] Address [address] [facility] 7 [place] [address] Care Team Providers Care Mechanical Unit Repairer Name Role Phone Tami Márquez MD Primary Care Provider [phone] Reason for Visit * Reason Onset Date Comments Call Back Request 05/06/2023 Encounter Details Date Type Department Care Team ([facility] Contact Info) Description 05/06/2023 Telephone [facility] MED [facility] PEDS [address] [place], [place] [phone] Tami Márquez MD [address] [place] [address] Call Back Request Social History Tobacco Use [...] regarding need to speak to provider regarding step down specialist consult 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 Scheduled pt for 05/12 at 9:30 am with PCP. Pt verbalizes understanding and agreement of plan. * Telephone Encounter - Martha Hoang - 05/06/2023 10:09 AM EST Tc from pt requesting to speak with a nurse in regards to a possible surgery. Please contact pt at [phone] documented in this encounter Plan of Treatment Not on file documented as of this encounter Visit Diagnoses Not on filedocumented in this encounter Additional Health Concerns Assessment Noted Time PHQ-9 Depression Total Score: 16 023 3:41 PM EST documented as of this encounter Care Teams Mechanical Unit Repairer Relationship Specialty Start Date End Date Tami Márquez MD [address] [place] [address] PCP - General Family Medicine 04/28/21 documented as of this encounter
--- OUTSIDE RECORDS SUMMARY | 2024-11-10 11:59 | XMS_ITS | Encounter Summary ---
Author Organization [employer] Address [address] [facility] 7t [place] [address] Care Team Providers Care General Counselor Name Role Phone Tami Márquez MD Primary Care Provider [phone] Encounter Details Date Type Department Care Team (Late st Contact Info) Description 02/04/2023 Abstract [facility] MEDICINE [address] [place], [place] [phone] [place] Social History Tobacco Use Types [...] documented as of this encounter Care Teams General Counselor Relationship Specialty Start Date End Date Tami Márquez MD [address] [place] [phone] PCP - General Family Medicine 04/28/21 documented as of this encounter
--- OUTSIDE RECORDS SUMMARY | 2024-11-10 11:59 | XMS_ITS | Encounter Summary ---
Author Organization [employer] Address [address] [facility] 7t [place] [address] Care Team Providers Care Billing Representative Name Role Phone Tami Márquez MD Primary Care Provider [phone] Reason for Visit * Reason Comments Med Refill Encounter Details Date Type Department Care Team ([facility] Contact Info) Description 01/17/2024 Refill [facility] MED & PEDS [address] [place] [address] Tami Márquez MD [address] [place] [address] Mixed hyperlipidemia Social History Tobacco Use Types [...] documented as of this encounter Care Teams Billing Representative Relationship Specialty Start Date End Date Tami Márquez MD [address] [place] [address] PCP - General Family Medicine 04/28/21 documented as of this encounter
--- OUTSIDE RECORDS SUMMARY | 2024-11-10 11:59 | XMS_ITS | Encounter Summary ---
Author Organization [employer] Address [address] [facility] 7t [place] [address] Care Team Providers Care Doubling Machine Operator Name Role Phone Tami Márquez MD Primary Care Provider [phone] Reason for Visit * Reason Onset Date Comments Nurse Triage 07/19/2023 Encounter Details Date Type Department Care Team ([facility] Contact Info) Description 07/19/2023 Telephone [facility] MEDICINE [address] [place] [address] Tami Márquez MD [address] [place], [place] [phone] Nurse Triage Social History Tobacco Use Types [...] SHIRIN. Will also send this note to [facility] provider that is seeing pt. Today at [...] hyperglycemia, without long-term current use of insulin ([facility]) documented in this encounter Additional Health Concerns Assessment Noted Time PHQ-9 Depression Total Score: 16 023 3:41 PM EST documented as of this encounter Care Teams Doubling Machine Operator Relationship Specialty Start Date End Date Tami Márquez MD [address] [place] [address] PCP - General Family Medicine 04/28/21 documented as of this encounter
== END 2024-11-10 11:29 | disposition home or self-care (01) ==
LOC: HO.ENCR 10:28
PROVIDERS: PCP Family Medicine; Visit Provider Physician Assistant Medical
DX: E11.65 Type 2 diabetes mellitus with hyperglycemia (principal); E11.9 Type 2 diabetes mellitus without complications

== ENCOUNTER → 2024-11-10 10:27 | Outpatient (BNVA) | payer OTHER, SELFPAY | PROVIDERS: PCP Family Medicine; Visit Provider Physician Assistant Medical | DX: E11.9 Type 2 diabetes mellitus without complications (principal) | CPT/HCPCS: 82947; 83036 ==

== ENCOUNTER 2024-11-14 07:12 | Outpatient (REF) | payer OTHER, SELFPAY ==
--- OUTSIDE RECORDS SUMMARY | 2024-11-14 07:17 | XMS_ITS | Clinical Summary ---
Author Organization [facility] ity Address [address] [place] [address] Care Team Providers Care Diversity Intern Name Role Phone Sangeetha Horner MD Primary Care Provider [phone] Surgical History Surgery Date Site/Laterality Comments OVARIAN [...] 02/07/2022 Social Influencers of Health Screening 02/07/2022 Depression Screening 03/11/2024 COVID-19 Vaccine ( - 2023-2 5 season) 2024 Influenza Vaccine (#1) 2024 RSV Immunization Adult [...] age to complete this topic Care Teams Diversity Intern Relationship Specialty Start Date End Date Sangeetha Horner MD [facility] [address] [place], [place] PCP - General Internal Medicine 05/30/18
--- OUTSIDE RECORDS SUMMARY | 2024-11-14 07:17 | XMS_ITS | Clinical Summary ---
Author Organization [employer] Address 75 [facility] 7t [place] [address] Care Team Providers Care Hydraulic Repairer Name Role Phone Tami Márquez MD Primary Care Provider [phone] Allergies Active Allergy Reactions Criticality Noted Date [...] current use of insulin ([facility]) Inject 0.75 mg under the skin 1 [...] 90 tablet 1 4 Active Continuous Glucose Skills Trainer (FreeStyle Suresh 2 [place]) deviceIndications: Type 2 diabetes mellitus with hyperglycemia, without long-term current use of insulin ([facility]/HCC) Scan sensor every 8 hours. Patient aware [...] intervention , Patient to reach out to [facility] team as needed, Patient to engage in OP therapy , and Patient to reach out to [facility] as needed Assessment & Plan [...] intervention , Patient to reach out to [facility] team as needed, Patient to engage in OP BH therapy , and Patient to reach out to [facility] as needed Family problems 02/15/2023 [...] intervention , Patient to reach out to [facility] team as needed, Patient to engage in OP BH therapy , and Patient to reach out to [facility] as needed Class 1 obesity [...] Health Integration Plan Internal Follow up with [facility] External OP therapy referral Patient Self Plan Patient to utilize skills provided in intervention , Patient to reach out to [facility] team as needed, Comply with medication [...] 1984 Zoster Vaccines (1 of 2) 2015 Diabetes: Foot Exam 03/01/2024 03/01/2023, 03/01/2023, 03/01/2023, Additional history exists SDOH Screening 07/31/2024 08/01/2023 Diabetes: Hemoglobin A1C 08/22/2024 024, 01/23/2024, 08/12/2023, Additional history exists COVID-19 Vaccine (2024- season) 2024 06/23/2020, 06/02/2020 Influenza Vaccine (#1) 2024 Alcohol/Substance Use Screening [...] current use of insulin ([facility]) LIPID PANEL, STANDARD Routine 02/22/2024 8:29 AM EST Type 2 diabetes mellitus with hyperglycemia, without long-term current use of insulin ([facility]) ALBUMIN, RANDOM URINE W/CREATININE Routine 02/22/2024 8:25 [...] Whole Blood 110 60 - 115 mg/dL [facility] Comment:METER #: [id number] Testing performed in the Endocrinology Department [address] , [address], [facility]. 11/10/2024 10:5 2 AM EDT 11/10/2024 10:55 AM EDT us Generic External Data Provider LAB BLOOD ORDERAB LES Final Result Performing Organization Address [facility]/ZIP Co de Phone Number [facility] [address] [place] [phone] * (ABNORMAL) Hemoglobin A1c (02/22/2024 8:29 AM EST) Hemoglobin A1c 6.8(H) <6.0 % [facility] Comment:Hemoglobin A1C Refer ence Range Adults: 4.8 - 6.0 % Non diabetic: < 6.0 % Goal: < 7.0 %Additional Action Suggested: > 8.0 %Note: Hemoglobin A1c results are invalid for patients with abnormal amounts of HbF. Blood transfusions may impact the HbA1c concentration in the patient sample. Estimated Average Glucose 148 mg/dL [facility] Comment:eAG = Estimated ave rage glucose which is %A1C expressed asaverage glucose, using the formula of the Z7C-NsiodyqFfsovfo Glucose study (ADAG), Diabetes Care, Vol.31,#8,Oct. 2007 Blood Venous blood specimen / Unknown 02/22/2024 8:29 AM EST 02/22/2024 8:29 AM EST us Tami Márquez MD LAB BLOOD ORDERABLES Final Re sult Performing Organization Address [facility]/ZIP Co de Phone Number [facility] [address] [place] [phone] * (ABNORMAL) Lipid Panel, Standard (02/22/2024 8:29 AM EST) Triglycerides 264(H) <150 mg/dL [facility] Comment:Desirable Triglyceri de: less than 150 mg/dLBorderline High Triglyceride 150-199 mg/dLHigh Triglyceride: 200-499 mg/dLVery High Triglyceride: greater than or equal to 5OO mg/dL Cholesterol 246(H) <200 mg/dL [facility] Comment:Desirable Cholestero l: less than 200 mg/dLBorderline High Cholesterol: 200-239 mg/dLHigh Cholesterol: greater than 239 mg/dL LDL Cholesterol Calculated 155(H) <100 mg/dL [facility] Comment:Desirable LDL: less than 100 mg/dLNear Optimal/Above Optimal LDL: 110- 129 mg/dLBorderline High LDL: 130-159 mg/dLHigh LDL: 160-189 mg/dLVery High LDL: greater than or equal to 190 mg/dL HDL Cholesterol 39(L) >40 mg/dL [facility] Comment:Desirable HDL: great er than 40 mg/dL Note: This HDL assay may give artificially low results in patients with liver disease. Blood Venous blood specimen / Unknown 02/22/2024 8:29 AM EST 02/22/2024 8:29 AM EST us Tami Márquez MD LAB BLOOD ORDERABLES Final Re sult Performing Organization Address [facility] de Phone Number [facility] [address] [place] [address] [phone] * Albumin, Random Urine W/Creatinine (02/22/2024 8:25 AM EST) Creatinine, Urine 172.24 mg/dL [facility] Microalbumin Urine 15.0 mg/L [facility] Microalbum Creatinine Ratio Ur 8.7 <30 ug/mg cr [facility] Comment:Albumin/Creatinine R atio Reference Ranges: Normal: < 30 ug/mg creatinine Microalbuminuria: 30 - 300 ug/mg creatinineClinical Albuminuria: > 300 ug/mg creatinine 02/22/2024 8:25 AM EST 02/22/2024 8:46 AM EST us Tami Márquez MD LAB URINE ORDERABLES Final Re sult Performing Organization Address [facility] Co de Phone Number [facility] [address] [place] [address] [phone] * ThinPrep Imaging Pap and HPV mRNA E6/E7 (11/05/2023 10:30 AM EDT) HPV nRNA E6/E7 Not Detected Not Detected [facility] Comment:Methodology: Transcr iption-Mediated AmplificationThis assay detects E6/E7 viral messenger RNA (mRNA) from 14high-risk HPV types (16,18,31,33,35,39,45,51,52,56,58,59,66,68).Cervical sources are required for HPV testing.If a vaginal source from a patient who has had atotal hysterectomy with removal of cervix wassubmitted, please contact the testing laboratoryfor alternative testing options.For additional information, please refer tohttp://education.Pubster/faq/TPB528z5(This link if provided for information/educational purposes only.)THIS TEST WAS PERFORMED AT:[employer] [address] [phone] CAVANAUGH MD SOURCE: SEE NOTE [facility] Comment:None given Report Status: [facility] Clinical Information: SEE NOTE [facility] Comment:None given LMP: SEE NOTE [facility] Comment:NONE GIVEN Prev. PAP: SEE NOTE [facility] Comment:NONE GIVEN Prev. BX: SEE NOTE [facility] Comment:NONE GIVEN Statement Of Adequacy: SEE NOTE [facility] Comment:Satisfactory for ting luation.Endocervical/transformation zone component absent. General Categorization: [facility] Interpretation/Result: SEE NOTE [facility] Comment:Cytology Results: Ne gative for intraepitheliallesion or malignancy. Cytology Comment SEE NOTE [facility] Comment:This Pap test has be en evaluated with computerassisted technology. [place] Supervisor: SEE NOTE [facility] Comment:EXJ, CT(ASCP)CT Scre ening Location: [address] [address] Review [place] Supervisor: [facility] Pathologist [facility] PAP Infection [facility] See Note SEE NOTE [facility] Comment:EXPLANATORY NOTE:The Pap is a [...] AM EDT 11/05/2023 2:50 PM EDT Narrative [facility] - 11/08/2023 1:09 PM EDT SEE SCANNED RESULTS IN EMR us Tami Márquez MD LAB PATHOLOGY ORDERABLES Sushila bill Result [facility] [address] [place] [phone] * BI Mammogram Screening Tomosynthesis Bilateral (04/09/2023 11:15 AM EST) Anatomical Region Laterality Modality Breast Bilateral Mammography 04/09/2023 11:1 5 AM EST Narrative 05/02/2023 5:35 AM EST [facility] [address] [place] [place] [address] Mammography Report Signed Patient: Erin Krause MR#: [id number] : 1965 Acct:[id number] Age/Sex: 57 / F ADM Date: 04/09/23 Loc: HO.MAMMO Attending Dr: Tami Márquez MD Ordering Physician: Tami Márquez MD Results: 1Nega tive Date of Service: 04/09/23 Follow Up: 1 Year From Orig ina Mammogram Procedure(s): MM tomosynthesis screening BI Accession Number(s): [id number] cc: Tami Márquez MD EXAMINATION: MM SCREENING [...] in OV> 05/02/23 0531 DD/ 1115 TD/TT: Inclined Railway Operator: Procedure Note Donotuseinterpreter, Image - 05/02/2023 [facility] [address] [place] [address] Mammography Report Signed Patient: Davon SharmaDianaMR#: [id number] : 1965Acct:[id number] Age/Sex: 57 / FADM Date: 04/09/23 Loc: [place] Attending Dr: Tami Márquez MD Ordering Physician: Tami Márquez MDResults: 1Nega tive Date of Service: 04/09/23Follow Up: 1 Year From Orig inal Mammogram Procedure(s): MM tomosynthesis screening BI Accession Number(s): [id number] cc: Tami Márquez MD EXAMINATION: MM SCREENING [...] in OV> 05/02/23 0531 DD/ 1115 TD/TT: Inclined Railway Operator: Tami Márquez MD IMG BI PROCEDURES Final Resul t from Last 3 Months or Most Recently Relevant to Health Maintenance Insurance * Guarantor: Davon Sharma Erin Account Type Relation to Patient Date of Phone Billing Address Personal/Family Self 40 [address] Care Teams Hydraulic Repairer Relationship Specialty Start Date End Date Tami Márquez MD [address] [place] [phone] PCP - General Family Medicine 04/28/21
--- OUTSIDE RECORDS SUMMARY | 2024-11-14 07:17 | XMS_ITS | Encounter Summary ---
Author Organization [employer] Address [address] [facility] 7t [place] [address] Care Team Providers Care Body Design Checker Name Role Phone Tami Márquez MD Primary Care Provider Reason for Visit * Reason Comments Med Refill Encounter Details Date Type Department Care Team ([facility] Contact Info) Description 01/17/2024 Refill [facility] MED & PEDS [address] [place] [address] Tami Márquez MD [address] [place] [address] Mixed hyperlipidemia Social History Tobacco Use Types [...] documented as of this encounter Care Teams Body Design Checker Relationship Specialty Start Date End Date Tami Márquez MD [address] [place] [address] PCP - General Family Medicine 04/28/21 documented as of this encounter
--- OUTSIDE RECORDS SUMMARY | 2024-11-14 07:17 | XMS_ITS | Encounter Summary ---
Author Organization [employer] Address 75 [facility] 7 [place] [address] Care Team Providers Care Military Equipment Specialist Name Role Phone Tami Márquez MD Primary Care Provider [phone] Reason for Visit * Reason Onset Date Comments Call Back Request 05/06/2023 Encounter Details Date Type Department Care Team ([facility] Contact Info) Description 05/06/2023 Telephone [facility] MED & PEDS [address] [place], [place] [phone] Tami Márquez MD [address] [place] [address] Call Back Request Social History Tobacco Use [...] regarding need to speak to provider regarding surgical training specialist consult 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 Scheduled pt for 05/12 at 9:30 am with PCP. Pt verbalizes understanding and agreement of plan. * Telephone Encounter - Martha Hoang - 05/06/2023 10:09 AM EST Tc from pt requesting to speak with a nurse in regards to a possible surgery. Please contact pt at [phone] documented in this encounter Plan of Treatment Not on file documented as of this encounter Visit Diagnoses Not on filedocumented in this encounter Additional Health Concerns Assessment Noted Time PHQ-9 Depression Total Score: 16 023 3:41 PM EST documented as of this encounter Care Teams Military Equipment Specialist Relationship Specialty Start Date End Date Tami Márquez MD [address] [place] [address] PCP - General Family Medicine 04/28/21 documented as of this encounter
--- OUTSIDE RECORDS SUMMARY | 2024-11-14 07:17 | XMS_ITS | Encounter Summary ---
Author Organization [employer] Address 75 [facility] 7t [place] [address] Care Team Providers Care Cement Tile Maker Name Role Phone Tami Márquez MD Primary Care Provider [phone] Reason for Visit * Reason Onset Date Comments Nurse Triage 07/19/2023 Encounter Details Date Type Department Care Team ([facility] Contact Info) Description 07/19/2023 Telephone [facility] MEDICINE [address] [place] [address] Tami Márquez MD [address] [place], [place] [phone] Nurse Triage Social History Tobacco Use Types [...] SHIRIN. Will also send this note to [facility] provider that is seeing pt. Today at [...] without long-term current use of insulin ([facility]) documented in this encounter Additional Health Concerns Assessment Noted Time PHQ-9 Depression Total Score: 16 023 3:41 PM EST documented as of this encounter Care Teams Cement Tile Maker Relationship Specialty Start Date End Date Tami Márquez MD [address] [place] [address] PCP - General Family Medicine 04/28/21 documented as of this encounter
--- OUTSIDE RECORDS SUMMARY | 2024-11-14 07:17 | XMS_ITS | Encounter Summary ---
Author Organization [employer] Address [address] [place] [address] 7t [place] [address] Care Team Providers Care Oil Tester Name Role Phone Tami Márquez MD Primary Care Provider Encounter Details Date Type Department Care Team (Late st Contact Info) Description 03/29/2022 Orders Only [facility] [address] [place], [place] [phone] Mari Turner LPN Social History Tobacco Use [...] on filedocumented in this encounter Care Teams Oil Tester Relationship Specialty Start Date End Date Tami Márquez MD [address] [place] [address] PCP - General Family Medicine 04/28/21 documented as of this encounter
--- OUTSIDE RECORDS SUMMARY | 2024-11-14 07:17 | XMS_ITS | Encounter Summary ---
Author Organization [employer] Address [address] [place] [address] [address] [place] [address] Care Team Providers Care Lubrication Supervisor Name Role Phone Tami Márquez MD Primary Care Provider [phone] Reason for Visit * Reason Onset Date Comments Med Refill 10/21/2023 Encounter Details Date Type Department Care Team ([facility] st Contact Info) Description 10/21/2023 Refill [facility] MED & PEDS [address] [place], [place] [phone] Tami Márquez MD [address] [place] [address] Neck pain, chronic Social History Tobacco Use [...] documented as of this encounter Care Teams Lubrication Supervisor Relationship Specialty Start Date End Date Tami Márquez MD [address] [place] [address] PCP - General Family Medicine 04/28/21 documented as of this encounter
--- OUTSIDE RECORDS SUMMARY | 2024-11-14 07:17 | XMS_ITS | Encounter Summary ---
Author Organization [employer] Address [address] [facility] 7t [place] [address] Care Team Providers Care Program Director [employer] Name Role Phone Tami Márquez MD Primary Care Provider [phone] Encounter Details Date Type Department Care Team [...] Whole Blood 110 60 - 115 mg/dL [facility] Comment:METER #: [id number] Testing performed in the Endocrinology Department [address] , [address], [facility]. 11/10/2024 10:5 2 AM EDT 11/10/2024 10:55 AM EDT us Generic External Data Provider LAB BLOOD ORDERAB LES Final Result Performing Organization Address City/State/[facility] Co de Phone Number [facility] [address] [place] [phone] [phone] documented in this encounter Visit Diagnoses Not on filedocumented in this encounter Additional Health Concerns Assessment Noted Time PHQ-9 Depression Total Score: 3 02/20/20 24 10:21 AM EST documented as of this encounter Care Teams Program Director [employer] Relationship Specialty Start Date End Date Tami Márquez MD [address] [place] [address] PCP - General Family Medicine 04/28/21 documented as of this encounter
--- OUTSIDE RECORDS SUMMARY | 2024-11-14 07:17 | XMS_ITS | Encounter Summary ---
Author Organization [employer] Address 75 [facility] 7t [place] [address] Care Team Providers Care Traffic Monitor Specialist Name Role Phone Tami Márquez MD Primary Care Provider [phone] Encounter Details Date Type Department Care Team (Late st Contact Info) Description 02/04/2023 Abstract [facility] [address] [place], [place] [phone] [place] Social History Tobacco Use Types [...] documented as of this encounter Care Teams Traffic Monitor Specialist Relationship Specialty Start Date End Date Tami Márquez MD [address] [place] [phone] PCP - General Family Medicine 04/28/21 documented as of this encounter
[2024-11-14 08:48] LABS: Alanine Aminotransferase 36 U/L (0-31); Aspartate Amino Transferase 27 U/L (5-31); Estimated Glomerular Filt Rate > 60
[2024-11-14 11:33] LABS: Microalbum/Creatinine Ratio Ur 6.4 ug/mg cr (<30)
== END 2024-11-14 07:13 | disposition home or self-care (01) ==
LOC: HO.LAB 07:12
PROVIDERS: PCP Family Medicine; Visit Provider Physician Assistant Medical
DX: E11.9 Type 2 diabetes mellitus without complications (principal)
CPT/HCPCS: 36415; 82043; 82565; 82570; 84450; 84460

== ENCOUNTER 2025-02-09 10:55 | Outpatient (AMB) | payer OTHER, SELFPAY ==
[2025-02-09 10:56] VITALS: BP 108/58; PULSE 95; O2SAT 98; BMI 30.4
--- NOTE | 2025-02-09 10:56 | MHC.OFFVIS ---
Vital Signs 02/09/25 10:56 Height 5 ft 2 in Weight 166 lb 0.129 oz BMI 30.4 BP 108/58 L Blood Pressure Location Lt brachial Position Sitting Pulse 95 Pulse Source Pulse Oximeter Pulse Oximetry (%) 98 Oxygen Delivery Method Room Air Intake Visit Reasons: Type II diabetes Intake Note: Patient present today to follow up on Type 2 Diabetes Mellitus. Last Diabetic Eye exam: 03/2024 [facility]. Last Podiatry Visit: Does not see a Sales Correspondent Random Glucose: 113 mg/dL HgA1C: 7.6% Pin Drafting Machine Tender Required: No Accompanied by: Self / Same As Patient Allergies morphine (Morphine) Allergy (Severe, Verified 02/09/25 11:01) ANAPHYLAXIS oxycodone (Percocet) Allergy (Severe, Verified 02/09/25 11:01) Anaphylaxis hydrocodone (From Vicodin) Allergy (Intermediate, Verified 02/09/25 11:01) ANAPHYLAXIS shrimp (SHRIMP) Allergy (Intermediate, Verified 02/09/25 11:01) Swelling metformin Adverse Reaction (Unknown, Verified 02/09/25 11:01) diarrhea, hair loss narcotics Allergy (Uncoded 02/09/25 11:01) Anaphylaxis HPI Comments Details: This is a 59-year-old female with a past medical history of type 2 diabetes, osteoarthritis and hepatic steatosis presenting for diabetic management. She was diagnosed with diabetes in 2021. Hemoglobin a1c 7.6% up from 6.8% today. She met with the dietitian, and she is trying to incorporate sources of fiber into her diet. Current medication regimen: Mounjaro 5 mg weekly. Past medication: We discontinued Trulicity to start Mounjaro because Trulicity not help with weight loss. Metformin discontinued due to intolerable side effects. Glipizide discontinued when we increased Mounjaro. She endorses fatigue and wonders if it is related to Mounjaro. She is on a vitamin d supplement. Hypoglycemia symptoms: None Hyperglycemia symptoms: None Microvascular complications: None Macrovascular complications: None ROS: Constitutional: No unexplained weight loss, fever, chills or night sweats. Gastrointestinal: No anorexia, nausea, vomiting or diarrhea. No abdominal pain Neurologic: No numbness or tingling in the extremities Skin: No rash or open wounds Endocrine: No cold or heat intolerance. No polyuria or polydipsia. Physical exam: Constitutional: Alert, in no distress. Eyes: Pupils are equal, round and reactive to light. Extraocular muscles intact. Neck: Supple, Full range of motion. No lymphadenopathy. No palpable thyroid masses. Respiratory: Clear to auscultation. Cardiovascular: S1 S2 regular. II/ systolic murmur [facility] Medical History (Updated 02/09/25 @ 12:20 by CHASE Gabriel) Mixed hyperlipidemia Fatigue Type II diabetes mellitus, well controlled Hepatic steatosis Elevated LFTs GERD (gastroesophageal reflux disease) Hx of lipoma Varicose vein of leg Cervical spinal stenosis Difficulty swallowing Diabetes Murmur Bronchitis Hernia Asthma Diverticulitis High cholesterol Patellofemoral arthritis Surgical History Hx of cataract extraction Hx of bladder repair surgery History of tonsillectomy Hx of carpal tunnel repair History of removal of ovarian cyst Hx of breast reduction, elective Hx of tubal ligation History of colon resection H/O colonoscopy Hx of appendectomy History of 3 sections Family History Mother High cholesterol Cardiac arrest Rheumatoid arthritis Alzheimer's dementia Father No known health problems Social History Are you a primary critical care nurse to a significant other at home: No Do you presently have visiting nurse or other home services: No Alcohol intake: never Patient Tobacco Use Status: Never used Tobacco Current occupational status: employed 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 Physical Exam Vital Signs: Last Vital Signs Pulse 95 02/09/25 10:56 BP 108/58 L 02/09/25 10:56 Pulse Ox 98 02/09/25 10:56 Oxygen Delivery Method Room Air 02/09/25 10:56 BMI result Body Mass Index 30.4 Results AMB Hemoglobin A1c AMB Hemoglobin A1c 7.6 % Last Edit by SHADE Perea on 02/09/25 11:17 Results Reviewed Results Reviewed: Laboratory Last Values Glucose (Clinic) 113 mg/dL (60-115) 02/09/25 11:06 Laboratory Tests 02/22/24 02/22/24 08:25 08:29 Creatinine 0.66 Estimated GFR > 60 Hemoglobin A1c % 6.8 H AST 24 ALT 41 H Alkaline Phosphatase 120 H Triglycerides 264 H Cholesterol 246 H LDL Cholesterol, Calc 155 H HDL Cholesterol 39 L Vitamin B12 399 TSH 1.54 Urine Creatinine 172.24 Urine Microalbumin 15.0 Microalb/Creat Ratio 8.7 Assessment & Plan Assessment & Plan (1) Type II diabetes mellitus, well controlled: Code(s): E11.9 - Type 2 diabetes mellitus without complications Category: Medical Plan: In summary this is a 59-year-old female with controlled type 2 diabetes. Discussed pathophysiology of Type II Diabetes Mellitus with the patient in detail.? I explained the manager intermediate risks and complications associated with uncontrolled diabetes including nephropathy, neuropathy, peripheral vascular disease, retinopathy, increased risk of heart disease and stroke.? Discussed lifestyle modification with the patient. Recommended 30 minutes of moderately vigorous exercise 5 days per week to promote weight loss. She saw the dietitian. Increase Mounjaro to 7.5 mg weekly. Advised patient we can titrate after another month to 10 mg weekly. She will contact me via the patient portal if she would like to increase the dose. If you experience low blood sugar, treat this by eating a chewable fruit candy like skittles or jelly beans (about 8 pieces), 4 ounces (1/2 cup) of fruit juice (not diet), 1 tablespoon of honey or 4 glucose tablets. If your blood sugar is under 50, take double the amount of one of the above. Recheck your blood sugar in 15 minutes. (2) Fatigue: Code(s): R53.83 - Other fatigue Category: Medical Plan: Patient will monitor for increased fatigue after adjusting the dose of Mounjaro. Check labs. (3) Mixed hyperlipidemia: Code(s): E78.2 - Mixed hyperlipidemia Category: Medical Plan: Continue lifestyle modifications. Treated with fenofibrate and Zetia-rosuvastatin. Plan Follow up in 3 months for type 2 diabetes. Orders: Orders AMB Hemoglobin A1c Today E11.9 - Type 2 diabetes mellitus without complications, Z13.9 - Encounter for screening, unspecified Vitamin B12 and Folate Today D64.9 - Anemia, unspecified, E11.9 - Type 2 diabetes mellitus without complications, R53.83 - Other fatigue Vitamin D 25-OH (D2 and D3) Today E11.9 - Type 2 diabetes mellitus without complications, R53.83 - Other fatigue TSH reflex Free T4 Today E11.9 - Type 2 diabetes mellitus without complications, R53.83 - Other fatigue Complete Blood Count no Diff Today E11.9 - Type 2 diabetes mellitus without complications, R53.83 - Other fatigue IRON PROFILE Today D64.9 - Anemia, unspecified, E11.9 - Type 2 diabetes mellitus without complications, R53.83 - Other fatigue Comprehensive Met. Panel Today E11.9 - Type 2 diabetes mellitus without complications, R53.83 - Other fatigue Medications: New lancets (FreeStyle Lancets) Use to monitor blood glucose once daily 100 ea 5RF tirzepatide (Mounjaro) 7.5 mg (0.5 mL) subcut QWEEK 2 mL 5RF Changed From blood sugar diagnostic (FreeStyle Lite Strips) As directed To blood sugar diagnostic (FreeStyle Lite Strips) As directed one daily to check blood glucose 100 ea 5RF Discontinued tirzepatide (Mounjaro) Discontinued Reason: Doctor's Order 5 mg (0.5 mL) subcut QWEEK 6 mL 2RF E11.9 - Type 2 diabetes mellitus without complications Coding Level of Care Code Est Pt Level 4 (31128) Complex visit Add On G2211 Diagnoses Type II diabetes mellitus, well controlled E11.9 Fatigue R53.83 Mixed hyperlipidemia E78.2
[2025-02-09 11:11] LABS: Glucose, Whole Blood 113 mg/dL (60-115)
--- OUTSIDE RECORDS SUMMARY | 2025-02-09 12:53 | XMS_ITS | Encounter Summary ---
Author Organization [employer] Address [address] [place] [address] Care Team Providers Care Private Eye Name Role Phone Tami Márquez MD Primary Care Provider [phone] Reason for Visit * Reason Onset Date Comments Nurse Triage 07/19/2023 Encounter Details Date Type Department Care Team ([facility] Contact Info) Description 07/19/2023 Telephone [facility] [address] [place] [address] Tami Márquez MD [address] [place], [place] [id number] Nurse Triage Social History Tobacco Use Types [...] Care Team (Late st Contact Info) Description 04/09/2025 3:15 PM EST Office Visit [facility] [address] [place] [address] Tami Márquez MD [address] [place] [address] documented as of this encounter Visit Diagnoses Diagnosis Type 2 diabetes mellitus with hyperglycemia, without long-term current use of insulin (HCC) documented in this encounter Additional Health Concerns Assessment Noted Time PHQ-9 Depression Total Score: 16 023 3:41 PM EST documented as of this encounter Care Teams Private Eye Relationship Specialty Start Date End Date Tami Márquez MD [address] [place] [address] PCP - General Family Medicine 04/28/21 documented as of this encounter
--- OUTSIDE RECORDS SUMMARY | 2025-02-09 12:53 | XMS_ITS | Encounter Summary ---
Author Organization [employer] Address [address] [place] [address] Care Team Providers Care Power Grader Operator Name Role Phone Tami Márquez MD Primary Care Provider [phone] Reason for Visit * Reason Comments Med Refill Encounter Details Date Type Department Care Team ([facility] Contact Info) Description 01/17/2024 Refill [facility] [address] [place] [address] Tami Márquez MD [address] [place] [address] Mixed hyperlipidemia Social History Tobacco Use Types [...] Description 04/09/2025 3:15 PM EST Office Visit [facility] [address] [place] [address] Tami Márquez MD [address] [place] [address] documented as of this encounter Visit Diagnoses Diagnosis Mixed hyperlipidemia documented in this encounter Additional Health Concerns Assessment Noted Time PHQ-9 Depression Total Score: 16 023 3:41 PM EST documented as of this encounter Care Teams Power Grader Operator Relationship Specialty Start Date End Date Tami Márquez MD [address] [place] [address] PCP - General Family Medicine 04/28/21 documented as of this encounter
--- OUTSIDE RECORDS SUMMARY | 2025-02-09 12:53 | XMS_ITS | Encounter Summary ---
Author Organization [employer] Address [address] [place] [address] [address] [place] [address] Care Team Providers Care Reconstructive Dentist Name Role Phone Tami Márquez MD Primary Care Provider [phone] Reason for Visit * Reason Onset Date Comments Med Refill 10/21/2023 Encounter Details Date Type Department Care Team ([facility] st Contact Info) Description 10/21/2023 Refill [facility] [address] [place], [place] [phone] Tami Márquez MD [address] [place] [address] Neck pain, chronic Social History Tobacco Use [...] 3:15 PM EST Office Visit [facility] [address] [place] [address] Tami Márquez MD [address] [place] [address] documented as of this encounter Visit Diagnoses Diagnosis Neck pain, chronic documented in this encounter Additional Health Concerns Assessment Noted Time PHQ-9 Depression Total Score: 16 023 3:41 PM EST documented as of this encounter Care Teams Reconstructive Dentist Relationship Specialty Start Date End Date Tami Márquez MD [address] [place] [address] PCP - General Family Medicine 04/28/21 documented as of this encounter
--- OUTSIDE RECORDS SUMMARY | 2025-02-09 12:53 | XMS_ITS | Clinical Summary ---
Author Organization [employer] Address [address] [facility] 7t [place] [address] Care Team Providers Care Casey Saw Operator Name Role Phone Tami Márquez MD Primary Care Provider [phone] Allergies Active Allergy Reactions Criticality Noted Date [...] without long-term current use of insulin (HCC) Inject 0.75 mg under the skin 1 [...] 90 tablet 1 4 Active Continuous Glucose Staff Weapons Officer (FreeStyle Suresh 2 [place]) deviceIndications: Type 2 diabetes mellitus with hyperglycemia, without long-term current use of insulin (HCC) Scan sensor every 8 hours. Patient aware insurance will not cover, will want to pay out of pocket. 1 each 4 Active Continuous Glucose Sensor (FreeStyle Suresh 2 Sensor) miscIndications:Ty pe 2 diabetes mellitus with hyperglycemia, without long-term current use of insulin (HCC) Apply 1 sensor every 14 days. Patient [...] for wheezing. 18 g 2 5 Active Active Problems Problem Noted Date Diagnosed Date Type II diabetes mellitus 03/06/2024 Assessment & Plan (03/06/2024 10:14 AM EST): Discussed DC Glipizide and continue on Trulicity. Continue to monitor BS at home. Follow up in 4 months. Current moderate episode of major depressive disorder without prior episode (CMS/HCC) 01/23/2024 Assessment & Plan (01/23/2024 1:04 PM [...] Patient to reach out to [facility] team as needed, Patient to [...] intervention , Patient to reach out to [facility] team as needed, Patient to engage in OP BH therapy , and Patient to reach out to [facility] as needed Family problems 02/15/2023 Assessment & [...] needed On-site non-integrated services Off-site services for BH, Behavioral Health Integration Plan External OP BH therapy referral , Patient Self Plan Patient to utilize skills provided in intervention , Patient to reach out to [facility] team as needed, Patient to engage in OP BH therapy , and Patient to reach out to [facility] as needed Class 1 obesity due to exces s calories without serious comorbidity with body mass index (BMI) of 30.0 to 30.9 in adult 05/17/2022 Resolved Problems Problem Noted Date Diagnosed Date Resolved Date Severe episode of recurrent major depressive disorder, without psychotic features ([facility]) 01/23/2024 02/03/2024 Assessment & Plan (01/23/2024 12:43 PM EST): [...] Health Integration Plan Internal Follow up with [facility] External OP therapy referral Patient Self Plan Patient to utilize skills provided in intervention , Patient to reach out to [facility] team as needed, Comply with [...] Encounters Date Type Department Care Team Description 02/09/2025 Orders Only GENERIC EXTERNAL DATA DEPARTMENT Provider, Generic External Data 01/07/2025 Orders Only [facility] & PEDS [address] [place] [address] Provider, MD Pedro 11/14/2024 Orders Only GENERIC EXTERNAL DATA DEPARTMENT Provider, Generic External Data 11/10/2024 Orders Only GENERIC EXTERNAL DATA DEPARTMENT [...] 01/23/2024 11:04 AM EST Plan of Treatment Upcoming Encounters Date Type Department Care Team (Late st Contact Info) Description 04/09/2025 3:15 PM EST Office Visit [facility] MED & PEDS [address] [place] [address] Tami Márquez MD [address] [place] [address] Health Maintenance Due Date Last Done Comments [...] Years (1 of 2 - PCV) 1984 RSV Patients and Patients Aged 60 years or older (1 - Risk 50-74 years 1-dose series) 2015 Zoster Vaccines (1 of 2) 2015 Diabetes: Foot Exam 03/01/2024 03/01/2023, 03/01/2023, 03/01/2023, Additional history exists SDOH Screening 07/31/2024 08/01/2023 Diabetes: Hemoglobin A1C 08/22/20242 024, 01/23/2024, 08/12/2023, Additional history exists COVID-19 Vaccine ( season) 2024 06/23/2020, 06/02/2020 Influenza Vaccine (#1) 2024 Alcohol/Substance Use Screening 02/19/2025 02/20/2024 Depression Screening 02/19/2025 02/20/2024, 02/20/20 24 Lipid Panel 02/21/2025 02/22/2024, 02/08, 06/06/2022, Additional history exists Tobacco Screening 03/06/2025 03/06/2024 Mammogram 04/09/2025 04/09/2023 Diabetes: Urine Protein Screening 11/14/2025 11/14/2024, 02/22/2024, 02/23/2023, Additional history exists Cervical Cancer Screening 11/04/2028 HPV/Cotest 11/04/2028 11/05/2023 Pap Smear 11/04/2028 11/05/2023 DTaP/Tdap/Td Vaccines (2 - Td or Tdap) 03/01/2031 03/01/2021 HIB Vaccines Aged Out No longer eligi [...] Associated Diagnosis Comments GLUCOSE, WHOLE BLOOD Routine 02/09/2025 11:06 AM EST MR ANKLE WO CONTRAST LEFT Routine 01/06/2025 9:36 AM EDT ALT Routine 11/14/2024 7:32 AM EDT AST Routine 11/14/2024 7:32 AM EDT CREATININE, SERUM Routine 11/14/2024 7:3 2 AM EDT ALBUMIN, RANDOM URINE W/CREATININE Routine 11/14/2024 7:26 AM EDT GLUCOSE, WHOLE BLOOD Routine 11/10/2024 10:52 AM EDT HEMOGLOBIN A1C Routine 02/22/2024 8:29 AM EST Type 2 diabetes mellitus with hyperglycemia, without long-term current use of insulin ([facility]) LIPID PANEL, STANDARD Routine 02/22/2024 8:29 AM EST Type 2 diabetes mellitus with hyperglycemia, without long-term current use of insulin ([facility]) THINPREP IMAGING PAP AND HPV MRNA E6/E7 Routine 11/05/2023 10:30 AM EDT BI MAMMOGRAM SCREENING TOMOSYNTHESIS BILATERAL Routine 04/09/2023 11:15 AM EST Breast cancer screening by mammogram from Last 3 Months or Most Recently Relevant to Health Maintenance Results * Glucose, Whole Blood (02/09/2025 11:06 AM EST) Only the most recent of2 resultswithin the time period is included. Glucose, Whole Blood 113 60 - 115 mg/dL [facility] Comment:METER #: [id number] 0Testing performed in the Endocrinology Department [address] , [address], [facility]. 02/09/2025 11:0 6 AM EST 02/09/2025 11:10 AM EST us Generic External Data Provider LAB BLOOD ORDERAB LES Final Result Performing Organization Address City/State/[facility] Co de Phone Number [facility] [address] [place] [phone] * MR Ankle w/o Contrast Left (01/06/2025 9:36 AM EDT) Anatomical Region Laterality Modality Lower Extremities, Ankle Left Magneti c Resonance us Historical Provider MD MG MRI PROCEDURES Final Result * Creatinine, Serum (11/14/2024 7:32 AM EDT) Creatinine, Serum 0.74 0.5 - 1.4 mg/dL [facility] Estimated Glomerular Filt Rate >60 [facility] Comment:Chronic Kidney Disea se: Estimated GFR < 60 mL/min/1.47g0Ydgngj Kidney Disease: Estimated GFR < 15 mL/min/1.73m2 11/14/2024 7:32 AM EDT 11/14/2024 7:32 AM EDT us Generic External Data Provider LAB BLOOD ORDERAB LES Final Result Performing Organization Address [facility] Co de Phone Number [facility] [address] [place] [phone] * (ABNORMAL) ALT (11/14/2024 7:32 AM EDT) Alanine Aminotransferase 36(H) 0 - 31 U/L [facility] 11/14/2024 7:32 AM EDT 11/14/2024 7:32 AM EDT us Generic External Data Provider LAB BLOOD ORDERAB LES Final Result Performing Organization Address [facility] Phone Number [facility] [address] [place] [phone] * AST (11/14/2024 7:32 AM EDT) Aspartate Amino Transferase 27 5 - 31 U/L [facility] 11/14/2024 7:32 AM EDT 11/14/2024 7:32 AM EDT Generic External Data Provider LAB BLOOD ORDERAB LES Final Result Performing Organization Address [facility] de Phone Number [facility] [address] [place] [phone] * Albumin, Random Urine W/Creatinine (11/14/2024 7:26 AM EDT) Creatinine, Urine 280.67 mg/dL [facility] Microalbumin Urine 18.0 mg/L [facility] Microalbum Creatinine Ratio Ur 6.4 <30 ug/mg cr [facility] Comment:Albumin/Creatinine R atio Reference Ranges: Normal: < 30 ug/mg creatinine Microalbuminuria: 30 - 300 ug/mg creatinineClinical Albuminuria: > 300 ug/mg creatinine 11/14/2024 7:26 AM EDT 11/14/2024 8:16 AM EDT us Generic External Data Provider LAB URINE ORDERAB LES Final Result Performing Organization Address [facility] Co de Phone Number [facility] [address] [place] [phone] * (ABNORMAL) Hemoglobin A1c (02/22/2024 8:29 AM EST) Hemoglobin A1c 6.8(H) <6.0 % [facility] Comment:Hemoglobin A1C Refer ence Range Adults: 4.8 - 6.0 % Non diabetic: < 6.0 % Goal: < 7.0 %Additional Action Suggested: > 8.0 %Note: Hemoglobin A1c results are invalid for patients with abnormal amounts of HbF. Blood transfusions may impact the HbA1c concentration in the patient sample. Estimated Average Glucose 148 mg/dL [facility] Comment:eAG = Estimated ave rage glucose which is %A1C expressed asaverage glucose, using the formula of the S2E-PndysfzCdnbnrw Glucose study (ADAG), Diabetes Care, Vol.31,#8,Oct. 2007 Blood Venous blood specimen / Unknown 02/22/2024 8:29 AM EST 02/22/2024 8:29 AM EST us Tami Márquez MD LAB BLOOD ORDERABLES Final Re sult Performing Organization Address City/[facility]/ZIP Co de Phone Number [facility] [address] [place] [phone] * (ABNORMAL) Lipid Panel, Standard (02/22/2024 8:29 AM EST) Triglycerides 264(H) <150 mg/dL [facility] Comment:Desirable Triglyceri de: less than 150 mg/dLBorderline High Triglyceride 150-199 mg/dLHigh Triglyceride: 200-499 mg/dLVery High Triglyceride: greater than or equal to 5OO mg/dL Cholesterol 246(H) <200 mg/dL [facility] Comment:Desirable Cholestero l: less than 200 mg/dLBorderline High Cholesterol: 200-239 mg/dLHigh Cholesterol: greater than 239 mg/dL LDL Cholesterol Calculated 155(H) <100 mg/dL [facility] Comment:Desirable LDL: less than 100 mg/dLNear Optimal/Above Optimal LDL: 110- 129 mg/dLBorderline High LDL: 130-159 mg/dLHigh LDL: 160-189 mg/dLVery High LDL: greater than or equal to 190 mg/dL HDL Cholesterol 39(L) >40 mg/dL [facility] Comment:Desirable HDL: great er than 40 mg/dL Note: This HDL assay may give artificially low results in patients with liver disease. Blood Venous blood specimen / Unknown 02/22/2024 8:29 AM EST 02/22/2024 8:29 AM EST us Tami Márquez MD LAB BLOOD ORDERABLES Final Re sult [facility] [address] [place] [phone] [phone] * ThinPrep Imaging Pap and HPV mRNA E6/E7 (11/05/2023 10:30 AM EDT) HPV nRNA E6/E7 Not Detected Not Detected [facility] Comment:Methodology: Transcr iption-Mediated AmplificationThis assay detects E6/E7 viral messenger RNA (mRNA) from 14high-risk HPV types (16,18,31,33,35,39,45,51,52,56,58,59,66,68).Cervical sources are required for HPV testing.If a vaginal source from a patient who has had atotal hysterectomy with removal of cervix wassubmitted, please contact the testing laboratoryfor alternative testing options.For additional information, please refer [email or web address].[employer]/faq/SST488j7(This link if provided for information/educational purposes only.)THIS TEST WAS PERFORMED AT:[employer] [place] [phone] CAVANAUGH MD SOURCE: SEE NOTE [facility] Comment:None given Report Status: [facility] Clinical Information: SEE NOTE [facility] Comment:None given LMP: SEE NOTE [facility] Comment:NONE GIVEN Prev. PAP: SEE NOTE [facility] Comment:NONE GIVEN Prev. BX: SEE NOTE [facility] Comment:NONE GIVEN Statement Of Adequacy: SEE NOTE [facility] Comment:Satisfactory for ting luation.Endocervical/transformation zone component absent. General Categorization: [facility] Interpretation/Result: SEE NOTE [facility] Comment:Cytology Results: Ne gative for intraepitheliallesion or malignancy. Cytology Comment SEE NOTE [facility] Comment:This Pap test has be en evaluated with computerassisted technology. Hair Boiler Operator: SEE NOTE [facility] Comment:EXJ, CT(ASCP)CT Scre ening Location: [address] [address] Review Hair Boiler Operator: [facility] Pathologist [facility] PAP Infection [facility] See Note SEE NOTE [facility] Comment:EXPLANATORY NOTE:The Pap is a [...] AM EDT 11/05/2023 2:50 PM EDT Narrative [facility] - 11/08/2023 1:09 PM EDT SEE SCANNED RESULTS IN EMR us Tami Márquez MD LAB PATHOLOGY ORDERABLES Sushila bill Result [facility] [address] [place] [address] [phone] * BI Mammogram Screening Tomosynthesis Bilateral (04/09/2023 11:15 AM EST) Anatomical Region Laterality Modality Breast Bilateral Mammography 04/09/2023 11:1 5 AM EST Narrative 05/02/2023 5:35 AM EST [address] [place] [address] Mammography Report Signed Patient: Erin Krause MR#: [id number] : 1965 Acct:[id number] Age/Sex: 57 / F ADM Date: 04/09/23 Loc: HO.MAMMO Attending Dr: Tami Márquez MD Ordering Physician: Tami Márquez MD Results: 1Nega tive Date of Service: 04/09/23 Follow Up: 1 Year From Orig inal Mammogram Procedure(s): MM tomosynthesis screening BI Accession Number(s): [id number] cc: Tami Márquez MD EXAMINATION: MM SCREENING [...] in OV> 05/02/23 0531 DD/ 1115 TD/TT: Gaming Department Head: Procedure Note Donotuseinterpreter, Image - 05/02/[address] [place] [address] Mammography Report Signed Patient: Jiemy KrausenaMR#: [id number] : 1965Acct:[id number] Age/Sex: 57 / FADM Date: 04/09/23 Loc: HO.MAMMO Attending Dr: Tami Márquez MD Ordering Physician: Tami Márquez MDResults: 1Nega tive Date of Service: 04/09/23Follow Up: 1 Year From Orig inal Mammogram Procedure(s): MM tomosynthesis screening BI Accession Number(s): [id number] cc: Tami Márquez MD EXAMINATION: MM SCREENING [...] in OV> 05/02/23 0531 DD/ 1115 TD/TT: Gaming Department Head: Tami Márquez MD IMG BI PROCEDURES Final Resul t from Last 3 Months or Most Recently Relevant to Health Maintenance Insurance , [address] [place] [address] * Guarantor: Davon SharmaErin Account Type Relation to Patient Date of Phone Billing Address Personal/Family Self 40 [id number] Care Teams Casey Saw Operator Relationship Specialty Start Date End Date Tami Márquez MD [address] [place] [phone] PCP - General Family Medicine 04/28/21
--- OUTSIDE RECORDS SUMMARY | 2025-02-09 12:53 | XMS_ITS | Clinical Summary ---
Author Organization [facility] Address [address] [place] [address] Care Team Providers Care Briquette Machine Operator Helper Name Role Phone Sangeetha Horner MD Primary Care Provider [phone] Surgical History Surgery Date Site/Laterality Comments OVARIAN CYST REMOVAL 1982 N/A PROCEDURE: [place] OVARIAN CYSTECTOMY UNI/BI TUBAL LIGATION 1999 PROCEDURE: HISTORICAL TUBAL LIGATION APPENDECTOMY PROCEDURE: HISTORICAL APPENDECTOMY OTHER SURGICAL HISTORY PROCEDURE: PELVIC CONTROL PELVIC SLING OTHER SURGICAL HISTORY 2006 PROCEDURE: [place] COLECTOMY PARTIAL W/ANASTOMOSIS Medical History Medical History [...] Last Done Comments Breast Cancer Screening 1965 Colorectal Cancer Screening: Colonoscopy 1965 DTaP,Tdap,and Td Vaccines (1 - Tdap) 1984 Hepatitis B Vaccines (1 of 3 - 19+ 3-dose series) 1984 Pneumococcal Vaccine: 50+ Ye ars (1 of 2 - PCV) 1984 Cervical Cancer Screening: P ap Smear 1986 RSV Immunization Adult Patie nts (1 - Risk 50-74 years 1-dose series) 2015 Zoster Vaccines (1 of 2) 2015 Cholesterol Screening (Lipid Panel) 02/07/2022 HIV Screening 02/07/2022 Hepatitis C Screening 02/07/2022 Social Influencers of Health Screening 02/07/2022 Depression Screening 03/11/2024 COVID-19 Vaccine (1 - 2024-2 6 season) 2024 Influenza Vaccine (#1) 2024 HIB Vaccines Aged Out No longer eligi [...] age to complete this topic Care Teams Briquette Machine Operator Helper Relationship Specialty Start Date End Date Sangeetha Horner MD [facility] [address] PCP - General Internal Medicine 05/30/18
--- OUTSIDE RECORDS SUMMARY | 2025-02-09 12:54 | XMS_ITS | Encounter Summary ---
Author Organization [employer] Address [address] [facility] 7t [place] [address] Care Team Providers Care Retail Coverage Merchandiser Name Role Phone Tami Márquez MD Primary Care Provider [phone] Encounter Details Date Type Department Care Team (Late st Contact Info) Description 02/09/2025 Orders Only GENERIC EXTERNAL DATA [...] Description 04/09/2025 3:15 PM EST Office Visit [facility] MED & PEDS [address] [place] [address] Tami Márquez MD [address] [place] [address] documented as of this encounter Procedures Procedure Name Priority Date/Time Associated Diagnosis Comments GLUCOSE, WHOLE BLOOD Routine 02/09/2025 11:06 AM EST documented in this encounter Results * Glucose, Whole Blood (02/09/2025 11:06 AM EST) Glucose, Whole Blood 113 60 - 115 mg/dL [facility] Comment:METER #: [id number] 0Testing performed in the Endocrinology Department [address] , [address], [facility]. 02/09/2025 11:0 6 AM EST 02/09/2025 11:10 AM EST us Generic External Data Provider LAB BLOOD ORDERAB LES Final Result [facility] [address] [place] [phone] [phone] documented in this encounter Visit Diagnoses Not on filedocumented in this encounter Additional Health Concerns Assessment Noted Time PHQ-9 Depression Total Score: 3 02/20/20 24 10:21 AM EST documented as of this encounter Care Teams Retail Coverage Merchandiser Relationship Specialty Start Date End Date Tami Márquez MD [address] [place] [address] PCP - General Family Medicine 04/28/21 documented as of this encounter
--- OUTSIDE RECORDS SUMMARY | 2025-02-09 12:54 | XMS_ITS | Encounter Summary ---
Author Organization [facility] Address [address] [place] [address] [address] [place] [address] Care Team Providers Care Program Control Analyst Name Role Phone Tami Márquez MD Primary Care Provider [phone] Encounter Details Date Type Department Care Team (Late st Contact Info) Description 03/29/2022 Orders Only [facility] MEDIC[facility] [address] [place] [address] Mari Turner LPN Social History Tobacco Use [...] Description 04/09/2025 3:15 PM EST Office Visit [facility] MED & PEDS [address] [place] [address] Tami Márquez MD [address] [place] [address] documented as of this encounter Visit Diagnoses Not on filedocumented in this encounter Care Teams Program Control Analyst Relationship Specialty Start Date End Date Tami Márquez MD [address] [place] [address] PCP - General Family Medicine 04/28/21 documented as of this encounter
--- OUTSIDE RECORDS SUMMARY | 2025-02-09 12:54 | XMS_ITS | Encounter Summary ---
Author Organization [employer] Address [address] [facility] 7t [place] [address] Care Team Providers Care Osteopathic Medicine Teacher Name Role Phone Tami Márquez MD Primary Care Provider [phone] Encounter Details Date Type Department Care Team (Late st Contact Info) Description 01/07/2025 Orders Only [facility] MED & PEDS [address] [place], [place] [phone] Provider, MD Pedro Social History Tobacco Use Types Packs/Day Years [...] Description 04/09/2025 3:15 PM EST Office Visit [facility] MED & PEDS [address] [place], [place] [phone] Tami Márquez MD [address] [place] [address] documented as of this encounter Procedures Procedure Name Priority Date/Time Associated Diagnosis Comments MR ANKLE WO CONTRAST LEFT Routine 01/06/2025 9:36 AM EDT documented in this encounter Results * MR Ankle w/o Contrast Left (01/06/2025 9:36 AM EDT) Anatomical Region Laterality Modality Lower Extremities, Ankle Left Magneti c Resonance us Historical Provider MD MG MRI PROCEDURES Final Result documented in this encounter Visit Diagnoses Not on filedocumented in this encounter Additional Health Concerns Assessment Noted Time PHQ-9 Depression Total Score: 3 02/20/20 24 10:21 AM EST documented as of this encounter Care Teams Osteopathic Medicine Teacher Relationship Specialty Start Date End Date Tami Márquez MD [address] [place] [address] PCP - General Family Medicine 04/28/21 documented as of this encounter
--- OUTSIDE RECORDS SUMMARY | 2025-02-09 12:54 | XMS_ITS | Encounter Summary ---
Author Organization [employer] Address [address] [facility] 7t [place] [address] Care Team Providers Care Inspector Multifocal Lens Name Role Phone Tami Márquez MD Primary Care Provider [phone] Encounter Details Date Type Department Care Team (Late st Contact Info) Description 02/04/2023 Abstract [facility] MED[facility] [address] [place], [place] [phone] Linda Hill Social History Tobacco Use Types [...] Description 04/09/2025 3:15 PM EST Office Visit [facility] MED & PEDS [address] [place] [address] Tami Márquez MD [address] [place] [address] documented as of this encounter Visit Diagnoses Not on filedocumented in this encounter Additional Health Concerns Assessment Noted Time PHQ-9 Depression Total Score: 6 05/18/19 23 9:22 AM EST documented as of this encounter Care Teams Inspector Multifocal Lens Relationship Specialty Start Date End Date Tami Márquez MD [address] [place] [phone] PCP - General Family Medicine 04/28/21 documented as of this encounter
--- OUTSIDE RECORDS SUMMARY | 2025-02-09 12:54 | XMS_ITS | Encounter Summary ---
Author Organization [employer] Address [address] [facility] [address] [place] [address] Care Team Providers Care Principal Gifts Officer Name Role Phone Tami Márquez MD Primary Care Provider Reason for Visit * Reason Onset Date Comments Call Back Request 05/06/2023 Encounter Details Date Type Department Care Team ([facility] Contact Info) Description 05/06/2023 Telephone [facility] MED & PEDS [address] [place], [place] [phone] Tami Márquez MD [address] [place] [address] Call Back Request Social History Tobacco Use [...] regarding need to speak to provider regarding pharmacovigilance specialist consult 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 Scheduled pt for 05/12 at 9:30 am with PCP. Pt verbalizes understanding and agreement of plan. * Telephone Encounter - Martha Hoang - 05/06/2023 10:09 AM EST Tc from pt requesting to speak with a nurse in regards to a possible surgery. Please contact pt at [phone] documented in this encounter Plan of Treatment Upcoming Encounters Date Type Department Care Team (Late st Contact Info) Description 04/09/2025 3:15 PM EST Office Visit [facility] MED & PEDS [address] [place] [address] Tami Márquez MD [address] [place] [address] documented as of this encounter Visit Diagnoses Not on filedocumented in this encounter Additional Health Concerns Assessment Noted Time PHQ-9 Depression Total Score: 16 023 3:41 PM EST documented as of this encounter Care Teams Principal Gifts Officer Relationship Specialty Start Date End Date Tami Márquez MD [address] [place] [address] PCP - General Family Medicine 04/28/21 documented as of this encounter
== END 2025-02-09 11:31 | disposition home or self-care (01) ==
LOC: HO.ENCR 10:55
PROVIDERS: PCP Family Medicine; Visit Provider Physician Assistant Medical
DX: E11.9 Type 2 diabetes mellitus without complications (principal); R53.83 Other fatigue; E78.2 Mixed hyperlipidemia; Z13.9 Encounter for screening, unspecified

== ENCOUNTER → 2025-02-09 10:55 | Outpatient (BNVA) | payer OTHER, SELFPAY | PROVIDERS: PCP Family Medicine; Visit Provider Physician Assistant Medical | DX: E11.9 Type 2 diabetes mellitus without complications (principal); R53.83 Other fatigue; E78.2 Mixed hyperlipidemia; D64.9 Anemia, unspecified | CPT/HCPCS: 82947; 83036 ==

== ENCOUNTER 2025-02-10 08:30 | Outpatient (REF) | payer OTHER, SELFPAY ==
--- OUTSIDE RECORDS SUMMARY | 2025-02-10 08:40 | XMS_ITS | Encounter Summary ---
Author Organization [employer] Address [address] [facility] 7t [place] [address] Care Team Providers Care Mathematical Technician Name Role Phone Tami Márquez MD Primary Care Provider [phone] Encounter Details Date Type Department Care Team (Late st Contact Info) Description 01/07/2025 Orders Only [facility] MED & PEDS [address] [place], [place] [phone] Provider, MD Pedro Social History Tobacco Use [...] Description 04/09/2025 3:15 PM EST Office Visit [facility] MED & PEDS [address] [place], [place] [phone] Tami Márquez MD 505 [place] [address] documented as of this encounter Procedures Procedure [...] documented as of this encounter Care Teams Mathematical Technician Relationship Specialty Start Date End Date Tami Márquez MD [address] [place] [address] PCP - General Family Medicine 04/28/21 documented as of this encounter
--- OUTSIDE RECORDS SUMMARY | 2025-02-10 08:40 | XMS_ITS | Encounter Summary ---
Author Organization [employer] Address [address] [facility] 7t [place] [address] Care Team Providers Care Organic Chemist Name Role Phone Tami Márquez MD Primary Care Provider [phone] Reason for Visit * Reason Onset Date Comments Nurse Triage 07/19/2023 Encounter Details Date Type Department Care Team ([facility] Contact Info) Description 07/19/2023 Telephone [facility] MEDICINE [address] [place] [address] Tami Márquez MD [address] [place], [place] [phone] Nurse Triage Social History Tobacco Use Types [...] SHIRIN. Will also send this note to [facility] provider that is seeing pt. Today at [...] Description 04/09/2025 3:15 PM EST Office Visit [facility] MED & PEDS [address] [place] [address] Tami Márquez MD 505 [place] [address] documented as of this encounter Visit Diagnoses Diagnosis Type 2 diabetes mellitus with hyperglycemia, without long-term current use of insulin (HCC) documented in this encounter Additional Health Concerns Assessment Noted Time PHQ-9 Depression Total Score: 16 023 3:41 PM EST documented as of this encounter Care Teams Organic Chemist Relationship Specialty Start Date End Date Tami Márquez MD [address] [place] [address] PCP - General Family Medicine 04/28/21 documented as of this encounter
--- OUTSIDE RECORDS SUMMARY | 2025-02-10 08:40 | XMS_ITS | Encounter Summary ---
Author Organization [employer] [facility] Address [address] [place] [address] 7 [place] [address] Care Team Providers Care Religious Education Director Name Role Phone Tami Márquez MD Primary Care Provider [phone] Encounter Details Date Type Department Care Team (Late st Contact Info) Description 03/29/2022 Orders Only [facility] MEDICINE [address] [place] [address] Mari Turner LPN Social History Tobacco Use [...] Description 04/09/2025 3:15 PM EST Office Visit [facility] MED & PEDS [address] [place] [address] Tami Márquez MD 505 [place] [address] documented as of this encounter Visit Diagnoses Not on filedocumented in this encounter Care Teams Religious Education Director Relationship Specialty Start Date End Date Tami Márquez MD 230 [place] [address] PCP - General Family Medicine 04/28/21 documented as of this encounter
--- OUTSIDE RECORDS SUMMARY | 2025-02-10 08:40 | XMS_ITS | Encounter Summary ---
Author Organization [employer] Address [address] [facility] 7t [place] [address] Care Team Providers Care Tobacco Warehouse Agent Name Role Phone Tami Márquez MD Primary Care Provider [phone] Encounter Details Date Type Department Care Team (Late st Contact Info) Description 02/04/2023 Abstract [facility] MEDICINE [address] [place], [place] [phone] Linda Hill Social History Tobacco Use Types [...] Description 04/09/2025 3:15 PM EST Office Visit [facility] MED [facility] PEDS 505 [place] [address] Tami Márquez MD 505 [place] [address] documented as of this encounter Visit Diagnoses Not on filedocumented in this encounter Additional Health Concerns Assessment Noted Time PHQ-9 Depression Total Score: 6 05/18/19 23 9:22 AM EST documented as of this encounter Care Teams Tobacco Warehouse Agent Relationship Specialty Start Date End Date Tami Márquez MD [address] [place] [phone] PCP - General Family Medicine 04/28/21 documented as of this encounter
--- OUTSIDE RECORDS SUMMARY | 2025-02-10 08:40 | XMS_ITS | Encounter Summary ---
Author Organization [employer] Address [address] [facility] 7t [place] [address] Care Team Providers Care Manager Field Name Role Phone Tami Márquez MD Primary [...] Description 04/09/2025 3:15 PM EST Office Visit [facility] CH[facility] MED & PEDS [address] [place] [address] Tami Márquez MD 505 [place] [address] documented as of this encounter Procedures Procedure Name Priority Date/Time Associated Diagnosis Comments GLUCOSE, WHOLE BLOOD Routine 02/09/2025 11:06 AM EST documented in this encounter Results * Glucose, Whole Blood (02/09/2025 11:06 AM EST) Glucose, Whole Blood 113 60 - 115 mg/dL [facility] Comment:METER #: [id number] 0Testing performed in the Endocrinology Department [address] , [address], [facility]. 02/09/2025 11:0 6 AM EST 02/09/2025 11:10 AM EST us Generic External Data Provider LAB BLOOD ORDERAB LES Final Result [facility] [address] [place] [phone] [phone] documented in this encounter Visit Diagnoses Not on filedocumented in this encounter Additional Health Concerns Assessment Noted Time PHQ-9 Depression Total Score: 3 02/20/20 24 10:21 AM EST documented as of this encounter Care Teams Manager Field Relationship Specialty Start Date End Date Tami Márquez MD [address] [place] [address] PCP - General Family Medicine 04/28/21 documented as of this encounter
--- OUTSIDE RECORDS SUMMARY | 2025-02-10 08:40 | XMS_ITS | Clinical Summary ---
Author Organization [employer] Address [address] [facility] 7t [place] [address] Care Team Providers Care Office Cleaner Name Role Phone Tami Márquez MD Primary Care Provider [phone] Allergies Active Allergy Reactions Criticality Noted Date [...] 90 tablet 1 4 Active Continuous Glucose Cardiopulmonary Technician And Eeg Tech (FreeStyle Suresh 2 [place]) deviceIndications: Type 2 diabetes mellitus with hyperglycemia, [...] , Patient to reach out to [facility] team as needed, Patient to engage in OP therapy , and Patient to reach out to [facility] as needed Assessment & Plan (02/15/2023 [...] recurrent major depressive disorder, without psychotic features ([facility]) 01/23/2024 02/03/2024 Assessment & Plan (01/23/2024 [...] Health Integration Plan Internal Follow up with [facility] External OP therapy referral Patient Self Plan Patient to utilize skills provided in intervention , Patient to reach out to [facility] team as needed, Comply with medication [...] Provider, Generic External Data 01/07/2025 Orders Only [facility] MED & PEDS [address] [place] [address] Provider, MD Pedro 11/14/2024 Orders Only GENERIC [...] Description 04/09/2025 3:15 PM EST Office Visit [facility] MED & PEDS 505 [facility] [place] [place] [address] Tami Márquez MD 505 [place] [address] Health Maintenance Due Date Last Done Comments [...] URINE W/CREATININE Routine 11/14/2024 7:26 AM EDT HEMOGLOBIN A1C Routine 02/22/2024 8:29 AM EST Type 2 diabetes mellitus with hyperglycemia, without long-term current use of insulin ([facility]) LIPID PANEL, STANDARD Routine 02/22/2024 8:29 AM EST Type 2 diabetes mellitus with hyperglycemia, without long-term current use of insulin ([facility]) THINPREP IMAGING PAP AND HPV MRNA E6/E7 Routine 11/05/2023 10:30 AM EDT BI MAMMOGRAM SCREENING TOMOSYNTHESIS BILATERAL Routine 04/09/2023 11:15 AM EST Breast cancer screening by mammogram from Last 3 Months or Most Recently Relevant to Health Maintenance Results * Glucose, Whole Blood (02/09/2025 11:06 AM EST) Glucose, Whole Blood 113 60 - 115 mg/dL [facility] Comment:METER #: [id number] 0Testing performed in the Endocrinology Department [address] , [address], [facility]. 02/09/2025 11:0 6 AM EST 02/09/2025 11:10 AM EST Generic External Data Provider LAB BLOOD ORDERAB LES Final Result [facility] [address] [place] [phone] * MR Ankle w/o Contrast Left (01/06/2025 9:36 AM EDT) Anatomical Region Laterality Modality Lower Extremities, Ankle Left Magneti c Resonance Historical Provider MD MG MRI PROCEDURES Final Result * Creatinine, Serum (11/14/2024 7:32 AM EDT) Creatinine, Serum 0.74 0.5 - 1.4 mg/dL [facility] Estimated Glomerular Filt Rate >60 [facility] Comment:Chronic Kidney Disea se: Estimated GFR < 60 mL/min/1.68o9Gymqzf Kidney Disease: Estimated GFR < 15 mL/min/1.73m2 11/14/2024 7:32 AM EDT 11/14/2024 7:32 AM EDT us Generic External Data Provider LAB BLOOD ORDERAB LES Final Result Performing Organization Address [facility] Co de Phone Number [facility] [address] [place] [phone] * (ABNORMAL) ALT (11/14/2024 7:32 AM EDT) Alanine Aminotransferase 36(H) 0 - 31 U/L [facility] 11/14/2024 7:32 AM EDT 11/14/2024 7:32 AM EDT us Generic External Data Provider LAB BLOOD ORDERAB LES Final Result Performing Organization Address [facility] Co de Phone Number [facility] [address] [place] [phone] * AST (11/14/2024 7:32 AM EDT) Aspartate Amino Transferase 27 5 - 31 U/L [facility] 11/14/2024 7:32 AM EDT 11/14/2024 7:32 AM EDT us Generic External Data Provider LAB BLOOD ORDERAB LES Final Result Performing Organization Address [facility] de Phone Number [facility] [address] [place] [phone] * Albumin, Random Urine W/Creatinine (11/14/2024 7:26 AM EDT) Creatinine, Urine 280.67 mg/dL [facility] Microalbumin Urine 18.0 mg/L [facility] Microalbum Creatinine Ratio Ur 6.4 <30 ug/mg cr [facility] Comment:Albumin/Creatinine R atio Reference Ranges: Normal: < 30 ug/mg creatinine Microalbuminuria: 30 - 300 ug/mg creatinineClinical Albuminuria: > 300 ug/mg creatinine 11/14/2024 7:26 AM EDT 11/14/2024 8:16 AM EDT us Generic External Data Provider LAB URINE ORDERAB LES Final Result Performing Organization Address [facility]/ZIP Co de Phone Number [facility] [address] [place] [phone] * (ABNORMAL) Hemoglobin A1c (02/22/2024 8:29 AM EST) Hemoglobin A1c 6.8(H) <6.0 % [facility] Comment:Hemoglobin A1C Refer ence Range Adults: 4.8 - 6.0 % Non diabetic: < 6.0 % Goal: < 7.0 %Additional Action Suggested: > 8.0 %Note: Hemoglobin A1c results are invalid for patients with abnormal amounts of HbF. Blood transfusions may impact the HbA1c concentration in the patient sample. Estimated Average Glucose 148 mg/dL [facility] Comment:eAG = Estimated ave rage glucose which is %A1C expressed asaverage glucose, using the formula of the M5J-ChraddcOeclucu Glucose study (ADAG), Diabetes Care, Vol.31,#8,Oct. 2007 Blood Venous blood specimen / Unknown 02/22/2024 8:29 AM EST 02/22/2024 8:29 AM EST us Tami Márquez MD LAB BLOOD ORDERABLES Final Re sult Performing Organization Address [facility]/ZIP Co de Phone Number [facility] [address] [place] [phone] * (ABNORMAL) Lipid Panel, Standard (02/22/2024 8:29 AM EST) Triglycerides 264(H) <150 mg/dL [facility] Comment:Desirable Triglyceri de: less than 150 mg/dLBorderline High Triglyceride 150-199 mg/dLHigh Triglyceride: 200-499 mg/dLVery High Triglyceride: greater than or equal to 5OO mg/dL Cholesterol 246(H) <200 mg/dL [facility] Comment:Desirable Cholestero l: less than 200 mg/dLBorderline High Cholesterol: 200-239 mg/dLHigh Cholesterol: greater than 239 mg/dL LDL Cholesterol Calculated 155(H) <100 mg/dL [facility] Comment:Desirable LDL: less than 100 mg/dLNear Optimal/Above Optimal LDL: 110- 129 mg/dLBorderline High LDL: 130-159 mg/dLHigh LDL: 160-189 mg/dLVery High LDL: greater than or equal to 190 mg/dL HDL Cholesterol 39(L) >40 mg/dL [facility] Comment:Desirable HDL: great er than 40 mg/dL Note: This HDL assay may give artificially low results in patients with liver disease. Blood Venous blood specimen / Unknown 02/22/2024 8:29 AM EST 02/22/2024 8:29 AM EST us Tami Márquez MD LAB BLOOD ORDERABLES Final Re sult [facility] [address] [place] [address] [phone] * ThinPrep Imaging Pap and HPV mRNA E6/E7 (11/05/2023 10:30 AM EDT) HPV nRNA E6/E7 Not Detected Not Detected [facility] Comment:Methodology: Transcr iption-Mediated AmplificationThis assay detects E6/E7 viral messenger RNA (mRNA) from 14high-risk HPV types (16,18,31,33,35,39,45,51,52,56,58,59,66,68).Cervical sources are required for HPV testing.If a vaginal source from a patient who has had atotal hysterectomy with removal of cervix wassubmitted, please contact the testing laboratoryfor alternative testing options.For additional information, please refer [email or web address]/faq/UVE817l4(This link if provided for information/educational purposes only.)THIS TEST WAS PERFORMED AT:[facility] [place] [phone] CAVANAUGH MD SOURCE: SEE NOTE [facility] Comment:None given Report Status: TNP [facility] Clinical Information: SEE NOTE [facility] Comment:None given LMP: SEE NOTE [facility] Comment:NONE GIVEN Prev. PAP: SEE NOTE [facility] Comment:NONE GIVEN Prev. BX: SEE NOTE [facility] Comment:NONE GIVEN Statement Of Adequacy: SEE NOTE [facility] Comment:Satisfactory for ting luation.Endocervical/transformation zone component absent. General Categorization: [facility] Interpretation/Result: SEE NOTE [facility] Comment:Cytology Results: Ne gative for intraepitheliallesion or malignancy. Cytology Comment SEE NOTE [facility] Comment:This Pap test has be en evaluated with computerassisted technology. Production Zone Leader: SEE NOTE [facility] Comment:EXJ, CT(ASCP)CT Scre ening Location: [place] [address] Review Production Zone Leader: [facility] Pathologist [facility] PAP Infection [facility] See Note SEE NOTE [facility] Comment:EXPLANATORY NOTE:The Pap is a [...] AM EDT 11/05/2023 2:50 PM EDT Narrative [facility] - 11/08/2023 1:09 PM EDT SEE SCANNED RESULTS IN EMR us Tami Márquez MD LAB PATHOLOGY ORDERABLES Sushila bill Result [facility] [address] [place] [phone] [phone] * BI Mammogram Screening Tomosynthesis Bilateral (04/09/2023 11:15 AM EST) Anatomical Region Laterality Modality Breast Bilateral Mammography 04/09/2023 11:1 5 AM EST Narrative 05/02/2023 5:35 AM EST [facility] [address] [place] [address] [place] [address] Mammography Report Signed Patient: Erin Krause MR#: [id number] : 1965 Acct:[id number] Age/Sex: 57 / F ADM Date: 04/09/23 Loc: [facility] Attending Dr: Tami Márquez MD Ordering Physician: Tami Márquez MD Results: 1Nega tive Date of Service: 04/09/23 Follow Up: 1 Year From Orig inal Mammogram Procedure(s): MM tomosynthesis screening BI Accession Number(s): [id number] cc: Tami Márquez MD EXAMINATION: MM SCREENING [...] in OV> 05/02/23 0531 DD/ 1115 TD/TT: Glove Turner And Former: Procedure Note Donotuseinterpreter, Image - 05/02/2023 [facility] [address] [place] [address] Mammography Report Signed Patient: Jeimy KrausenaMR#: [id number] : 1965Acct:[id number] Age/Sex: 57 / FADM Date: 04/09/23 Loc: HO.MAMMO Attending Dr: Tami Márquez MD Ordering Physician: Tami Márquez MDResults: 1Nega tive Date of Service: 04/09/23Follow Up: 1 Year From Orig inal Mammogram Procedure(s): MM tomosynthesis screening BI Accession Number(s): [id number] cc: Tami Márquez MD EXAMINATION: MM SCREENING [...] in OV> 05/02/23 0531 DD/ 1115 TD/TT: Glove Turner And Former: Tami Márquez MD IMG BI PROCEDURES Final Resul t from Last 3 Months or Most Recently Relevant to Health Maintenance Insurance [facility] Care Teams Office Cleaner Relationship Specialty Start Date End Date Tami Márquez MD [address] [place] [phone] PCP - General Family Medicine 04/28/21
--- OUTSIDE RECORDS SUMMARY | 2025-02-10 08:40 | XMS_ITS | Encounter Summary ---
Author Organization [employer] Address [address] [facility] 7 [place] [address] Care Team Providers Care Corporate Staff Accountant Name Role Phone Tami Márquez MD Primary Care Provider [phone] Reason for Visit * Reason Onset Date Comments Call Back Request 05/06/2023 Encounter Details Date Type Department Care Team ([facility] Contact Info) Description 05/06/2023 Telephone [facility] MED & PEDS [address] [place], [place] [phone] Tami Márquez MD [address] [place] [address] Call Back Request Social History Tobacco Use [...] regarding need to speak to provider regarding undercar specialist consult 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 Scheduled pt for 05/12 at 9:30 am with PCP. Pt verbalizes understanding and agreement of plan. * Telephone Encounter - Martha Hoang - 05/06/2023 10:09 AM EST Tc from pt requesting to speak with a nurse in regards to a possible surgery. Please contact pt at [phone] documented in this encounter Plan of Treatment Upcoming Encounters Date Type Department Care Team (Late st Contact Info) Description 04/09/2025 3:15 PM EST Office Visit [facility] MED & PEDS [address] [place] [address] Tami Márquez MD [address] [place] [address] documented as of this encounter Visit Diagnoses Not on filedocumented in this encounter Additional Health Concerns Assessment Noted Time PHQ-9 Depression Total Score: 16 023 3:41 PM EST documented as of this encounter Care Teams Corporate Staff Accountant Relationship Specialty Start Date End Date Tami Márquez MD [address] [place] [address] PCP - General Family Medicine 04/28/21 documented as of this encounter
--- OUTSIDE RECORDS SUMMARY | 2025-02-10 08:40 | XMS_ITS | Encounter Summary ---
Author Organization [employer] Address [address] [place] [address] 7 [place] [address] Care Team Providers Care Senior Software Quality Analyst Name Role Phone Tami Márquez MD Primary Care Provider [phone] Reason for Visit * Reason Onset Date Comments Med Refill 10/21/2023 Encounter Details Date Type Department Care Team ([facility] st Contact Info) Description 10/21/2023 Refill [facility] MED & PEDS [address] [place], [place] [phone] Tami Márquez MD [address] [place] [address] Neck pain, chronic Social History Tobacco Use [...] [facility] MED & PEDS [address] [place] [address] Tami Márquez MD [address] [place] [address] documented as of this encounter Visit Diagnoses Diagnosis Neck pain, chronic documented in this encounter Additional Health Concerns Assessment Noted Time PHQ-9 Depression Total Score: 16 023 3:41 PM EST documented as of this encounter Care Teams Senior Software Quality Analyst Relationship Specialty Start Date End Date Tami Márquez MD [address] [place] [address] PCP - General Family Medicine 04/28/21 documented as of this encounter
--- OUTSIDE RECORDS SUMMARY | 2025-02-10 08:40 | XMS_ITS | Encounter Summary ---
Author Organization [employer] Address [address] [facility] 7t [place] [address] Care Team Providers Care Credit Card Clerk Name Role Phone Tami Márquez MD Primary Care Provider [phone] Reason for Visit * Reason Comments Med Refill Encounter Details Date Type Department Care Team ([facility] Contact Info) Description 01/17/2024 Refill [facility] MED & PEDS [address] [place] [address] Tami Márquez MD [address] [place] [address] Mixed hyperlipidemia Social History Tobacco Use Types [...] [facility] MED & PEDS [address] [place] [address] Tami Márquez MD [address] [place] [address] documented as of this encounter Visit Diagnoses Diagnosis Mixed hyperlipidemia documented in this encounter Additional Health Concerns Assessment Noted Time PHQ-9 Depression Total Score: 16 023 3:41 PM EST documented as of this encounter Care Teams Credit Card Clerk Relationship Specialty Start Date End Date Tami Márquez MD [address] [place] [address] PCP - General Family Medicine 04/28/21 documented as of this encounter
--- OUTSIDE RECORDS SUMMARY | 2025-02-10 08:40 | XMS_ITS | Clinical Summary ---
Author Organization [facility] Address [address] [place] [address] Care Team Providers Care Tin Assorter Name Role Phone Sangeetha Hroner MD Primary Care Provider [phone] Surgical History Surgery Date Site/Laterality Comments OVARIAN CYST REMOVAL 1982 N/A PROCEDURE: [place] OVARIAN CYSTECTOMY UNI/BI TUBAL LIGATION 1999 PROCEDURE: HISTORICAL TUBAL LIGATION APPENDECTOMY PROCEDURE: HISTORICAL APPENDECTOMY OTHER SURGICAL HISTORY PROCEDURE: PELVIC CONTROL PELVIC SLING OTHER SURGICAL HISTORY 2006 PROCEDURE: GA COLECTOMY PARTIAL W/ANASTOMOSIS Medical History Medical History [...] age to complete this topic Care Teams Tin Assorter Relationship Specialty Start Date End Date Sangeetha Horner MD [facility] [address] PCP - General Internal Medicine 05/30/18
[2025-02-10 09:18] LABS: Hematocrit 41.1 % (37.0-47.0); Hemoglobin 13.3 g/dl (12.0-16.0); Mean Corpuscular HGB Conc 32.4 g/dl (31.0-35.0); Mean Corpuscular Hemoglobin 28.3 pg (27.0-33.0); Mean Corpuscular Volume 87.4 fL (80.0-98.0); NRBC Abs Auto 0.000 X10*3/uL (0.0-0.012); NRBC Pct Auto 0.0 /100WBC (0.0-0.2); Platelet Count 321 X10*3/uL (160-400); Red Blood Count 4.70 X10*6/uL (4.20-5.50); White Blood Count 6.7 X10*3/uL (4.8-10.8)
[2025-02-10 10:07] LABS: Alanine Aminotransferase 44 U/L (0-31); Albumin Level 4.3 g/dL (3.5-5.0); Alkaline Phosphatase 122 U/L (39-117); Anion Gap 12 (12-20); Aspartate Amino Transferase 36 U/L (5-31); Blood Urea Nitrogen 10 mg/dL (9-16); Calcium 9.7 mg/dL (8.4-10.2); Carbon Dioxide 24 mmol/L (22-29); Chloride 107 mmol/L (96-108); Estimated Glomerular Filt Rate > 60; Iron 70 mcg/dL (30-160); Percent Iron Saturation 24 % (15-50); Potassium 4.0 mmol/L (3.3-5.1); Sodium 139 mmol/L (135-145); Total Iron Binding Capacity 294 mcg/dL (228-428); Total Protein 7.0 g/dL (6.5-8.0); Unsaturated Iron Binding 224 ug/dL
[2025-02-10 10:17] LABS: Folate 9.0 ng/mL (> or = 4.0); Vitamin B12 1500 pg/mL (200-900)
[2025-02-15 06:33] LABS: Vitamin D 25-OH, D2 <4 ng/mL; Vitamin D 25-OH, D3 28 ng/mL; Vitamin D 25-OH, Total 28 ng/mL (30-100)
== END 2025-02-10 08:31 | disposition home or self-care (01) ==
LOC: HO.LAB 08:30
PROVIDERS: PCP Family Medicine; Visit Provider Physician Assistant Medical
DX: E11.9 Type 2 diabetes mellitus without complications (principal); D64.9 Anemia, unspecified; R53.83 Other fatigue
CPT/HCPCS: 36415; 80053; 82306; 82607; 82746; 83540; 84443; 85027